=== PATIENT | male | born 1940 | race Caucasian/White ===

== ENCOUNTER → 2016-07-30 | Outpatient (CLI) | payer OTHER ==
[~2016-07-30] MED LIST: ALBUAER INH; AMOX875T PO; ASPEC81 PO; ATOR-22 PO; ATOR-24 PO; CLOP1TAB15 PO; GABA-113 PO; HYDR-5688 PO; LISI40TA PO; METH-1305 PO; METO50TA7 PO; MOME200A INH; NTRGSL/4 UT; PRLSR20 PO; TAMS0.4C38 PO
[2016-07-30 10:32] LABS: HEMATOCRIT 36.5 % (42-52); MEAN CELL VOLUME 93.6 fL (80-100); MEAN CORPUSCULAR HEMOGLOBIN 33.6 pg (25-34); MEAN CORPUSCULAR HGB CONC 35.9 g/dl (32-36); MEAN PLATELET VOLUME 10.1 fL (7.4-10.4); PLATELET COUNT 263 K/uL (130-400); WHITE BLOOD COUNT 7.23 K/uL (4.8-10.8)
[2016-07-30 11:06] LABS: ALKALINE PHOSPHATASE 66 U/L (45-117); ALT/SGPT 16 U/L (12-78); AST/SGOT 20 U/L (15-37); BLOOD UREA NITROGEN 21 mg/dl (7-18); BUN/CREATININE RATIO 13.3 (10-20); CALCIUM 8.6 mg/dl (8.5-10.1); CARBON DIOXIDE 28 mmol/L (21-32); CHLORIDE 96 mmol/L (98-107); CHOLESTEROL 132 mg/dl (0-200); CHOLESTEROL/HDL RATIO 2.3; GLUCOSE 89 mg/dl (70-99); HDL CHOLESTEROL 58 mg/dl; SODIUM 129 mmol/L (136-145)
[2016-07-30 11:11] LABS: LDL CHOLESTEROL CALCULATED 64 mg/dl; PHOSPHORUS 3.1 mg/dl (2.5-4.9); TRIGLYCERIDES 52 mg/dl (0-150); VERY LOW DENSITY LIPOPROT CALC 10 mg/dl
== END | disposition home or self-care (01) ==
LOC: C.LAB1850 09:49
PROVIDERS: ATTEND Internal Medicine Nephrology
DX: Z00.00 Encounter for general adult medical examination without abnormal findings (principal); N40.1 Benign prostatic hyperplasia with lower urinary tract symptoms; R97.20 Elevated prostate specific antigen [PSA]; R53.83 Other fatigue; N18.3 Chronic kidney disease, stage 3 (moderate)

== ENCOUNTER → 2017-03-12 | Outpatient (CLI) | payer OTHER ==
[~2017-03-12] MED LIST changes: +AMLO5TAB3 PO; +AMOX1TAB42 PO; +ASPI81TA28 PO; +ATOR-26 PO; +FLNIN; +FLUT0.15 INTNAS; +FURO-85 PO; +LISI-726 PO; +METO25TA3 PO; -METO50TA7 PO; +METO50TA8 PO; +NITR1CAP33 PO; +SYMIN160 INH; +VICODIN PO
--- NOTE | 2017-03-12 09:45 | DIAGNOSTIC IMAGING REPORT ---
ULTRASOUND OF THE ABDOMINAL AORTA CLINICAL HISTORY: Abdominal aortic aneurysm. COMPARISON STUDY: Ultrasound of the abdominal aorta dated 11/04/2012. TECHNIQUE: Multiple tejada scale, color Doppler, and spectral Doppler sonograms of the abdominal aorta and iliac arteries are performed. Images are reviewed in the transverse and longitudinal planes. FINDINGS: There is moderate to advanced atherosclerotic calcification and irregularity noted throughout the abdominal aorta. The proximal abdominal aorta measures 2.8 x 2.3 cm (AP times transverse) and the mid abdominal aorta measures 2.5 x 2.4 cm. There is a small aneurysm of the distal abdominal aorta. This measures 3.1 x 3.3 cm. The right common iliac artery measures up to 2.0 cm and the left common iliac artery measures up to 1.2 cm. Flow is shown throughout the abdominal aorta. IMPRESSION: 1. There is a 3.1 x 3.3 cm aneurysm of the distal abdominal aorta as above. This is overall similar to the 2013 examination when it measured 3.1 x 3.6 cm. 2. 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 Electronically signed by: Momo Donnelly M.D. 03/12/2017 9:44 AM Dictated Date/Time: 03/12/2017 9:42 AM
[2017-03-12 10:07] LABS: ALBUMIN 3.4 gm/dl (3.4-5.0); BLOOD UREA NITROGEN 18 mg/dl (7-18); CALCIUM 9.1 mg/dl (8.5-10.1); CARBON DIOXIDE 27 mmol/L (21-32); CREATININE 1.58 mg/dl (0.60-1.40); GLUCOSE 86 mg/dl (70-99); POTASSIUM 4.4 mmol/L (3.5-5.1); SODIUM 130 mmol/L (136-145)
[2017-03-12 10:12] LABS: PHOSPHORUS 2.9 mg/dl (2.5-4.9)
== END | disposition home or self-care (01) ==
LOC: C.ULTR 08:29
PROVIDERS: ATTEND Physician Assistant
DX: N40.1 Benign prostatic hyperplasia with lower urinary tract symptoms (principal); N18.3 Chronic kidney disease, stage 3 (moderate); I71.4 Abdominal aortic aneurysm, without rupture; I72.3 Aneurysm of iliac artery

== ENCOUNTER 2017-03-25 11:15 | Observation (INO) | payer OTHER ==
[~2017-03-25] VITALS: Ht 167.6 cm; Wt 69.2 kg
[~2017-03-25 11:15] MED LIST changes: -AMLO5TAB3 PO; -AMOX1TAB42 PO; -ASPI81TA28 PO; -ATOR-26 PO; -FLNIN; -FLUT0.15 INTNAS; -FURO-85 PO; -LISI-726 PO; -METO25TA3 PO; +METO50TA7 PO; -METO50TA8 PO; -NITR1CAP33 PO; -SYMIN160 INH; -VICODIN PO
[2017-03-25] MEDS ORDERED: ASPI81TA28 PO (11:39)
[2017-03-25] MEDS ORDERED: SYMIN160 INH (11:39)
[2017-03-25] MEDS ORDERED: METO25TA3 PO (11:39)
[2017-03-25] MEDS ORDERED: AMLO-110 PO (11:39)
[2017-03-25] MEDS ORDERED: ATOR-26 PO (11:39)
[2017-03-25] MEDS ORDERED: FURO-85 PO (11:39)
[2017-03-25] MEDS ORDERED: SODIUM CHLORIDE 0.9% 1000ML 1,000 ML IV ONE (11:49)
[2017-03-25 12:43] LABS: BASO % 0.2 %; BASO ABS # 0.02 K/uL (0-0.2); EOS % 1.8 %; EOS ABS # 0.17 K/uL (0-0.5); HEMATOCRIT 38.3 % (42-52); HEMOGLOBIN 13.4 g/dL (14.0-18.0); IG# 0.04 K/uL (0.00-0.02); LYMPH % 14.9 %; LYMPH ABS # 1.41 K/uL (1.2-3.4); MEAN CORPUSCULAR HEMOGLOBIN 33.3 pg (25-34); MEAN PLATELET VOLUME 10.7 fL (7.4-10.4); MONO % 12.1 %; MONO ABS # 1.15 K/uL (0.11-0.59); NEUT % 70.6 %; NEUT ABS # 6.69 K/uL (1.4-6.5); PLATELET COUNT 325 K/uL (130-400); RED CELL DISTRIBUTION WIDTH CV 13.3 % (11.5-14.5); RED CELL DISTRIBUTION WIDTH SD 46.2 fL (36.4-46.3); WHITE BLOOD COUNT 9.48 K/uL (4.8-10.8)
--- NOTE | 2017-03-25 12:44 | DIAGNOSTIC IMAGING REPORT ---
CT SCAN OF THE BRAIN WITHOUT IV CONTRAST CLINICAL HISTORY: Headache and dizziness. COMPARISON STUDY: No priors. TECHNIQUE: Unenhanced axial CT scan of the brain is performed from the vertex to the skull base. A dose lowering technique was utilized adhering to the principles of ALARA. CT DOSE: 614.27 mGy.cm FINDINGS: Brain parenchyma: There are age-related involutional changes noting moderate confluent subcortical and periventricular microangiopathic change. A tiny chronic lacunar infarct is seen in the left caudate head. There is no hemorrhage, mass effect, or evidence of acute territorial ischemia by CT criteria. Midd[place]-white matter is preserved. No extra-axial fluid collection is seen. Ventricles, sulci, cisterns: Prominent secondary to involutional change. Intracranial vasculature: There is atherosclerotic calcification of the cavernous carotid and vertebral arteries. Calvarium: Unremarkable. Sinuses and mastoids: There is complete opacification of the right maxillary antrum. Moderate to advanced mucosal thickening is seen throughout the ethmoid sinuses. Milder mucosal thickening seen within the frontal, left sphenoid, and left maxillary sinuses. The mastoid air cells are well pneumatized. Orbits: The bony orbits are grossly intact. There is evidence of bilateral ocular lens surgery. IMPRESSION: 1. There is no hemorrhage, mass effect, or evidence of acute territorial ischemia by CT criteria. 2. Paranasal sinus disease as above. Correlate clinically for evidence of acute sinusitis. Electronically signed by: Momo Donnelly M.D. 03/25/2017 12:42 PM Dictated Date/Time: 03/25/2017 12:40 PM
[2017-03-25] MEDS ORDERED: VANCOMYCIN INJ 1,000 MG in SODIUM CHLORIDE 0.9% 250ML 250 ML IV STA (12:49)
[2017-03-25] MEDS ORDERED: CEFTRIAXONE SOD INJ 1 GM ADDVIAL IV STA (12:49)
[2017-03-25] MEDS ORDERED: SODIUM CHLORIDE 0.65% NA SOLN 45 ML (OCEAN) ONE (13:00)
[2017-03-25 13:04] LABS: ALBUMIN 2.9 gm/dl (3.4-5.0); ALT/SGPT 16 U/L (12-78); AST/SGOT 17 U/L (15-37); BLOOD UREA NITROGEN 22 mg/dl (7-18); CALCIUM 8.9 mg/dl (8.5-10.1); CARBON DIOXIDE 24 mmol/L (21-32); GLUCOSE 115 mg/dl (70-99); POTASSIUM 4.9 mmol/L (3.5-5.1); SODIUM 133 mmol/L (136-145)
[2017-03-25 13:05] LABS: INFLUENZA B ANTIGEN Neg for Influ B (NEG)
[2017-03-25 13:08] LABS: ALKALINE PHOSPHATASE 65 U/L (45-117); CKMB 0.8 ng/ml (0.5-3.6); TOTAL PROTEIN 7.3 gm/dl (6.4-8.2)
[2017-03-25 13:23] LABS: PTT PATIENT 27.3 SECONDS (21.0-31.0)
[2017-03-25] MEDS ORDERED: NITROGLYCERIN 0.4 MG SL PER TAB CHARGE UT SCH (14:15)
[2017-03-25] MEDS ORDERED: ACETAMINOPHEN 325 MG TAB PO PRN (14:15)
[2017-03-25] MEDS ORDERED: ALBUTEROL HFA 8 GM INHALER INH PRN (14:15)
[2017-03-25] MEDS ORDERED: ONDANSETRON INJ 2 MG/ML 2 ML VIAL IV PRN (14:15)
[2017-03-25] MEDS ORDERED: LSN20 PO (14:19)
--- NOTE | 2017-03-25 14:21 | DIAGNOSTIC IMAGING REPORT ---
SINGLE VIEW CHEST CLINICAL HISTORY: Sepsis. FINDINGS: An AP, portable, upright chest radiograph is compared to study dated 12/13/2015 and correlated with chest CT dated 11/06/2014. The examination is degraded by portable technique and patient rotation. The patient is status post midline sternotomy. The heart is enlarged and there is atherosclerotic calcification of the thoracic aorta. Emphysema and chronic interstitial thickening are similar to previous. Numerous calcified granulomas are unchanged. There is no evidence of superimposed airspace consolidation or large pleural effusion. No pneumothorax is seen. The skeletal structures are osteopenic. The bony thorax is grossly intact. IMPRESSION: 1. Cardiomegaly and emphysema. 2. There is no acute cardiopulmonary abnormality. 3. Numerous calcified granulomas are similar to previous. Electronically signed by: Momo Donnelly M.D. 03/25/2017 2:19 PM Dictated Date/Time: 03/25/2017 2:18 PM
--- NOTE | 2017-03-25 14:30 | History and Physical ---
History & Physical Date & Time of Service: Mar 25, 2017 at 14:13 Chief Complaint: Weak,No Apetie,Tariq Primary Care Physician: Raheem Roque M.D. History of Present Illness Source: patient, family, clinic records, hospital records This is a 76 year old male with a PMH of CAD s/p CABGx5, HTN, HLD, CKD stage 3, BPH, urinary stricture and ongoing intermittent straight cath, COPD, polymyalgia rheumatica presents with sinus pressure, upper respiratory issues - and as per , he was also confused and not making sense when she spoke. History obtained from both the patient and the patient's . He is not very confused currently, knows his name, , knows where he is and states he does not recall being confused. He tells me he had sinus symptoms for over 3 weeks including sinus pressure/congestion/runny nose with some dizziness. Denies fevers/chills. Denies shortness of breath or cough. states that the only change in medication was Lisinopril decreased to 20mg from 40mg. She states that he has not been eating properly and she thought he was dehydrated. Had a few episodes of confusion in the past, in November 2015 - he was slightly confused and at that time, it was attributed to polypharmacy. Patient takes hydrocodone for chronic back pain, but states he only takes 1-2 tablets per day and at times even less than that. Denies chest pain. Past Medical/Surgical History Medical Problems: (1) DJD (degenerative joint disease) Status: Chronic (2) Heart disease Status: Chronic (3) Hypertension Status: Chronic Surgical Problems: (1) S/P quintuple vessel bypass Status: Resolved Family History Heart disease Social History Smoking Status: Former Smoker Marital Status: Occupational Status: retired Immunizations History of Influenza Vaccine: N/A History of Tetanus Vaccine?: No History of Pneumococcal: Yes Pneumococcal Date: Nov 17, 2005 History of Hepatitis B Vaccine: No Multi-Drug Resistant Organisms History of MDRO: No Allergies Coded Allergies: NO KNOWN DRUG ALLERGIES (Verified Allergy, Unknown, NONE, 12/13/15) Cyclobenzaprine (Unverified Adverse Reaction, Unknown, ., 03/25/17) Home Medications Scheduled Amlodipine (Norvasc), 5 MG PO DAILY Aspirin (Aspirin Ec), 81 MG PO DAILY Atorvastatin (Lipitor), 80 MG PO DAILY Budesonide/Formoterol Fumarate (Symbicort 160/4.5 Inhaler ), 2 PUFFS INH BID Clopidogrel (Plavix), 75 MG PO DAILY Furosemide (Lasix), 20 MG PO UD Gabapentin (Neurontin), 300 MG PO TID Lisinopril (Lisinopril), 20 MG PO DAILY Methenamine Hippurate (Methenamine Hippurate), 1 GM PO QPM Metoprolol Succ (Toprol Xl) (Toprol-Xl), 25 MG PO DAILY Nitroglycerin (Nitrostat), 0.4 MG UT PRN Omeprazole (Prilosec), 20 MG PO DAILY Tamsulosin Hcl (Flomax), 0.4 MG PO DAILY Scheduled PRN Albuterol Sulfate (Proventil Hfa), 2 PUFFS INH Q4H PRN for Shortness of Breath Review of Systems Constitutional: No fever, No chills, No weakness Eyes: No worsening of vision, No eye pain, No discharge ENT: + nasal symptoms, No hearing loss, No unusual epistaxis, No sore throat, No tinnitus, No dental problems, No trouble swallowing Respiratory: No cough, No sputum, No wheezing, No shortness of breath, No dyspnea on exertion, No dyspnea at rest, No hemoptysis Cardiovascular: No chest pain, No orthopnea, No edema, No palpitations Abdomen: No pain, No nausea, No vomiting, No diarrhea, No constipation, No GI bleeding Musculoskeletal: + joint pain (chronic back pain) Genitourinary - Male: + urinary retention (chronic urinary retention), No hematuria, No dysuria, No urinary frequency, No urinary urgency Neurologic: + vertigo, No weakness, No numbness/tingling, No balance problems Psychiatric: No depression symptoms, No anxiety, No insomnia Endocrine: No fatigue Hematologic / Lymphatic: No abnormal bleeding/bruising Integumentary: No rash, No new/changing skin lesions Allergic / Immunologic: No environmental allergies, No seasonal allergies Physical Exam Vital Signs Date Time Temp Pulse Resp B/P (MAP) Pulse Ox O2 Delivery O2 Flow Rate FiO2 03/25/17 13:26 63 20 98/60 92 Room Air 03/25/17 11:45 71 03/25/17 11:39 93 Room Air 03/25/17 11:19 36.7 88 20 82/54 97 Room Air General Appearance: WD/WN, no apparent distress Head: normocephalic, atraumatic Eyes: normal inspection ENT: hearing grossly normal Neck: supple Respiratory/Chest: chest non-tender, lungs clear, normal breath sounds, no respiratory distress, no accessory muscle use Cardiovascular: regular rate, rhythm, no edema, no gallop, no JVD, no murmur, normal peripheral pulses Abdomen/GI: normal bowel sounds, non tender, soft Genitourinary - Male: normal male genitalia, normal phallus Back: + pertinent finding (painful ROM) Extremities/Musculoskelatal: normal capillary refill, no pedal edema Neurologic/Psych: 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, no motor/sensory deficits, alert, normal mood/affect, oriented x 3 Skin: normal color Lymphatic: no adenopathy Diagnostics Laboratory Results Results Past 24 Hours Test 03/25/17 00:00 03/25/17 12:10 03/25/17 12:29 03/25/17 13:02 Range/Units Influenza Type A Antigen Neg for Influ A NEG Influenza Type B Antigen Neg for Influ B NEG White Blood Count 9.48 4.8-10.8 K/uL Red Blood Count 4.03 4.7-6.1 M/uL Hemoglobin 13.4 14.0-18.0 g/dL Hematocrit 38.3 42-52 % Mean Corpuscular Volume 95.0 80-100 fL Mean Corpuscular Hemoglobin 33.3 25-34 pg Mean Corpuscular Hemoglobin Concent 35.0 32-36 g/dl Platelet Count 325 130-400 K/uL Mean Platelet Volume 10.7 7.4-10.4 fL Neutrophils (%) (Auto) 70.6 % Lymphocytes (%) (Auto) 14.9 % Monocytes (%) (Auto) 12.1 % Eosinophils (%) (Auto) 1.8 % Basophils (%) (Auto) 0.2 % Neutrophils # (Auto) 6.69 1.4-6.5 K/uL Lymphocytes # (Auto) 1.41 1.2-3.4 K/uL Monocytes # (Auto) 1.15 0.11-0.59 K/uL Eosinophils # (Auto) 0.17 0-0.5 K/uL Basophils # (Auto) 0.02 0-0.2 K/uL RDW Standard Deviation 46.2 36.4-46.3 fL RDW Coefficient of Variation 13.3 11.5-14.5 % Immature Granulocyte % (Auto) 0.4 % Immature Granulocyte # (Auto) 0.04 0.00-0.02 K/uL Sodium Level 133 136-145 mmol/L Potassium Level 4.9 3.5-5.1 mmol/L Chloride Level 101 98-107 mmol/L Carbon Dioxide Level 24 21-32 mmol/L Anion Gap 8.0 3-11 mmol/L Blood Urea Nitrogen 22 7-18 mg/dl Creatinine 1.70 0.60-1.40 mg/dl Estimated GFR () 44.4 Estimated GFR (Non- 38.3 BUN/Creatinine Ratio 12.9 10-20 Random Glucose 115 70-99 mg/dl Calcium Level 8.9 8.5-10.1 mg/dl Total Bilirubin 0.6 0.2-1 mg/dl Aspartate Amino Transf (AST/SGOT) 17 15-37 U/L Alanine Aminotransferase (ALT/SGPT) 16 12-78 U/L Alkaline Phosphatase 65 45-117 U/L Total Creatine Kinase 45 39-308 U/L Creatine Kinase MB 0.8 0.5-3.6 ng/ml Creatine Kinase MB Ratio 1.8 0-3.0 Troponin I < 0.015 0-0.045 ng/ml Total Protein 7.3 6.4-8.2 gm/dl Albumin 2.9 3.4-5.0 gm/dl Globulin 4.4 2.5-4.0 gm/dl Albumin/Globulin Ratio 0.7 0.9-2 Procalcitonin < 0.05 0-0.5 ng/ml Bedside Lactic Acid Venous 1.65 0.90-1.70 mmol/L Prothrombin Time 10.7 9.0-12.0 SECONDS Prothromb Time International Ratio 1.0 0.9-1.1 Activated Partial Thromboplast Time 27.3 21.0-31.0 SECONDS Partial Thromboplastin Ratio 1.1 Microbiology Results 03/25/17 Blood Culture, Received Pending 03/25/17 Blood Culture, Received Pending Diagnostic Radiology SINGLE VIEW CHEST CLINICAL HISTORY: Sepsis. FINDINGS: An AP, portable, upright chest radiograph is compared to study dated 12/13/2015 and correlated with chest CT dated 11/06/2014. The examination is degraded by portable technique and patient rotation. The patient is status post midline sternotomy. The heart is enlarged and there is atherosclerotic calcification of the thoracic aorta. Emphysema and chronic interstitial thickening are similar to previous. Numerous calcified granulomas are unchanged. There is no evidence of superimposed airspace consolidation or large pleural effusion. No pneumothorax is seen. The skeletal structures are osteopenic. The bony thorax is grossly intact. IMPRESSION: 1. Cardiomegaly and emphysema. 2. There is no acute cardiopulmonary abnormality. 3. Numerous calcified granulomas are similar to previous. CT SCAN OF THE BRAIN WITHOUT IV CONTRAST CLINICAL HISTORY: Headache and dizziness. COMPARISON STUDY: No priors. TECHNIQUE: Unenhanced axial CT scan of the brain is performed from the vertex to the skull base. A dose lowering technique was utilized adhering to the principles of ALARA. CT DOSE: 614.27 mGy.cm FINDINGS: Brain parenchyma: There are age-related involutional changes noting moderate confluent subcortical and periventricular microangiopathic change. A tiny chronic lacunar infarct is seen in the left caudate head. There is no hemorrhage, mass effect, or evidence of acute territorial ischemia by CT criteria. [place]-white matter is preserved. No extra-axial fluid collection is seen. Ventricles, sulci, cisterns: Prominent secondary to involutional change. Intracranial vasculature: There is atherosclerotic calcification of the cavernous carotid and vertebral arteries. Calvarium: Unremarkable. Sinuses and mastoids: There is complete opacification of the right maxillary antrum. Moderate to advanced mucosal thickening is seen throughout the ethmoid sinuses. Milder mucosal thickening seen within the frontal, left sphenoid, and left maxillary sinuses. The mastoid air cells are well pneumatized. Orbits: The bony orbits are grossly intact. There is evidence of bilateral ocular lens surgery. IMPRESSION: 1. There is no hemorrhage, mass effect, or evidence of acute territorial ischemia by CT criteria. 2. Paranasal sinus disease as above. Correlate clinically for evidence of acute sinusitis. EKG Sinus rhythm with occasional Premature ventricular complexes Left axis deviation Impression Assessment and Plan This is a 76 year old male with a PMH of CAD s/p CABGx5, HTN, HLD, CKD stage 3, BPH, urinary stricture and ongoing intermittent straight cath, COPD, polymyalgia rheumatica presents with sinus pressure, upper respiratory issues - and as per , he was also confused Altered Mental State clinically improving during my exam, he is AAOx3 symptoms likely a combination of polypharmacy, acute sinusitis, dehydration Head CT with no acute intracranial issues; shows paranasal sinusitis monitor overnight cultures pending PT/OT - discharge planning eval Acute Paranasal Sinusitis patient with sinusitis will add Flonase Unasyn added can d/c on Augmentin if doing well Acute Kidney Injury superimposed on CKD stage 3 creatinine at baseline is around 1.5 creatinine on admission 1.7 will give IVFs, recheck electrolytes and kidney function in AM BPH Urinary Stricture intermittent self-cath will place a catheter, check urine for any infections continue chronic methenamine treatment CAD s/p CABG x5 no acute issues; no chest pain continue current cardiac medications: aspirin, Plavix, metoprolol, Lipitor HTN hold Lisinopril and Amlodipine for now continue b-phani monitor BP and restart medications as needed COPD no acute issues, no wheezing, no shortness of breath continue Symbicort (failed Advair and Dulera) DVT ppx subq heparin FULL CODE VTE Prophylaxis VTE Risk Assessment Done? Y/N: Yes Risk Level: Moderate
[2017-03-25] MEDS ORDERED: IV FLUIDS COMPLETED PRN (15:15)
[2017-03-25 16:18] VITALS: BP 148/81; PULSE 69; TEMP 36.7; O2SAT 92
[2017-03-25 16:29] VITALS: BMI 24.6
[2017-03-25] MEDS ORDERED: PATIENT'S HEIGHT AND/OR WEIGHT NEEDED SCH (16:30)
[2017-03-25] MEDS: SODIUM CHLORIDE 0.9% 1000ML 1,000 ML IV SCH (16:35)
[2017-03-25 18:00] VITALS: BP 148/81; PULSE 69; TEMP 36.7; O2SAT 92; Ht 167.6 cm; Wt 69.2 kg
[2017-03-25] MEDS: AMPICILLIN/SULBACTAM SOD INJ 3,000 MG in SODIUM CHLORIDE 0.9% 100ML 100 ML IV SCH (18:53)
[2017-03-25] MEDS: FLUTICASONE PROPIONATE NA SPR 16 GM BTL SCH (20:00)
[2017-03-25] MEDS: BUDESONIDE/FORMOTEROL FUMARATE 160/4.5 60 PUFFS/INHALER INH SCH (20:32)
[2017-03-25] MEDS: GABAPENTIN 300 MG CAP PO SCH (20:34)
[2017-03-25] MEDS: HEPARIN SOD 5000 UNIT/0.5 ML CARP SQ SCH (20:37)
[2017-03-25] MEDS ORDERED: METHENAMINE HIPPURATE 1 GM TAB PO SCH (21:00)
[2017-03-25 23:36] VITALS: BP 132/75; PULSE 78; TEMP 36.2; O2SAT 92
[2017-03-26] MEDS: AMPICILLIN/SULBACTAM SOD INJ 3,000 MG in SODIUM CHLORIDE 0.9% 100ML 100 ML IV SCH (05:46)
[2017-03-26] MEDS: SODIUM CHLORIDE 0.9% 1000ML 1,000 ML IV SCH ×2 (05:47→15:15)
[2017-03-26 06:05] LABS: HEMATOCRIT 35.5 % (42-52); HEMOGLOBIN 12.3 g/dL (14.0-18.0); MEAN CELL VOLUME 94.9 fL (80-100); MEAN CORPUSCULAR HEMOGLOBIN 32.9 pg (25-34); MEAN CORPUSCULAR HGB CONC 34.6 g/dl (32-36); MEAN PLATELET VOLUME 10.2 fL (7.4-10.4); PLATELET COUNT 298 K/uL (130-400); RED CELL DISTRIBUTION WIDTH CV 13.3 % (11.5-14.5); RED CELL DISTRIBUTION WIDTH SD 46.2 fL (36.4-46.3); WHITE BLOOD COUNT 8.31 K/uL (4.8-10.8)
[2017-03-26 06:44] LABS: CALCIUM 8.5 mg/dl (8.5-10.1); CREATININE 1.35 mg/dl (0.60-1.40); POTASSIUM 4.5 mmol/L (3.5-5.1)
[2017-03-26 07:41] VITALS: BP 140/79; PULSE 68; TEMP 36.4; O2SAT 92
[2017-03-26] MEDS ORDERED: METOPROLOL SUCC 25MG EXT REL TAB PO SCH (08:00)
[2017-03-26] MEDS ORDERED: ASPIRIN 81 MG ECTAB PO SCH (08:00)
[2017-03-26] MEDS ORDERED: ATORVASTATIN 40 MG TAB PO SCH (08:00)
[2017-03-26] MEDS ORDERED: CLOPIDOGREL BISULFATE 75 MG TAB PO SCH (08:00)
[2017-03-26] MEDS ORDERED: TAMSULOSIN HCL 0.4 MG CAP PO SCH (08:00)
[2017-03-26] MEDS ORDERED: PANTOprazole SOD 40 MG TAB PO SCH (08:00)
[2017-03-26] MEDS: BUDESONIDE/FORMOTEROL FUMARATE 160/4.5 60 PUFFS/INHALER INH SCH (08:05)
[2017-03-26] MEDS: FLUTICASONE PROPIONATE NA SPR 16 GM BTL SCH (08:06)
[2017-03-26] MEDS: GABAPENTIN 300 MG CAP PO SCH ×2 (08:06→14:22)
[2017-03-26] MEDS: HEPARIN SOD 5000 UNIT/0.5 ML CARP SQ SCH (08:12)
[2017-03-26 16:19] VITALS: BP 126/74; PULSE 68; TEMP 36.4; O2SAT 91
[2017-03-26] MEDS ORDERED: AMOX1TAB42 PO (16:25)
[2017-03-26] MEDS ORDERED: FLNIN (16:25)
--- NOTE | 2017-03-26 16:26 | Discharge Instructions ---
Discharge Instructions Date of Service Mar 26, 2017. Admission Reason for Admission: Confusional State, Sinusitis Discharge Discharge Diagnosis / Problem: ACUTE SINUSITIS /CONFUSION Discharge Goals Goal(s): Decrease discomfort, Increase independence, Improve disease control, Diagnostic testing, Therapeutic intervention Activity Recommendations Activity Limitations: resume your previous activity . Instructions / Follow-Up Instructions / Follow-Up HOSPITAL FOLLOW UP : 04/01/2017 3:45 PM Raheem Roque MD [facility] Current Hospital Diet Patient's current hospital diet: AHA Diet (Heart Healthy), Renal Diet Discharge Diet Recommended Diet: AHA Diet (Heart Healthy) Pending Studies Studies pending at discharge: no Medical Emergencies . Who to Call and When: Medical Emergencies: If at any time you feel your situation is an emergency, please call 911 immediately. . Non-Emergent Contact Non-Emergency issues call your: Primary Care Provider . . "Provider Documentation" section prepared by Karlene Ramires. . VTE Core Measure Inpt VTE Proph given/why not?: Unfractionated heparin SQ
--- NOTE | 2017-03-26 16:27 | Progress Note ---
Internal Med Progress Note Date of Service: Mar 26, 2017. Provider Documentation: SUBJECTIVE: awake and alert , offers no complain no evidence of confusion , walking independently very eager to go home no fever or chills , no discomfort OBJECTIVE: Vital Signs-as noted below Exam: General-elderly male , very pleasant , no sign of distress Eyes-sclera non icteric ,PERRLA/EOMI ENT-moist , oral mucosa Neck-no thyromegaly . trachea midline Lungs-no wheeze or rales noted, clear to auscultate Heart-regular S1/S2 , no murmur , no JVD, no lower ext edema Abdomen-soft, non tender ,no active bowel sound Extremities-no rash or deformity Neuro-AAO x3, no focal neurological deficit Lab data as noted below. ASSESSMENT & PLAN: This is a 76 year old male with a PMH of CAD s/p CABGx5, HTN, HLD, CKD stage 3, BPH, urinary stricture and ongoing intermittent straight cath, COPD, polymyalgia rheumatica presents with sinus pressure, upper respiratory issues - and as per , he was also confused CONFUSION /METABOLIC ENCEPHALOPATHY possible due to dehydration , infection -URI /acute sinusitis, mental status improved today awake and alert , conversing ambulating independently Head CT with no acute intracranial issues; shows paranasal sinusitis discharged form PT/OT as pt found to be back to baseline functional status , ambulated [address] with cane without assistance stable to be discharged home Acute Paranasal .MAXILLARY Sinusitis complains of sinus congestion /pressure no fever or chills . normal white count no cough will add Flonase was treated with Unasyn stable to be discharged home with PO Augmentin Acute Kidney Injury superimposed on CKD stage 3 due to Poor PO intake, infection -sinusitis creatinine on admission 1.7 improved to baseline with IV fluids BPH Urinary Stricture intermittent self-cath on evidence of UTI continue chronic methenamine treatment CAD s/p CABG x5 no acute issues; no chest pain continue current cardiac medications: aspirin, Plavix, metoprolol, Lipitor HTN resumed Lisinopril and Amlodipine for now continue b-phani COPD no acute issues, continue Symbicort DVT ppx subq heparin DISPOSITION Stable to be discharge home today medicine follow up with Dr Maya Vital Signs: Date Time Temp Pulse Resp B/P (MAP) Pulse Ox O2 Delivery O2 Flow Rate FiO2 03/26/17 16:19 36.4 68 18 126/74 (91) 91 Room Air 03/26/17 10:15 Room Air 03/26/17 07:41 36.4 68 20 140/79 (99) 92 Room Air 03/26/17 04:00 Room Air 03/26/17 00:00 Room Air 03/25/17 23:36 36.2 78 20 132/75 (94) 92 Room Air 03/25/17 18:00 36.7 69 18 148/81 92 Room Air Lab Results: Results Past 24 Hours Test 03/26/17 05:52 Range/Units White Blood Count 8.31 4.8-10.8 K/uL Red Blood Count 3.74 4.7-6.1 M/uL Hemoglobin 12.3 14.0-18.0 g/dL Hematocrit 35.5 42-52 % Mean Corpuscular Volume 94.9 80-100 fL Mean Corpuscular Hemoglobin 32.9 25-34 pg Mean Corpuscular Hemoglobin Concent 34.6 32-36 g/dl RDW Standard Deviation 46.2 36.4-46.3 fL RDW Coefficient of Variation 13.3 11.5-14.5 % Platelet Count 298 130-400 K/uL Mean Platelet Volume 10.2 7.4-10.4 fL Sodium Level 136 136-145 mmol/L Potassium Level 4.5 3.5-5.1 mmol/L Chloride Level 106 98-107 mmol/L Carbon Dioxide Level 24 21-32 mmol/L Anion Gap 6.0 3-11 mmol/L Blood Urea Nitrogen 18 7-18 mg/dl Creatinine 1.35 0.60-1.40 mg/dl Est Creatinine Clear Calc Drug Dose 42.0 ml/min Estimated GFR () 58.7 Estimated GFR (Non- 50.6 BUN/Creatinine Ratio 13.6 10-20 Random Glucose 84 70-99 mg/dl Calcium Level 8.5 8.5-10.1 mg/dl Magnesium Level 1.9 1.8-2.4 mg/dl
[2017-03-26 16:28] VITALS: BP 126/74; PULSE 68; TEMP 36.4; O2SAT 91
--- NOTE | 2017-03-26 16:41 | Discharge Summary ---
Discharge Summary Date of Service Mar 26, 2017. Discharge Summary Admission Date: Mar 25, 2017 at 14:11 Discharge Date: Mar 26, 2017 Discharge Disposition: Home Principal Diagnosis: ACUTE SINUSITIS /CONFUSION Medication Reconciliation New Medications: Amoxicillin & Pot Clavulanate (Amoxicillin/Clavulanate P) 1 Tab Tab 1 TAB PO BID for 5 Days, #10 TAB Fluticasone Propionate (Fluticasone Propionate) 50 Mcg/Act Spr 2 SPRAYS NA BID for 30 Days, #1 INHALER 2 Refills Continued Medications: Albuterol Sulfate (Proventil Hfa) 108 Mcg/Act Aer 2 PUFFS INH Q4H PRN for Shortness of Breath Amlodipine (Norvasc) 5 Mg Tab 5 MG PO DAILY, TAB Aspirin (Aspirin Ec) 81 Mg Tab 81 MG PO DAILY Atorvastatin (Lipitor) 80 Mg Tab 80 MG PO DAILY, TAB Budesonide/Formoterol Fumarate (Symbicort 160/4.5 Inhaler ) Aero 2 PUFFS INH BID, INHALER Clopidogrel (Plavix) 75 Mg Tab 75 MG PO DAILY Furosemide (Lasix) 20 Mg Tab 20 MG PO UD, TAB Gabapentin (Neurontin) 300 Mg Cap 300 MG PO TID, CAP Lisinopril (Lisinopril) 20 Mg Tab 20 MG PO DAILY Methenamine Hippurate (Methenamine Hippurate) 1 Gm Tab 1 GM PO QPM Metoprolol Succ (Toprol Xl) (Toprol-Xl) 25 Mg Tabcr 25 MG PO DAILY, TAB Nitroglycerin (Nitrostat) 0.4 Mg Tab 0.4 MG UT PRN DISSOLVE 1 TABLET UNDER THE TONGUE EVERY 5 MINUTES - UP TO 3 TIMES NEEDED FOR CHEST PAIN Omeprazole (Prilosec) 20 Mg Capcr 20 MG PO DAILY, CAP Tamsulosin Hcl (Flomax) 0.4 Mg Cap 0.4 MG PO DAILY, CAP Admission Information HPI (per Admitting provider): This is a 76 year old male with a PMH of CAD s/p CABGx5, HTN, HLD, CKD stage 3, BPH, urinary stricture and ongoing intermittent straight cath, COPD, polymyalgia rheumatica presents with sinus pressure, upper respiratory issues - and as per , he was also confused and not making sense when she spoke. History obtained from both the patient and the patient's . He is not very confused currently, knows his name, , knows where he is and states he does not recall being confused. He tells me he had sinus symptoms for over 3 weeks including sinus pressure/congestion/runny nose with some dizziness. Denies fevers/chills. Denies shortness of breath or cough. states that the only change in medication was Lisinopril decreased to 20mg from 40mg. She states that he has not been eating properly and she thought he was dehydrated. Had a few episodes of confusion in the past, in November 2015 - he was slightly confused and at that time, it was attributed to polypharmacy. Patient takes hydrocodone for chronic back pain, but states he only takes 1-2 tablets per day and at times even less than that. Denies chest pain. Physical Exam (per Admitting): General Appearance: WD/WN, no apparent distress Head: normocephalic, atraumatic Eyes: normal inspection ENT: hearing grossly normal Neck: supple Respiratory/Chest: chest non-tender, lungs clear, normal breath sounds, no respiratory distress, no accessory muscle use Cardiovascular: regular rate, rhythm, no edema, no gallop, no JVD, no murmur , normal peripheral pulses Abdomen/GI: normal bowel sounds, non tender, soft Genitourinary - Male: normal male genitalia, normal phallus Back: + pertinent finding (painful ROM) Extremities/Musculoskelatal: normal capillary refill, no pedal edema Neurologic/Psych: 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, no motor/sensory deficits, alert , normal mood/affect, oriented x 3 Skin: normal color Lymphatic: no adenopathy Hospital Course This is a 76 year old male with a PMH of CAD s/p CABGx5, HTN, HLD, CKD stage 3, BPH, urinary stricture and ongoing intermittent straight cath, COPD, polymyalgia rheumatica presents with sinus pressure, upper respiratory issues - and as per , he was also confused CONFUSION /METABOLIC ENCEPHALOPATHY possible due to dehydration , infection -URI /acute sinusitis, mental status improved today awake and alert , conversing ambulating independently Head CT with no acute intracranial issues; shows paranasal sinusitis discharged form PT/OT as pt found to be back to baseline functional status , ambulated [address] with cane without assistance stable to be discharged home Acute Paranasal .MAXILLARY Sinusitis complains of sinus congestion /pressure no fever or chills . normal white count no cough will add Flonase was treated with Unasyn stable to be discharged home with PO Augmentin Acute Kidney Injury superimposed on CKD stage 3 due to Poor PO intake, infection -sinusitis creatinine on admission 1.7 improved to baseline with IV fluids BPH Urinary Stricture intermittent self-cath on evidence of UTI continue chronic methenamine treatment CAD s/p CABG x5 no acute issues; no chest pain continue current cardiac medications: aspirin, Plavix, metoprolol, Lipitor HTN resumed Lisinopril and Amlodipine for now continue b-phani COPD no acute issues, continue Symbicort DVT ppx subq heparin DISPOSITION Stable to be discharge home today medicine follow up with Dr Maya Discharge Instructions Discharge Instructions Date of Service Mar 26, 2017. Admission Reason for Admission: Confusional State, Sinusitis Discharge Discharge Diagnosis / Problem: ACUTE SINUSITIS /CONFUSION Discharge Goals Goal(s): Decrease discomfort, Increase independence, Improve disease control, Diagnostic testing, Therapeutic intervention Activity Recommendations Activity Limitations: resume your previous activity . Instructions / Follow-Up Instructions / Follow-Up HOSPITAL FOLLOW UP : 04/01/2017 3:45 PM Raheem Roque MD [facility] Current Hospital Diet Patient's current hospital diet: AHA Diet (Heart Healthy), Renal Diet Discharge Diet Recommended Diet: AHA Diet (Heart Healthy) Pending Studies Studies pending at discharge: no Medical Emergencies . Who to Call and When: Medical Emergencies: If at any time you feel your situation is an emergency, please call 911 immediately. . Non-Emergent Contact Non-Emergency issues call your: Primary Care Provider . . "Provider Documentation" section prepared by Karlene Ramires. . VTE Core Measure Inpt VTE Proph given/why not?: Unfractionated heparin SQ Additional Copies To Rowdy Johnston, DO
== END 2017-03-26 17:03 | disposition home or self-care (01) ==
LOC: C.EDB 11:15 → C.4E 14:11 → ENRESERV 15:13
PROVIDERS: ADMIT Family Medicine; ATTEND Hospitalist
DX: G93.41 Metabolic encephalopathy (principal); R41.0 Disorientation, unspecified; J01.00 Acute maxillary sinusitis, unspecified; I25.10 Atherosclerotic heart disease of native coronary artery without angina pectoris; Z95.1 Presence of aortocoronary bypass graft; N17.9 Acute kidney failure, unspecified; I12.9 Hypertensive chronic kidney disease with stage 1 through stage 4 chronic kidney disease, or unspecified chronic kidney disease; N18.3 Chronic kidney disease, stage 3 (moderate); E78.5 Hyperlipidemia, unspecified; N40.1 Benign prostatic hyperplasia with lower urinary tract symptoms; N13.8 Other obstructive and reflux uropathy; J44.9 Chronic obstructive pulmonary disease, unspecified; M35.3 Polymyalgia rheumatica; M19.90 Unspecified osteoarthritis, unspecified site; Z87.891 Personal history of nicotine dependence; Z79.82 Long term (current) use of aspirin; Z79.899 Other long term (current) drug therapy

== ENCOUNTER → 2017-05-07 | Outpatient (CLI) | payer OTHER ==
[~2017-05-07] MED LIST changes: +AMLO-110 PO; -AMOX875T PO; -ASPEC81 PO; +ASPI81TA28 PO; -ATOR-22 PO; -ATOR-24 PO; +ATOR-26 PO; +FLUT0.15 INTNAS; -HYDR-5688 PO; -LISI40TA PO; +LSN20 PO; +METO25TA3 PO; -METO50TA7 PO; -MOME200A INH; +NITR1CAP33 PO; +SYMIN160 INH; +VICODIN PO
== END | disposition home or self-care (01) ==
LOC: C.LAB 13:17
PROVIDERS: ATTEND Nurse Practitioner Adult Health
DX: N40.1 Benign prostatic hyperplasia with lower urinary tract symptoms (principal)

== ENCOUNTER 2017-05-11 07:29 | Day surgery (SDC) | payer OTHER ==
[2017-05-06 11:14] VITALS: BMI 26.0
--- NOTE | 2017-05-06 11:40 | PAT Medication Instructions ---
Service Date May 06, 2017. Current Home Medication List Albuterol Sulfate (Proventil Hfa), 2 PUFFS INH Q4H PRN for Shortness of Breath Amlodipine (Norvasc), 5 MG PO QAM Aspirin (Aspirin Ec), 81 MG PO QAM Atorvastatin (Lipitor), 80 MG PO QPM Budesonide/Formoterol Fumarate (Symbicort 160/4.5 Inhaler ), 2 PUFFS INH BID Clopidogrel (Plavix), 75 MG PO QAM Fluticasone Propionate (Nasal) (Flonase Allergy Relief), 2 SPRAYS INTNAS BID PRN for RN Gabapentin (Neurontin), 300 MG PO TID PRN for PRN Lisinopril (Lisinopril), 20 MG PO QAM Methenamine Hippurate (Methenamine Hippurate), 1 GM PO QPM Metoprolol Succ (Toprol Xl) (Toprol-Xl), 25 MG PO QAM Nitroglycerin (Nitrostat), 0.4 MG UT PRN Omeprazole (Prilosec), 20 MG PO QAM Tamsulosin Hcl (Flomax), 0.4 MG PO QPM [Vicodin], 1-2 TAB PO Q4-6H Medication Instructions For Your Scheduled Surgery - Check with surgeon and wastewater manager for instructions: Clopidogrel (Plavix), 75 MG PO QAM - Hold the following medications the morning of surgery: Lisinopril (Lisinopril), 20 MG PO QAM - Take the following medications the morning of surgery with a sip of water: [Vicodin], 1-2 TAB PO Q4-6H (okay to take up to 4 hours prior to surgery if needed) Aspirin (Aspirin Ec), 81 MG PO QAM (OKAY TO CONTINUE PER SURGEON) Omeprazole (Prilosec), 20 MG PO QAM Nitroglycerin (Nitrostat), 0.4 MG UT PRN (if needed) Metoprolol Succ (Toprol Xl) (Toprol-Xl), 25 MG PO QAM Gabapentin (Neurontin), 300 MG PO TID PRN for PRN (if needed) Fluticasone Propionate (Nasal) (Flonase Allergy Relief), 2 SPRAYS INTNAS BID PRN for RN (if needed) Budesonide/Formoterol Fumarate (Symbicort 160/4.5 Inhaler ), 2 PUFFS INH BID Albuterol Sulfate (Proventil Hfa), 2 PUFFS INH Q4H PRN for Shortness of Breath ( if needed) Amlodipine (Norvasc), 5 MG PO QAM - Take the following medications as scheduled the night before surgery: [Vicodin], 1-2 TAB PO Q4-6H (if needed) Tamsulosin Hcl (Flomax), 0.4 MG PO QPM Nitroglycerin (Nitrostat), 0.4 MG UT PRN (if needed) Gabapentin (Neurontin), 300 MG PO TID PRN for PRN (if needed) Fluticasone Propionate (Nasal) (Flonase Allergy Relief), 2 SPRAYS INTNAS BID PRN for RN (if needed) Budesonide/Formoterol Fumarate (Symbicort 160/4.5 Inhaler ), 2 PUFFS INH BID Atorvastatin (Lipitor), 80 MG PO QPM Albuterol Sulfate (Proventil Hfa), 2 PUFFS INH Q4H PRN for Shortness of Breath ( if needed) Methenamine Hippurate (Methenamine Hippurate), 1 GM PO QPM If you have any questions please call us at [phone] or [phone] or [phone]
[2017-05-06 12:08] LABS: BASO % 0.2 %; BASO ABS # 0.03 K/uL (0-0.2); EOS % 5.3 %; EOS ABS # 0.66 K/uL (0-0.5); HEMATOCRIT 38.9 % (42-52); HEMOGLOBIN 13.5 g/dL (14.0-18.0); IG# 0.03 K/uL (0.00-0.02); LYMPH % 8.8 %; MEAN CELL VOLUME 96.5 fL (80-100); MEAN CORPUSCULAR HEMOGLOBIN 33.5 pg (25-34); MEAN CORPUSCULAR HGB CONC 34.7 g/dl (32-36); MEAN PLATELET VOLUME 10.4 fL (7.4-10.4); MONO % 7.4 %; MONO ABS # 0.92 K/uL (0.11-0.59); NEUT % 78.1 %; NEUT ABS # 9.69 K/uL (1.4-6.5); PLATELET COUNT 256 K/uL (130-400); RED CELL DISTRIBUTION WIDTH CV 14.5 % (11.5-14.5); RED CELL DISTRIBUTION WIDTH SD 51.4 fL (36.4-46.3); WHITE BLOOD COUNT 12.43 K/uL (4.8-10.8)
[2017-05-06 12:17] LABS: CALCIUM 8.9 mg/dl (8.5-10.1); CREATININE 1.48 mg/dl (0.60-1.40); POTASSIUM 4.6 mmol/L (3.5-5.1)
[~2017-05-11] VITALS: Ht 170.2 cm; Wt 72.0 kg
[~2017-05-11 07:29] MED LIST changes: +GENTAMICIN INJ 100 MG in DEXTROSE 5% 100ML 100 ML IV SCH; +LACTATED RINGER'S 1000ML 1,000 ML IV SCH; -NITR1CAP33 PO
[2017-05-11] MEDS ORDERED: ATROPINE SULFATE 0.1 MG/ML 5ML SYR IV PRN (08:00)
[2017-05-11] MEDS ORDERED: EpHEDrine SULFATE INJ 50 MG/ML AMP IV PRN (08:00)
[2017-05-11] MEDS ORDERED: FENTANYL CITRATE INJ 50 MCG/1 ML 2 ML VIAL IV PRN (08:00)
[2017-05-11 08:08] VITALS: BP 170/79; PULSE 62; TEMP 36.5; O2SAT 97; Ht 170.2 cm; Wt 72.0 kg
[2017-05-11] MEDS ORDERED: FENTANYL CITRATE INJ 50 MCG/1 ML 2 ML VIAL ONE (08:43)
--- NOTE | 2017-05-11 08:55 | History & Physical Bridge Note ---
H&P Re-Evaluation Bridge Note: I have examined the patient, reviewed the History & Physical and in the interval since the performance of the History & Physical I have noted the following changes of clinical significance: No changes noted
[2017-05-11] MEDS ORDERED: LIDOCAINE HCL 2% 2 ML VIAL (20MG/ML) ONE (09:41)
[2017-05-11] MEDS ORDERED: PROPOFOL IV EMULSION 10 MG/ML 20 ML VIAL IV ONE (09:41)
[2017-05-11] MEDS ORDERED: EpHEDrine SULFATE 50MG/5ML SYR ONE (09:41)
[2017-05-11] MEDS ORDERED: ONDANSETRON INJ 2 MG/ML 2 ML VIAL ONE (09:41)
[2017-05-11] MEDS ORDERED: EpHEDrine SULFATE INJ 50 MG/ML AMP ONE ×2 (10:52→11:03)
--- NOTE | 2017-05-11 11:07 | [facility] Post Operative Brief Note ---
Immediate Operative Summary Operative Date May 11, 2017. Pre-Operative Diagnosis Uretheral stricture, Recurrent Urinary Tract Infection, Slowing of Urinary Stream, Benign Hyperplasia of Prostatewith Urinary Obstruction Post-Operative Diagnosis Uretheral stricture, Recurrent Urinary Tract Infection, Slowing of Urinary Stream, Benign Hyperplasia of Prostatewith Urinary Obstruction Procedure(s) Performed Cystoscopy, Transurethral Incision of Stricture, Difficult Diaz Catheter placement Surgeon Dr. Be Sustainability Communicator Surgeon(s) Dr. Thorpe Estimated Blood Loss 30 ml Findings Consistent with Post-Op Diagnosis Specimens None per Surgeon Drains 14 english diaz Anesthesia Type General Disposition Disposition: Recovery Room / PACU
[2017-05-11] MEDS ORDERED: NITR1CAP33 PO (11:08)
--- NOTE | 2017-05-11 11:10 | Discharge Instructions ---
Discharge Instructions Date of Service May 11, 2017. Visit Reason for Visit: Urethral Stricture, Recurrent Uti, Slowing Of Urin Discharge Discharge Diagnosis / Problem: post op tius and diaz placement Discharge Goals Goal(s): Increase independence, Improve disease control Activity Recommendations Activity Limitations: per Instructions/Follow-up section Anesthesia . Post Anesthesia Instructions: If you have had General Anesthesia or IV Sedation: * Do not drive today. * Resume driving when surgeon permits. * Do not make important decisions or sign legal documents today. * Call surgeon for: 1. Temperature elevations greater than 101 degrees F. 2. Uncontrollable pain. 3. Excessive bleeding. 4. Persistent nausea and vomiting. 5. Medication intolerance (nausea, vomiting or rash). * For nausea and vomiting use only clear liquids such as: tea, soda, bouillon until nausea subsides, then gradually increase diet as tolerated. * If you have any concerns or questions, call your surgeon's office. If physician is unavailable and it is an emergency, call 911 or go to the nearest emergency room. . Diet Recommendations Recommended Home Diet: resume previous diet Procedures Procedures Performed: Cystoscopy, Transurethral Incision of Stricture, Difficult Diaz Catheter placement Pending Studies Studies pending at discharge: no Medical Emergencies . Who to Call and When: Medical Emergencies: If at any time you feel your situation is an emergency, please call 911 immediately. . Non-Emergent Contact Non-Emergency issues call your: Urologist . . "Provider Documentation" section prepared by Jimbo Be. .
--- NOTE | 2017-05-11 11:53 | Anesthesiology Progress Note ---
Anesthesia Post Op Note Date & Time May 11, 2017 at 11:53 Vital Signs Pain Intensity: 0 Vital Signs Past 12 Hours Date Time Temp Pulse Resp B/P (MAP) Pulse Ox O2 Delivery O2 Flow Rate FiO2 05/11/17 11:37 89 19 05/11/17 11:37 90 19 94 05/11/17 11:36 123/67 05/11/17 11:32 88 13 105/60 92 05/11/17 11:32 88 13 05/11/17 11:27 80 15 95 05/11/17 11:27 81 15 05/11/17 11:26 82 17 05/11/17 11:26 83 17 126/73 95 05/11/17 11:21 86 12 05/11/17 11:21 85 12 121/87 98 05/11/17 11:16 88 16 122/72 94 05/11/17 11:16 87 16 05/11/17 11:12 125/78 05/11/17 11:11 96 95 05/11/17 11:11 36.1 87 18 125/78 96 Oxymask 10 05/11/17 11:11 96 05/11/17 08:08 36.5 62 18 170/79 (109) 97 Room Air Notes Mental Status: alert / awake / arousable, participated in evaluation Pt Amnestic to Procedure: Yes Nausea / Vomiting: adequately controlled Pain: adequately controlled Airway Patency, RR, SpO2: stable & adequate BP & HR: stable & adequate Hydration State: stable & adequate Anesthetic Complications: no major complications apparent
[2017-05-11 12:03] VITALS: BP 165/73; PULSE 73; TEMP 36.4; O2SAT 93
[2017-05-11 12:33] VITALS: BP 120/73; PULSE 89; TEMP 36.6; O2SAT 94
--- NOTE | 2017-05-11 14:51 | OPERATIVE REPORT ---
DATE OF OPERATION: 05/11/2017 PREOPERATIVE DIAGNOSIS: Urethral stricture with incomplete emptying. POSTOPERATIVE DIAGNOSIS: Severe urethral stricture with incomplete emptying. PROCEDURE PERFORMED: Transurethral incision of stricture and difficult Bauer catheter placement. SURGEON: Dr. Be. MEDIA MANAGER: Maurilio. INDICATIONS: The patient is a 76-year-old male who presented with a urethral stricture years ago. He was elected to be dilated until it became too difficult to do this and ultimately he ended up going to [facility] for a urethral stricture repair. The stricture repair worked for some period of time but then did not require an incision and then he did well for a while and then it recurred and he has required intermittent catheterization and done well with this with a 14 Portuguese catheter until recently when he could no longer catheterize. He came in after about a month of not being able to catheterize and I was unable to dilate him here in the office, did a cystoscopy and saw a very dense recurrence at the level of the previous repair and elected to bring him back off Plavix for an incision and placement of a 14-Portuguese catheter with the hope that if it was done easily, he might be able to resume CIC. The patient was preferred not to do recurrent stricture repair, if it could be avoided. DESCRIPTION OF THE PROCEDURE: The patient was brought to the cystoscopy suite where anesthesia was administered. He was placed in dorsal lithotomy position. He has been off of Plavix because I explained to him that if he needed to would need to place a suprapubic catheter. The meatus was somewhat narrow and needed to be dilated to 18 Portuguese, so that I could pass a cystoscope and I passed a 17-Portuguese cystoscope to the level of the stricture which was too dense to pass this beyond. I was able to pass a dual-flex guidewire into what I thought was the bladder. I left this in place and then passed a visual urethral up to the level of the stricture and incised the stricture with some difficulty as it was quite dense and it also was relatively approximately a centimeter long. After incising this, it was still dense with a dense scar. I was still unable to pass a 17 Portuguese scope. To confirm the guidewire was in the correct place, I did pass an ureteroscope over the wire to go into the bladder. I did remove some of the fluid from the bladder as the patient will not become over distended and then attempted to incise the stricture enough so there was some difficulty was able to get a 14 Portuguese catheter that I made into a Councill tip over the guidewire with some difficulty. The patient was then transferred to the recovery room in stable condition. HISTORY OF PRESENTATION: It appeared that this stricture was quite dense and I am quite concerned that this will recur quite quickly with removal of this catheter. Because of this, I am going to request that he go to [facility] to discuss options with doctor who did his original repair. I attest to the content of the Intraoperative Record and any orders documented therein. Any exception s are noted below.
== END 2017-05-11 13:10 | disposition home or self-care (01) ==
LOC: C.ACU 07:29
PROVIDERS: ATTEND Urology
DX: N35.9 Urethral stricture, unspecified (principal); N39.0 Urinary tract infection, site not specified; R39.198 Other difficulties with micturition; N40.1 Benign prostatic hyperplasia with lower urinary tract symptoms; N13.8 Other obstructive and reflux uropathy; I25.10 Atherosclerotic heart disease of native coronary artery without angina pectoris; J44.9 Chronic obstructive pulmonary disease, unspecified; N18.3 Chronic kidney disease, stage 3 (moderate); M51.36 Other intervertebral disc degeneration, lumbar region; K21.9 Gastro-esophageal reflux disease without esophagitis; M15.9 Polyosteoarthritis, unspecified; E78.5 Hyperlipidemia, unspecified; I12.9 Hypertensive chronic kidney disease with stage 1 through stage 4 chronic kidney disease, or unspecified chronic kidney disease; I73.9 Peripheral vascular disease, unspecified; E55.9 Vitamin D deficiency, unspecified; I25.2 Old myocardial infarction; Z79.82 Long term (current) use of aspirin; Z95.1 Presence of aortocoronary bypass graft; Z79.899 Other long term (current) drug therapy; Z79.02 Long term (current) use of antithrombotics/antiplatelets

== ENCOUNTER 2018-06-04 23:53 | Inpatient (IN) ==
[2018-06-05 00:16] LABS: Basophils # (auto) 0.03 K/uL (0-0.2); Basophils % (auto) 0.3 %; Eosinophils # (auto) 0.51 K/uL (0-0.5); Hematocrit (blood only) 37.7 % (42-52); Hemoglobin 12.8 g/dL (14.0-18.0); Immature Granulocytes # (auto) 0.03 K/uL (0.00-0.02); Immature Granulocytes % (auto) 0.3 %; Lymphocytes # (auto) 2.09 K/uL (1.2-3.4); Lymphocytes % (auto) 20.3 %; Mean Corpuscular Volume 96.4 fL (80-100); Mean Platelet Volume 10.4 fL (7.4-10.4); Monocytes # (auto) 0.99 K/uL (0.11-0.59); Monocytes % (auto) 9.6 %; Neutrophils # (auto) 6.64 K/uL (1.4-6.5); Neutrophils % (auto) 64.5 %; Platelet Count 252 K/uL (130-400); RDW Standard Deviation 45.1 fL (36.4-46.3); Red Blood Count 3.91 M/uL (4.7-6.1); White Blood Count 10.29 K/uL (4.8-10.8)
[2018-06-05 00:28] LABS: Partial Thromboplastin Time 26.4 Seconds (21.0-31.0); Prothrombin Time 10.3 Seconds (9.0-12.0)
[2018-06-05 00:32] LABS: Alanine Aminotransferase 14 U/L (12-78); Albumin Level 3.3 gm/dl (3.4-5.0); Aspartate Aminotransferase 23 U/L (15-37); BUN Creatinine Ratio 12.9 (10-20); Blood Urea Nitrogen 23 mg/dl (7-18); Calcium 8.2 mg/dl (8.5-10.1); Carbon Dioxide 22 mmol/L (21-32); Chloride 100 mmol/L (98-107); Creatinine Clr Calc Pharmacy 32.9 ml/min; Est GFR (African American) 42.3; Est GFR (Non-African American) 36.5; Glucose 103 mg/dl (70-99); Potassium 4.3 mmol/L (3.5-5.1); Sodium 132 mmol/L (136-145)
[2018-06-05 00:37] LABS: Albumin Globulin Ratio 0.8 (0.9-2); Alkaline Phosphatase 95 U/L (45-117); Bilirubin,Total 0.4 mg/dl (0.2-1); Globulin 4.1 gm/dl (2.5-4.0); Total Protein 7.4 gm/dl (6.4-8.2); Troponin I < 0.015 ng/ml (0-0.045)
[2018-06-05] MEDS ORDERED: SODIUM CHLORIDE 0.9% 500 ML IV ONE (01:05)
[2018-06-05] MEDS ORDERED: OPTIRAY 320 125ml IV PRN (01:11)
[2018-06-05 04:08] LABS: Appearance Urine Clear (Clear); Bacteria Urine Automated Negative (Negative); Bilirubin Urine Negative (Negative); Blood Urine Negative (Negative); Color Urine Yellow; Epithelial Cell Urine Auto 20-30 /lpf (0-5); Glucose Urine UA Negative (Negative); Ketones Urine Negative (Negative); Leukocyte Esterase Urine 1+ (Negative); Nitrite Urine Negative (Negative); Protein Urine Negative (Negative); RBC Urine Automated 0-4 /hpf (0-4); Specific Gravity Urine 1.036 (1.000-1.030); Urobilinogen Urine Negative (Negative); pH Urine 6.5 (4.5-7.5)
--- NOTE | 2018-06-05 04:29 | History & Physical Report ---
Date of Service June 05, 2018 Assessment & Plan (1) Acute on chronic respiratory failure with hypoxia: Admit to monitored bed for close oxygen monitoring. Ceftriaxone 1 g IV daily Levofloxacin 500 mg IV every 24 hours Solu-Medrol 60 mg IV every 6 hours Guaifenesin extended release 600 mg by mouth twice a day Duonebs every 4 hours while awake and every 2 hours when necessary. Has been on nasal cannula 5 L of oxygen at home. Presently on oxygen mask 6 L. Target pulse ox of 92%. Order an ABG. Continue usual regimen of Symbicort and Flonase. Sputum Gram stain and culture. Present on Admission?: Yes (2) COPD (chronic obstructive pulmonary disease): COPD exacerbation as noted above. Present on Admission?: Yes (3) Coronary artery disease: CAD/hypertension/status post CABG x5-- Continue usual regimen of amlodipine, aspirin, clopidogrel, metoprolol succinate and nitroglycerin sublingual as needed. The patient will be admitted to telemetry for serial cardiac enzymes, serial EKG's, cardiac rhythm monitoring and a 2-D echocardiogram with Dopplers. Present on Admission?: Yes (4) Status post aorto-coronary artery bypass graft: As above. Present on Admission?: Yes (5) Hypertension: As above. Present on Admission?: Yes (6) Near syncope: Secondary to hypoxia. Likely an element of bronchospasm associated, +/- mucous plugging. Was not a neurologic event per se. Present on Admission?: Yes (7) Hyperlipidemia LDL goal <70: Continue atorvastatin 80 mg p.o. daily. Present on Admission?: Yes (8) GERD (gastroesophageal reflux disease): Omeprazole 20 mg p.o. every morning to pantoprazole 40 mg daily. Present on Admission?: Yes (9) BPH (benign prostatic hyperplasia): BPH/bladder spasm-- Continue tamsulosin, oxybutynin chloride and methenamine hippurate. Present on Admission?: Yes (10) Acute kidney injury superimposed on CKD: Creatinine 1.76 upon admission, with range 1.35-1.73. Hold lisinopril. Follow serial laboratories. Present on Admission?: Yes (11) Anemia of chronic disease: Anemia chronic disease secondary to chronic kidney disease Hemoglobin today 12.8, with range 12.3-14.2. Follow serially Present on Admission?: Yes (12) Dependence on continuous supplemental oxygen: Typically requires 4 L at home continually, was recently changed to 5 L due to his recent hypoxia. Presently on 6 L oxygen mask, and will attempt to titrate downward as he response to treatment. Present on Admission?: Yes (13) Peripheral neuropathy: Continue gabapentin Present on Admission?: Yes History of Present Illness Chief Complaint: The patient presents to the emergency department with worsening shortness of breath over the past week, and a near syncopal episode while getting in and out of the car to come to the ED. Primary Care Provider: Francois Oliva MD The patient is a 77-year-old male with a past medical history including CAD, status post CABG x5, hypertension, hyperlipidemia, COPD, peripheral neuropathy, GERD who presents to the emergency department with worsening difficulty with breathing over the past week, and a near syncopal episode with hypoxia into the 50s upon arrival from his car to the ED. The patient at home has been chronically on 4 L nasal cannula, but over the past week was increased to 5 L due to worsening oxygenation. He has not had any recent travels or sick exposures. Allergies Allergy/AdvReac Type Severity Reaction Status Date / Time cyclobenzaprine AdvReac Unknown halluninati Verified 06/05/18 04:54 ons oxycodone AdvReac Unknown HALLUCINATI Verified 06/05/18 04:54 ONS Home Medications Home Medications Medication Instructions Recorded Confirmed Type albuterol sulfate 2 puff INHALATION Q4 PRN 06/05/18 06/05/18 History amlodipine 2.5 mg PO DAILY 06/05/18 06/05/18 History aspirin 81 mg PO DAILY 06/05/18 06/05/18 History atorvastatin 80 mg PO DAILY 06/05/18 06/05/18 History budesonide-formoterol [Symbicort] 2 puff INHALATION BID 06/05/18 06/05/18 History citalopram 10 mg PO DAILY 06/05/18 06/05/18 History clopidogrel 75 mg PO DAILY 06/05/18 06/05/18 History finasteride 5 mg PO DAILY 06/05/18 06/05/18 History furosemide 20 mg PO DAILY 06/05/18 06/05/18 History hydrocodone-acetaminophen [Vicodin] 1 - 2 tab PO 6XD PRN 06/05/18 06/05/18 History lisinopril 20 mg PO DAILY 06/05/18 06/05/18 History methenamine hippurate 1 g PO QPM 06/05/18 06/05/18 History metoprolol succinate 25 mg PO DAILY 06/05/18 06/05/18 History nitroglycerin [Nitrostat] 0.4 mg SUBLINGUAL UD PRN 06/05/18 06/05/18 History omeprazole 20 mg PO DAILY 06/05/18 06/05/18 History oxybutynin chloride [Ditropan XL] 5 mg PO DAILY 06/05/18 06/05/18 History tamsulosin 0.4 mg PO DAILY 06/05/18 06/05/18 History umeclidinium [Incruse Ellipta] 1 inh INHALATION DAILY 06/05/18 06/05/18 History Past Med/Surg History Medical History Hypertension (Chronic) Heart disease (Chronic) COPD (chronic obstructive pulmonary disease) Family History Other Family history non-contributory Social History marital status: Current Living Situation: Spouse current occupational status: retired Feels Safe at Home: Yes Smoking Status: Never smoker Review of Systems The patient denies palpitations, cough, lower extremity swelling, sore throat, fevers, chills, sweats, nausea, vomiting, diarrhea , constipation, abdominal pain, pelvic pain, blood in urine or stool, dysuria, urinary frequency or urgency, rash, abnormal bruising or bleeding, imbalance, focal weakness, numbness or tingling in arms or legs, generalized arthralgias or myalgias, back or neck pain, or night sweats. The review of systems is otherwise negative other than for that already noted above, and at least 10 systems have been reviewed. Physical Exam Vital Signs (Past 24 Hours): Last Vital Signs Pulse 61 06/05/18 03:02 Resp 18 06/05/18 03:02 BP 116/65 06/05/18 03:02 Pulse Ox 95 06/05/18 03:02 Physical Exam: The patient is awake, alert and oriented 3, well developed and well nourished, normocephalic and atraumatic, lying in bed and in no acute distress. HEENT--PERRL, EOMI, mucous membranes and oropharynx normal. Neck--supple. No JVD. No bruits. Thyroid normal, trachea midline, no adenopathy. Heart--normal S1 and S2. No murmurs, rubs or gallops. Lungs--coarse breath sounds bilaterally, with wheezes throughout. Abdomen--normal bowel sounds and soft. Nontender. Nondistended, no hernias or masses, no organomegaly. Extremities--no cyanosis or clubbing. No edema. There are good distal pulses b/l. Dermatologic--normal skin turgor, normal color, no abnormal lymph nodes, no rash. Neurologic--cranial nerves II through XII grossly intact. Rheumatologic--normal range of motion. Psychiatric--normal affect. Results & Data Laboratory Results Laboratory Results WBC 10.29 K/uL (4.8-10.8) 06/05/18 00:04 RBC 3.91 M/uL (4.7-6.1) L 06/05/18 00:04 Hgb 12.8 g/dL (14.0-18.0) L 06/05/18 00:04 Hct 37.7 % (42-52) L 06/05/18 00:04 MCV 96.4 fL (80-100) 06/05/18 00:04 MCH 32.7 pg (25-34) 06/05/18 00:04 MCHC 34.0 g/dL (32-36) 06/05/18 00:04 RDW Std Deviation 45.1 fL (36.4-46.3) 06/05/18 00:04 RDW Coeff of Gilda 13.0 % (11.5-14.5) 06/05/18 00:04 Plt Count 252 K/uL (130-400) 06/05/18 00:04 MPV 10.4 fL (7.4-10.4) 06/05/18 00:04 Immature Gran % (Auto) 0.3 % 06/05/18 00:04 Neut % (Auto) 64.5 % 06/05/18 00:04 Lymph % (Auto) 20.3 % 06/05/18 00:04 Granite % (Auto) 9.6 % 06/05/18 00:04 Eos % (Auto) 5.0 % 06/05/18 00:04 Baso % (Auto) 0.3 % 06/05/18 00:04 Immature Gran # (Auto) 0.03 K/uL (0.00-0.02) H 06/05/18 00:04 Neut # (Auto) 6.64 K/uL (1.4-6.5) H 06/05/18 00:04 Lymph # (Auto) 2.09 K/uL (1.2-3.4) 06/05/18 00:04 Granite # (Auto) 0.99 K/uL (0.11-0.59) H 06/05/18 00:04 Eos # (Auto) 0.51 K/uL (0-0.5) H 06/05/18 00:04 Baso # (Auto) 0.03 K/uL (0-0.2) 06/05/18 00:04 PT 10.3 Seconds (9.0-12.0) 06/05/18 00:04 INR 1.0 (0.9-1.1) 06/05/18 00:04 APTT 26.4 Seconds (21.0-31.0) 06/05/18 00:04 PTT Ratio 1.0 06/05/18 00:04 Sodium 132 mmol/L (136-145) L 06/05/18 00:04 Potassium 4.3 mmol/L (3.5-5.1) 06/05/18 00:04 Chloride 100 mmol/L (98-107) 06/05/18 00:04 Carbon Dioxide 22 mmol/L (21-32) 06/05/18 00:04 Anion Gap 10.0 (3-11) 06/05/18 00:04 BUN 23 mg/dl (7-18) H 06/05/18 00:04 Creatinine 1.76 mg/dl (0.6-1.4) H 06/05/18 00:04 Est Cr Clr Drug Dosing 32.9 ml/min 06/05/18 00:04 Est GFR ( Amer) 42.3 06/05/18 00:04 Est GFR (Non-Af Amer) 36.5 06/05/18 00:04 BUN/Creatinine Ratio 12.9 (10-20) 06/05/18 00:04 Glucose 103 mg/dl (70-99) H 06/05/18 00:04 Calcium 8.2 mg/dl (8.5-10.1) L 06/05/18 00:04 Total Bilirubin 0.4 mg/dl (0.2-1) 06/05/18 00:04 AST 23 U/L (15-37) 06/05/18 00:04 ALT 14 U/L (12-78) 06/05/18 00:04 Alkaline Phosphatase 95 U/L (45-117) 06/05/18 00:04 Troponin I < 0.015 ng/ml (0-0.045) 06/05/18 00:04 Total Protein 7.4 gm/dl (6.4-8.2) 06/05/18 00:04 Albumin 3.3 gm/dl (3.4-5.0) L 06/05/18 00:04 Globulin 4.1 gm/dl (2.5-4.0) H 06/05/18 00:04 Albumin/Globulin Ratio 0.8 (0.9-2) L 06/05/18 00:04 Urine Color Yellow 06/05/18 03:55 Urine Appearance Clear (Clear) 06/05/18 03:55 Urine pH 6.5 (4.5-7.5) 06/05/18 03:55 Ur Specific [place] 1.036 (1.000-1.030) H 06/05/18 03:55 Urine Protein Negative (Negative) 06/05/18 03:55 Urine Glucose (UA) Negative (Negative) 06/05/18 03:55 Urine Ketones Negative (Negative) 06/05/18 03:55 Urine Blood Negative (Negative) 06/05/18 03:55 Urine Nitrite Negative (Negative) 06/05/18 03:55 Urine Bilirubin Negative (Negative) 06/05/18 03:55 Urine Urobilinogen Negative (Negative) 06/05/18 03:55 Ur Leukocyte Esterase 1+ (Negative) H 06/05/18 03:55 Urine WBC (Auto) 10-30 /hpf (0-5) H 06/05/18 03:55 Urine RBC (Auto) 0-4 /hpf (0-4) 06/05/18 03:55 U Hyaline Cast (Auto) 1-5 /lpf (0-5) 06/05/18 03:55 U Epithel Cells (Auto) 20-30 /lpf (0-5) H 06/05/18 03:55 Urine Bacteria (Auto) Negative (Negative) 06/05/18 03:55 Code Status & VTE Plan Code Status Full code VTE Prophylaxis Plan VTE Prophylaxis will be ordered: Yes
[2018-06-05] MEDS ORDERED: POLYETHYLENE (MIRALAX) 17 GM PACK PO PRN (05:20)
[2018-06-05] MEDS ORDERED: ACETAMINOPHEN 1000 MG/100 ML IV IV PRN (05:20)
[2018-06-05] MEDS ORDERED: ONDANSETRON INJ 2 MG/ML 2 ML VIAL IV PRN (05:20)
[2018-06-05] MEDS ORDERED: ACETAMINOPHEN 325 MG TAB PO PRN (05:20)
[2018-06-05] MEDS ORDERED: NITROGLYCERIN SL 0.4 MG/TAB TAB SL PRN (05:20)
[2018-06-05] MEDS ORDERED: LEVOFLOXACIN CONSULT ACTIVE PRN (05:48)
[2018-06-05] MEDS: cefTRIAXone SODIUM 1,000 MG/50 ML BAG IV SCH (05:50)
[2018-06-05] MEDS: methylPREDNISolone 60 MG in SYRINGE 0 ML IV SCH ×2 (05:51→12:19)
[2018-06-05] MEDS ORDERED: LEVOFLOXACIN/D5W 500 MG/100 ML BAG IV SCH (07:00)
[2018-06-05] MEDS: ALBUT/IPRATROP 3MG/0.5MG NEB 3 ML VIAL NEB SCH ×4 (07:18→20:05)
--- NOTE | 2018-06-05 07:55 | Emergency Department Note ---
Entered by Meaghan Matt acting as a scribe for History of Present Illness General Chief complaint: Respiratory Problems Stated complaint: HARD TIME BREATHING Time Seen by Provider: 06/05/18 00:04 Source: patient, family and other (nursing staff) History of Present Illness Onset (ago): day(s) (this evening) Location: chest Severity: severe (69% Oxygen saturation) Pain Consistency: + other (episode) Quality: + other (respiratory problems ) Relieved By: not by other (oxygen) Exacerbated By: + movement (exertion) Associated symptoms: + syncope The patient is a 77 year old male who presents to the Emergency Room with complaints of an episode of respiratory problems starting this evening. Per the patients daughter, the patients had measured his oxygen saturations and they were low. She states that this caused her blood pressure and heart rate to go up, so she came over to be evaluated by ambulance. She states that she decide to bring her dad over to see her mom and be evaluated himself. She states that her father has had breathing troubles for a few months and was placed on oxygen at all times. She reports that sometimes it doesnt seem like the oxygen is enough. She notes that 2-3 weeks ago his saturations were in the 50s. The patients daughter states that tonight when she was getting him in the car he was clearly breathing heavy. She states that when they got in the car, he told her he felt like he was going to pass out. She states that the entire way here she was talking to him. She states that when she got here and was trying to get him from the car to the wheel chair his body went stiff, his eyes rolled to the back of his head, and he stopped responding. Nursing staff notes that his oxygen at this time was 69%. The patient states that he is just worried about his . Home Medications Home Medications Medication Instructions Recorded Confirmed Type albuterol sulfate 2 puff INHALATION Q4 PRN 06/05/18 06/05/18 History amlodipine 2.5 mg PO DAILY 06/05/18 06/05/18 History aspirin 81 mg PO DAILY 06/05/18 06/05/18 History atorvastatin 80 mg PO DAILY 06/05/18 06/05/18 History budesonide-formoterol [Symbicort] 2 puff INHALATION BID 06/05/18 06/05/18 History citalopram 10 mg PO DAILY 06/05/18 06/05/18 History clopidogrel 75 mg PO DAILY 06/05/18 06/05/18 History finasteride 5 mg PO DAILY 06/05/18 06/05/18 History furosemide 20 mg PO DAILY 06/05/18 06/05/18 History hydrocodone-acetaminophen [Vicodin] 1 - 2 tab PO 6XD PRN 06/05/18 06/05/18 History lisinopril 20 mg PO DAILY 06/05/18 06/05/18 History methenamine hippurate 1 g PO QPM 06/05/18 06/05/18 History metoprolol succinate 25 mg PO DAILY 06/05/18 06/05/18 History nitroglycerin [Nitrostat] 0.4 mg SUBLINGUAL UD PRN 06/05/18 06/05/18 History omeprazole 20 mg PO DAILY 06/05/18 06/05/18 History oxybutynin chloride [Ditropan XL] 5 mg PO DAILY 06/05/18 06/05/18 History tamsulosin 0.4 mg PO DAILY 06/05/18 06/05/18 History umeclidinium [Incruse Ellipta] 1 inh INHALATION DAILY 06/05/18 06/05/18 History Allergies Allergy/AdvReac Type Severity Reaction Status Date / Time cyclobenzaprine AdvReac Unknown halluninati Verified 06/05/18 04:54 ons oxycodone AdvReac Unknown HALLUCINATI Verified 06/05/18 04:54 ONS Past Med/Surg History Medical History Hypertension (Chronic) Heart disease (Chronic) COPD (chronic obstructive pulmonary disease) Family History Other Family history non-contributory Social History Communication Ability: Effective Beliefs That Will Affect Care: None marital status: Current Living Situation: Spouse current occupational status: retired Feels Safe at Home: Yes Safety Concerns: Feels Safe At This Time Smoking Status: Former smoker Hx Alcohol Use: Yes Hx Substance Use: No Review of Systems See HPI for pertinent positives & negatives. and A total of 10 systems reviewed and were otherwise negative Physical Exam Vital Signs Vital Signs - 24 hr 06/05/18 00:05 06/05/18 00:50 06/05/18 01:47 Temperature Temperature Source Oral Sepsis Recent Fever Within 48 Hours No Sepsis Action Taken by Nursing No Action Required Pulse Rate 68 Pulse Rate [Apical] 69 61 Pulse Rate [Radial] Pulse Rhythm [Apical] Pulse Strength [Apical] Respiratory Rate 22 20 20 Respiratory Effort / Characteristics Non-Labored Spontaneous Non-Labored Spontaneous Non-Labored Spontaneous Respiratory Depth Normal Normal Normal Respiratory Pattern Regular Blood Pressure 118/61 Blood Pressure [Left Arm] 93/58 L 128/70 Blood Pressure [Right Arm] Blood Pressure Mean 80 Blood Pressure Mean [Left Arm] 69 89 Blood Pressure Mean [Right Arm] Blood Pressure Position [Left Arm] Blood Pressure Position [Right Arm] Pulse Oximetry 94 96 97 Oxygen Delivery Method Non-rebreather Non-rebreather Oxymask Oxygen Flow Rate 15 15 10 06/05/18 01:48 06/05/18 01:49 06/05/18 03:02 Temperature Temperature Source Sepsis Recent Fever Within 48 Hours Sepsis Action Taken by Nursing Pulse Rate Pulse Rate [Apical] 61 Pulse Rate [Radial] Pulse Rhythm [Apical] Pulse Strength [Apical] Respiratory Rate 18 Respiratory Effort / Characteristics Non-Labored Spontaneous Respiratory Depth Normal Respiratory Pattern Blood Pressure Blood Pressure [Left Arm] 116/65 Blood Pressure [Right Arm] Blood Pressure Mean Blood Pressure Mean [Left Arm] 82 Blood Pressure Mean [Right Arm] Blood Pressure Position [Left Arm] Blood Pressure Position [Right Arm] Pulse Oximetry 85 L 98 95 Oxygen Delivery Method Nasal Cannula Oxymask Oxymask Oxygen Flow Rate 6 10 10 06/05/18 04:49 06/05/18 05:40 06/05/18 06:34 Temperature 36.6 C 36.3 C L Temperature Source Oral Oral Sepsis Recent Fever Within 48 Hours Sepsis Action Taken by Nursing Pulse Rate Pulse Rate [Apical] 65 72 Pulse Rate [Radial] Pulse Rhythm [Apical] Regular Pulse Strength [Apical] Normal Respiratory Rate 20 16 Respiratory Effort / Characteristics Non-Labored Spontaneous Non-Labored Respiratory Depth Normal Normal Respiratory Pattern Regular Regular Blood Pressure Blood Pressure [Left Arm] 114/86 146/74 H Blood Pressure [Right Arm] Blood Pressure Mean Blood Pressure Mean [Left Arm] 95 98 Blood Pressure Mean [Right Arm] Blood Pressure Position [Left Arm] Lying Blood Pressure Position [Right Arm] Pulse Oximetry 96 96 Oxygen Delivery Method Oxymask Room Air Oxymask Oxygen Flow Rate 10 5 5 06/05/18 07:21 06/05/18 07:37 06/05/18 10:16 Temperature 36.7 C Temperature Source Oral Sepsis Recent Fever Within 48 Hours Sepsis Action Taken by Nursing Pulse Rate 63 Pulse Rate [Apical] 65 Pulse Rate [Radial] Pulse Rhythm [Apical] Pulse Strength [Apical] Respiratory Rate 18 Respiratory Effort / Characteristics Non-Labored Spontaneous Spontaneous Respiratory Depth Normal Respiratory Pattern Regular Blood Pressure Blood Pressure [Left Arm] Blood Pressure [Right Arm] 137/76 Blood Pressure Mean Blood Pressure Mean [Left Arm] Blood Pressure Mean [Right Arm] 96 Blood Pressure Position [Left Arm] Blood Pressure Position [Right Arm] Pulse Oximetry 95 Oxygen Delivery Method Nasal Cannula Nasal Cannula Oxygen Flow Rate 5 5 06/05/18 11:15 06/05/18 11:53 06/05/18 15:01 Temperature 36.7 C 36.2 C L Temperature Source Oral Oral Sepsis Recent Fever Within 48 Hours Sepsis Action Taken by Nursing Pulse Rate Pulse Rate [Apical] 64 93 H 95 H Pulse Rate [Radial] Pulse Rhythm [Apical] Pulse Strength [Apical] Respiratory Rate 16 18 18 Respiratory Effort / Characteristics Non-Labored Spontaneous Respiratory Depth Respiratory Pattern Blood Pressure Blood Pressure [Left Arm] Blood Pressure [Right Arm] 131/82 127/75 Blood Pressure Mean Blood Pressure Mean [Left Arm] Blood Pressure Mean [Right Arm] 98 92 Blood Pressure Position [Left Arm] Blood Pressure Position [Right Arm] Pulse Oximetry 87 L 93 94 Oxygen Delivery Method Nasal Cannula Nasal Cannula Nasal Cannula Oxygen Flow Rate 2 2 5 06/05/18 15:11 06/05/18 17:03 06/05/18 20:08 Temperature Temperature Source Sepsis Recent Fever Within 48 Hours Sepsis Action Taken by Nursing Pulse Rate Pulse Rate [Apical] Pulse Rate [Radial] 91 H 92 H Pulse Rhythm [Apical] Pulse Strength [Apical] Respiratory Rate 16 18 Respiratory Effort / Characteristics Non-Labored Spontaneous Non-Labored Spontaneous Respiratory Depth Respiratory Pattern Blood Pressure Blood Pressure [Left Arm] Blood Pressure [Right Arm] Blood Pressure Mean Blood Pressure Mean [Left Arm] Blood Pressure Mean [Right Arm] Blood Pressure Position [Left Arm] Blood Pressure Position [Right Arm] Pulse Oximetry 96 92 Oxygen Delivery Method Nasal Cannula Nasal Cannula Nasal Cannula Oxygen Flow Rate 5 5 5 06/05/18 20:40 03/24/19 23:42 Temperature 37.2 C Temperature Source Axillary Sepsis Recent Fever Within 48 Hours Sepsis Action Taken by Nursing Pulse Rate 124 H Pulse Rate [Apical] Pulse Rate [Radial] 92 H Pulse Rhythm [Apical] Pulse Strength [Apical] Respiratory Rate 20 Respiratory Effort / Characteristics Respiratory Depth Respiratory Pattern Blood Pressure Blood Pressure [Left Arm] Blood Pressure [Right Arm] 125/67 Blood Pressure Mean Blood Pressure Mean [Left Arm] Blood Pressure Mean [Right Arm] 86 Blood Pressure Position [Left Arm] Blood Pressure Position [Right Arm] Lying Pulse Oximetry 92 Oxygen Delivery Method Nasal Cannula Oxygen Flow Rate 5 General: Patient is extremely pale, but in no respiratory distress. He is making jokes with staff. HEENT: Head - normocephalic and atraumatic Pupils are equal, round, and reactive to light. Extraocular eye muscles are intact, and sclera are anicteric. Nose - moist nasal mucosa without discharge. Mouth - moist buccal mucosa. Oropharynx is nonerythematous and there is no tonsillar exudate or edema noted. Neck: Supple; no JVD, nuchal rigidity, cervical lymphadenopathy, or auscultated bruits. Heart: Regular rate and rhythm. There is a normal S1 and S2 with no murmurs, clicks, or gallops appreciated. Lungs: Minimal air exchange with no wheezes, rales, or rhonchi. Abdomen: Soft, completely nontender, nondistended, with good bowel sounds. There are no palpable pulsatile masses or hepatosplenomegaly. There is no guarding, rigidity, or rebound noted. Extremities: No evidence of cyanosis, clubbing, or edema. There are easily palpable peripheral pulses. Skin: warm and dry with good turgor and no rashes. Course 2355: Past medical records reviewed. The patient was evaluated in room A1, and a complete history and physical examination were performed. The patient was placed on the tree chipper and pulse oximeter. He was placed on 15 L of O2 by nonrebreather mask which brought his saturation up nicely. The patient had a twelve-lead EKG and a chest x-ray as described above. 0105: Patient was noted to be hypotensive and I ordered NSS 500 mls @ 999 mls/hr IV. 0109: I reevaluated the patient and updated him on his test results thus far. He is going to CT. His oxygen saturations are at 97% on 10 L by Oxymizer mask. 0252: I reevaluated the patient and updated him on his test results. I discussed the treatment plan with him. He verbally agrees and understands. 0357: I reviewed the patient's case with Dr. Jaime LINTON Hospitalist. He will evaluate the patient for further management. Consultations Consultation #1: I reviewed the patient's case with Dr. Jaime LINTON Hospitalist. He will evaluate the patient for further management. Time: 03:57 Administered Medications Albuterol (Duoneb) 3 ml NEB QIDR PAULETTE Stop: 07/05/18 07:59 Last Admin: 06/05/18 20:05 Dose: Not Given Documented by: [id number] Admin: 06/05/18 15:11 Dose: 3 ml Documented by: [id number] Admin: 06/05/18 11:14 Dose: 3 ml Documented by: [id number] Admin: 06/05/18 07:18 Dose: 3 ml Documented by: [id number] Arformoterol Tartrate (Brovana Neb) 15 mcg INH BIDR PAULETTE Stop: 07/05/18 19:59 Last Admin: 06/05/18 20:05 Dose: 15 mcg Documented by: [id number] Heparin Sodium (Porcine) (Heparin Sodium (Porcine)) 5,000 units SQ Q12 PAULETTE Stop: 07/05/18 08:59 Last Admin: 06/05/18 20:47 Dose: 5,000 units Documented by: [id number] Cosigned by: [id number] Admin: 06/05/18 08:48 Dose: 5,000 units Documented by: [id number] Cosigned by: [id number] Ceftriaxone Sodium (Rocephin) 1,000 mg in 50 mls @ 100 mls/hr IV Q24H PAULETTE Stop: 06/12/18 05:59 Last Infusion: 06/05/18 06:24 Dose: 0 mls/hr Documented by: [id number] Admin: 06/05/18 05:50 Dose: 100 mls/hr Documented by: [id number] Methylprednisolone 40 mg/ (Syringe) 0.64 mls @ 1.5 mls/min IV Q12H PAULETTE Stop: 07/05/18 14:14 Last Admin: 06/05/18 20:47 Dose: 1.5 mls/min Documented by: [id number] Metoprolol Succinate (Toprol Xl) 25 mg PO DAILY PAULETTE Stop: 07/05/18 14:59 Last Admin: 06/05/18 14:42 Dose: 25 mg Documented by: [id number] Discontinued Medications Sodium Chloride (Nss) 500 mls @ 999 mls/hr IV .Q31M ONE Stop: 06/05/18 01:35 Last Infusion: 06/05/18 01:55 Dose: 0 mls/hr Documented by: [id number] Admin: 06/05/18 01:23 Dose: 999 mls/hr Documented by: [id number] Levofloxacin/Dextrose (Levaquin/D5w) 500 mg in 100 mls @ 100 mls/hr IV Q24H PAULETTE Stop: 06/05/18 07:59 Last Infusion: 06/05/18 07:25 Dose: 0 mls/hr Documented by: [id number] Admin: 06/05/18 06:21 Dose: 100 mls/hr Documented by: [id number] Methylprednisolone 60 mg/ (Syringe) 0.96 mls @ 1.5 mls/min IV Q6H PAULETTE Stop: 07/05/18 05:59 Last Admin: 06/05/18 12:19 Dose: 1.5 mls/min Documented by: [id number] Admin: 06/05/18 05:51 Dose: 1.5 mls/min Documented by: [id number] Ioversol (Optiray 320 125ml) 119 ml IV ONCE PRN PRN Reason: Interaction Checking Stop: 06/09/18 01:10 Last Admin: 06/05/18 01:11 Dose: 119 ml Documented by: [id number] Medical Decision Making Differential Diagnosis Differential diagnoses include respiratory failure, pneumothorax, pneumonia, PE, COPD exacerbation. Medical Records Attestation: I reviewed the patient's medical records. Home Medications Current Medication List: was personally reviewed by me Laboratory Data Attestation: I reviewed the patient's lab results. Result diagrams: 06/05/18 00:04 06/05/18 00:04 Lab Results 06/05/18 06/05/18 06/05/18 Range/Units 00:04 00:04 00:04 WBC 10.29 (4.8-10.8) K/uL RBC 3.91 L (4.7-6.1) M/uL Hgb 12.8 L (14.0-18.0) g/dL Hct 37.7 L (42-52) % MCV 96.4 (80-100) fL MCH 32.7 (25-34) pg MCHC 34.0 (32-36) g/dL RDW Std Deviation 45.1 (36.4-46.3) fL RDW Coeff of Gilda 13.0 (11.5-14.5) % Plt Count 252 (130-400) K/uL MPV 10.4 (7.4-10.4) fL Immature Gran % (Auto) 0.3 % Neut % (Auto) 64.5 % Lymph % (Auto) 20.3 % Dauphin % (Auto) 9.6 % Eos % (Auto) 5.0 % Baso % (Auto) 0.3 % Immature Gran # (Auto) 0.03 H (0.00-0.02) K/uL Neut # (Auto) 6.64 H (1.4-6.5) K/uL Lymph # (Auto) 2.09 (1.2-3.4) K/uL Dauphin # (Auto) 0.99 H (0.11-0.59) K/uL Eos # (Auto) 0.51 H (0-0.5) K/uL Baso # (Auto) 0.03 (0-0.2) K/uL PT 10.3 (9.0-12.0) Seconds INR 1.0 (0.9-1.1) APTT 26.4 (21.0-31.0) Seconds PTT Ratio 1.0 Sodium 132 L (136-145) mmol/L Potassium 4.3 (3.5-5.1) mmol/L Chloride 100 (98-107) mmol/L Carbon Dioxide 22 (21-32) mmol/L Anion Gap 10.0 (3-11) BUN 23 H (7-18) mg/dl Creatinine 1.76 H (0.6-1.4) mg/dl Est Cr Clr Drug Dosing 32.9 ml/min Est GFR ( Amer) 42.3 Est GFR (Non-Af Amer) 36.5 BUN/Creatinine Ratio 12.9 (10-20) Glucose 103 H (70-99) mg/dl Calcium 8.2 L (8.5-10.1) mg/dl Total Bilirubin 0.4 (0.2-1) mg/dl AST 23 (15-37) U/L ALT 14 (12-78) U/L Alkaline Phosphatase 95 (45-117) U/L Troponin I < 0.015 (0-0.045) ng/ml Total Protein 7.4 (6.4-8.2) gm/dl Albumin 3.3 L (3.4-5.0) gm/dl Globulin 4.1 H (2.5-4.0) gm/dl Albumin/Globulin Ratio 0.8 L (0.9-2) Urine Color Urine Appearance (Clear) Urine pH (4.5-7.5) Ur Specific Arnot (1.000-1.030) Urine Protein (Negative) Urine Glucose (UA) (Negative) Urine Ketones (Negative) Urine Blood (Negative) Urine Nitrite (Negative) Urine Bilirubin (Negative) Urine Urobilinogen (Negative) Ur Leukocyte Esterase (Negative) Urine WBC (Auto) (0-5) /hpf Urine RBC (Auto) (0-4) /hpf U Hyaline Cast (Auto) (0-5) /lpf U Epithel Cells (Auto) (0-5) /lpf Urine Bacteria (Auto) (Negative) 06/05/18 Range/Units 03:55 WBC (4.8-10.8) K/uL RBC (4.7-6.1) M/uL Hgb (14.0-18.0) g/dL Hct (42-52) % MCV (80-100) fL MCH (25-34) pg MCHC (32-36) g/dL RDW Std Deviation (36.4-46.3) fL RDW Coeff of Gilda (11.5-14.5) % Plt Count (130-400) K/uL MPV (7.4-10.4) fL Immature Gran % (Auto) % Neut % (Auto) % Lymph % (Auto) % Dauphin % (Auto) % Eos % (Auto) % Baso % (Auto) % Immature Gran # (Auto) (0.00-0.02) K/uL Neut # (Auto) (1.4-6.5) K/uL Lymph # (Auto) (1.2-3.4) K/uL Da[place]hin # (Auto) (0.11-0.59) K/uL Eos # (Auto) (0-0.5) K/uL Baso # (Auto) (0-0.2) K/uL PT (9.0-12.0) Seconds INR (0.9-1.1) APTT (21.0-31.0) Seconds PTT Ratio Sodium (136-145) mmol/L Potassium (3.5-5.1) mmol/L Chloride (98-107) mmol/L Carbon Dioxide (21-32) mmol/L Anion Gap (3-11) BUN (7-18) mg/dl Creatinine (0.6-1.4) mg/dl Est Cr Clr Drug Dosing ml/min Est GFR ( Amer) Est GFR (Non-Af Amer) BUN/Creatinine Ratio (10-20) Glucose (70-99) mg/dl Calcium (8.5-10.1) mg/dl Total Bilirubin (0.2-1) mg/dl AST (15-37) U/L ALT (12-78) U/L Alkaline Phosphatase (45-117) U/L Troponin I (0-0.045) ng/ml Total Protein (6.4-8.2) gm/dl Albumin (3.4-5.0) gm/dl Globulin (2.5-4.0) gm/dl Albumin/Globulin Ratio (0.9-2) Urine Color Yellow Urine Appearance Clear (Clear) Urine pH 6.5 (4.5-7.5) Ur Specific Arnot 1.036 H (1.000-1.030) Urine Protein Negative (Negative) Urine Glucose (UA) Negative (Negative) Urine Ketones Negative (Negative) Urine Blood Negative (Negative) Urine Nitrite Negative (Negative) Urine Bilirubin Negative (Negative) Urine Urobilinogen Negative (Negative) Ur Leukocyte Esterase 1+ H (Negative) Urine WBC (Auto) 10-30 H (0-5) /hpf Urine RBC (Auto) 0-4 (0-4) /hpf U Hyaline Cast (Auto) 1-5 (0-5) /lpf U Epithel Cells (Auto) 20-30 H (0-5) /lpf Urine Bacteria (Auto) Negative (Negative) Imaging Data Attestation: I personally reviewed and interpreted this imaging study as follows: My Impression: CHEST X-RAY: The results were interpreted by me. Emphysematous changes. Unchanged from February 21, 2018. Radiologist's Impression: Radiology results as stated below per my review and the radiologist's interpretation: CT CHEST With Contrast: No evidence for pulmonary embolism. Emphysematous changes, most significant involving the lung apices. Incidental scattered calcified granulomas noted diffusely. Dependent subsegmental changes at the lung bases may reprsent atelectasis or asymmetric edema. No pleural effusion or pneumothorax. Minimal central peribronchial thickening and interlobular septal thickening may represent a component of mild vascular congestion. This appears more prominent from examination dated 02/25/2018. Please correlate clinically. Nonspecific prevascular, paratracheal and AP window lymph nodes. Left anterior hilar lymph node is prominent measuring 16 mm in short axis diameter. This has increased from previous exam. No definite corollary pulmonary nodule identified. Continued short-term surveillance or nonemergent PET imaging may be appropriate in a patient presumed to be of high risk. Atherosclerotic changes involving the descending aorta. No acute abnormality identified or significant aneurysm. Postsurgical changes consistent with prior CABG. The cardiac chambers are normal in caliber. No pericardial effusion. Hiatal hernia again noted. Radiologist: Aric Forrest MD Study ready at 01:48 and initial results transmitted at 02:06. ECG Data Attestation: I personally reviewed and interpreted this ECG as follows: Indication: SOB/dyspnea Rate (beats per minute): 67 Rhythm: normal sinus Findings: + 1st degree AV block; no PAC, no PVC, no ST depression, no ST elevation, no acute ischemic change and no ectopy Blood Pressure Blood Pressure Findings: Normal blood pressure Blood Pressure Disposition: did not require urgent referral MDM Narrative The patient is a 77 year old male who presents to the Emergency Room with c omplaints of an episode of respiratory problems starting this evening. The patient has a history of COPD and wears 5 L of oxygen at home. The family explains that the patient has become more short of breath over the past couple of weeks. Tonight, the patient's shortness of breath increased and he had an episode of syncope while coming into the hospital. O2 saturations on presentation were in the 60s. This took quite some time to recover even with supplemental oxygen but did finally reach the 80s and 90s on 15 L of O2 by nonrebreather mask. EKG was unremarkable. The patient had no chest discomfort. Cardiac enzymes are negative. CT scan of the chest showed no evidence of PE. The case was discussed with the managing hospitalist and they will evaluate for further management. Impression & Plan Hypoxia Critical Care Time I have personally spent greater than 30 minutes of critical care time in the direct management of this patient. This includes bedside care, interpretation of diagnostic studies, and testing, discussion with consultants, patient, and family members, and other required patient management activities. This 30 minutes is in excess of all separately billable procedures. Critical Care Time: Yes Total Critical Care Time: 30 Discharge Plan Visit Data *Final* Discharge Date/Time: 06/05/18 04:52 Chief Complaint: Respiratory Problems Stated Complaint: HARD TIME BREATHING ED Provider: Zahira Javier Discharge Problem: Hypoxia Patient Disposition: Admitted As Inpatient Discharge Instructions Interventions: ED Discharge Assessment Last Done: 06/05/18 04:52 The scribe's documentation has been prepared under my direction and personally reviewed by me in its entirety. I confirm that the note above accurately reflects all work, treatment, procedures, and medical decision making performed by me.
--- NOTE | 2018-06-05 08:27 | Hospitalist Progress Note ---
Date of Service June 05, 2018 Assessment & Plan (1) Acute on chronic respiratory failure with hypoxia: Ceftriaxone 1 g IV dailyLevofloxacin 500 mg IV every 24 hours Solu-Medrol 40 mg every 12 Guaifenesin extended release 600 mg by mouth twice a day Duonebs every 4 hours while awake and every 2 hours when necessary. Adding Brovana twice daily Has been on nasal cannula 5 L of oxygen at home. Presently on oxygen mask 6 L. Sputum Gram stain and culture. I was personally called by radiology, Dr Vázquez, who is concerned that CTA shows a irregular lymph node occluding an upper pulmonary vein and is concerning for malignancy (2) COPD (chronic obstructive pulmonary disease): COPD exacerbation as noted above., baseline moderate to severe (3) Coronary artery disease: CAD/hypertension/status post CABG x5-- regimen of amlodipine, aspirin, clopidogrel, metoprolol will be restarted 06/05 holding lisinopril restarting Lasix pending echocardiogram (4) Status post aorto-coronary artery bypass graft: As above. (5) Hypertension: As above. (6) Near syncope: Secondary to hypoxia. Likely an element of bronchospasm associated, +/- mucous plugging. Was not a neurologic event per se. (7) Hyperlipidemia LDL goal <70: Continue atorvastatin 80 mg p.o. daily. (8) GERD (gastroesophageal reflux disease): Omeprazole 20 mg p.o. every morning to pantoprazole 40 mg daily. (9) BPH (benign prostatic hyperplasia): BPH/bladder spasm-- tamsulosin, oxybutynin chloride and methenamine hippurate. (10) Acute kidney injury superimposed on CKD: Creatinine 1.76 upon admission, with range 1.35-1.73. Holding lisinopril. Restarting Lasix on 06/06 (11) Anemia of chronic disease: Anemia chronic disease secondary to chronic kidney disease Hemoglobin today 12.8, with range 12.3-14.2. (12) Dependence on continuous supplemental oxygen: Typically requires 4 L at home continually, was recently changed to 5 L due to his recent hypoxia. Presently on 6 L oxygen mask, and will attempt to titrate downward as he response to treatment. (13) Peripheral neuropathy: Continue gabapentin Subjective Patient is markedly short of breath he feels worse in his shortness of breath when he came in. He did have a syncopal episode which prompted monitoring and manipulation some of his home medications. Patient feels his shortness of breath was based upon his significant oxygen need exertion and emotional to his being in the hospital. He states he feels improved however his states he looks worse than usual to her he said no recent fevers or chills cough with productive change in mucus and has had no recent change in medications Review of Systems ROS: Patient appears fatigued and tired No double vision blurry vision No problems with speech or swallowing No palpitations, chest pain or pressure Purse lipped breathing is in respiratory distress No abdominal pain nausea vomiting diarrhea changes in appetite or weight No burning urine urine frequency or changes in color No focal joint pain or muscle pain No skin rashes or oral lesions No unusual bruising or bleeding No focused back pain or numbness or loss of strength No changes in memory or confusion Physical Exam Vital Signs (Past 24 Hours): Last Vital Signs Temp 36.7 C 06/05/18 07:21 Pulse 63 06/05/18 07:37 Resp 16 06/05/18 07:21 BP 137/76 06/05/18 07:21 Pulse Ox 97 06/05/18 07:21 The patient appeared chronically ill and markedly dyspneic Vital signs as documented. Head exam is unremarkable. normocephalic, atraumatic Neck is with mild jugular venous distension, thyromegaly, or lymphademopathy Lungs are poor air movement no wheezes Cardiac exam reveals Rhythm is regular. Distant heart sounds Abdominal exam reveals normal bowel sounds, no masses, no organomegaly Extremities are mildly edematous and both pedal pulses are present Neurologic exam is A&Ox3, no focal deficits, strength is equal bilateral Psychologically seems neither anxious or depressed Skin is warm Dry without bruises or lesions
--- NOTE | 2018-06-05 08:28 | CT Scan Report ---
CT ANGIOGRAPHY OF THE CHEST, PULMONARY EMBOLUS PROTOCOL CLINICAL HISTORY: Shortness of breath. COMPARISON STUDY: Chest CT February 25, 2018. Chest radiograph June 05, 2018. TECHNIQUE: Following IV administration of 119 mL of Optiray-320, helical axial images of the chest we re obtained utilizing the pulmonary embolus protocol. Maximal intensity projections and sagittal and coronal reformats were viewed on an independent 3D workstation. IV contrast was administered withou t complication. Automated exposure control was utilized for the study. A dose lowering technique wa s utilized adhering to the principles of ALARA. CT DOSE: 298.03 mGy.cm FINDINGS: No emboli are identified. There are median sternotomy wires and postoperative findings fro m bypass grafting. There is extensive coronary artery calcification. A small hiatal hernia is noted. There is no pericardial effusion. There is moderate cardiomegaly. Note is made of a 3.1 x 2.1 cm irre gular masslike density within the anterior left hilum which occludes the left superior pulmonary vein . 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 Central airways are patent. There is moderate to severe emphysema. Innumerable calcified nodules within the lungs are noted. There is an indeterminate noncalcified 8 mm left upper lobe nodule. There is no pneumothorax or pleural effusion. Mild groundglass opacities are noted with subtle interstitia l thickening. Old T11 compression fracture is noted. Upper abdomen is unremarkable. IMPRESSION: 1. No pulmonary emboli identified. 2. 3.1 x 2.1 cm irregular mass-like density within the anterior left hilum which occludes the left shin perior pulmonary vein and is highly suggestive of malignancy. This may reflect a central bronchogenic carcinoma or malignant lymph node. Pulmonary/thoracic surgical consultation is recommended for consi deration for tissue sampling. 3. Moderate to severe emphysema. 4. Mild interstitial thickening which may reflect superimposed pulmonary edema. 5. Evidence for prior granulomatous process. Electronically signed by: Omer Vázquez M.D. 06/05/2018 8:26 AM
--- NOTE | 2018-06-05 08:39 | XRay Report ---
XR chest 1V portable CLINICAL HISTORY: Dyspnea COMPARISON STUDY: Chest CT February 25, 2018. FINDINGS: Innumerable calcified pulmonary nodules are noted. There are median sternotomy and clips fr om bypass grafting. There is no pneumothorax or pleural effusion. Emphysema is noted. There is mild c ardiomegaly. IMPRESSION: 1. Emphysema. No superimposed consolidation. 2. Evidence for previous granulomatous process. 3. Stable cardiomegaly. Electronically signed by: Omer Vázquez M.D. 06/05/2018 8:38 AM
[2018-06-05] MEDS: HEPARIN SOD 5,000 UNIT/0.5 ML VIAL SQ SCH ×2 (08:48→20:47)
[2018-06-05] MEDS: METOPROLOL SUCC 25MG EXT REL TAB PO SCH (14:42)
[2018-06-05] MEDS: ARFORMOTEROL TART 15MCG/2ML VIAL INH SCH (20:05)
[2018-06-05] MEDS: methylPREDNISolone 40 MG in SYRINGE 0 ML IV SCH (20:47)
[2018-06-06] MEDS: cefTRIAXone SODIUM 1,000 MG/50 ML BAG IV SCH (05:46)
[2018-06-06] MEDS ORDERED: LEVOFLOXACIN/D5W 250 MG/50 ML BAG IV SCH (07:00)
[2018-06-06 07:15] LABS: Creatinine Clr Calc Pharmacy 34.8 ml/min; Est GFR (African American) 45.4; Est GFR (Non-African American) 39.2
[2018-06-06] MEDS: ALBUT/IPRATROP 3MG/0.5MG NEB 3 ML VIAL NEB SCH ×2 (07:19→11:28)
[2018-06-06] MEDS: ARFORMOTEROL TART 15MCG/2ML VIAL INH SCH (07:20)
[2018-06-06] MEDS: METOPROLOL SUCC 25MG EXT REL TAB PO SCH (08:51)
[2018-06-06] MEDS: methylPREDNISolone 40 MG in SYRINGE 0 ML IV SCH (08:51)
[2018-06-06] MEDS: HEPARIN SOD 5,000 UNIT/0.5 ML VIAL SQ SCH (08:52)
[2018-06-06] MEDS ORDERED: FUROSEMIDE 20 MG TAB PO SCH (09:00)
[2018-06-06] MEDS ORDERED: LEVOFLOXACIN/D5W 750 MG/150 ML BAG IV SCH (14:00)
--- NOTE | 2018-06-06 18:08 | Discharge Summary ---
Date of Service June 06, 2018 Admission HPI Per Admitting Provider The patient is a 77-year-old male with a past medical history including CAD, status post CABG x5, hypertension, hyperlipidemia, COPD, peripheral neuropathy, GERD who presents to the emergency department with worsening difficulty with breathing over the past week, and a near syncopal episode with hypoxia into the 50s upon arrival from his car to the ED. The patient at home has been chronically on 4 L nasal cannula, but over the past week was increased to 5 L due to worsening oxygenation. He has not had any recent travels or sick exposures. Principal Diagnosis COPD exacerbation with bronchitis Discharge Exam Constitutional well developed and average body habitus Eyes no conjunctival abnormality and no scleral abnormality Neck normal visual inspection and trachea midline Respiratory + respiratory distress and + uses accessory muscles; + abnormal respiratory effort Auscultation: + wheezes Cardiovascular RRR, no murmur, no edema Gastrointestinal (Abdomen) normal bowel sounds, soft, nontender, no hepatosplenomegaly Musculoskeletal no cyanosis or clubbing, extremities motor strength 5/5 Discharge Data Allergies Allergy/AdvReac Type Severity Reaction Status Date / Time cyclobenzaprine AdvReac Unknown halluninati Verified 06/05/18 04:54 ons oxycodone AdvReac Unknown HALLUCINATI Verified 06/05/18 04:54 ONS Consultations 06/05/18 03:10 ED Decision to Admit Stat 06/05/18 05:20 Consult Case Management - Discharge Planning Routine 06/05/18 09:42 Consult Thoracic Surgery Routine Ordered Studies 06/05/18 01:07 CT angio chest PE protocol Urgent Hospital Course (1) Acute on chronic respiratory failure with hypoxia: levaquin for 3 more days tapering steroids po prednisone Has been on nasal cannula 5 L of oxygen at home. Sputum Gram stain and culture negative at times discharge. I was personally called by radiology, Dr Vázquez, who is concerned that CTA shows a irregular lymph node occluding an upper pulmonary vein and is concerning for malignancy (2) COPD (chronic obstructive pulmonary disease): COPD exacerbation as noted above., baseline moderate to severe (3) Coronary artery disease: CAD/hypertension/status post CABG x5-- regimen of amlodipine, aspirin, clopidogrel, metoprolol lisinopril Lasix (4) Status post aorto-coronary artery bypass graft: As above. (5) Hypertension: As above. (6) Near syncope: Secondary to hypoxia. Likely an element of bronchospasm associated, +/- mucous plugging. Was not a neurologic event per se. (7) Hyperlipidemia LDL goal <70: Continue atorvastatin 80 mg p.o. daily. (8) GERD (gastroesophageal reflux disease): Omeprazole 20 mg p.o. every morning to pantoprazole 40 mg daily. (9) BPH (benign prostatic hyperplasia): BPH/bladder spasm-- tamsulosin, oxybutynin chloride and methenamine hippurate. (10) Acute kidney injury superimposed on CKD: Creatinine 1.76 upon admission, with range 1.35-1.73. restart home meds (11) Anemia of chronic disease: Anemia chronic disease secondary to chronic kidney disease Hemoglobin today 12.8, with range 12.3-14.2. (12) Dependence on continuous supplemental oxygen: Typically requires 4 L at home continually, was recently changed to 5 L due to his recent hypoxia. Presently on 6 L oxygen mask, and will attempt to titrate downward as he response to treatment. (13) Peripheral neuropathy: Continue gabapentin Total Time Total Time Spent Total Time Spent (In Minutes): greater than 30 minutes were required to prepare discharge Discharge Plan Discharge Items Patient Disposition: Home - Self-Care Reason For Visit: ACUTE RESP FAILURE WITH HYPOXIA Discharge Diagnosis: copd exacerbation lymph node pressing on pulmonary vein, Dr Amaya will call and set up appointment Discharge Goals: Decrease discomfort Activity: Resume your previous activity Non-emergency contact: Primary Care Provider Call non-emergency contact if: you have any medication questions Follow-up/Referrals: Francois Oliva III, MD [Primary Care Provider] - Oswald Amaya MD, FACS [Surgeon] - Diet: Regular Addtl Provider Instructions: follow up Dr Amaya Prescriptions: New prednisone 10 mg tablet 10 mg PO DAILY Qty: 40 RF: 0 levofloxacin 250 mg tablet 250 mg PO DAILY 3 Days Qty: 3 RF: 0 Continued metoprolol succinate 50 mg tablet extended release 24 hr 25 mg PO DAILY RF: 0 citalopram 10 mg tablet 10 mg PO DAILY RF: 0 amlodipine 2.5 mg tablet 2.5 mg PO DAILY RF: 0 clopidogrel 75 mg tablet 75 mg PO DAILY RF: 0 tamsulosin 0.4 mg capsule 0.4 mg PO DAILY RF: 0 atorvastatin 80 mg Tablet 80 mg PO DAILY RF: 0 aspirin 81 mg Tablet,Delayed Release (Dr/Ec) 81 mg PO DAILY RF: 0 oxybutynin chloride [Ditropan XL] 5 mg Tablet Extended Release 24hr 5 mg PO DAILY RF: 0 furosemide 20 mg Tablet 20 mg PO DAILY RF: 0 finasteride 5 mg Tablet 5 mg PO DAILY RF: 0 lisinopril 20 mg Tablet 20 mg PO DAILY RF: 0 methenamine hippurate 1 gram Tablet 1 g PO QPM RF: 0 nitroglycerin [Nitrostat] 0.4 mg Tablet, Sublingual 0.4 mg sublingual UD PRN (Reason: Chest Pain) RF: 0 omeprazole 20 mg Capsule,Delayed Release(Dr/Ec) 20 mg PO DAILY RF: 0 albuterol sulfate 90 mcg/actuation Hfa Aerosol Inhaler 2 puff INHALATION Q4 PRN (Reason: Shortness Of Breath Or Wheezing) RF: 0 hydrocodone-acetaminophen [Vicodin] 5-300 mg Tablet 1 - 2 tab PO 6XD PRN (Reason: Pain) RF: 0 Symbicort 160-4.5 mcg/actuation Hfa Aerosol Inhaler 2 puff INHALATION BID RF: 0 Incruse Ellipta 62.5 mcg/actuation Blister With Device 1 inh INHALATION DAILY RF: 0 Stand-Alone Forms: [facility] Discharge Orders: Discharge Order (Routine); Ordered 06/06/18 Ordered By: Rowdy Macdonald Admission Data Admit Date/Time: 06/05/18 04:13 Attending Provider: Rowdy Macdonald Admit Provider: Yash Mcpherson Primary Care Provider: Francois Oliva III Other Providers: Yash Mcpherson ; Oswald Amaya Service: Telemetry Medical Other Interventions: Discharge Summary Assessment (RN) Last Done: 06/06/18 11:54 DC Date/Time DO NOT enter until pt leaves facility: 06/06/18 12:30
--- NOTE | 2018-06-07 03:45 | Consultation Report ---
DATE OF CONSULTATION: 06/06/2018 REASON FOR CONSULTATION: Left hilar mass. HISTORY OF PRESENT ILLNESS: This is a 77-year-old male who has been on oxygen for years and has very poor lungs, who was admitted with shortness of breath yesterday. He was noted to be hypoxic and was admitted to the hospital and started on antibiotics. He is on multiple inhalers and I was asked to evaluate him as a CT scan done to rule out pulmonary embolism, showed a mass which appeared to be obstructing the left superior pulmonary vein. The patient is a former smoker. He is on 5 liters of O2 at home. The patient has constant pulmonary disease as well as coronary artery disease and also has gastroesophageal reflux disease with acute renal injury with a creatinine of 1.76. He has chronic renal insufficiency. PAST SURGICAL HISTORY: Coronary artery bypass grafting x5. MEDICATIONS: 1. Metoprolol. 2. Citalopram. 3. Ellipta. 4. Symbicort. 5. Vicodin. 6. Amlodipine. 7. Plavix. 8. Atorvastatin. 9. Aspirin. 10. Flomax. 11. Finasteride. 12. Lasix. 13. Ditropan-XL. 14. Aspirin. 15. Lisinopril. 16. Nitroglycerin sublingually p.r.n. 17. Methenamine hippurate. 18. Omeprazole. 19. Albuterol. ALLERGIES: 1. CYCLOBENZAPRINE. 2. OXYCODONE. SOCIAL HISTORY: The patient lives with his . He is a former smoker. He is retired and worked at [employer] for many years. He is normally followed by Dr. Francois Oliva. FAMILY MEDICAL HISTORY: Noncontributory in this 77-year-old. REVIEW OF SYSTEMS: The patient was markedly hypoxic upon his presentation with the shot in the 50s. This is an acute exacerbation of his chronic issues. He denies chest pressure. No palpitations. Denies lower extremity edema. He has had no productive cough, nausea, vomiting, or GI symptoms. He has had no visual or auditory symptoms. He did have a near syncopal episode when he was hypoxic. He denies any or GI symptoms. He has had no neurologic symptoms other than that discussed above. Denies any skin breakdown. PHYSICAL EXAMINATION: GENERAL: Well-developed, well-nourished male who is awake, alert and oriented. HEENT: Extraocular movements are intact. Pupils are equal, round and reactive. Sclerae are anicteric. I detect no neck vein distention. LUNGS: He does have rhonchi and has expiratory wheezing throughout. He has mildly decreased breath sounds at the base. He has a well-healed sternotomy incision with no click. CARDIAC: He has a regular rate and rhythm of his heart. He has no carotid bruits. I detect no supraclavicular, cervical or axillary adenopathy. ABDOMEN: Soft, nontender. He has good femoral pulses. He has good distal pulses and really does not have any edema. He has no skin breakdown. NEUROLOGIC: Completely intact. He is wearing supplemental oxygen. ASSESSMENT AND PLAN: I reviewed the CT scan. I agree with Dr. Macdonald that this left hilar abnormality is concerning. This is amenable to an endobronchial ultrasound with biopsy. We will get this set up and I do not think the patient needs to stay in the hospital for this. We will get him set up with an outpatient and do hopefully in the next week.
== END 2018-06-06 12:30 | disposition home or self-care (01) | DRG 189 ==
LOC: ED 23:53 → SUATTDRO 06-05 04:13 → 2N 06-05 04:13

== ENCOUNTER 2018-06-09 11:01 | Inpatient (IN) ==
[2018-06-09 11:51] LABS: Eosinophils # (auto) 0.04 K/uL (0-0.5); Eosinophils % (auto) 0.3 %; Hematocrit (blood only) 34.6 % (42-52); Immature Granulocytes # (auto) 0.08 K/uL (0.00-0.02); Immature Granulocytes % (auto) 0.6 %; Lymphocytes # (auto) 1.81 K/uL (1.2-3.4); Lymphocytes % (auto) 12.5 %; Mean Corpuscular Hgb Conc 34.7 g/dL (32-36); Mean Platelet Volume 10.7 fL (7.4-10.4); Monocytes # (auto) 1.75 K/uL (0.11-0.59); Monocytes % (auto) 12.1 %; Neutrophils # (auto) 10.77 K/uL (1.4-6.5); Neutrophils % (auto) 74.5 %; Platelet Count 269 K/uL (130-400); RDW Coefficient of Variation 13.2 % (11.5-14.5); RDW Standard Deviation 45.9 fL (36.4-46.3); Red Blood Count 3.68 M/uL (4.7-6.1); White Blood Count 14.45 K/uL (4.8-10.8)
--- NOTE | 2018-06-09 11:54 | Emergency Department Note ---
ED Provider Note CHIEF COMPLAINT: Syncope HISTORY OF PRESENTING ILLNESS: This is a 77-year-old male with past medical history significant for COPD on 5 L oxygen nasal cannula at home, CAD and status post CABG x5, CKD, BPH, GERD, hyperlipidemia, hypertension, who presents to the emergency department via EMS after a syncopal episode just prior to arrival. Patient states that he was going to see his urologist and was walking into the doctor's office when he suddenly felt very weak and passed out. 1 of the staff at the doctor's office was able to catch him and lowered him to the ground so there were no injuries. He denies any symptoms of dizziness or feeling faint, chest pain, or palpitations prior to the syncopal event. He was unconscious for a few seconds. His notes that they checked his pulse ox and he was in the low 70s right after the event. He does use 5 L of nasal cannula oxygen at all times, this was on at the time, and he does note that he gets short of breath with exertion and was feeling short of breath walking into the office, but he notes this is not that unusual for him. He was recently admitted to the hospital for a similar episode of syncope and dropping his sats, he was felt to have a COPD exacerbation and was discharged home 3 days ago on prednisone and an antibiotic. The patient states that overall he feels he is doing much better since being discharged. He denies any headaches, vision changes, neck pain, james k pain, fevers or chills, abdominal pain, nausea or vomiting, or unusual rash. REVIEW OF SYSTEMS: A complete 10 point review of systems was reviewed with the patient with pertinent positives and negatives as per history of present illness. All else were negative. PAST MEDICAL HISTORY: COPD, CAD, CABG x5, dependence on supplemental oxygen, chronic kidney disease, BPH, GERD, hypertension, hyperlipidemia SOCIAL HISTORY: Lives at home with his , he is a former smoker ALLERGIES: Reviewed in chart PHYSICAL EXAM: CONSTITUTIONAL: Pleasant and cooperative. Able to speak in full sentences. No ntoxic appearing and in no acute distress. Well-hydrated, well appearing and well nourished. HEENT: Normocephalic, atraumatic. PERRL, EOMI. Pharynx normal. Moist mucous membranes. NECK: Supple, full active range of motion without discomfort. No cervical adenopathy. RESPIRATORY: Diminished with bibasilar coarse crackles to auscultation, no wheezing, rhonchi or stridor. Equal expansion bilaterally. No tachypnea. No accessory muscle use. Nonlabored breathing. CARDIOVASCULAR: Regularly irregular rate and rhythm with no murmurs, rubs or gallops. Normal peripheral perfusion with 2+ distal pulses in all 4 extremities. No edema. GASTROINTESTINAL: Soft, nontender, nondistended. No palpable masses or HSM. Bowel sounds present in all quadrants. No CVA tenderness bilaterally. MUSCULOSKELETAL: Full range of motion of all joints without discomfort. INTEGUMENTARY: No rash or other significant dermatologic conditions noted. NEUROLOGIC: Alert and oriented X 4 with normal affect. No facial droop. No pronator drift. No focal neurologic deficits noted. Normal strength and sensation in all 4 extremities. Normal speech. ED COURSE AND MEDICAL DECISION MAKING: CC: Patient presenting with complaint of syncope DIFFERENTIAL DIAGNOSIS: Includes, but not limited to orthostatic hypotension, vasovagal syncope, hypoxic episode, cardiac dysrhythmia, CVA, intracranial hemorrhage, ACS, COPD exacerbation, CHF, dehydration, electrolyte abnormality, acute on chronic renal failure, UTI, among others. INTERPRETATION OF LABS: Leukocytosis with left shift, mild anemia, normal platelets, no significant electrolyte abnormality, elevated BUN/creatinine consistent with baseline, normal liver enzymes. Cardiac enzymes are negative. TSH within normal limits. Coagulation factors within normal limits. IMAGING: XR chest 1V portable HISTORY: 77 years-old Male syncope, SOB acute syncope with shortness of breath COMPARISON: Chest radiograph and CT chest 06/05/2018 TECHNIQUE: Portable AP view of the chest FINDINGS: Cardiac silhouette is mildly enlarged, unchanged. Prior median sternotomy with CABG. Calcification the thoracic aortic arch. Chronic interstitial coarsening with calcified granulomata. The previously described irregular masslike density about the left hilum is better seen on comparison chest CT. No pneumothorax, pleural effusion or overt pulmonary edema. Minimal subsegmental atelectasis/scarring about the lateral right lung base. Degenerative changes of the shoulders and spine. IMPRESSION: 1. Cardiomegaly and emphysema without acute process. 2. Masslike left hilar lesion is better seen and described on comparison chest CT from 06/05/2018. 3. Prior granulomatous disease. 4. Prior median sternotomy and CABG. ----- CT head/brain wo con CLINICAL HISTORY: 77 years-old Male with syncope. Acute syncope TECHNIQUE: Multiple axial CT images of the head were obtained without contrast. A dose lowering technique was utilized adhering to the principles of ALARA. CT DOSE: 537.48 mGy.cm COMPARISON: CT head 03/25/2017. FINDINGS: No acute intracranial hemorrhage, midline shift, intracranial mass, hydrocephalus, territorial ischemia or abnormal extra-axial collection. Age- related involutional changes. Cavum septum lucidum. Moderate to extensive chronic microvascular ischemic changes. Expected ventriculomegaly. Cerebral vascular calcifications noted. The calvarium is intact. Trace left mastoid effusion. Moderate right mastoid effusion. Mild mucosal thickening about the paranasal sinuses. Moderate bilateral arvin bullosa. Soft tissues and orbits are unremarkable. IMPRESSION: 1. No acute intracranial abnormality or calvarial fracture. 2. Age-related involutional changes with chronic microvascular ischemic changes. 3. Right greater than left bilateral mastoid effusions with mild nasal sinus disease. EKG: Shows sinus rhythm with rate of 75 bpm, occasional PVCs, left axis deviation, normal intervals, T wave flattened in lead I, T wave inverted in aVL, when compared to previous EKG from 06/05/2018 PVCs are new, no other significant changes by my interpretation. MEDICATION RECONCILIATION: I attest that I have personally reviewed the rad valverde's current medication list. INITIAL VITAL SIGNS REVIEW: I reviewed the patient's initial vital signs and interpret them as follows: T: Afebrile; BP: Hypotensive; HR: Within normal limits; RR: Within normal limits; Pulse Ox: Within normal limits on 5 L nasal cannula (home O2). Blood pressure screening: The patient was found to have a low blood pressure, which was resolved on subsequent recheck and was later found to be elevated, was referred to the inpatient team for further management. MDM SUMMARY: Patient was evaluated at bedside, history and physical exam performed. Patient is alert and oriented, in no acute distress, resting calmly in the stretcher. Neurologic exam is intact with no focal deficits. Normal perfusion, no edema. Frequent PVCs noted on monitor, patient seems to be asymptomatic with this. EKG reviewed at bedside, noting sinus rhythm with a PVCs, no acute ischemic changes. Orders were placed at bedside for labs, cath UA and culture, orthostatic vital signs, chest x-ray, head CT to evaluate for syncope. Patient discussed with Dr. Gupta, who also evaluated the patient and agrees with my assessment, plan, and disposition. Labs and imaging reviewed as above, noting leukocytosis which I suspect is secondary to recent steroid use, slight increase in creatinine which may be due to dehydration, labs are otherwise unremarkable. Negative cardiac enzymes. Chest x-ray appears to be stable. Head CT negative. Patient reassessed multiple times throughout ED stay, he has remained stable, alert, and without complaint. He is no longer hypotensive and has actually become hypertensive. He remains on his home O2 at 5 L nasal cannula. Given that this is the patient's second syncopal episode within the week, and with his complex medical history, I do feel that he would benefit from readmission for additional workup for his syncope, including an echo. I did speak on the phone with Dr. Amaya, thoracic surgery, regarding the patient's thoracic mass, he does not feel that this is related, but does plan to follow the patient while he is admitted. I spoke on the phone with Dr. Toledo, [facility] hospitalist, who agrees to evaluate the patient for admission. The patient and his were updated on all results and plan for admission, they verbalized understanding and were agreeable to this plan. The patient was stable at time of admission. The chart was completed utilizing [employer] Speech voice recognition software. Grammatical errors, random word insertions, pronoun errors, and incomplete sentences are an occasional consequence of this system due to software limitations, ambient noise, and hardware issues. Any formal questions or concerns about the content, text, or information contained within the body of this dictation should be directly addressed to the nurse practitioner for clarification. Impression & Plan Syncope, Lung mass Past Med/Surg History Medical History Hypertension (Chronic) Anemia CAD (coronary artery disease) Neuropathy COPD (chronic obstructive pulmonary disease) Surgical History S/P CABG x 4 Social History Preferred Language: Thai Communication Ability: Effective Griddle Attendant Required: No Beliefs That Will Affect Care: Confucianist marital status: Current Living Situation: Spouse current occupational status: retired Other Information That Helps Us Care for You: No Feels Safe at Home: Yes Safety Concerns: Feels Safe At This Time Smoking Status: Former smoker Hx Alcohol Use: Yes Hx Substance Use: No Results & Data Vital Signs Vital Signs - 24 hr 06/09/18 11:09 06/09/18 11:14 06/09/18 11:21 Temperature 36.6 C Temperature Source Oral Sepsis Recent Fever Within 48 Hours Yes Sepsis New/Unexplained Change in Mental Status No Sepsis Action Taken by Nursing No Action Required Pulse Rate - Lying Pulse Rate - Sitting Pulse Rate - Standing Pulse Rate 78 82 77 Pulse Rate [Apical] Pulse Rate [Left Finger] Pulse Rate from SpO2 Sensor 59 L 58 L Pulse Rhythm [Left Finger] Pulse Strength [Left Finger] Respiratory Rate 20 16 24 Respiratory Effort / Characteristics Respiratory Depth Respiratory Pattern Blood Pressure - Lying Blood Pressure - Sitting Blood Pressure- Standing Blood Pressure 93/58 L 93/58 L Blood Pressure [Right Arm] Blood Pressure Mean 69 69 Blood Pressure Mean [Right Arm] Blood Pressure Position [Right Arm] Pulse Oximetry 100 96 100 Oxygen Delivery Method Nasal Cannula Oxygen Flow Rate 5 06/09/18 11:30 06/09/18 11:37 06/09/18 11:40 Temperature Temperature Source Sepsis Recent Fever Within 48 Hours Sepsis New/Unexplained Change in Mental Status Sepsis Action Taken by Nursing Pulse Rate - Lying Pulse Rate - Sitting Pulse Rate - Standing Pulse Rate 82 80 79 Pulse Rate [Apical] Pulse Rate [Left Finger] Pulse Rate from SpO2 Sensor 61 59 L 60 Pulse Rhythm [Left Finger] Pulse Strength [Left Finger] Respiratory Rate 15 20 20 Respiratory Effort / Characteristics Respiratory Depth Respiratory Pattern Blood Pressure - Lying Blood Pressure - Sitting Blood Pressure- Standing Blood Pressure 114/64 Blood Pressure [Right Arm] Blood Pressure Mean 80 Blood Pressure Mean [Right Arm] Blood Pressure Position [Right Arm] Pulse Oximetry 93 99 96 Oxygen Delivery Method Oxygen Flow Rate 06/09/18 11:50 06/09/18 11:55 06/09/18 12:00 Temperature Temperature Source Sepsis Recent Fever Within 48 Hours Sepsis New/Unexplained Change in Mental Status Sepsis Action Taken by Nursing Pulse Rate - Lying Pulse Rate - Sitting Pulse Rate - Standing Pulse Rate 79 68 77 Pulse Rate [Apical] 78 Pulse Rate [Left Finger] Pulse Rate from SpO2 Sensor 59 L 57 L 58 L Pulse Rhythm [Left Finger] Pulse Strength [Left Finger] Respiratory Rate 18 24 21 Respiratory Effort / Characteristics Respiratory Depth Respiratory Pattern Blood Pressure - Lying Blood Pressure - Sitting Blood Pressure- Standing Blood Pressure 112/66 Blood Pressure [Right Arm] 112/66 Blood Pressure Mean 81 Blood Pressure Mean [Right Arm] 81 Blood Pressure Position [Right Arm] Pulse Oximetry 98 99 95 Oxygen Delivery Method Room Air Oxygen Flow Rate 06/09/18 12:43 06/09/18 12:46 06/09/18 12:48 Temperature Temperature Source Sepsis Recent Fever Within 48 Hours Sepsis New/Unexplained Change in Mental Status Sepsis Action Taken by Nursing Pulse Rate - Lying Pulse Rate - Sitting Pulse Rate - Standing Pulse Rate 77 72 Pulse Rate [Apical] 78 Pulse Rate [Left Finger] Pulse Rate from SpO2 Sensor 58 L 59 L Pulse Rhythm [Left Finger] Pulse Strength [Left Finger] Respiratory Rate 20 16 16 Respiratory Effort / Characteristics Respiratory Depth Respiratory Pattern Blood Pressure - Lying Blood Pressure - Sitting Blood Pressure- Standing Blood Pressure 120/85 Blood Pressure [Right Arm] 120/85 Blood Pressure Mean 96 Blood Pressure Mean [Right Arm] 96 Blood Pressure Position [Right Arm] Pulse Oximetry 97 97 97 Oxygen Delivery Method Nasal Cannula Oxygen Flow Rate 5 06/09/18 12:50 06/09/18 13:00 06/09/18 13:10 Temperature Temperature Source Sepsis Recent Fever Within 48 Hours Sepsis New/Unexplained Change in Mental Status Sepsis Action Taken by Nursing Pulse Rate - Lying Pulse Rate - Sitting Pulse Rate - Standing Pulse Rate 68 78 62 Pulse Rate [Apical] Pulse Rate [Left Finger] Pulse Rate from SpO2 Sensor 63 58 L 55 L Pulse Rhythm [Left Finger] Pulse Strength [Left Finger] Respiratory Rate 24 15 14 Respiratory Effort / Characteristics Respiratory Depth Respiratory Pattern Blood Pressure - Lying Blood Pressure - Sitting Blood Pressure- Standing Blood Pressure Blood Pressure [Right Arm] Blood Pressure Mean Blood Pressure Mean [Right Arm] Blood Pressure Position [Right Arm] Pulse Oximetry 96 95 98 Oxygen Delivery Method Oxygen Flow Rate 06/09/18 13:11 06/09/18 13:20 06/09/18 13:30 Temperature Temperature Source Sepsis Recent Fever Within 48 Hours Sepsis New/Unexplained Change in Mental Status Sepsis Action Taken by Nursing Pulse Rate - Lying 78 Pulse Rate - Sitting 72 Pulse Rate - Standing 105 H Pulse Rate 76 71 Pulse Rate [Apical] Pulse Rate [Left Finger] Pulse Rate from SpO2 Sensor 57 L 56 L Pulse Rhythm [Left Finger] Pulse Strength [Left Finger] Respiratory Rate 21 22 Respiratory Effort / Characteristics Respiratory Depth Respiratory Pattern Blood Pressure - Lying 121/77 Blood Pressure - Sitting 122/78 Blood Pressure- Standing 95/60 L Blood Pressure Blood Pressure [Right Arm] Blood Pressure Mean Blood Pressure Mean [Right Arm] Blood Pressure Position [Right Arm] Pulse Oximetry 98 99 Oxygen Delivery Method Oxygen Flow Rate 06/09/18 13:40 06/09/18 13:50 06/09/18 14:00 Temperature Temperature Source Sepsis Recent Fever Within 48 Hours Sepsis New/Unexplained Change in Mental Status Sepsis Action Taken by Nursing Pulse Rate - Lying Pulse Rate - Sitting Pulse Rate - Standing Pulse Rate 66 76 73 Pulse Rate [Apical] Pulse Rate [Left Finger] Pulse Rate from SpO2 Sensor 55 L 57 L 59 L Pulse Rhythm [Left Finger] Pulse Strength [Left Finger] Respiratory Rate 22 17 18 Respiratory Effort / Characteristics Respiratory Depth Respiratory Pattern Blood Pressure - Lying Blood Pressure - Sitting Blood Pressure- Standing Blood Pressure Blood Pressure [Right Arm] Blood Pressure Mean Blood Pressure Mean [Right Arm] Blood Pressure Position [Right Arm] Pulse Oximetry 97 97 98 Oxygen Delivery Method Oxygen Flow Rate 06/09/18 14:01 06/09/18 14:02 06/09/18 14:10 Temperature Temperature Source Sepsis Recent Fever Within 48 Hours Sepsis New/Unexplained Change in Mental Status Sepsis Action Taken by Nursing Pulse Rate - Lying Pulse Rate - Sitting Pulse Rate - Standing Pulse Rate 68 71 Pulse Rate [Apical] 69 Pulse Rate [Left Finger] Pulse Rate from SpO2 Sensor 60 58 L Pulse Rhythm [Left Finger] Pulse Strength [Left Finger] Respiratory Rate 18 16 19 Respiratory Effort / Characteristics Respiratory Depth Respiratory Pattern Blood Pressure - Lying Blood Pressure - Sitting Blood Pressure- Standing Blood Pressure 135/76 Blood Pressure [Right Arm] 186/115 H Blood Pressure Mean 95 Blood Pressure Mean [Right Arm] 138 Blood Pressure Position [Right Arm] Pulse Oximetry 97 98 97 Oxygen Delivery Method Nasal Cannula Oxygen Flow Rate 5 06/09/18 14:20 06/09/18 14:30 06/09/18 14:31 Temperature Temperature Source Sepsis Recent Fever Within 48 Hours Sepsis New/Unexplained Change in Mental Status Sepsis Action Taken by Nursing Pulse Rate - Lying Pulse Rate - Sitting Pulse Rate - Standing Pulse Rate 74 71 75 Pulse Rate [Apical] Pulse Rate [Left Finger] Pulse Rate from SpO2 Sensor 59 L 59 L 62 Pulse Rhythm [Left Finger] Pulse Strength [Left Finger] Respiratory Rate 18 17 18 Respiratory Effort / Characteristics Respiratory Depth Respiratory Pattern Blood Pressure - Lying Blood Pressure - Sitting Blood Pressure- Standing Blood Pressure 150/77 H Blood Pressure [Right Arm] Blood Pressure Mean 101 Blood Pressure Mean [Right Arm] Blood Pressure Position [Right Arm] Pulse Oximetry 96 97 97 Oxygen Delivery Method Oxygen Flow Rate 06/09/18 14:40 06/09/18 14:48 06/09/18 14:50 Temperature Temperature Source Sepsis Recent Fever Within 48 Hours Sepsis New/Unexplained Change in Mental Status Sepsis Action Taken by Nursing Pulse Rate - Lying Pulse Rate - Sitting Pulse Rate - Standing Pulse Rate 79 73 Pulse Rate [Apical] 72 Pulse Rate [Left Finger] Pulse Rate from SpO2 Sensor 59 L 60 Pulse Rhythm [Left Finger] Pulse Strength [Left Finger] Respiratory Rate 18 16 17 Respiratory Effort / Characteristics Respiratory Depth Respiratory Pattern Blood Pressure - Lying Blood Pressure - Sitting Blood Pressure- Standing Blood Pressure Blood Pressure [Right Arm] 150/77 H Blood Pressure Mean Blood Pressure Mean [Right Arm] 101 Blood Pressure Position [Right Arm] Pulse Oximetry 96 97 97 Oxygen Delivery Method Room Air Oxygen Flow Rate 06/09/18 15:00 06/09/18 15:01 06/09/18 15:10 Temperature Temperature Source Sepsis Recent Fever Within 48 Hours Sepsis New/Unexplained Change in Mental Status Sepsis Action Taken by Nursing Pulse Rate - Lying Pulse Rate - Sitting Pulse Rate - Standing Pulse Rate 67 63 76 Pulse Rate [Apical] Pulse Rate [Left Finger] Pulse Rate from SpO2 Sensor 60 61 63 Pulse Rhythm [Left Finger] Pulse Strength [Left Finger] Respiratory Rate 17 20 16 Respiratory Effort / Characteristics Respiratory Depth Respiratory Pattern Blood Pressure - Lying Blood Pressure - Sitting Blood Pressure- Standing Blood Pressure 148/87 H Blood Pressure [Right Arm] Blood Pressure Mean 107 Blood Pressure Mean [Right Arm] Blood Pressure Position [Right Arm] Pulse Oximetry 98 98 95 Oxygen Delivery Method Oxygen Flow Rate 06/09/18 15:20 06/09/18 15:30 06/09/18 15:40 Temperature Temperature Source Sepsis Recent Fever Within 48 Hours Sepsis New/Unexplained Change in Mental Status Sepsis Action Taken by Nursing Pulse Rate - Lying Pulse Rate - Sitting Pulse Rate - Standing Pulse Rate 69 72 73 Pulse Rate [Apical] Pulse Rate [Left Finger] Pulse Rate from SpO2 Sensor 63 60 61 Pulse Rhythm [Left Finger] Pulse Strength [Left Finger] Respiratory Rate 18 16 22 Respiratory Effort / Characteristics Respiratory Depth Respiratory Pattern Blood Pressure - Lying Blood Pressure - Sitting Blood Pressure- Standing Blood Pressure 144/75 H Blood Pressure [Right Arm] Blood Pressure Mean 98 Blood Pressure Mean [Right Arm] Blood Pressure Position [Right Arm] Pulse Oximetry 97 96 95 Oxygen Delivery Method Oxygen Flow Rate 06/09/18 15:43 06/09/18 15:50 06/09/18 16:00 Temperature Temperature Source Sepsis Recent Fever Within 48 Hours Sepsis New/Unexplained Change in Mental Status Sepsis Action Taken by Nursing Pulse Rate - Lying Pulse Rate - Sitting Pulse Rate - Standing Pulse Rate 72 72 Pulse Rate [Apical] 73 Pulse Rate [Left Finger] Pulse Rate from SpO2 Sensor 58 L 59 L Pulse Rhythm [Left Finger] Pulse Strength [Left Finger] Respiratory Rate 18 19 17 Respiratory Effort / Characteristics SOB on Exertion Respiratory Depth Normal Respiratory Pattern Regular Blood Pressure - Lying Blood Pressure - Sitting Blood Pressure- Standing Blood Pressure Blood Pressure [Right Arm] 144/75 H Blood Pressure Mean Blood Pressure Mean [Right Arm] 98 Blood Pressure Position [Right Arm] Pulse Oximetry 94 97 93 Oxygen Delivery Method Nasal Cannula Nasal Cannula Oxygen Flow Rate 5 5 06/09/18 16:01 06/09/18 16:10 06/09/18 16:20 Temperature Temperature Source Sepsis Recent Fever Within 48 Hours Sepsis New/Unexplained Change in Mental Status Sepsis Action Taken by Nursing Pulse Rate - Lying Pulse Rate - Sitting Pulse Rate - Standing Pulse Rate 71 69 73 Pulse Rate [Apical] Pulse Rate [Left Finger] Pulse Rate from SpO2 Sensor 59 L 58 L 60 Pulse Rhythm [Left Finger] Pulse Strength [Left Finger] Respiratory Rate 15 18 18 Respiratory Effort / Characteristics Respiratory Depth Respiratory Pattern Blood Pressure - Lying Blood Pressure - Sitting Blood Pressure- Standing Blood Pressure 153/78 H Blood Pressure [Right Arm] Blood Pressure Mean 103 Blood Pressure Mean [Right Arm] Blood Pressure Position [Right Arm] Pulse Oximetry 95 96 96 Oxygen Delivery Method Oxygen Flow Rate 06/09/18 16:30 06/09/18 16:31 06/09/18 16:40 Temperature Temperature Source Sepsis Recent Fever Within 48 Hours Sepsis New/Unexplained Change in Mental Status Sepsis Action Taken by Nursing Pulse Rate - Lying Pulse Rate - Sitting Pulse Rate - Standing Pulse Rate 67 77 72 Pulse Rate [Apical] Pulse Rate [Left Finger] Pulse Rate from SpO2 Sensor 62 61 60 Pulse Rhythm [Left Finger] Pulse Strength [Left Finger] Respiratory Rate 22 19 16 Respiratory Effort / Characteristics Respiratory Depth Respiratory Pattern Blood Pressure - Lying Blood Pressure - Sitting Blood Pressure- Standing Blood Pressure 138/81 Blood Pressure [Right Arm] Blood Pressure Mean 100 Blood Pressure Mean [Right Arm] Blood Pressure Position [Right Arm] Pulse Oximetry 92 92 90 Oxygen Delivery Method Oxygen Flow Rate 06/09/18 16:50 06/09/18 17:00 06/09/18 17:01 Temperature Temperature Source Sepsis Recent Fever Within 48 Hours Sepsis New/Unexplained Change in Mental Status Sepsis Action Taken by Nursing Pulse Rate - Lying Pulse Rate - Sitting Pulse Rate - Standing Pulse Rate 79 70 61 Pulse Rate [Apical] Pulse Rate [Left Finger] Pulse Rate from SpO2 Sensor 59 L 64 60 Pulse Rhythm [Left Finger] Pulse Strength [Left Finger] Respiratory Rate 14 19 20 Respiratory Effort / Characteristics Spontaneous Short of Breath SOB on Exertion Other Respiratory Depth Respiratory Pattern Regular Blood Pressure - Lying Blood Pressure - Sitting Blood Pressure- Standing Blood Pressure 147/82 H Blood Pressure [Right Arm] Blood Pressure Mean 103 Blood Pressure Mean [Right Arm] Blood Pressure Position [Right Arm] Pulse Oximetry 97 93 94 Oxygen Delivery Method Nasal Cannula Oxygen Flow Rate 5 06/09/18 17:10 06/09/18 17:35 06/09/18 18:05 Temperature 36.4 C L Temperature Source Oral Sepsis Recent Fever Within 48 Hours Sepsis New/Unexplained Change in Mental Status Sepsis Action Taken by Nursing Pulse Rate - Lying Pulse Rate - Sitting Pulse Rate - Standing Pulse Rate 74 71 Pulse Rate [Apical] Pulse Rate [Left Finger] 65 Pulse Rate from SpO2 Sensor 58 L Pulse Rhythm [Left Finger] Regular Pulse Strength [Left Finger] Normal Respiratory Rate 17 23 20 Respiratory Effort / Characteristics Non-Labored Respiratory Depth Normal Respiratory Pattern Regular Blood Pressure - Lying Blood Pressure - Sitting Blood Pressure- Standing Blood Pressure 152/87 H Blood Pressure [Right Arm] 161/80 H Blood Pressure Mean Blood Pressure Mean [Right Arm] 107 Blood Pressure Position [Right Arm] Sitting Pulse Oximetry 97 98 90 Oxygen Delivery Method Nasal Cannula Nasal Cannula Oxygen Flow Rate 5 5 Laboratory Data Result diagrams: 06/09/18 11:31 06/09/18 11:31 Lab Results 06/09/18 06/09/18 06/09/18 Range/Units 11:31 11:31 11:31 WBC 14.45 H (4.8-10.8) K/uL RBC 3.68 L (4.7-6.1) M/uL Hgb 12.0 L (14.0-18.0) g/dL Hct 34.6 L (42-52) % MCV 94.0 (80-100) fL MCH 32.6 (25-34) pg MCHC 34.7 (32-36) g/dL RDW Std Deviation 45.9 (36.4-46.3) fL RDW Coeff of Gilda 13.2 (11.5-14.5) % Plt Count 269 (130-400) K/uL MPV 10.7 H (7.4-10.4) fL Immature Gran % (Auto) 0.6 % Neut % (Auto) 74.5 % Lymph % (Auto) 12.5 % [place] % (Auto) 12.1 % Eos % (Auto) 0.3 % Baso % (Auto) 0.0 % Immature Gran # (Auto) 0.08 H (0.00-0.02) K/uL Neut # (Auto) 10.77 H (1.4-6.5) K/uL Lymph # (Auto) 1.81 (1.2-3.4) K/uL [place] # (Auto) 1.75 H (0.11-0.59) K/uL Eos # (Auto) 0.04 (0-0.5) K/uL Baso # (Auto) 0.00 (0-0.2) K/uL PT 11.0 (9.0-12.0) Seconds INR 1.1 (0.9-1.1) APTT 21.9 (21.0-31.0) Seconds PTT Ratio 0.8 Sodium 134 L (136-145) mmol/L Potassium 4.2 (3.5-5.1) mmol/L Chloride 102 (98-107) mmol/L Carbon Dioxide 25 (21-32) mmol/L Anion Gap 7.0 (3-11) BUN 32 H (7-18) mg/dl Creatinine 1.76 H (0.6-1.4) mg/dl Est Cr Clr Drug Dosing 32.9 ml/min Est GFR ( Amer) 42.3 Est GFR (Non-Af Amer) 36.5 BUN/Creatinine Ratio 18.1 (10-20) Glucose 73 (70-99) mg/dl Calcium 8.5 (8.5-10.1) mg/dl Phosphorus 3.7 (2.5-4.9) mg/dl Magnesium 2.2 (1.8-2.4) mg/dl Total Bilirubin 0.4 (0.2-1) mg/dl AST 17 (15-37) U/L ALT 18 (12-78) U/L Alkaline Phosphatase 65 (45-117) U/L Total Creatine Kinase 48 (39-308) U/L CK-MB (CK-2) 2.6 (0.5-3.6) ng/ml CK/CKMB % Calc 5.4 H (0-3.0) Troponin I < 0.015 (0-0.045) ng/ml Total Protein 6.6 (6.4-8.2) gm/dl Albumin 3.0 L (3.4-5.0) gm/dl Globulin 3.6 (2.5-4.0) gm/dl Albumin/Globulin Ratio 0.8 L (0.9-2) TSH 1.780 (0.300-4.500) uIu/ml Discharge Plan Visit Data *Final* Discharge Date/Time: 06/09/18 17:35 Chief Complaint: Syncope Stated Complaint: Syncope ED Provider: Jed Gupta ED Midlevel Provider: Linda Garcia Discharge Problem: Syncope, Lung mass Patient Disposition: Admitted As Inpatient Discharge Instructions Interventions: ED Discharge Assessment Last Done: 06/09/18 17:35 Discharge Problem: Syncope Qualifiers: Syncope type: unspecified Qualified Code(s): R55 - Syncope and collapse
[2018-06-09 11:59] LABS: Alanine Aminotransferase 18 U/L (12-78); Aspartate Aminotransferase 17 U/L (15-37); BUN Creatinine Ratio 18.1 (10-20); Blood Urea Nitrogen 32 mg/dl (7-18); Calcium 8.5 mg/dl (8.5-10.1); Carbon Dioxide 25 mmol/L (21-32); Chloride 102 mmol/L (98-107); Creatinine Clr Calc Pharmacy 32.9 ml/min; Est GFR (African American) 42.3; Est GFR (Non-African American) 36.5; Glucose 73 mg/dl (70-99); Magnesium 2.2 mg/dl (1.8-2.4); Potassium 4.2 mmol/L (3.5-5.1); Sodium 134 mmol/L (136-145)
[2018-06-09 12:00] LABS: INR 1.1 (0.9-1.1); Partial Thromboplastin Ratio 0.8; Partial Thromboplastin Time 21.9 Seconds (21.0-31.0)
[2018-06-09 12:10] LABS: Albumin Globulin Ratio 0.8 (0.9-2); Alkaline Phosphatase 65 U/L (45-117); Bilirubin,Total 0.4 mg/dl (0.2-1); Creatine Kinase 48 U/L (39-308); Creatine Kinase MB 2.6 ng/ml (0.5-3.6); Globulin 3.6 gm/dl (2.5-4.0); Total Protein 6.6 gm/dl (6.4-8.2); Troponin I < 0.015 ng/ml (0-0.045)
--- NOTE | 2018-06-09 12:11 | XRay Report ---
XR chest 1V portable HISTORY: 77 years-old Male syncope, SOB acute syncope with shortness of breath COMPARISON: Chest radiograph and CT chest 06/05/2018 TECHNIQUE: Portable AP view of the chest FINDINGS: Cardiac silhouette is mildly enlarged, unchanged. Prior median sternotomy with CABG. Calcification th e thoracic aortic arch. Chronic interstitial coarsening with calcified granulomata. The previously de scribed irregular masslike density about the left hilum is better seen on comparison chest CT. No pne umothorax, pleural effusion or overt pulmonary edema. Minimal subsegmental atelectasis/scarring about the lateral right lung base. Degenerative changes of the shoulders and spine. IMPRESSION: 1. Cardiomegaly and emphysema without acute process. 2. Masslike left hilar lesion is better seen and described on comparison chest CT from 06/05/2018. 3. Prior granulomatous disease. 4. Prior median sternotomy and CABG. The above report was generated using voice recognition software. It may contain grammatical, syntax o r spelling errors. Electronically signed by: Christiano Sewell M.D. 06/09/2018 12:09 PM
--- NOTE | 2018-06-09 12:24 | CT Scan Report ---
CT head/brain wo con CLINICAL HISTORY: 77 years-old Male with syncope. Acute syncope TECHNIQUE: Multiple axial CT images of the head were obtained without contrast. A dose lowering tech nique was utilized adhering to the principles of ALARA. CT DOSE: 537.48 mGy.cm COMPARISON: CT head 03/25/2017. FINDINGS: No acute intracranial hemorrhage, midline shift, intracranial mass, hydrocephalus, territorial ischem ia or abnormal extra-axial collection. Age-related involutional changes. Cavum septum lucidum. Modera te to extensive chronic microvascular ischemic changes. Expected ventriculomegaly. Cerebral vascular calcifications noted. The calvarium is intact. Trace left mastoid effusion. Moderate right mastoid effusion. Mild mucosal thickening about the paranasal sinuses. Moderate bilateral arvin bullosa. Soft tissues and orbits ar e unremarkable. IMPRESSION: 1. No acute intracranial abnormality or calvarial fracture. 2. Age-related involutional changes with chronic microvascular ischemic changes. 3. Right greater than left bilateral mastoid effusions with mild nasal sinus disease. The above report was generated using voice recognition software. It may contain grammatical, syntax o r spelling errors. Electronically signed by: Christiano Sewell M.D. 06/09/2018 12:23 PM
--- NOTE | 2018-06-09 16:45 | Emergency Department Note ---
ED Visit Note I have personally evaluated this patient examined her and reviewed the pertinent labs and data. I have discussed the case with the Rl Carmen NP and agree with the plan. Please refer to the PILOT TEACHER note this patient comes in after having a syncopal episode he was hospitalized recently for a syncopal episode. He is scheduled to have lung surgery coming up. he feels better at present. he has no chest pain. he is hypoxemic at baseline. On my exam, he is resting comfortably at this point. He appears in no distress with his oxygen on. We did discuss his Dr. Amaya, who recommends that they admit him for observation and will call the medical team. Dr. Amaya will also see him in the hospital and do the procedure earlier now. .
[2018-06-09] MEDS ORDERED: HYDROCODONE/ACETAMOPHEN 5/325MG TAB PO PRN (17:56)
[2018-06-09] MEDS ORDERED: ACETAMINOPHEN 325 MG TAB PO PRN (17:56)
[2018-06-09] MEDS ORDERED: ALBUTEROL HFA 8 GM INHALER INH PRN (17:56)
[2018-06-09] MEDS ORDERED: ALBUTEROL 0.5% NEB SOLN 2.5 MG/0.5 ML VIAL NEB PRN (17:56)
[2018-06-09 18:29] LABS: Phosphorus 3.7 mg/dl (2.5-4.9)
--- NOTE | 2018-06-09 18:33 | History & Physical Report ---
Date of Service June 09, 2018 Assessment & Plan (1) Syncope: Patient with episode of syncope this afternoon. Presently feels well. He is afebrile, hemodynamically stable, EKG wtih no evidence of ischemia, troponin x 1 negative. 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 Uncertain if mechanical obstruction is contributing to syncopal events. -Observation to medical floor -Check 2D echo -Orthostatic VS x 1 -Continue to monitor (2) Lung mass: CT results as below. -Will consult Dr. Amaya for possible inpatient EBUS with biopsy, appreciate assistance in this case -Patient will be NPO after midnight for possible procedure -Will hold ASA and Plavix for now. Resume as soon as able FINDINGS: No emboli are identified. There are median sternotomy wires and postoperative findings from bypass grafting. There is extensive coronary artery calcification. A small hiatal hernia is noted. There is no pericardial effusion. There is moderate cardiomegaly. Note is made of a 3.1 x 2.1 cm irregular masslike density within the anterior left hilum which occludes the left superior pulmonary vein. Additional mildly enlarged mediastinal lymph nodes are similar to prior exams and are probably benign. Central airways are patent. There is moderate to severe emphysema. Innumerable calcified nodules within the lungs are noted. There is an indeterminate noncalcified 8 mm left upper lobe nodule. There is no pneumothorax or pleural effusion. Mild groundglass opacities are noted with subtle interstitial thickening. Old T11 compression fracture is noted. Upper abdomen is unremarkable. IMPRESSION: 1. No pulmonary emboli identified. 2. 3.1 x 2.1 cm irregular mass-like density within the anterior left hilum which occludes the left superior pulmonary vein and is highly suggestive of kaylin gnancy. This may reflect a central bronchogenic carcinoma or malignant lymph node. Pulmonary/thoracic surgical consultation is recommended for consideration for tissue sampling. 3. Moderate to severe emphysema. 4. Mild interstitial thickening which may reflect superimposed pulmonary edema. 5. Evidence for prior granulomatous process. 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 He does not complain of dyspnea, cough or wheeze. Lungs are markedly diminished but otherwise no wheezing. No respiratory distress. Do not suspect acute exacerbation at this time. -Continue Albuterol PRN -Continue Budesonide/Formoterol BID -Continue Prednisone 10mg po daily -DuoNebs and Albuterol PRN -Continuous pulse oximetry (4) COPD (chronic obstructive pulmonary disease): Plan as above (5) GERD (gastroesophageal reflux disease): Chronic. Stable -Continue Protonix 40mg po daily (6) Hyperlipidemia LDL goal <70: Chronic. Stable -Continue Atorvastatin 80mg po daily (7) Coronary artery disease: Patient with CAD s/p CABG 5V. Presently CP free. Troponin x 1 negative. No evidence of acute ischemia on EKG. -Holding ASA and Plavix for possible biopsy. Resume YANI -Continue Atorvastatin -Continue Metoprolol -Continue Lisinopril (8) Anemia of chronic disease: Normochromic/normocytic anemia. No active bleeding. H/H near baseline -Continue to monitor (9) Hypertension: Blood pressure appropriately controled at present -Continue Metoprolol, Amlodipine -Continue to monitor (10) BPH (benign prostatic hyperplasia): Chronic. UA pending. Patient with no urinary complaints. -Continue Flomax -Continue Oxybutynin -Continue Finasteride -Monitor for urinary retention -Continue methenamine hippurate for ppx F/E/N - Heplock. Monitor electrolytes and replete as needed. Heart healthy. NPO after midnight tonight Ppx - SCDs Code - Full Dispo - 402-1 History of Present Illness Chief Complaint: Syncope Primary Care Provider: Francois Oliva MD Mr. 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 Patient was walking into his urologist's office this afternoon when he felt his legs become weak and became dizzy. He had a syncopal event. Was caught by a bystander and lowered into a chair. No head trauma. reports that his oxygen saturation was in the 70's shortly after the event. Patient denies chest pain/SOB/palpitations preceding or following the event. No numbness/tingling/weakness or seizure reported. Patient was recently admitted to [facility] 06/05 - 06/06 with similar presentation. He had a near syncopal episode and was found to be hypoxic with saturations in the 50's at that time. He was treated with Levaquin and a steroid taper. A CTA was performed during that hospitalization which revealed an irregular lymph node occluding and upper pulmonary vein. Findings concerning for malignancy. The patient was evaluated by Dr. Amaya with plans for outpatient EBUS with biopsy. Patient states that he has been feeling well since his discharge home. He does report increase in dizziness. No additional complaints at this time. Patient was removed from O2 briefly and his sats decreased to 72%. After replacing the O2 and having him take some deep breaths they improved to 89%. Patient remained asymptomatic. Allergies Allergy/AdvReac Type Severity Reaction Status Date / Time cyclobenzaprine AdvReac Unknown halluninati Verified 06/09/18 12:19 ons oxycodone AdvReac Unknown HALLUCINATI Verified 06/09/18 12:19 ONS Home Medications Home Medications Medication Instructions Recorded Confirmed Type Incruse Ellipta 1 inh INHALATION DAILY 06/05/18 06/09/18 History Symbicort 2 puff INHALATION BID 06/05/18 06/09/18 History albuterol sulfate 2 puff INHALATION Q4 PRN 06/05/18 06/09/18 History amlodipine 2.5 mg PO DAILY 06/05/18 06/09/18 History aspirin 81 mg PO DAILY 06/05/18 06/09/18 History atorvastatin 80 mg PO DAILY 06/05/18 06/09/18 History citalopram 10 mg PO DAILY 06/05/18 06/09/18 History clopidogrel 75 mg PO DAILY 06/05/18 06/09/18 History finasteride 5 mg PO DAILY 06/05/18 06/09/18 History hydrocodone-acetaminophen [Vicodin] 1 - 2 tab PO Q4 PRN 06/05/18 06/09/18 History lisinopril 20 mg PO DAILY 06/05/18 06/09/18 History methenamine hippurate 1 g PO QPM 06/05/18 06/09/18 History nitroglycerin [Nitrostat] 0.4 mg SUBLINGUAL UD PRN 06/05/18 06/09/18 History omeprazole 20 mg PO DAILY 06/05/18 06/09/18 History oxybutynin chloride [Ditropan XL] 5 mg PO DAILY 06/05/18 06/09/18 History tamsulosin 0.4 mg PO DAILY 06/05/18 06/09/18 History metoprolol succinate 25 mg PO DAILY 06/09/18 06/09/18 History prednisone 10 mg PO QID 06/09/18 06/09/18 History Past Med/Surg History Medical History Hypertension (Chronic) Anemia CAD (coronary artery disease) Neuropathy COPD (chronic obstructive pulmonary disease) Surgical History S/P CABG x 4 Social History Preferred Language: Khmer Communication Ability: Effective Telephone Coin Box Collector Required: No Beliefs That Will Affect Care: Church marital status: Current Living Situation: Spouse current occupational status: retired Other Information That Helps Us Care for You: No Feels Safe at Home: Yes Safety Concerns: Feels Safe At This Time Smoking Status: Former smoker Hx Alcohol Use: Yes Hx Substance Use: No Review of Systems All systems reviewed & are unremarkable except as noted in HPI & below Physical Exam Vital Signs (Past 24 Hours): Last Vital Signs Temp 36.4 C L 06/09/18 18:05 Pulse 65 06/09/18 18:05 Resp 20 06/09/18 18:05 BP 161/80 H 06/09/18 18:05 Pulse Ox 90 06/09/18 18:05 Physical Exam: General: patient resting comfortably, NAD, non-toxic in appearance, AA&O x 4 Skin: warm, dry, intact, no rashes or lesions HEENT: NC/AT, PERRL, EOMI, anicteric sclera, conjunctiva without injection, external ear normal to inspection and nontender, nares patent, moist mucus membranes, dentition intact, no oropharyngeal lesions, neck supple, trachea midline, no LAD, no thyromegaly, no JVD Heart: +S1/S2, regular, no m/r/g, frequent ectopic beats Lungs: diminished breath sounds bilaterally, soft crackles in bilateral bases, no rhonchi/wheezes Abd: +BS, soft, NT/ND, no masses/organomegaly/ascites Ext: warm, 2+ pulses in UE/LE bilaterally, no clubbing/cyanosis or edema Neuro: nonfocal, patient AA&O x 4, speech intact, no facial droop, moving all extremities on command with equal strength 5/5 Results & Data Laboratory Results Lab Results 06/09/18 06/09/18 06/09/18 Range/Units 11:31 11:31 11:31 WBC 14.45 H (4.8-10.8) K/uL RBC 3.68 L (4.7-6.1) M/uL Hgb 12.0 L (14.0-18.0) g/dL Hct 34.6 L (42-52) % MCV 94.0 (80-100) fL MCH 32.6 (25-34) pg MCHC 34.7 (32-36) g/dL RDW Std Deviation 45.9 (36.4-46.3) fL RDW Coeff of Gilda 13.2 (11.5-14.5) % Plt Count 269 (130-400) K/uL MPV 10.7 H (7.4-10.4) fL Immature Gran % (Auto) 0.6 % Neut % (Auto) 74.5 % Lymph % (Auto) 12.5 % [place] % (Auto) 12.1 % Eos % (Auto) 0.3 % Baso % (Auto) 0.0 % Immature Gran # (Auto) 0.08 H (0.00-0.02) K/uL Neut # (Auto) 10.77 H (1.4-6.5) K/uL Lymph # (Auto) 1.81 (1.2-3.4) K/uL [place] # (Auto) 1.75 H (0.11-0.59) K/uL Eos # (Auto) 0.04 (0-0.5) K/uL Baso # (Auto) 0.00 (0-0.2) K/uL PT 11.0 (9.0-12.0) Seconds INR 1.1 (0.9-1.1) APTT 21.9 (21.0-31.0) Seconds PTT Ratio 0.8 Sodium 134 L (136-145) mmol/L Potassium 4.2 (3.5-5.1) mmol/L Chloride 102 (98-107) mmol/L Carbon Dioxide 25 (21-32) mmol/L Anion Gap 7.0 (3-11) BUN 32 H (7-18) mg/dl Creatinine 1.76 H (0.6-1.4) mg/dl Est Cr Clr Drug Dosing 32.9 ml/min Est GFR ( Amer) 42.3 Est GFR (Non-Af Amer) 36.5 BUN/Creatinine Ratio 18.1 (10-20) Glucose 73 (70-99) mg/dl Calcium 8.5 (8.5-10.1) mg/dl Phosphorus 3.7 (2.5-4.9) mg/dl Magnesium 2.2 (1.8-2.4) mg/dl Total Bilirubin 0.4 (0.2-1) mg/dl AST 17 (15-37) U/L ALT 18 (12-78) U/L Alkaline Phosphatase 65 (45-117) U/L Total Creatine Kinase 48 (39-308) U/L CK-MB (CK-2) 2.6 (0.5-3.6) ng/ml CK/CKMB % Calc 5.4 H (0-3.0) Troponin I < 0.015 (0-0.045) ng/ml Total Protein 6.6 (6.4-8.2) gm/dl Albumin 3.0 L (3.4-5.0) gm/dl Globulin 3.6 (2.5-4.0) gm/dl Albumin/Globulin Ratio 0.8 L (0.9-2) TSH 1.780 (0.300-4.500) uIu/ml Diagnostic Findings CT head/brain wo con CLINICAL HISTORY: 77 years-old Male with syncope. Acute syncope TECHNIQUE: Multiple axial CT images of the head were obtained without contrast. A dose lowering technique was utilized adhering to the principles of ALARA. CT DOSE: 537.48 mGy.cm COMPARISON: CT head 03/25/2017. FINDINGS: No acute intracranial hemorrhage, midline shift, intracranial mass, hydrocephalus, territorial ischemia or abnormal extra-axial collection. Age- related involutional changes. Cavum septum lucidum. Moderate to extensive chronic microvascular ischemic changes. Expected ventriculomegaly. Cerebral vascular calcifications noted. The calvarium is intact. Trace left mastoid effusion. Moderate right mastoid effusion. Mild mucosal thickening about the paranasal sinuses. Moderate bilateral arvin bullosa. Soft tissues and orbits are unremarkable. IMPRESSION: 1. No acute intracranial abnormality or calvarial fracture. 2. Age-related involutional changes with chronic microvascular ischemic changes. 3. Right greater than left bilateral mastoid effusions with mild nasal sinus disease. The above report was generated using voice recognition software. It may contain grammatical, syntax or spelling errors. Electronically signed by: Christiano Sewell M.D. 06/09/2018 12:23 PM XR chest 1V portable HISTORY: 77 years-old Male syncope, SOB acute syncope with shortness of breath COMPARISON: Chest radiograph and CT chest 06/05/2018 TECHNIQUE: Portable AP view of the chest FINDINGS: Cardiac silhouette is mildly enlarged, unchanged. Prior median sternotomy with CABG. Calcification the thoracic aortic arch. Chronic interstitial coarsening with calcified granulomata. The previously described irregular masslike density about the left hilum is better seen on comparison chest CT. No pneumothorax, pleural effusion or overt pulmonary edema. Minimal subsegmental atelectasis/scarring about the lateral right lung base. Degenerative changes of the shoulders and spine. IMPRESSION: 1. Cardiomegaly and emphysema without acute process. 2. Masslike left hilar lesion is better seen and described on comparison chest CT from 06/05/2018. 3. Prior granulomatous disease. 4. Prior median sternotomy and CABG. The above report was generated using voice recognition software. It may contain grammatical, syntax or spelling errors. Electronically signed by: Christiano Sewell M.D. 06/09/2018 12:09 PM Dictated: 06/09/18 1207 Transcribed: 06/09/18 1207 ECG Additional Comments: The study shows NSR at 75bpm, PVCs, left axis deviation, MG=861, QRS=89, JAw=107, no acute ST changes Code Status & VTE Plan Code Status FULL (1) Syncope Syncope type: unspecified Qualified Code(s): R55 - Syncope and collapse (2) GERD (gastroesophageal reflux disease) Esophagitis presence: esophagitis presence not specified Qualified Code(s): K21.9 - Gastro-esophageal reflux disease without esophagitis (3) COPD (chronic obstructive pulmonary disease) COPD type: unspecified COPD Qualified Code(s): J44.9 - Chronic obstructive pulmonary disease, unspecified (4) Coronary artery disease Coronary Disease-Associated Artery/Lesion type: [place] artery [place] vs. transplanted heart: [place] heart Associated angina: without angina Qualified Code(s): I25.10 - Atherosclerotic heart disease of [place] coronary artery without angina pectoris (5) Hypertension Hypertension type: essential hypertension Qualified Code(s): I10 - Essential (primary) hypertension
[2018-06-09] MEDS ORDERED: ALBUT/IPRATROP 3MG/0.5MG NEB 3 ML VIAL NEB PRN (18:55)
[2018-06-09 19:14] LABS: Appearance Urine Cloudy (Clear); Bacteria Urine Automated Negative (Negative); Bilirubin Urine Negative (Negative); Blood Urine Negative (Negative); Color Urine Yellow; Epithelial Cell Urine Auto >30 /lpf (0-5); Glucose Urine UA Negative (Negative); Ketones Urine Negative (Negative); Leukocyte Esterase Urine Trace (Negative); Nitrite Urine Negative (Negative); Protein Urine 1+ (Negative); Specific Gravity Urine 1.022 (1.000-1.030); Urobilinogen Urine Negative (Negative)
[2018-06-09] MEDS: METHENAMINE HIPPURATE 1 GM TAB PO SCH (20:51)
[2018-06-09] MEDS: BUDESONIDE/FORMOTEROL FUMARATE 160/4.5 60 PUFFS/INHALER INH SCH (20:52)
[2018-06-09 21:15] LABS: RBC Urine Automated 0-4 /hpf (0-4)
[2018-06-09 21:17] LABS: Amorphous Sediment Urine Present (None Prsent)
[2018-06-10] MEDS ORDERED: FUROSEMIDE 20 MG in SYRINGE 0 ML IV ONE (04:50)
[2018-06-10 06:23] LABS: Basophils # (auto) 0.01 K/uL (0-0.2); Basophils % (auto) 0.1 %; Eosinophils # (auto) 0.43 K/uL (0-0.5); Eosinophils % (auto) 3.9 %; Hematocrit (blood only) 35.2 % (42-52); Hemoglobin 11.9 g/dL (14.0-18.0); Immature Granulocytes # (auto) 0.06 K/uL (0.00-0.02); Immature Granulocytes % (auto) 0.5 %; Lymphocytes # (auto) 1.93 K/uL (1.2-3.4); Lymphocytes % (auto) 17.7 %; Mean Corpuscular Hgb Conc 33.8 g/dL (32-36); Mean Corpuscular Volume 95.1 fL (80-100); Mean Platelet Volume 10.5 fL (7.4-10.4); Monocytes # (auto) 1.31 K/uL (0.11-0.59); Neutrophils # (auto) 7.17 K/uL (1.4-6.5); Neutrophils % (auto) 65.8 %; Platelet Count 262 K/uL (130-400); RDW Coefficient of Variation 13.2 % (11.5-14.5); RDW Standard Deviation 45.7 fL (36.4-46.3); White Blood Count 10.91 K/uL (4.8-10.8)
[2018-06-10 06:24] LABS: INR 1.1 (0.9-1.1); Prothrombin Time 10.9 Seconds (9.0-12.0)
[2018-06-10 06:41] LABS: BUN Creatinine Ratio 20.4 (10-20); Calcium 8.5 mg/dl (8.5-10.1); Creatinine Clr Calc Pharmacy 34.2 ml/min; Est GFR (African American) 44.4; Est GFR (Non-African American) 38.3; Potassium 4.2 mmol/L (3.5-5.1)
--- NOTE | 2018-06-10 07:53 | XRay Report ---
XR chest 1V portable CLINICAL HISTORY: lobectomy postoperative evaluation COMPARISON STUDY: 06/09/2018 FINDINGS: Stable postoperative change. Unchanging chronic granulomatous change of both hemithoraces. Diaphragms remain smooth. Unchanging parenchymal prominence of the lung bases. Unchanging hilar fulln ess. IMPRESSION: Chronic and postoperative change. No acute process currently. The above report was generated using voice recognition software. It may contain grammatical, syntax or spelling errors. Electronically signed by: Ian Duran M.D. 06/10/2018 7:51 AM
[2018-06-10 07:59] LABS: Magnesium 2.1 mg/dl (1.8-2.4); Phosphorus 3.3 mg/dl (2.5-4.9)
[2018-06-10] MEDS: PANTOprazole 40 MG TAB PO SCH (08:16)
[2018-06-10] MEDS: predniSONE 10 MG TABLET PO SCH (08:16)
[2018-06-10] MEDS: OXYBUTYNIN CHLORIDE XL 5 MG TABCR PO SCH (08:16)
[2018-06-10] MEDS: FINASTERIDE 5 MG TAB PO SCH (08:16)
[2018-06-10] MEDS: TAMSULOSIN HCL 0.4 MG CAP PO SCH (08:17)
[2018-06-10] MEDS: BUDESONIDE/FORMOTEROL FUMARATE 160/4.5 60 PUFFS/INHALER INH SCH ×2 (08:17→21:34)
[2018-06-10] MEDS: ATORVASTATIN 40 MG TAB PO SCH (08:17)
[2018-06-10] MEDS: AMLODIPINE BESYLATE 5 MG TAB PO SCH (08:18)
[2018-06-10] MEDS: CITALOPRAM 20 MG TAB PO SCH (08:18)
[2018-06-10] MEDS: LISINOPRIL 20 MG TAB PO SCH (08:19)
[2018-06-10] MEDS ORDERED: METOPROLOL SUCC 25MG EXT REL TAB PO SCH (09:00)
--- NOTE | 2018-06-10 09:25 | Cardiology Consultation ---
Date of Consultation June 10, 2018 Assessment & Plan (1) Syncope: He presented with after a syncopal event. He does have advanced obstructive lung disease and was hypoxic with reported oxygen saturations in the 70s at the time of the event. His syncopal episode could therefore have been secondary to the hypoxia. He was noted to have paroxysmal atrial fibrillation/flutter on telemetry this morning. The event lasted about 1.5 hours, and his rates averaged in the 120s with the arrhythmia. He did not have a prolonged conversion pause when returning to sinus rhythm. It therefore appears less likely that the syncope/presyncope was related to the arrhythmia. Would continue to monitor on telemetry during the admission, though, and consider a long-term monitor upon discharge. His metoprolol dose will also be increased to help with rate control of any future paroxysms of the arrhythmia. An echocardiogram has also been performed this morning, and the official report is pending. He has no evidence of myocardial ischemia. (2) Paroxysmal atrial fibrillation: He had an episode of atrial fibrillation/flutter this morning from around 6:00 am to 7:30 am. He was asymptomatic with the arrhythmia. Will increase his metoprolol succinate dose to 50 mg daily for better rate control of any future paroxysms of the arrhythmia. Recommend continuing to monitor on telemetry during the admission. He does have an elevated CHADSVASc score, and anticoagulation therapy is therefore indicated for thromboembolic prophylaxis. He will be undergoing endobronchial ultrasound with biopsy in the near future, and would therefore hold off on initiating an anticoagulant until after the procedure is performed. One of his antiplatelet agents could then be discontinued in order to reduce his bleeding risk. (3) Coronary artery disease: He denies angina. His cardiac enzymes have been negative, and ECG shows no acute ischemic changes. Echocardiogram is pending. One of his antiplatelet agents can be discontinued if an anticoagulant is initiated after his upcoming procedure. Continue high intensity statin and beta phani therapy. (4) Hypertension: BP has been mildly hypertensive during admission. Metoprolol will be increased given his paroxysmal atrial fibrillation/flutter. Otherwise, no changes to his antihypertensive therapy recommended. (5) Hyperlipidemia LDL goal <70: Continue high intensity statin therapy given his known CAD and peripheral arterial disease. Patient was discussed with Dr. Rios, and the plan was made in collaboration with him. Supervising Physician Co-Signing Physician Notes I saw and examined the patient at the bedside and agree with the documentation by Rekha BOUCHER. Briefly, this gentleman has had rapid progression of hypoxia breathing difficulty over the past couple of months. He was recently admitted for hypoxia which was manifest as development of unconsciousness after walking to the emergency room. His most recent event was similar. While he does have a newly diagnosed rhythm disturbance, I think the most likely explanation for both events was severe hypoxia with exertion. His atrial fibrillation is not a surprise. Did not appear to be significantly symptomatic. His rates were mildly elevated. He will continue to have episodes of atrial fibrillation. Think would be reasonable to increase his beta-phani as described. Anticoagulation is indicated but can certainly be deferred until his procedures are completed. His dyspnea does not appear to be related to cardiac disease. His LV function is normal. 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 With respect to his coronary disease, this appears to be stable. He is not describing symptoms of angina. Did have some atypical pleuritic chest pains this morning. However, despite several severe episodes of hypoxia he has not had any elevation in his biomarkers. History of Present Illness Reason for Consultation: Syncope Requesting Physician: Dr. Ramsey History of Present Illness Mr. Hurley is a 77-year-old male with a history of coronary artery disease s/p CABG x5 in 1993 (RODRIGUEZ-LAD/LAD diagonal; SVG-LAD first diagonal; SVG-left circumflex marginal; SVG-RCA), peripheral arterial disease, small abdominal aortic aneurysm, hypertension, dyslipidemia, advanced COPD with chronic oxygen use, chronic kidney disease GERD, and BPH who was admitted yesterday following a syncopal event. Patient was recently admitted to [facility] from 06/05/18 through 06/06/18 with worsening shortness of breath with hypoxia and near syncope. He was treated for acute on chronic respiratory failure with antibiotic therapy and prednisone. CTA done to rule out PE showed a mass which appeared to be obstructing the left superior pulmonary vein. He was seen in consultation by Dr. Amaya who planned for endobronchial ultrasound with biopsy as an outpatient. His near syncope was felt to be secondary to hypoxia. Yesterday, the patient was walking into this Urologist's office when he had an apparent syncopal event. The patient cannot recall all of the details surrounding the event. He states that he noted significant shortness of breath walking in to the clinic, and he became weak and lightheaded. He did not experience any palpitations or chest pain leading up to the event. He states that there was someone close by who was able to catch him and help him to the ground so that he did not fall or injure himself. He is unsure how long he was unconscious. Per records, his oxygen saturations were noted to be in the 70s. He denies angina. He reports that his breathing has progressively worsened over time. He denies orthopnea, PND, or edema. He denies any palpitations. He denies any lightheadedness, syncope, or presyncope aside from the 2 occasions leading to his recent hospitalizations. He denies abnormal bleeding such as melena, hematochezia, or hematuria. He denies cerebrovascular symptoms. Review of Systems: As noted in HPI. Patient also admits to frequent urination. All other 10 point ROS are reviewed and otherwise negative at this time. Family history: Noncontributory given his own disease as well as advanced age. Social history: He is and lives at home with his . He quit smoking 25-30 years ago. He previously smoked about 30 years at up to 3 ppd. He drinks about 1 beer per day. He denies illicit drug use. Allergies Allergy/AdvReac Type Severity Reaction Status Date / Time cyclobenzaprine AdvReac Unknown halluninati Verified 06/09/18 12:19 ons oxycodone AdvReac Unknown HALLUCINATI Verified 06/09/18 12:19 ONS Home Medications Home Medications Medication Instructions Recorded Confirmed Type Incruse Ellipta 1 inh INHALATION DAILY 06/05/18 06/09/18 History Symbicort 2 puff INHALATION BID 06/05/18 06/09/18 History albuterol sulfate 2 puff INHALATION Q4 PRN 06/05/18 06/09/18 History amlodipine 2.5 mg PO DAILY 06/05/18 06/09/18 History aspirin 81 mg PO DAILY 06/05/18 06/09/18 History atorvastatin 80 mg PO DAILY 06/05/18 06/09/18 History citalopram 10 mg PO DAILY 06/05/18 06/09/18 History clopidogrel 75 mg PO DAILY 06/05/18 06/09/18 History finasteride 5 mg PO DAILY 06/05/18 06/09/18 History hydrocodone-acetaminophen [Vicodin] 1 - 2 tab PO Q4 PRN 06/05/18 06/09/18 History lisinopril 20 mg PO DAILY 06/05/18 06/09/18 History methenamine hippurate 1 g PO QPM 06/05/18 06/09/18 History nitroglycerin [Nitrostat] 0.4 mg SUBLINGUAL UD PRN 06/05/18 06/09/18 History omeprazole 20 mg PO DAILY 06/05/18 06/09/18 History oxybutynin chloride [Ditropan XL] 5 mg PO DAILY 06/05/18 06/09/18 History tamsulosin 0.4 mg PO DAILY 06/05/18 06/09/18 History metoprolol succinate 25 mg PO DAILY 06/09/18 06/09/18 History prednisone 10 mg PO QID 06/09/18 06/09/18 History Patient History Medical History Hypertension (Chronic) Anemia CAD (coronary artery disease) COPD (chronic obstructive pulmonary disease) Neuropathy Surgical History S/P CABG x 4 Social History Communication Ability: Effective Beliefs That Will Affect Care: Buddhist marital status: Current Living Situation: Spouse current occupational status: retired Other Information That Helps Us Care for You: No Feels Safe at Home: Yes Safety Concerns: Feels Safe At This Time Smoking Status: Former smoker Hx Alcohol Use: Yes Hx Substance Use: No Physical Exam 2 Vital Signs (Past 24 Hours): Last Vital Signs Temp 36.5 C 06/10/18 08:00 Pulse 81 06/10/18 08:00 Resp 20 06/10/18 08:00 BP 100/59 L 06/10/18 08:00 Pulse Ox 94 06/10/18 08:00 Constitutional: Alert, oriented, in no acute distress HEENT: Head is atraumatic and normocephalic. EOMs intact. Sclera anicteric. Face is symmetric. No perioral cyanosis. Mucous membranes moist. Neck: Supple, no appreciable Pulmonary: Normal respiratory effort, bibasilar crackles but otherwise decreased breath sounds throughout Cardiac: Regular rate and rhythm, normal S1 and S2, no gallops, no rubs, no obvious murmurs Extremities: No clubbing, cyanosis, or edema. Pulses intact Abdomen: Normal bowel sounds, soft, non-tender, no abdominal mass palpated Skin: Normal skin color, turgor, and pigmentation, no rash, no skin lesions Neurological: Oriented to person, place, and time Results & Data Laboratory Results Laboratory Results WBC 10.91 K/uL (4.8-10.8) H 06/10/18 05:52 RBC 3.70 M/uL (4.7-6.1) L 06/10/18 05:52 Hgb 11.9 g/dL (14.0-18.0) L 06/10/18 05:52 Hct 35.2 % (42-52) L 06/10/18 05:52 MCV 95.1 fL (80-100) 06/10/18 05:52 MCH 32.2 pg (25-34) 06/10/18 05:52 MCHC 33.8 g/dL (32-36) 06/10/18 05:52 RDW Std Deviation 45.7 fL (36.4-46.3) 06/10/18 05:52 RDW Coeff of Gilda 13.2 % (11.5-14.5) 06/10/18 05:52 Plt Count 262 K/uL (130-400) 06/10/18 05:52 MPV 10.5 fL (7.4-10.4) H 06/10/18 05:52 Immature Gran % (Auto) 0.5 % 06/10/18 05:52 Neut % (Auto) 65.8 % 06/10/18 05:52 Lymph % (Auto) 17.7 % 06/10/18 05:52 [place] % (Auto) 12.0 % 06/10/18 05:52 Eos % (Auto) 3.9 % 06/10/18 05:52 Baso % (Auto) 0.1 % 06/10/18 05:52 Immature Gran # (Auto) 0.06 K/uL (0.00-0.02) H 06/10/18 05:52 Neut # (Auto) 7.17 K/uL (1.4-6.5) H 06/10/18 05:52 Lymph # (Auto) 1.93 K/uL (1.2-3.4) 06/10/18 05:52 [place] # (Auto) 1.31 K/uL (0.11-0.59) H 06/10/18 05:52 Eos # (Auto) 0.43 K/uL (0-0.5) 06/10/18 05:52 Baso # (Auto) 0.01 K/uL (0-0.2) 06/10/18 05:52 PT 10.9 Seconds (9.0-12.0) 06/10/18 05:52 INR 1.1 (0.9-1.1) 06/10/18 05:52 APTT 21.9 Seconds (21.0-31.0) 06/09/18 11:31 PTT Ratio 0.8 06/09/18 11:31 Sodium 135 mmol/L (136-145) L 06/10/18 05:52 Potassium 4.2 mmol/L (3.5-5.1) 06/10/18 05:52 Chloride 104 mmol/L (98-107) 06/10/18 05:52 Carbon Dioxide 27 mmol/L (21-32) 06/10/18 05:52 Anion Gap 4.0 (3-11) 06/10/18 05:52 BUN 35 mg/dl (7-18) H 06/10/18 05:52 Creatinine 1.69 mg/dl (0.6-1.4) H 06/10/18 05:52 Est Cr Clr Drug Dosing 34.2 ml/min 06/10/18 05:52 Est GFR ( Amer) 44.4 06/10/18 05:52 Est GFR (Non-Af Amer) 38.3 06/10/18 05:52 BUN/Creatinine Ratio 20.4 (10-20) H 06/10/18 05:52 Glucose 73 mg/dl (70-99) 06/10/18 05:52 Calcium 8.5 mg/dl (8.5-10.1) 06/10/18 05:52 Phosphorus 3.3 mg/dl (2.5-4.9) 06/10/18 05:52 Magnesium 2.1 mg/dl (1.8-2.4) 06/10/18 05:52 Total Bilirubin 0.4 mg/dl (0.2-1) 06/09/18 11:31 AST 17 U/L (15-37) 06/09/18 11:31 ALT 18 U/L (12-78) 06/09/18 11:31 Alkaline Phosphatase 65 U/L (45-117) 06/09/18 11:31 Total Creatine Kinase 48 U/L (39-308) 06/09/18 11:31 CK-MB (CK-2) 2.6 ng/ml (0.5-3.6) 06/09/18 11:31 CK/CKMB % Calc 5.4 (0-3.0) H 06/09/18 11:31 Troponin I < 0.015 ng/ml (0-0.045) 06/09/18 11:31 Total Protein 6.6 gm/dl (6.4-8.2) 06/09/18 11:31 Albumin 3.0 gm/dl (3.4-5.0) L 06/09/18 11:31 Globulin 3.6 gm/dl (2.5-4.0) 06/09/18 11:31 Albumin/Globulin Ratio 0.8 (0.9-2) L 06/09/18 11:31 TSH 1.780 uIu/ml (0.300-4.500) 06/09/18 11:31 Urine Color Yellow 06/09/18 18:19 Urine Appearance Cloudy (Clear) H 06/09/18 18:19 Urine pH 6.0 (4.5-7.5) 06/09/18 18:19 Ur Specific [place] 1.022 (1.000-1.030) 06/09/18 18:19 Urine Protein 1+ (Negative) H 06/09/18 18:19 Urine Glucose (UA) Negative (Negative) 06/09/18 18:19 Urine Ketones Negative (Negative) 06/09/18 18:19 Urine Blood Negative (Negative) 06/09/18 18:19 Urine Nitrite Negative (Negative) 06/09/18 18: Urine Bilirubin Negative (Negative) 06/09/18 18:19 Urine Urobilinogen Negative (Negative) 06/09/18 18:19 Ur Leukocyte Esterase Trace (Negative) H 06/09/18 18:19 Urine WBC (Auto) 10-30 /hpf (0-5) H 06/09/18 18:19 Urine RBC (Auto) 0-4 /hpf (0-4) 06/09/18 18:19 U Hyaline Cast (Auto) 1-5 /lpf (0-5) 06/09/18 18:19 U Epithel Cells (Auto) >30 /lpf (0-5) H 06/09/18 18:19 Urine Bacteria (Auto) Negative (Negative) 06/09/18 18:19 Ur Renal Epithelial Cell Not Reportable 06/09/18 18:19 Urine Crystals Not Reportable 06/09/18 18:19 Amorphous Sediment Present (None Prsent) H 06/09/18 18:19 Diagnostic Findings CXR 06/10/18: Chronic and postoperative change. No acute process currently. ECG 06/09/18: Sinus rhythm with occasional PVCs. Left axis deviation. Telemetry monitoring: Sinus rhythm with PVCs. He has been averaging in the 60s in sinus rhythm. He did have an episode of paroxysmal atrial fibrillation/flutter from around 6-7:30 am today. His rate with the arrhythmia was in the 120s. He did not have a prolonged conversion pause when returning to sinus rhythm. (1) Coronary artery disease Associated angina: without angina Coronary Disease-Associated Artery/Lesion type: [place] artery [place] vs. transplanted heart: [place] heart Qualified C ode(s): I25.10 - Atherosclerotic heart disease of [place] coronary artery without angina pectoris (2) Syncope Syncope type: unspecified Qualified Code(s): R55 - Syncope and collapse (3) Hypertension Hypertension type: essential hypertension Qualified Code(s): I10 - Essential (primary) hypertension
[2018-06-10] MEDS ORDERED: METOPROLOL SUCC 25MG EXT REL TAB PO ONE (10:30)
--- NOTE | 2018-06-10 13:26 | Anesthesiology Consultation ---
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 Date Last Intake of Fluids: 06/09/18 Time Last Intake of Fluids: 23:59 Date Last Intake of Solids: 06/09/18 Time Last Intake of Solids: 23:59 History Surgery Operation Date: 06/10/18 14:30 Proposed Procedures p Endobronchial Ultrasound with Biopsies - Oswald Amaya MD, FACS Operation Date: 06/13/18 10:30 Proposed Procedures p Endobronchial Ultrasound - Oswald Amaya MD, FACS Height/Weight Height: 5 ft 7 in Weight: 67.1 kg Allergies Allergy/AdvReac Type Severity Reaction Status Date / Time cyclobenzaprine AdvReac Unknown halluninati Verified 06/09/18 12:19 ons oxycodone AdvReac Unknown HALLUCINATI Verified 06/09/18 12:19 ONS Medications Home Medications Medication Instructions Recorded Confirmed Last Taken Incruse Ellipta 1 inh INHALATION DAILY 06/05/18 06/09/18 Unknown Symbicort 2 puff INHALATION BID 06/05/18 06/09/18 Unknown albuterol sulfate 2 puff INHALATION Q4 PRN 06/05/18 06/09/18 Unknown amlodipine 2.5 mg PO DAILY 06/05/18 06/09/18 Unknown aspirin 81 mg PO DAILY 06/05/18 06/09/18 Unknown atorvastatin 80 mg PO DAILY 06/05/18 06/09/18 Unknown citalopram 10 mg PO DAILY 06/05/18 06/09/18 Unknown clopidogrel 75 mg PO DAILY 06/05/18 06/09/18 Unknown finasteride 5 mg PO DAILY 06/05/18 06/09/18 Unknown hydrocodone-acetaminophen [Vicodin] 1 - 2 tab PO Q4 PRN 06/05/18 06/09/18 Unknown lisinopril 20 mg PO DAILY 06/05/18 06/09/18 Unknown methenamine hippurate 1 g PO QPM 06/05/18 06/09/18 Unknown nitroglycerin [Nitrostat] 0.4 mg SUBLINGUAL UD PRN 06/05/18 06/09/18 Unknown omeprazole 20 mg PO DAILY 06/05/18 06/09/18 Unknown oxybutynin chloride [Ditropan XL] 5 mg PO DAILY 06/05/18 06/09/18 Unknown tamsulosin 0.4 mg PO DAILY 06/05/18 06/09/18 Unknown metoprolol succinate 25 mg PO DAILY 06/09/18 06/09/18 Unknown prednisone 10 mg PO QID 06/09/18 06/09/18 Unknown Active Medications Generic Name Dose Route Start Last Admin Trade Name Callum PRN Reason Stop Dose Admin Amlodipine Besylate 2.5 mg 06/10/18 09:00 06/10/18 08:18 Norvasc PO 07/10/18 08:59 2.5 mg DAILY PAULETTE Administration Atorvastatin Calcium 80 mg 06/10/18 09:00 06/10/18 08:17 Lipitor PO 07/10/18 08:59 80 mg DAILY PAULETTE Administration Budesonide/Formoterol Fumarate 2 puffs 06/09/18 21:00 06/10/18 08:17 Symbicort 160mcg/4.5mcg INH 07/09/18 20:59 2 puffs BID PAULETTE Administration Citalopram Hydrobromide 10 mg 06/10/18 09:00 06/10/18 08:18 Celexa PO 07/10/18 08:59 10 mg DAILY PAULETTE Administration Finasteride 5 mg 06/10/18 09:00 06/10/18 08:16 Proscar PO 07/10/18 08:59 5 mg DAILY PAULETTE Administration Lisinopril 20 mg 06/10/18 09:00 06/10/18 08:19 Zestril PO 07/10/18 08:59 20 mg DAILY PAULETTE Administration Methenamine Hippurate 1 gm 06/09/18 21:00 06/09/18 20:51 Urex PO 07/09/18 20:59 1 gm QPM PAULETTE Administration Oxybutynin Chloride 5 mg 06/10/18 09:00 06/10/18 08:16 Ditropan Xl PO 07/10/18 08:59 5 mg DAILY PAULETTE Administration Pantoprazole Sodium 40 mg 06/10/18 09:00 06/10/18 08:16 Protonix PO 07/10/18 08:59 40 mg DAILY PAULETTE Administration Prednisone 10 mg 06/10/18 09:00 06/10/18 08:16 Prednisone PO 07/10/18 08:59 10 mg DAILY PAULETTE Administration Tamsulosin HCl 0.4 mg 06/10/18 09:00 06/10/18 08:17 Flomax PO 07/10/18 08:59 0.4 mg DAILY PAULETTE Administration Past Medical History Medical History Hypertension (Chronic) Anemia CAD (coronary artery disease) COPD (chronic obstructive pulmonary disease) Neuropathy Past Family History Family History Other Family history non-contributory Past Surgical History Surgical History S/P CABG x 4 Social History Smoking Status: Former smoker Do You Dip or Chew Tobacco: No Smoking End Date: quit about 25 years ago approx age 53 Hx Alcohol Use: Yes Alcohol type: beer alcohol intake frequency: 0-2 drinks per day Alcohol Intake Frequency Comment: </= 1 beer/day Hx Substance Use: No Physical Exam Vital Signs Last Vital Signs Temp 97.7 F 06/10/18 12:35 Pulse 62 06/10/18 12:35 Resp 20 06/10/18 12:35 BP 100/64 06/10/18 12:35 Pulse Ox 96 06/10/18 12:35 Testing Electrocardiogram Date: 06/10/18 Sinus rhythm with Premature supraventricular complexes and with occasional, rate 80 bpm Premature ventricular complexes Left axis deviation Chest X-Ray Date: 06/10/18 IMPRESSION: Chronic and postoperative change. No acute process currently. Echocardiogram Date: 06/10/18 EF: 50-55% LV Function: normal (low normal) Other Findings: + atrial enlargement (LA mod dilated) Mod MR/TR RVSP is elevated at 40-50 mmHg Laboratory Results 06/10/18 05:52 06/10/18 05:52 PT 10.9 Seconds (9.0-12.0) 06/10/18 05:52 INR 1.1 (0.9-1.1) 06/10/18 05:52 APTT 21.9 Seconds (21.0-31.0) 06/09/18 11:31 Urine Color Yellow 06/09/18 18:19 Urine Appearance Cloudy (Clear) H 06/09/18 18:19 Urine pH 6.0 (4.5-7.5) 03/28/19 18:19 Ur Specific [place] 1.022 (1.000-1.030) 06/09/18 18:19 Urine Protein 1+ (Negative) H 06/09/18 18:19 Urine Glucose (UA) Negative (Negative) 06/09/18 18:19 Urine Ketones Negative (Negative) 06/09/18 18:19 Urine Nitrite Negative (Negative) 06/09/18 18:19 Ur Leukocyte Esterase Trace (Negative) H 06/09/18 18:19 Urine WBC (Auto) 10-30 /hpf (0-5) H 06/09/18 18:19 Urine RBC (Auto) 0-4 /hpf (0-4) 06/09/18 18:19 U Hyaline Cast (Auto) 1-5 /lpf (0-5) 06/09/18 18:19 U Epithel Cells (Auto) >30 /lpf (0-5) H 06/09/18 18:19 Urine Bacteria (Auto) Negative (Negative) 06/09/18 18:19
[2018-06-10] MEDS ORDERED: SODIUM CHLORIDE 0.9% 1000ML 500 ML IV ONE (19:46)
[2018-06-10] MEDS: METHENAMINE HIPPURATE 1 GM TAB PO SCH (21:35)
--- NOTE | 2018-06-10 23:08 | Hospitalist Progress Note ---
Date of Service June 10, 2018 Assessment & Plan (1) Syncope: Patient with episode of syncope this afternoon. Presently feels well. He is afebrile, hemodynamically stable, EKG wtih no evidence of ischemia, troponin x 1 negative. 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 Uncertain if mechanical obstruction is contributing to syncopal events. -Admision order had been placed. -It appears hypoxia is the lead culprit to the patient's syncope. -Appreciate cardio input -endobronchial ultrasound scheduled for 06/13/2018 -Continue to monitor (2) Lung mass: CT results as below. -Will consult Dr. Amaya for possible inpatient EBUS with biopsy, appreciate assistance in this case -Patient will be NPO after midnight wednesday evening. -Will hold ASA and Plavix for now. Resume as soon as able FINDINGS: No emboli are identified. There are median sternotomy wires and postoperative findings from bypass grafting. There is extensive coronary artery calcification. A small hiatal hernia is noted. There is no pericardial effusion. There is moderate cardiomegaly. Note is made of a 3.1 x 2.1 cm irregular masslike density within the anterior left hilum which occludes the left superior pulmonary vein. Additional mildly enlarged mediastinal lymph nodes are similar to prior exams and are probably benign. Central airways are patent. There is moderate to severe emphysema. Innumerable calcified nodules within the lungs are noted. There is an indeterminate noncalcified 8 mm left upper lobe nodule. There is no pneumothorax or pleural effusion. Mild groundglass opacities are noted with subtle interstitial thickening. Old T11 compression fracture is noted. Upper abdomen is unremarkable. IMPRESSION: 1. No pulmonary emboli identified. 2. 3.1 x 2.1 cm irregular mass-like density within the anterior left hilum which occludes the left superior pulmonary vein and is highly suggestive of malignancy. This may reflect a central bronchogenic carcinoma or malignant lymph node. Pulmonary/thoracic surgical consultation is recommended for consideration for tissue sampling. 3. Moderate to severe emphysema. 4. Mild interstitial thickening which may reflect superimposed pulmonary edema. 5. Evidence for prior granulomatous process. This mass is likely contributing to the patient's hypoxia. 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 He does not complain of dyspnea, cough or wheeze. Lungs are markedly diminished but otherwise no wheezing. No respiratory distress. Do not suspect acute exacerbation at this time. -Continue Albuterol PRN -Continue Budesonide/Formoterol BID -Continue Prednisone 10mg po daily -DuoNebs and Albuterol PRN -Continuous pulse oximetry (4) COPD (chronic obstructive pulmonary disease): Plan as above (5) GERD (gastroesophageal reflux disease): Chronic. Stable -Continue Protonix 40mg po daily (6) Hyperlipidemia LDL goal <70: Chronic. Stable -Continue Atorvastatin 80mg po daily (7) Coronary artery disease: Patient with CAD s/p CABG 5V. Presently CP free. Troponin x 1 negative. No evidence of acute ischemia on EKG. -Holding ASA and Plavix for possible biopsy. -Continue Atorvastatin -Continue Metoprolol -Continue Lisinopril (8) Anemia of chronic disease: Normochromic/normocytic anemia. No active bleeding. H/H near baseline -Continue to monitor (9) Hypertension: Blood pressure appropriately controled at present -Continue Metoprolol, Amlodipine -Continue to monitor (10) BPH (benign prostatic hyperplasia): Chronic. UA pending. Patient with no urinary complaints. -Continue Flomax -Continue Oxybutynin -Continue Finasteride -Monitor for urinary retention -Continue methenamine hippurate for ppx F/E/N - [place]. Monitor electrolytes and replete as needed. Heart healthy. NPO after midnight tonight Ppx - SCDs Spent 35 minutes in management of patient. Subjective 77 Yo male reports feeling well. Patient would like to be discharged tomorrow. Patient however continues to require 5 liters nasal cannula. It appears the plan for the patient to have a procedure Wednesday. D/W nurse, patient oxygen level drops on ambulation. Physical Exam Vital Signs (Past 24 Hours): Last Vital Signs Temp 36.7 C 06/10/18 19:53 Pulse 77 06/10/18 19:53 Resp 22 06/10/18 19:53 BP 71/37 L 06/10/18 19:53 Pulse Ox 96 06/10/18 19:53 Physical Exam: General: patient resting comfortably, NAD, non-toxic in appearance, AA&O x 4 Skin: warm, dry, intact, no rashes or lesions HEENT: NC/AT, PERRL, EOMI, neck supple, trachea midline, no LAD, no thyromegaly, no JVD Heart: +S1/S2, regular, no m/r/g, frequent ectopic beats Lungs: diminished breath sounds bilaterally, soft crackles in bilateral bases, no rhonchi/wheezes Abd: +BS, soft, NT/ND, no masses/organomegaly/ascites Ext: warm, 2+ pulses in UE/LE bilaterally, no clubbing/cyanosis or edema Neuro: nonfocal, patient AA&O x 4, speech intact, no facial droop, moving all extremities on command with equal strength 5/5 (1) Coronary artery disease Associated angina: without angina Coronary Disease-Associated Artery/Lesion type: [place] artery [place] vs. transplanted heart: [place] heart Qualified Code(s): I25.10 - Atherosclerotic heart disease of [place] coronary artery without angina pectoris (2) Syncope Syncope type: unspecified Qualified Code(s): R55 - Syncope and collapse (3) COPD (chronic obstructive pulmonary disease) COPD type: unspecified COPD Qualified Code(s): J44.9 - Chronic obstructive pulmonary disease, unspecified (4) GERD (gastroesophageal reflux disease) Esophagitis presence: esophagitis presence not specified Qualified Code(s): K21.9 - Gastro-esophageal reflux disease without esophagitis (5) Hypertension Hypertension type: essential hypertension Qualified Code(s): I10 - Essential (primary) hypertension
[2018-06-11] MEDS ORDERED: METOPROLOL SUCC 50MG EXT REL TAB PO SCH (09:00)
[2018-06-11] MEDS: AMLODIPINE BESYLATE 5 MG TAB PO SCH (09:20)
[2018-06-11] MEDS: LISINOPRIL 20 MG TAB PO SCH (09:21)
[2018-06-11] MEDS: CITALOPRAM 20 MG TAB PO SCH (09:21)
[2018-06-11] MEDS: ATORVASTATIN 40 MG TAB PO SCH (09:21)
[2018-06-11] MEDS: FINASTERIDE 5 MG TAB PO SCH (09:21)
[2018-06-11] MEDS: PANTOprazole 40 MG TAB PO SCH (09:22)
[2018-06-11] MEDS: OXYBUTYNIN CHLORIDE XL 5 MG TABCR PO SCH (09:22)
[2018-06-11] MEDS: TAMSULOSIN HCL 0.4 MG CAP PO SCH (09:22)
[2018-06-11] MEDS: BUDESONIDE/FORMOTEROL FUMARATE 160/4.5 60 PUFFS/INHALER INH SCH ×2 (09:22→20:20)
[2018-06-11] MEDS: predniSONE 10 MG TABLET PO SCH (09:22)
[2018-06-11] MEDS: METOPROLOL SUCC 25MG EXT REL TAB PO SCH (11:46)
--- NOTE | 2018-06-11 12:33 | Progress Note ---
DATE: 06/11/2018 Mr. Hurley looks comfortable. He is awake and alert. He is here with his family. We discussed the endobronchial ultrasound scheduled for 06/13/2018. They understand. It is very important to understand Mr. Hurley is an unusual case. This mass in his left hilum appears to be obstructing his superior pulmonary vein, and should it prove to be malignant, I think a case could be made for radiation. At any rate, we will get him set up for the endobronchial ultrasound with biopsy on 06/13/2018.
[2018-06-11] MEDS: METHENAMINE HIPPURATE 1 GM TAB PO SCH (20:21)
[2018-06-12] MEDS: METOPROLOL SUCC 25MG EXT REL TAB PO SCH (09:27)
[2018-06-12] MEDS: BUDESONIDE/FORMOTEROL FUMARATE 160/4.5 60 PUFFS/INHALER INH SCH ×2 (09:27→20:40)
[2018-06-12] MEDS: AMLODIPINE BESYLATE 5 MG TAB PO SCH (09:27)
[2018-06-12] MEDS: OXYBUTYNIN CHLORIDE XL 5 MG TABCR PO SCH (09:28)
[2018-06-12] MEDS: CITALOPRAM 20 MG TAB PO SCH (09:28)
[2018-06-12] MEDS: ATORVASTATIN 40 MG TAB PO SCH (09:28)
[2018-06-12] MEDS: PANTOprazole 40 MG TAB PO SCH (09:28)
[2018-06-12] MEDS: TAMSULOSIN HCL 0.4 MG CAP PO SCH (09:29)
[2018-06-12] MEDS: predniSONE 10 MG TABLET PO SCH (09:29)
[2018-06-12] MEDS: LISINOPRIL 20 MG TAB PO SCH (09:29)
[2018-06-12] MEDS: FINASTERIDE 5 MG TAB PO SCH (09:29)
--- NOTE | 2018-06-12 09:43 | Hospitalist Progress Note ---
Date of Service June 11, 2018 Assessment & Plan (1) Syncope: Patient with episode of syncope this afternoon. Presently feels well. He is afebrile, hemodynamically stable, EKG wtih no evidence of ischemia, troponin x 1 negative. 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 Uncertain if mechanical obstruction is contributing to syncopal events. -Admission order had been placed. -It appears hypoxia is the lead culprit to the patient's syncope. -Appreciate cardio input -endobronchial ultrasound scheduled for 06/13/2018 -Continue to monitor -Patient will be NPO after midnight. (2) Lung mass: CT results as below. -Will consult Dr. Amaya for possible inpatient EBUS with biopsy, appreciate assistance in this case -Patient will be NPO after midnight wednesday. -Will hold ASA and Plavix for now. Resume as soon as able FINDINGS: No emboli are identified. There are median sternotomy wires and postoperative findings from bypass grafting. There is extensive coronary artery calcification. A small hiatal hernia is noted. There is no pericardial effusion. There is moderate cardiomegaly. Note is made of a 3.1 x 2.1 cm irregular masslike density within the anterior left hilum which occludes the left superior pulmonary vein. Additional mildly enlarged mediastinal lymph nodes are similar to prior exams and are probably benign. Central airways are patent. There is moderate to severe emphysema. Innumerable calcified nodules within the lungs are noted. There is an indeterminate noncalcified 8 mm left upper lobe nodule. There is no pneumothorax or pleural effusion. Mild groundglass opacities are noted with subtle interstitial thickening. Old T11 compression fracture is noted. Upper abdomen is unremarkable. IMPRESSION: 1. No pulmonary emboli identified. 2. 3.1 x 2.1 cm irregular mass-like density within the anterior left hilum which occludes the left superior pulmonary vein and is highly suggestive of malignancy. This may reflect a central bronchogenic carcinoma or malignant lymph node. Pulmonary/thoracic surgical consultation is recommended for consideration for tissue sampling. 3. Moderate to severe emphysema. 4. Mild interstitial thickening which may reflect superimposed pulmonary edema. 5. Evidence for prior granulomatous process. This mass is likely contributing to the patient's hypoxia. 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 He does not complain of dyspnea, cough or wheeze. Lungs are markedly diminished but otherwise no wheezing. No respiratory distress. Do not suspect acute exacerbation at this time. -Continue Albuterol PRN -Continue Budesonide/Formoterol BID -Continue Prednisone 10mg po daily -DuoNebs and Albuterol PRN -Continuous pulse oximetry (4) COPD (chronic obstructive pulmonary disease): Plan as above (5) GERD (gastroesophageal reflux disease): Chronic. Stable -Continue Protonix 40mg po daily (6) Hyperlipidemia LDL goal <70: Chronic. Stable -Continue Atorvastatin 80mg po daily (7) Coronary artery disease: Patient with CAD s/p CABG 5V. Presently CP free. Troponin x 1 negative. No evidence of acute ischemia on EKG. -Holding ASA and Plavix for possible biopsy. -Continue Atorvastatin -Continue Metoprolol -Continue Lisinopril (8) Anemia of chronic disease: Normochromic/normocytic anemia. No active bleeding. H/H near baseline -Continue to monitor (9) Hypertension: Blood pressure appropriately controlled at present -Continue Metoprolol, Amlodipine -Continue to monitor (10) BPH (benign prostatic hyperplasia): Chronic. UA pending. Patient with no urinary complaints. -Continue Flomax -Continue Oxybutynin -Continue Finasteride -Monitor for urinary retention -Continue methenamine hippurate for ppx Ppx - SCDs Spent 25 minutes in management of patient. Subjective 77 yo male reports no new complaints today. He again asked about discharged, but today he had walked a short distance and his oxygen level dropped to the 60s. Explained to patient that will wait for biopsy results as this will determine treatment plan. Review of Systems All systems reviewed & are unremarkable except as noted in HPI & below Physical Exam Vital Signs (Past 24 Hours): Last Vital Signs Temp 36.4 C 06/11/18 12:00 Pulse 65 06/11/18 12:00 Resp 20 06/11/18 12:00 BP 114/70 06/11/18 12:00 Pulse Ox 95 06/11/18 12:00 Physical Exam: General: patient resting comfortably, NAD, non-toxic in appearance, AA&O x 4 Skin: warm, dry, intact, no rashes or lesions HEENT: NC/AT, PERRL, EOMI, anicteric sclera, conjunctiva without injection, external ear normal to inspection and nontender, nares patent, moist mucus membranes, dentition intact, no oropharyngeal lesions, neck supple, trachea midline, no LAD, no thyromegaly, no JVD Heart: +S1/S2, regular, no m/r/g, frequent ectopic beats Lungs: diminished breath sounds bilaterally, soft crackles in bilateral bases, no rhonchi/wheezes Abd: +BS, soft, NT/ND, no masses/organomegaly/ascites Ext: warm, 2+ pulses in UE/LE bilaterally, no clubbing/cyanosis or edema Neuro: nonfocal, patient AA&O x 4, speech intact, no facial droop, moving all extremities on command with equal strength 5/5 (1) Syncope Syncope type: unspecified Qualified Code(s): R55 - Syncope and collapse (2) COPD (chronic obstructive pulmonary disease) COPD type: unspecified COPD Qualified Code(s): J44.9 - Chronic obstructive pulmonary disease, unspecified (3) GERD (gastroesophageal reflux disease) Esophagitis presence: esophagitis presence not specified Qualified Code(s): K21.9 - Gastro-esophageal reflux disease without esophagitis (4) Coronary artery disease Coronary Disease-Associated Artery/Lesion type: [place] artery [place] vs. transplanted heart: [place] heart Associated angina: without angina Qualified Code(s): I25.10 - Atherosclerotic heart disease of [place] coronary artery without angina pectoris (5) Hypertension Hypertension type: essential hypertension Qualified Code(s): I10 - Essential (primary) hypertension
--- NOTE | 2018-06-12 10:36 | Hospitalist Progress Note ---
Date of Service June 12, 2018 Assessment & Plan (1) Syncope: Patient with episode of syncope this afternoon. Presently feels well. He is afebrile, hemodynamically stable, EKG wtih no evidence of ischemia, troponin x 1 negative. 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 Uncertain if mechanical obstruction is contributing to syncopal events. -Admission order had been placed. -It appears hypoxia is the lead culprit to the patient's syncope. -Appreciate cardio input -endobronchial ultrasound scheduled for 06/13/2018; this will be tomorrow. -Continue to monitor -Patient will be NPO after midnight. (2) Lung mass: CT results as below. -Will consult Dr. Amaya for possible inpatient EBUS with biopsy, appreciate assistance in this case -Patient will be NPO after midnight wednesday. -Will hold ASA and Plavix for now. Resume as soon as able FINDINGS: No emboli are identified. There are median sternotomy wires and postoperative findings from bypass grafting. There is extensive coronary artery calcification. A small hiatal hernia is noted. There is no pericardial effusion. There is moderate cardiomegaly. Note is made of a 3.1 x 2.1 cm irregular masslike density within the anterior left hilum which occludes the left superior pulmonary vein. Additional mildly enlarged mediastinal lymph nodes are similar to prior exams and are probably benign. Central airways are patent. There is moderate to severe emphysema. Innumerable calcified nodules within the lungs are noted. There is an indeterminate noncalcified 8 mm left upper lobe nodule. There is no pneumothorax or pleural effusion. Mild groundglass opacities are noted with subtle interstitial thickening. Old T11 compression fracture is noted. Upper abdomen is unremarkable. IMPRESSION: 1. No pulmonary emboli identified. 2. 3.1 x 2.1 cm irregular mass-like density within the anterior left hilum which occludes the left superior pulmonary vein and is highly suggestive of malignancy. This may reflect a central bronchogenic carcinoma or malignant lymph node. Pulmonary/thoracic surgical consultation is recommended for consideration for tissue sampling. 3. Moderate to severe emphysema. 4. Mild interstitial thickening which may reflect superimposed pulmonary edema. 5. Evidence for prior granulomatous process. This mass is likely contributing to the patient's hypoxia. 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 He does not complain of dyspnea, cough or wheeze. Lungs are markedly diminished but otherwise no wheezing. No respiratory distress. Do not suspect acute exacerbation at this time. -Continue Albuterol PRN -Continue Budesonide/Formoterol BID -Continue Prednisone 10mg po daily -DuoNebs and Albuterol PRN -Continuous pulse oximetry (4) COPD (chronic obstructive pulmonary disease): Plan as above (5) GERD (gastroesophageal reflux disease): Chronic. Stable -Continue Protonix 40mg po daily (6) Hyperlipidemia LDL goal <70: Chronic. Stable -Continue Atorvastatin 80mg po daily (7) Coronary artery disease: Patient with CAD s/p CABG 5V. Presently CP free. Troponin x 1 negative. No evidence of acute ischemia on EKG. -Holding ASA and Plavix for possible biopsy. -Continue Atorvastatin -Continue Metoprolol -Continue Lisinopril (8) Anemia of chronic disease: Normochromic/normocytic anemia. No active bleeding. H/H near baseline -Continue to monitor (9) Hypertension: Blood pressure appropriately controlled at present -Continue Metoprolol, Amlodipine -Continue to monitor (10) BPH (benign prostatic hyperplasia): Chronic. Patient with no urinary complaints. -Continue Flomax -Continue Oxybutynin -Continue Finasteride -Monitor for urinary retention -Continue methenamine hippurate for ppx Ppx - SCDs Spent 25 minutes in management of patient. Subjective 77 yo male reports no new complaints today. Physical Exam Vital Signs (Past 24 Hours): Last Vital Signs Temp 36.7 C 06/12/18 06:54 Pulse 58 L 06/12/18 06:54 Resp 19 06/12/18 06:54 BP 127/73 06/12/18 06:54 Pulse Ox 92 06/12/18 06:54 Physical Exam: General: patient resting comfortably, NAD, non-toxic in appearance, AA&O x 4 Skin: warm, dry, intact, no rashes or lesions HEENT: NC/AT, PERRL, EOMI, anicteric sclera, conjunctiva without injection, external ear normal to inspection and nontender, nares patent, moist mucus membranes, dentition intact, no oropharyngeal lesions, neck supple, trachea midline, no LAD, no thyromegaly, no JVD Heart: +S1/S2, regular, no m/r/g, frequent ectopic beats Lungs: diminished breath sounds bilaterally, soft crackles in bilateral bases, no rhonchi/wheezes Abd: +BS, soft, NT/ND, no masses/organomegaly/ascites Ext: warm, 2+ pulses in UE/LE bilaterally, no clubbing/cyanosis or edema Neuro: nonfocal, patient AA&O x 4, speech intact, no facial droop, moving all extremities on command with equal strength 5/5 (1) Coronary artery disease Associated angina: without angina Coronary Disease-Associated Artery/Lesion type: [place] artery [place] vs. transplanted heart: [place] heart Qualified Code(s): I25.10 - Atherosclerotic heart disease of [place] coronary artery without angina pectoris (2) Syncope Syncope type: unspecified Qualified Code(s): R55 - Syncope and collapse (3) COPD (chronic obstructive pulmonary disease) COPD type: unspecified COPD Qualified Code(s): J44.9 - Chronic obstructive pulmonary disease, unspecified (4) GERD (gastroesophageal reflux disease) Esophagitis presence: esophagitis presence not specified Qualified Code(s): K21.9 - Gastro-esophageal reflux disease without esophagitis (5) Hypertension Hypertension type: essential hypertension Qualified Code(s): I10 - Essential (primary) hypertension
--- NOTE | 2018-06-12 12:16 | Progress Note ---
DATE: 06/12/2018 Mr. Hurley is seen today. He is quite eager to leave. We had a long talk about the endobronchial ultrasound. He understands the risk of bleeding and pneumothorax, all of these are rather rare. He is still requiring 5 liters of O2. He seems stable and is in quite good spirits. He is on the schedule for 10:30 tomorrow and my hope is that we can get him out of the hospital soon afterwards. I told him I am quite concerned about this mass and explained quite frankly to the patient and his family that this could well be malignant. They understand.
[2018-06-12] MEDS: METHENAMINE HIPPURATE 1 GM TAB PO SCH (20:41)
[2018-06-13 07:10] LABS: BUN Creatinine Ratio 18.2 (10-20); Calcium 8.1 mg/dl (8.5-10.1); Creatinine Clr Calc Pharmacy 32.1 ml/min; Est GFR (African American) 41.2; Est GFR (Non-African American) 35.5; Potassium 3.9 mmol/L (3.5-5.1)
--- NOTE | 2018-06-13 07:57 | Consultation Report ---
DATE OF CONSULTATION: 06/10/2018 Mr. Hurley was seen in my office yesterday and had a respiratory collapse with saturations in the 70s. I know him having evaluated him just 3 days prior and he was scheduled to see the urologist in our office. The left hilar abnormality appeared to be occluding his left superior pulmonary vein which was worrisome. The patient was admitted and actually looks quite good today. I tried to get him on the schedule today for an endobronchial ultrasound with biopsy, however, we could not do that. At this point, he appears to be stable. I am not sure what to make of this left hilar mass, but it does appear to be amenable to be EBUS. We will get this set up for 06/13/2018.
[2018-06-13] MEDS: FINASTERIDE 5 MG TAB PO SCH (08:31)
[2018-06-13] MEDS: METOPROLOL SUCC 25MG EXT REL TAB PO SCH (08:31)
[2018-06-13] MEDS: LISINOPRIL 20 MG TAB PO SCH (08:31)
[2018-06-13] MEDS: predniSONE 10 MG TABLET PO SCH (08:32)
[2018-06-13] MEDS: CITALOPRAM 20 MG TAB PO SCH (08:32)
[2018-06-13] MEDS: OXYBUTYNIN CHLORIDE XL 5 MG TABCR PO SCH (08:32)
[2018-06-13] MEDS: AMLODIPINE BESYLATE 5 MG TAB PO SCH (08:32)
[2018-06-13] MEDS: TAMSULOSIN HCL 0.4 MG CAP PO SCH (08:33)
[2018-06-13] MEDS: BUDESONIDE/FORMOTEROL FUMARATE 160/4.5 60 PUFFS/INHALER INH SCH ×2 (08:33→20:14)
[2018-06-13] MEDS: ATORVASTATIN 40 MG TAB PO SCH (08:33)
[2018-06-13] MEDS: PANTOprazole 40 MG TAB PO SCH (08:33)
--- NOTE | 2018-06-13 10:00 | History & Physical Bridge Note ---
Date of Service June 13, 2018 History & Physical Bridge Note I have examined the patient, reviewed the History & Physical and in the interval since the performance of the History & Physical I have noted the following changes of clinical significance: no changes noted
[2018-06-13] MEDS ORDERED: fentaNYL citrate 100 MCG/2 ML VIAL ONE (10:07)
[2018-06-13] MEDS ORDERED: ePHEDrine sulfate 50 MG/ML AMP ONE (10:07)
[2018-06-13] MEDS ORDERED: GLYCOPYRROLATE 0.2 MG/ML VIAL ONE (10:07)
[2018-06-13] MEDS ORDERED: PHENYLEPHRINE HCL 10 MG/ML VIAL ONE (10:07)
[2018-06-13] MEDS ORDERED: LIDOCAINE HCL 2% 2 ML VIAL/AMP(20MG/ML) INFIL ONE (10:07)
[2018-06-13] MEDS ORDERED: DEXAMETHASONE SOD INJ 4 MG/ML VIAL ONE (10:07)
[2018-06-13] MEDS ORDERED: ONDANSETRON INJ 2 MG/ML 2 ML VIAL ONE (10:07)
[2018-06-13] MEDS ORDERED: NEOSTIGMINE METHYLSULFATE 5 MG/5 ML SYR ONE (10:07)
[2018-06-13] MEDS ORDERED: PROPOFOL IV EMULSION 10 MG/ML 20 ML VIAL IV ONE (10:07)
[2018-06-13] MEDS ORDERED: SUCCINYLCHOLINE CHLORIDE 20 MG/ML 10 ML VIAL ONE (10:07)
[2018-06-13] MEDS ORDERED: ePHEDrine sulfate 50 MG/ML AMP IV PRN (10:48)
[2018-06-13] MEDS ORDERED: ATROPINE SULFATE 0.1 MG/ML 10ML SYR IV PRN (10:48)
[2018-06-13] MEDS ORDERED: ONDANSETRON INJ 2 MG/ML 2 ML VIAL IV PRN (10:48)
[2018-06-13] MEDS ORDERED: fentaNYL citrate 100 MCG/2 ML VIAL IV PRN (10:48)
[2018-06-13] MEDS ORDERED: CLINDAMYCIN 600 MG in DEXTROSE 5% 50 ML IV ONE (11:39)
[2018-06-13] MEDS ORDERED: CLINDAMYCIN PHOS 300 MG/2 ML VIAL ONE (11:39)
--- NOTE | 2018-06-13 12:50 | Post Operative Brief Note ---
Immediate Post Op Note v1 Date of Surgery June 13, 2018 Pre & Post Diagnosis Operation Date: 06/10/18 14:30 <No data on this case meets the specified criteria> Operation Date: 06/13/18 10:30 Pre-Op Diagnosis: Left Hilar mass Post-Op Diagnosis: Left Hilar mass Procedure Operation Date: 06/10/18 14:30 <No data on this case meets the specified criteria> Operation Date: 06/13/18 10:30 Actual Procedures p Endobronchial Ultrasound with biopies (Left) - Oswald Amaya MD, FACS Surgeon Oswald Amaya MD, FACS Market Development Director [employer] Estimated Blood Loss 2 Findings Consistent with Post-Op Diagnosis
--- NOTE | 2018-06-13 13:14 | XRay Report ---
XR chest 1V portable CLINICAL HISTORY: s/p EBUS COMPARISON STUDY: Chest CT June 05, 2018. Chest radiograph June 10, 2018. FINDINGS: There are median sternotomy wires and clips from bypass grafting. Emphysema is noted with c alcified granulomas within the lungs. There is no pneumothorax. No pleural effusion is noted. Interst itial thickening is unchanged. IMPRESSION: No change in appearance of the chest. No pneumothorax. Electronically signed by: Omer Vázquez M.D. 06/13/2018 1:13 PM
--- NOTE | 2018-06-13 13:59 | Anesthesiology Progress Note ---
Date of Service June 13, 2018 Anesthesia Post Procedure Vital Signs Vital Signs: Temp Pulse Pulse Pulse Resp BP BP 06/13/18 13:45 36.4 C L 57 L 13 105/52 L 06/13/18 13:35 71 24 104/48 L 06/13/18 13:25 72 19 88/51 L 06/13/18 13:15 74 14 109/46 L 06/13/18 13:05 85 16 98/51 L 06/13/18 12:56 36.2 C L 96 H 22 95/43 L 06/13/18 10:22 06/13/18 10:20 36.6 C 64 20 120/67 06/13/18 07:31 36.6 C 103 H 16 132/68 06/13/18 07:17 68 06/13/18 04:00 36.9 C 93 H 23 104/63 06/12/18 23:32 36.7 C 66 21 131/71 06/12/18 19:49 36.7 C 57 L 21 118/73 06/12/18 15:58 36.3 C L 66 20 170/92 H 06/12/18 15:36 Pulse Ox Pulse Ox Pulse Ox Pulse Ox 06/13/18 13:45 99 06/13/18 13:35 94 06/13/18 13:25 94 06/13/18 13:15 95 06/13/18 13:05 95 06/13/18 12:56 94 06/13/18 10:22 78 L 06/13/18 10:20 96 06/13/18 07:31 95 06/13/18 07:17 06/13/18 04:00 92 06/12/18 23:32 95 06/12/18 19:49 95 06/12/18 15:58 92 06/12/18 15:36 88 L 92 78 L Notes Mental Status: alert / awake / arousable Patient Amnestic to Procedure: Yes Nausea / Vomiting: adequately controlled Pain: adequately controlled Airway Patency, RR, SpO2: stable & adequate BP & HR: stable & adequate Hydration State: stable & adequate Anesthetic Complications: no major complications apparent
[2018-06-13] MEDS: METHENAMINE HIPPURATE 1 GM TAB PO SCH (20:14)
--- NOTE | 2018-06-13 22:31 | Operative Report ---
DATE OF OPERATION: 06/13/2018 PREOPERATIVE DIAGNOSIS: Left hilar mass along the left upper lobe bronchus. POSTOPERATIVE DIAGNOSIS: Apparent malignancy, mass in the left hilum. PROCEDURE: Endobronchial ultrasound with biopsy. SURGEON: Oswald Amaya MD SENIOR ACCOUNT REPRESENTATIVE: Kaleb Salcedo, respiratory therapy. ANESTHESIA: General anesthesia, endotracheal intubation. INDICATION FOR PROCEDURE FINDINGS: Aman Hurley is a very nice 77-year-old male who is actually quite feeble. He collapsed in our office last week when he was in the office to see the urologist and his saturations were quite poor and is in the upper 70s. He was moved by ambulance to the ER and was admitted. I was following him because we were going to schedule an endobronchial ultrasound while I was in the hospital. I went ahead and scheduled him for today. On 06/13/2018 the patient came down to the operating room and underwent general anesthesia. I performed an endobronchial ultrasound and quite frankly I worked extremely hard not only to do fine needle aspirations, but also to do fine needle biopsies of this left hilar mass. It was actually a good sized abnormal mass, but it was on the superior aspect of the left upper lobe bronchus just at the bifurcation and a little further out. I could see this, but it was at a difficult angle and I did 19 separate biopsies, both with fine needle, aspiration needles as well as biopsy needles. Rapid onsite evaluation saw plenty of tissue but it was mostly fibrosis. On my [address] John Pearson called and said that, he felt that these were malignant, but he could not classify it further. We had plenty of tissue for cell block. He tolerated it well and was extubated in the room. The patient was brought to the operating room and laid in supine position. General anesthesia induced and endotracheal intubation was performed. After appropriate timeout and called and prophylactic antibiotics were given, the endobronchial ultrasound scope was placed. I was not doing a staging bronchoscopy. I went down directly to this mass and identified. Using fine needle biopsy needles I biopsied this area. It was difficult to get to due to the angle. In addition, I popped several balloons with biopsy needles we are trying to get into this. We got tissue back, but the rapid on-site evaluation did not indicate any abnormal tissue other than fibrosis. We really do not have another option in this patient. I would be very hesitant to perform a thoracoscopy on him. In addition, this mass appeared to be obstructing the left upper lobe venous drainage. I then biopsied this multiple times with both a fine needle aspiration needle and fine needle biopsy. Finally, on my dry Dr. Pearson felt that the rapid on-site evaluation did show malignant cells. We had very little in the way of any bleeding. I irrigated all of this out. Moving left it should be noted I saw no trochanter endobronchial lesions. He had very little in the way of sputum. He really had very little in the way of any lymphadenopathy anywhere else. He tolerated it well. I attest to the content of the Intraoperative Record and any orders documented therein. Any exception s are noted below.
--- NOTE | 2018-06-14 00:11 | Hospitalist Progress Note ---
Date of Service June 13, 2018 Assessment & Plan (1) Syncope: Patient with episode of syncope this afternoon. Presently feels well. He is afebrile, hemodynamically stable, EKG wtih no evidence of ischemia, troponin x 1 negative. 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 Uncertain if mechanical obstruction is contributing to syncopal events. -Admission order had been placed. -It appears hypoxia is the lead culprit to the patient's syncope. -Appreciate cardio input -endobronchial ultrasound scheduled for 06/13/2018; this was completed today. Awaiting biopsy result -Continue to monitor Patient will have 2 step tomorrow. Biopsy will likely determine definitive plan. (2) Lung mass: CT results as below. -Will consult Dr. Amaya for possible inpatient EBUS with biopsy, appreciate assistance in this case -Patient will be NPO after midnight wednesday evening. -Will hold ASA and Plavix for now. Resume as soon as able FINDINGS: No emboli are identified. There are median sternotomy wires and postoperative findings from bypass grafting. There is extensive coronary artery calcification. A small hiatal hernia is noted. There is no pericardial effusion. There is moderate cardiomegaly. Note is made of a 3.1 x 2.1 cm irregular masslike density within the anterior left hilum which occludes the left superior pulmonary vein. Additional mildly enlarged mediastinal lymph nodes are similar to prior exams and are probably benign. Central airways are patent. There is moderate to severe emphysema. Innumerable calcified nodules within the lungs are noted. There is an indeterminate noncalcified 8 mm left upper lobe nodule. There is no pneumothorax or pleural effusion. Mild groundglass opacities are noted with subtle interstitial thickening. Old T11 compression fracture is noted. Upper abdomen is unremarkable. IMPRESSION: 1. No pulmonary emboli identified. 2. 3.1 x 2.1 cm irregular mass-like density within the anterior left hilum which occludes the left superior pulmonary vein and is highly suggestive of malignancy. This may reflect a central bronchogenic carcinoma or malignant lymph node. Pulmonary/thoracic surgical consultation is recommended for consideration for tissue sampling. 3. Moderate to severe emphysema. 4. Mild interstitial thickening which may reflect superimposed pulmonary edema. 5. Evidence for prior granulomatous process. This mass is likely contributing to the patient's hypoxia. 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 He does not complain of dyspnea, cough or wheeze. Lungs are markedly diminished but otherwise no wheezing. No respiratory distress. Do not suspect acute exacerbation at this time. -Continue Albuterol PRN -Continue Budesonide/Formoterol BID -Continue Prednisone 10mg po daily -DuoNebs and Albuterol PRN -Continuous pulse oximetry (4) COPD (chronic obstructive pulmonary disease): Plan as above (5) GERD (gastroesophageal reflux disease): Chronic. Stable -Continue Protonix 40mg po daily (6) Hyperlipidemia LDL goal <70: Chronic. Stable -Continue Atorvastatin 80mg po daily (7) Coronary artery disease: Patient with CAD s/p CABG 5V. Presently CP free. Troponin x 1 negative. No evidence of acute ischemia on EKG. -Holding ASA and Plavix for possible biopsy. -Continue Atorvastatin -Continue Metoprolol -Continue Lisinopril (8) Anemia of chronic disease: Normochromic/normocytic anemia. No active bleeding. H/H near baseline -Continue to monitor (9) Hypertension: Blood pressure appropriately controlled at present -Continue Metoprolol, Amlodipine -Continue to monitor (10) BPH (benign prostatic hyperplasia): Chronic. Patient with no urinary complaints. -Continue Flomax -Continue Oxybutynin -Continue Finasteride -Monitor for urinary retention -Continue methenamine hippurate for ppx Ppx - SCDs Spent 25 minutes in management of patient. Subjective Patient is a 77 yo male, Patient reports that he wants to be discharged. Patient feels back to his normal self. However, he continues to drop 02 sat when ambulating as per nurse. is at bedisde and is updated. Physical Exam Vital Signs (Past 24 Hours): Last Vital Signs Temp 36.6 C 06/13/18 23:41 Pulse 76 06/13/18 23:41 Resp 18 06/13/18 23:41 BP 144/80 H 06/13/18 23:41 Pulse Ox 93 06/13/18 23:41 Physical Exam: General: patient resting comfortably, NAD, non-toxic in appearance, AA&O x 4 Skin: warm, dry, intact, no rashes or lesions HEENT: NC/AT, PERRL, EOMI, anicteric sclera, conjunctiva without injection, external ear normal to inspection and nontender, nares patent, moist mucus membranes, dentition intact, no oropharyngeal lesions, neck supple, trachea midline, no LAD, no thyromegaly, no JVD Heart: +S1/S2, regular, no m/r/g, frequent ectopic beats Lungs: diminished breath sounds bilaterally, soft crackles in bilateral bases, no rhonchi/wheezes Abd: +BS, soft, NT/ND, no masses/organomegaly/ascites Ext: warm, 2+ pulses in UE/LE bilaterally, no clubbing/cyanosis or edema Neuro: nonfocal, patient AA&O x 4, speech intact, no facial droop, moving all extremities on command with equal strength 5/5 (1) Coronary artery disease Associated angina: without angina Coronary Disease-Associated Artery/Lesion type: [place] artery [place] vs. transplanted heart: [place] heart Qualified Code(s): I25.10 - Atherosclerotic heart disease of [place] coronary artery without angina pectoris (2) Syncope Syncope type: unspecified Qualified Code(s): R55 - Syncope and collapse (3) COPD (chronic obstructive pulmonary disease) COPD type: unspecified COPD Qualified Code(s): J44.9 - Chronic obstructive pulmonary disease, unspecified (4) GERD (gastroesophageal reflux disease) Esophagitis presence: esophagitis presence not specified Qualified Code(s): K21.9 - Gastro-esophageal reflux disease without esophagitis (5) Hypertension Hypertension type: essential hypertension Qualified Code(s): I10 - Essential (primary) hypertension
[2018-06-14] MEDS ORDERED: CLINDAMYCIN 600 MG/54 ML BAG IV SCH (06:00)
[2018-06-14] MEDS: TAMSULOSIN HCL 0.4 MG CAP PO SCH (08:54)
[2018-06-14] MEDS: LISINOPRIL 20 MG TAB PO SCH (08:54)
[2018-06-14] MEDS: AMLODIPINE BESYLATE 5 MG TAB PO SCH (08:55)
[2018-06-14] MEDS: ATORVASTATIN 40 MG TAB PO SCH (08:55)
[2018-06-14] MEDS: CITALOPRAM 20 MG TAB PO SCH (08:55)
[2018-06-14] MEDS: FINASTERIDE 5 MG TAB PO SCH (08:55)
[2018-06-14] MEDS: predniSONE 10 MG TABLET PO SCH (08:56)
[2018-06-14] MEDS: OXYBUTYNIN CHLORIDE XL 5 MG TABCR PO SCH (08:56)
[2018-06-14] MEDS: METOPROLOL SUCC 25MG EXT REL TAB PO SCH (08:56)
[2018-06-14] MEDS: BUDESONIDE/FORMOTEROL FUMARATE 160/4.5 60 PUFFS/INHALER INH SCH (08:56)
[2018-06-14] MEDS: PANTOprazole 40 MG TAB PO SCH (08:56)
--- NOTE | 2018-06-14 09:21 | Hospitalist Progress Note ---
Date of Service June 14, 2018 Assessment & Plan (1) Syncope: Patient with episode of syncope prior to presentation, Patient with lung mass in the anterior left hilum which occludes the left superior pulmonary vein. Uncertain if mechanical obstruction is contributing to syncopal events. -It appears hypoxia is the lead culprit to the patient's syncope. -Appreciate cardio input -endobronchial ultrasound 06/13/2018; pending biopsy result Patient will have 2 step tomorrow. Biopsy will likely determine definitive plan. (2) Lung mass: CT results as below. FINDINGS: No emboli are identified. There are median sternotomy wires and postoperative findings from bypass grafting. There is extensive coronary artery calcification. A small hiatal hernia is noted. There is no pericardial effusion. There is moderate cardiomegaly. Note is made of a 3.1 x 2.1 cm irregular masslike density within the anterior left hilum which occludes the left superior pulmonary vein. Additional mildly enlarged mediastinal lymph nodes are similar to prior exams and are probably benign. Central airways are patent. There is moderate to severe emphysema. Innumerable calcified nodules within the lungs are noted. There is an indeterminate noncalcified 8 mm left upper lobe nodule. There is no pneumothorax or pleural effusion. Mild groundglass opacities are noted with subtle interstitial thickening. Old T11 compression fracture is noted. Upper abdomen is unremarkable. 1. No pulmonary emboli identified. 2. 3.1 x 2.1 cm irregular mass-like density within the anterior left hilum which occludes the left superior pulmonary vein and is highly suggestive of malignanc y. This may reflect a central bronchogenic carcinoma or malignant lymph node. Pulmonary/thoracic surgical consultation is recommended for consideration for tissue sampling. 3. Moderate to severe emphysema. 4. Mild interstitial thickening which may reflect superimposed pulmonary edema. 5. Evidence for prior granulomatous process. 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 He does not complain of dyspnea, cough or wheeze. Lungs are markedly diminished but otherwise no wheezing. No respiratory distress. Do not suspect acute exacerbation at this time. -Continue Albuterol PRN -Continue Budesonide/Formoterol BID -Continue Prednisone 10mg po daily -DuoNebs and Albuterol PRN -Continuous pulse oximetry (4) COPD (chronic obstructive pulmonary disease): Plan as above (5) GERD (gastroesophageal reflux disease): Chronic. Stable -Continue Protonix 40mg po daily (6) Hyperlipidemia LDL goal <70: Chronic. Stable -Continue Atorvastatin 80mg po daily (7) Coronary artery disease: Patient with CAD s/p CABG 5V. Presently CP free. Troponin x 1 negative. No evidence of acute ischemia on EKG. -Holding ASA and Plavix for possible biopsy. -Continue Atorvastatin -Continue Metoprolol -Continue Lisinopril (8) Anemia of chronic disease: Normochromic/normocytic anemia. No active bleeding. H/H near baseline -Continue to monitor (9) Hypertension: Blood pressure appropriately controlled at present -Continue Metoprolol, Amlodipine -Continue to monitor (10) BPH (benign prostatic hyperplasia): Chronic. Patient with no urinary complaints. -Continue Flomax -Continue Oxybutynin -Continue Finasteride -Continue methenamine hippurate for ppx Ppx - SCDs Physical Exam Vital Signs (Past 24 Hours): Last Vital Signs Temp 36.6 C 06/14/18 07:49 Pulse 69 06/14/18 07:49 Resp 18 06/14/18 07:49 BP 150/79 H 06/14/18 07:49 Pulse Ox 95 06/14/18 07:49 (1) Syncope Syncope type: unspecified Qualified Code(s): R55 - Syncope and collapse (2) COPD (chronic obstructive pulmonary disease) COPD type: unspecified COPD Qualified Code(s): J44.9 - Chronic obstructive pulmonary disease, unspecified (3) GERD (gastroesophageal reflux disease) Esophagitis presence: esophagitis presence not specified Qualified Code(s): K21.9 - Gastro-esophageal reflux disease without esophagitis (4) Coronary artery disease Coronary Disease-Associated Artery/Lesion type: [place] artery [place] vs. transplanted heart: [place] heart Associated angina: without angina Qualified Code(s): I25.10 - Atherosclerotic heart disease of [place] coronary artery without angina pectoris (5) Hypertension Hypertension type: essential hypertension Qualified Code(s): I10 - Essential (primary) hypertension
--- NOTE | 2018-06-14 16:55 | Progress Note ---
DATE: 06/14/2018 Mr. Hurley underwent an endobronchial ultrasound with biopsy and we did multiple biopsies of the left hilar mass; however, it was difficult to get into. It was felt that we had a malignant diagnosis on rapid on site evaluation; however, permanent sections do not show that to be the case. It is mostly fibrotic. I presented this case today at our multidisciplinary cancer conference and we really do not have a lot of options. The endobronchial ultrasound had difficulty accessing it because of its appearance. I also used a fiberoptic bronchoscope and used a regular needle to go through the bronchial wall. The pathology states that we have plenty of tissue, we just did not get a cancer diagnosis. This mass was not there in 2016, but his lymph nodes are unchanged. I believe it is malignant. I did discuss the possibility of radiating this without a diagnosis, but Dr. Mack Guaman nor Dr. Lo felt that that would not be a good option without a tissue diagnosis. He is not really a candidate for thoracoscopy. He has a patent MANOLO and he is hypoxic to start with. I have discussed this in detail with several physicians including Dr. Oliva, his primary care doctor. I will see the patient back in the office and we will discuss this in more detail. One option would be to do a mediastinoscopy and remove all the lymph nodes in that area, but I do not think I would get to this one area. Another option would be to consider a referral to a tertiary care center; however, I do not believe there is a technique that is going to allow them to access this better than we did. At this point, I will discuss this in detail with the family when I see them back in the office. SUNITA
--- NOTE | 2018-06-14 19:10 | Discharge Summary ---
Date of Service June 14, 2018 Admission HPI Per Admitting Provider Mr. 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 Patient was walking into his urologist's office this afternoon when he felt his legs become weak and became dizzy. He had a syncopal event. Was caught by a bystander and lowered into a chair. No head trauma. reports that his oxygen saturation was in the 70's shortly after the event. Patient denies chest pain/SOB/palpitations preceding or following the event. No numbness/tingling/weakness or seizure reported. Patient was recently admitted to [facility] 06/05 - 06/06 with similar presentation. He had a near syncopal episode and was found to be hypoxic with saturations in the 50's at that time. He was treated with Levaquin and a steroid taper. A CTA was performed during that hospitalization which revealed an irregular lymph node occluding and upper pulmonary vein. Findings concerning for malignancy. The patient was evaluated by Dr. Amaya with plans for outpatient EBUS with biopsy. Patient states that he has been feeling well since his discharge home. He does report increase in dizziness. No additional complaints at this time. Patient was removed from O2 briefly and his sats decreased to 72%. After replacing the O2 and having him take some deep breaths they improved to 89%. Patient remained asymptomatic. 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 His states his normal state of health patient does demand that he be discharged. He patient has a decreased air movement but no wheezes in all lung avery his cardiac exam is regular with a systolic murmur his abdomen soft nontender he is awake alert appropriate and able to make his own decisions and wants to go home Discharge Data Allergies Allergy/AdvReac Type Severity Reaction Status Date / Time cyclobenzaprine AdvReac Unknown halluninati Verified 06/09/18 12:19 ons oxycodone AdvReac Unknown HALLUCINATI Verified 06/09/18 12:19 ONS Consultations 06/09/18 14:47 ED Decision to Admit Stat 06/09/18 17:56 Consult Thoracic Surgery Routine 06/10/18 08:23 Consult Cardiology Routine Procedures Performed Operation Date: 06/10/18 14:30 <No data on this case meets the specified criteria> Operation Date: 06/13/18 10:30 Actual Procedures p Endobronchial Ultrasound with biopies (Left) - Oswald Amaya MD, FACS Ordered Studies 06/09/18 11:41 CT head/brain wo con Stat Hospital Course (1) Syncope: Patient with episode of syncope prior to presentation, Patient with lung mass in the anterior left hilum which occludes the left superior pulmonary vein. Uncertain if mechanical obstruction is contributing to syncopal events. Despite this fact that the patient back to the biopsy results are not back yet the patient wants to go home he is discharged on his usual 5 L of oxygen -endobronchial ultrasound 06/13/2018; pending biopsy result Biopsy will likely determine definitive plan. (2) Lung mass: CT results as below. FINDINGS: No emboli are identified. There are median sternotomy wires and p ostoperative findings from bypass grafting. There is extensive coronary artery calcification. A small hiatal hernia is noted. There is no pericardial effusion. There is moderate cardiomegaly. Note is made of a 3.1 x 2.1 cm irregular masslike density within the anterior left hilum which occludes the left superior pulmonary vein. Additional mildly enlarged mediastinal lymph nodes are similar to prior exams and are probably benign. Central airways are patent. There is moderate to severe emphysema. Innumerable calcified nodules within the lungs are noted. There is an indeterminate noncalcified 8 mm left upper lobe nodule. There is no pneumothorax or pleural effusion. Mild groundglass opacities are noted with subtle interstitial thickening. Old T11 compression fracture is noted. Upper abdomen is unremarkable. 1. No pulmonary emboli identified. 2. 3.1 x 2.1 cm irregular mass-like density within the anterior left hilum which occludes the left superior pulmonary vein and is highly suggestive of malignancy. This may reflect a central bronchogenic carcinoma or malignant lymph node. Pulmonary/thoracic surgical consultation is recommended for consideration for tissue sampling. 3. Moderate to severe emphysema. 4. Mild interstitial thickening which may reflect superimposed pulmonary edema. 5. Evidence for prior granulomatous process. 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 He does not complain of dyspnea, cough or wheeze. Lungs are markedly diminished but otherwise no wheezing. No respiratory distress. Do not suspect acute exacerbation at this time. We will continue his home medications including the daily prednisone therapy budesonide albuterol and formoterol (4) COPD (chronic obstructive pulmonary disease): Plan as above Patient is likely end-stage with a COPD and will have waxing and waning issues. Concern is that this mass is occluding his pulmonary vein is malignant pt does have CHRONIC HYPOIC RESPIRATORY FAILURE (5) GERD (gastroesophageal reflux disease): Chronic. Stable -Continue Protonix 40mg po daily (6) Hyperlipidemia LDL goal <70: Chronic. Stable -Continue Atorvastatin 80mg po daily (7) Coronary artery disease: Patient with CAD s/p CABG 5V. Presently CP free. Troponin x 1 negative. No evidence of acute ischemia on EKG. -We will resume ASA and Plavix at time of discharge -Continue Atorvastatin -Continue Metoprolol -Continue Lisinopril (8) Anemia of chronic disease: Normochromic/normocytic anemia. No active bleeding. H/H near baseline -Continue to monitor (9) Hypertension: Blood pressure appropriately controlled at present -Continue Metoprolol, Amlodipine (10) BPH (benign prostatic hyperplasia): Chronic. Patient with no urinary complaints. -Continue Flomax -Continue Oxybutynin -Continue Finasteride -Continue methenamine hippurate for ppx Ppx - SCDs (11) CKD (chronic kidney disease) stage 3, GFR 30-59 ml/min: Total Time Total Time Spent Total Time Spent (In Minutes): greater than 30 minutes were required to prepare discharge Discharge Plan Discharge Items Patient Disposition: Home - Home Health Services Reason For Visit: HYPOXIA,SYNCOPE Discharge Diagnosis: syncope, bronchoscopy and biopsy Discharge Goals: Decrease discomfort Activity: Resume your previous activity Non-emergency contact: Primary Care Provider and Surgeon Call non-emergency contact if: you have any medication questions Follow-up/Referrals: Francois Oilva III, MD [Primary Care Provider] - 06/17/18 1:00 pm (Please, follow up at Dr. Oliva's office with his associate, Kenyatta URENA, on WednesdayJune 17 at 1:00 pm. *If you need to change this appointment, call the office at [phone].) Diet: Regular Addtl Provider Instructions: please follow up with your primary care doctor please wear your oxygen at all times Prescriptions: Continued citalopram 10 mg tablet 10 mg PO DAILY RF: 0 amlodipine 2.5 mg tablet 2.5 mg PO DAILY RF: 0 clopidogrel 75 mg tablet 75 mg PO DAILY RF: 0 tamsulosin 0.4 mg capsule 0.4 mg PO DAILY RF: 0 atorvastatin 80 mg Tablet 80 mg PO DAILY RF: 0 aspirin 81 mg Tablet,Delayed Release (Dr/Ec) 81 mg PO DAILY RF: 0 oxybutynin chloride [Ditropan XL] 5 mg Tablet Extended Release 24hr 5 mg PO DAILY RF: 0 finasteride 5 mg Tablet 5 mg PO DAILY RF: 0 lisinopril 20 mg Tablet 20 mg PO DAILY RF: 0 methenamine hippurate 1 gram Tablet 1 g PO QPM RF: 0 nitroglycerin [Nitrostat] 0.4 mg Tablet, Sublingual 0.4 mg sublingual UD PRN (Reason: Chest Pain) RF: 0 omeprazole 20 mg Capsule,Delayed Release(Dr/Ec) 20 mg PO DAILY RF: 0 albuterol sulfate 90 mcg/actuation Hfa Aerosol Inhaler 2 puff INHALATION Q4 PRN (Reason: Shortness Of Breath Or Wheezing) RF: 0 hydrocodone-acetaminophen [Vicodin] 5-300 mg Tablet 1 - 2 tab PO Q4 PRN (Reason: Pain) RF: 0 Symbicort 160-4.5 mcg/actuation Hfa Aerosol Inhaler 2 puff INHALATION BID RF: 0 Incruse Ellipta 62.5 mcg/actuation Blister With Device 1 inh INHALATION DAILY RF: 0 prednisone 10 mg Tablet 10 mg PO QID RF: 0 metoprolol succinate 25 mg Tablet Extended Release 24 Hr 25 mg PO DAILY RF: 0 Stand-Alone Forms: [facility] Discharge Orders: Discharge Order (Routine); Ordered 06/14/18 Ordered By: Rowdy Macdonald Admission Data Admit Date/Time: 06/09/18 16:59 Attending Provider: Rowdy Macdonald Admit Provider: Bia Toledo Primary Care Provider: Francois Oliva III Other Providers: Oswald Amaya ; Ivan Rios ; Bia Toledo ; Saborio,Garrett A Service: Telemetry Medical Other Interventions: Discharge Summary Assessment (RN) Last Done: 06/14/18 15:09 DC Date/Time DO NOT enter until pt leaves facility: 06/14/18 15:40
--- NOTE | 2018-06-16 09:35 | Coding Query ---
CODING QUERY To promote full compliance with coding requirements relating to patient care, provider participation is requested in all cases of pest control supervisor uncertainty. Please assist us with the question(s) below: Coding Question(s): The Discharge Summary documents Lung Mass in the anterior left hilum which occludes the left superior pulmonary vein and documents endobronchial ultrasound 06/13/2018; pending biopsy result and documents the CT results describing the mass as highly suggestive of malignancy and may reflect a central bronchogenic carcinoma or malignant lymph node and the Progress Note by Dr. Amaya on 06/14/18 has documentation that it was felt we had a malignant diagnosis on rapid on site evaluation, however, permanent sections do now show that to be the case and says it was mostly fibrotic, however, also documents that "I believe it is malignant". The Discharge Summary also documents regarding bronchoscopic biopsy of lymph node occluding vein. Please clarify below, in your clinical opinion, regarding the Lung Mass in the left hilum and the lymph node. ( xxx) Lung Mass and Lymph Node are both possibly malignant cancer ( ) Lung Mass is possible malignant cancer, not the Lymph Node ( ) Lymph node is possible malignant cancer, not the Lung Mass ( ) Lung Mass and Lymph Node are both Not likely malignant cancer Physician's Response(s): Thank you Britta Sandoval Principal Diagnosis: "that condition established after study, to be chiefly responsible for occasioning the admission of the patient to the hospital for care." Co-Existing Principal Diagnosis: "when two or more diagnoses equally meet the criteria for principal diagnosis as determined by the circumstances of admission, diagnostic work up, and/or therapy provided, and the Alphabetic Index, Tabular List, or another coding guideline does not provide sequencing direction, any one of the diagnoses may be sequenced first." "When the physician has documented what appears to be a current diagnosis in the body of the record, but has not included the diagnosis in the final diagnostic statement, the physician should be asked whether the diagnosis should be added." ([facility] 2 QTR90. p3-4) SUNITA
--- NOTE | 2018-06-20 07:10 | Coding Query ---
CODING QUERY To promote full compliance with coding requirements relating to patient care, provider participation is requested in all cases of fire crew specialist uncertainty. Please assist us with the question(s) below: Coding Question(s): Please clarify below, regarding the Endobrachial ultrasound with biopsy procedure done on 06/13/18 to show what area(s) of tissue were biopsied with the left hilar mass. Please place an (x) in all that apply. ( ) Left Upper Lobe Bronchus ( x ) Left Upper Lobe Lung ( x ) Lymph Node ( ) Other: Please Specify_X__It is unclear what we are dealing with here. this mass could be a lymph node or a lung mass. Physician's Response(s): Thank you Britta Sandoval Principal Diagnosis: "that condition established after study, to be chiefly responsible for occasioning the admission of the patient to the hospital for care." Co-Existing Principal Diagnosis: "when two or more diagnoses equally meet the criteria for principal diagnosis as determined by the circumstances of admission, diagnostic work up, and/or therapy provided, and the Alphabetic Index, Tabular List, or another coding guideline does not provide sequencing direction, any one of the diagnoses may be sequenced first." "When the physician has documented what appears to be a current diagnosis in the body of the record, but has not included the diagnosis in the final diagnostic statement, the physician should be asked whether the diagnosis should be added." ([facility] 2 QTR90. p3-4) SUNITA
== END 2018-06-14 15:40 | disposition home or self-care (01) | DRG 167 ==
LOC: 4E 11:01 → ED 11:01 → SUATTDRO 16:59 → OBSVTOIN 17:06 → SUATTDRO 17:06 → 4E 17:35 → 2N 19:40

== ENCOUNTER 2018-07-08 09:27 | Inpatient (IN) ==
[2018-07-08] MEDS ORDERED: ALBUTEROL 0.083% NEBU SOLN 3 ML VIAL NEB STA (09:47)
[2018-07-08] MEDS ORDERED: SODIUM CHLORIDE 0.9% 1000ML 1,000 ML IV SCH (10:00)
[2018-07-08 10:08] LABS: Base Excess VBG -1.2 mEq/L; HCO3 VBG 23 mmol/L; PCO2 VBG 37 mmHg (38-50); PO2 VBG 32 mmHg; pH VBG 7.41 (7.36-7.41)
[2018-07-08 10:18] LABS: Oxygen Saturation VBG < 60.0 %
[2018-07-08 10:28] LABS: Alanine Aminotransferase 11 U/L (12-78); Albumin Level 2.7 gm/dl (3.4-5.0); Aspartate Aminotransferase 20 U/L (15-37); BUN Creatinine Ratio 19.6 (10-20); Blood Urea Nitrogen 29 mg/dl (7-18); Calcium 8.4 mg/dl (8.5-10.1); Carbon Dioxide 24 mmol/L (21-32); Chloride 104 mmol/L (98-107); Creatinine Clr Calc Pharmacy 39.3 ml/min; Est GFR (African American) 52.6; Est GFR (Non-African American) 45.4; Glucose 68 mg/dl (70-99); Potassium 4.7 mmol/L (3.5-5.1); Sodium 134 mmol/L (136-145)
[2018-07-08 10:31] LABS: INR 1.1 (0.9-1.1); Mean Corpuscular Hgb Conc 34.1 g/dL (32-36); Mean Platelet Volume 10.7 fL (7.4-10.4); Platelet Count 203 K/uL (130-400); Prothrombin Time 10.8 Seconds (9.0-12.0)
[2018-07-08 10:39] LABS: Albumin Globulin Ratio 0.8 (0.9-2); Alkaline Phosphatase 74 U/L (45-117); Bilirubin,Total 0.8 mg/dl (0.2-1); Globulin 3.6 gm/dl (2.5-4.0); Total Protein 6.3 gm/dl (6.4-8.2); Troponin I < 0.015 ng/ml (0-0.045)
--- NOTE | 2018-07-08 10:39 | XRay Report ---
XR chest 1V portable HISTORY: weakness COMPARISON: Chest 07/05/2018. FINDINGS: No pneumothorax. The heart remains mildly enlarged. There are postoperative changes. Chroni c interstitial thickening and multiple scattered calcified granulomas are again noted. No new focal l saurabh consolidations to suggest pneumonia. There appears to be slight progression of interstitial thick ening. There may be trace bilateral pleural effusions. IMPRESSION: Slight progression of the interstitial thickening which suggests mild congestive change on the backgr ound of chronic interstitial lung disease. There appear to be trace bilateral pleural effusions. Electronically signed by: Sy Covarrubias M.D. 07/08/2018 10:37 AM
[2018-07-08 10:47] LABS: Basophils # (auto) 0.01 K/uL (0-0.2); Basophils % (auto) 0.1 %; Echinocytes 1+; Eosinophils % (auto) 3.2 %; Hematocrit (blood only) 33.7 % (42-52); Hemoglobin 11.5 g/dL (14.0-18.0); Immature Granulocytes # (auto) 0.03 K/uL (0.00-0.02); Immature Granulocytes % (auto) 0.2 %; Lymphocytes % (auto) 10.4 %; Monocytes # (auto) 1.18 K/uL (0.11-0.59); Monocytes % (auto) 9.5 %; Neutrophils # (auto) 9.56 K/uL (1.4-6.5); Neutrophils % (auto) 76.6 %; RDW Coefficient of Variation 13.9 % (11.5-14.5); RDW Standard Deviation 47.7 fL (36.4-46.3); Red Blood Count 3.51 M/uL (4.7-6.1); Toxic Vacuolation 1+; White Blood Count 12.48 K/uL (4.8-10.8)
[2018-07-08] MEDS ORDERED: IOVERSOL 100ml IV PRN (11:49)
--- NOTE | 2018-07-08 12:06 | CT Scan Report ---
CT chest w con CLINICAL HISTORY: 77 years-old Male presenting with hypoxic recent surg. TECHNIQUE: Multidetector CT imaging of the chest was performed after the administration of intravenou s contrast. IV contrast: None. One or more dose lowering techniques were used consistent with the [facility] of ALARA (as low as reasonably achievable), including automatic exposure control, mA or kV ad justment to individual patient size, and/or use of iterative reconstruction. COMPARISON: 06/05/2018. CT DOSE (mGy.cm): The estimated cumulative dose is 383.30 mGycm. FINDINGS: Screener And Blender Operator topogram: Median sternotomy wires and mediastinal surgical clips. Soft tissues: Normal thyroid and thoracic inlet. Prior sites of lymphadenopathy within the aortopulmo nary window, precarinal region, and left hilum now demonstrated vague infiltrative change. However, d iscrete enhancing pathologically enlarged lymph nodes remain evident in the prevascular and more supe rior right paratracheal regions. These are grossly unchanged in size from prior. Atherosclerosis of t he aorta. Extensive noncalcified atherosclerotic plaque in the descending aorta. Both the standing an d descending aorta are normal in caliber. Postsurgical changes of coronary artery bypass grafting. Ca lcification of the [place] coronary arteries. Top normal heart size. Trace right pleural effusion. Sma ll sliding-type hiatal hernia. Lungs and airways: No pneumothorax. Stenosis of segmental airways in the anterior segment of the left upper lobe again evident. More central airways patent. Stenosis of a traversing left superior pulmon jarrod vein in the region of the left perihilar mass as on prior exam. The mass is unchanged in size and in a left suprahilar and peribronchovascular distribution. Background extensive centrilobular emphys giovani. Reticular subpleural opacities may represent superimposed associated fibrotic change. Numerous c alcified foci in the lungs consistent with calcified granulomata. Musculoskeletal: Degenerative changes of the spine. A destructive osseous lesion. Severe compression fracture of T11 again noted. IMPRESSION: 1. No significant change in size or appearance of the left perihilar mass, which remains suspicious for a neoplastic process. No new sites of disease. 2. Interval development of infiltrative changes of the now indistinct lymphadenopathy in some of the regions of the mediastinum. This may represent postprocedural edema or posttreatment changes if ther e was prior radiation. 3. Persistent mediastinal lymphadenopathy otherwise not changed from prior. 4. Emphysema. 5. Evidence of old granulomatous disease. 6. Hilar hernia. Electronically signed by: John Santana M.D. 07/08/2018 12:04 PM
[2018-07-08] MEDS ORDERED: methylPREDNISolone 125 MG/2 ML VIAL IV STA (12:37)
--- NOTE | 2018-07-08 12:43 | History & Physical Report ---
Date of Service July 08, 2018 Assessment & Plan (1) Acute on chronic respiratory failure with hypoxia: (2) Lung mass: (3) Dependence on continuous supplemental oxygen: (4) Hypoxia: - Admit to med surg with tele - Consult thoracic surgery - Dr. Serna since pt underwent surgical procedure on 07/05/18 - No fluids as CXR and CT reviewed showing bilateral pleural effusions - VSS - WBC is 12.48, afebrile - has been using hydrocodone/acetaminophen for pain at home. - Levaquiin x 1 dose given in the ER, willl switch to ceftriaxone and doxycycline IV - Chronically wears 6L at baseline, currently with adequate sats - Supportive care, will continue solumedrol 20 mg BID with slight wheeze, incentive spirometry - Consult thoracic surgery for further recs - Lung mass was suspicious for neoplastic etiology, but pathology reports have resulted fortunately as benign. (5) COPD (chronic obstructive pulmonary disease): - Can titrate sats to 88-92% - Continue home inhalers including Incruse Ellipta 1 inh daily, Symbicort 2 inh daily (6) Coronary artery disease: - Continue asa 8 1mg daily, atorvastatin 80 mg daily (7) Status post aorto-coronary artery bypass graft: - Cont plavix daily (8) Hypertension: - Cont antihypertensives including amlodipine, lisinopril, metoprolol succinate 25 mg daily (9) Hyperlipidemia LDL goal <70: - Cont atorvastatin (10) Anemia of chronic disease: - Stable cbc, follow with am labs (11) GERD (gastroesophageal reflux disease): - Cont omeprazole 20 mg daily (12) Paroxysmal atrial fibrillation: - Continue plavix, currently rate controlled and in NSR. (13) CKD (chronic kidney disease) stage 3, GFR 30-59 ml/min: - Cr. 1.4 and currently at baseline, stable (14) Peripheral neuropathy: (15) BPH (benign prostatic hyperplasia): - Straight cath required 1-2 x daily. Bladder scan Q6H, straight caths prn for >450 mL. - UA ordered, no urinary sx per pt. (16) DVT prophylaxis: - Continue plavix, teds, scds. History of Present Illness Primary Care Provider: Francois Oliva MD This is a 77 yo M with PMHx of COPD, emphysema,, CAD s/p CABG x 5 in 1993, HTN, HLD, paroxysmal afib, hx of acute on chronic respiratory failure with hypoxia, anemia of chronic disease, BPH with needs for straight cath 1-2x daily at home, GERD, syncope, peripheral neuropathy, who presents with worsening shortness of breath. On 07/05/18 the patient underwent video mediastinoscopy with biopsy of a hypermetabolic left peribronchial mass by Dr. Serna. 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 The patient notes that since the procedure his breathing has been slightly worse, where he experiences dyspnea on exertion, however does have some BELLA at baseline. He wears O2 6 L continuously at baseline. He tells me he has not gotten up to walk around his home much in the past day as he was instructed to "take it easy". He has a slightly depressed appetite although is drinking fluids. Pt notes he requires at home self catheterizations 1-2x daily at baseline and follows with Dr. Be as an outpt. He denies any abdominal pain, n/v/d/c, dysuria, hematuria or difficulty with self caths. Pt VSS, WBC is 12K. CXR and CT of the chest is reviewed and negative except for bibasilar infiltrates. Allergies Allergy/AdvReac Type Severity Reaction Status Date / Time cyclobenzaprine AdvReac Unknown halluninati Verified 07/08/18 10:00 ons oxycodone AdvReac Unknown HALLUCINATI Verified 07/08/18 10:00 ONS Home Medications Home Medications Medication Instructions Recorded Confirmed Type Incruse Ellipta 1 inh INHALATION DAILY 06/05/18 07/08/18 History Symbicort 2 puff INHALATION BID 06/05/18 07/08/18 History albuterol sulfate 2 puff INHALATION Q4 PRN 06/05/18 07/08/18 History aspirin 81 mg PO DAILY 06/05/18 07/08/18 History atorvastatin 80 mg PO DAILY 06/05/18 07/08/18 History citalopram 10 mg PO DAILY 06/05/18 07/08/18 History clopidogrel 75 mg PO DAILY 06/05/18 07/08/18 History finasteride 5 mg PO DAILY 06/05/18 07/08/18 History hydrocodone-acetaminophen [Vicodin] 1 - 2 tab PO Q4 PRN 06/05/18 07/08/18 History lisinopril 20 mg PO DAILY 06/05/18 07/08/18 History methenamine hippurate 1 g PO QPM 06/05/18 07/08/18 History nitroglycerin [Nitrostat] 0.4 mg SUBLINGUAL UD PRN 06/05/18 07/08/18 History omeprazole 20 mg PO DAILY 06/05/18 07/08/18 History oxybutynin chloride [Ditropan XL] 5 mg PO DAILY 06/05/18 07/08/18 History tamsulosin 0.4 mg PO DAILY 06/05/18 07/08/18 History metoprolol succinate 25 mg PO DAILY 06/09/18 07/08/18 History tramadol [Ultram] 50 mg PO QID PRN #18 tab 07/05/18 07/08/18 Rx amlodipine 5 mg PO DAILY 07/08/18 07/08/18 History Past Med/Surg History Medical History Hypertension (Chronic) Atrial fibrillation NEWLY DIAGNOSED PER SPOUSE. STATES THAT THEY THINK IT IS RELATED TO THE MASS CAUSING PRESSURE ON HEART BPH (benign prostatic hyperplasia) CAD (coronary artery disease) COPD (chronic obstructive pulmonary disease) Chronic kidney disease STAGE 3, FOLLOWS WITH NEPHRO GERD (gastroesophageal reflux disease) History of DVT (deep vein thrombosis) PER . OCCURED DURING CARDIAC CATH. WAS LOCATED IN FOOT/TOE. Hyperlipidemia Hypertension Lung mass PLANNED FOR BIOPSY WITH DR. SERNA ON 07/05/18. Surgical History Fusion of spine CERVICAL History of cardiac cath ROUTINE DIAGNOSTIC. PT HAS HISTORY OF CABG 5 VESSEL IN 1993. FOLLOWS WITH DR. ISRAEL. History of cataract extraction with lens replacement History of cystoscopy URETHRAL DILATION S/P CABG x 5 1993. [facility] [place]. FOLLOWS WITH DR. ISRAEL Family History Other Family history non-contributory Social History Preferred Language: Ukrainian Communication Ability: Effective Beliefs That Will Affect Care: None marital status: Current Living Situation: Spouse current occupational status: retired Feels Safe at Home: Yes Smoking Status: Former smoker Tobacco Type: cigarettes Cigarettes Per Day: QUIT APPROX 25 YEARS AGO. HX OF 3 PPD X20+ YEARS Second Hand Exposure: No Hx Alcohol Use: Yes Alcohol type: beer Hx Substance Use: No Review of Systems Review of Systems: Constitutional: No fever, sweats or chills, + generalized fatigue Eyes: No diplopia, no worsening or blurred vision ENT: normal hearing, no trouble swallowing Respiratory: No cough, sputum, + dyspnea on exertion, wears 6L O2 continuously Cardiovascular: No chest pain, tightness or palpitations Abdomen: No pain, nausea, vomiting, diarrhea or constipation : requires at home straight cath 1-2x daily Musculoskeletal: No joint pain, calf pain, swelling Neurologic: No weakness, numbness/tingling, or balance problems Psychiatric: No anxiety or depression Skin: No rash or itch Physical Exam Physical Exam: General: awake, alert, no apparent distress Head: Normocephalic, atraumatic ENT: PERRL, EOMI, no pharyngeal exudate, mucous membranes moist Chest: On 6 L NC, + lying flat, clear breath sounds in upper and middle avery, + bibasilar crackles, + slight wheeze Cardiac: irreg irregular rate controlled, no murmur, no JVD, normal peripheral pulses, good capillary refill Abdominal: NABS x 4 quadrants, soft, + slightly distended, nontender to palpation, no rebound, guarding or tenderness Extremities: Normal inspection, no peripheral edema or erythema, calfs nontender to palpation Psych: Normal mood and affect Neuro: AAO x 3, strength intact bilaterally and related 5/5, no motor deficits, speech is clear, no peripheral sensory deficits Constitutional: WD/WN, vitals as above Eyes: normal visual avery by confrontation and + anicteric sclerae Neck: normal visual inspection and trachea midline Respiratory: + abnormal respiratory effort Auscultation: + crackles and + wheezes Cardiovascular: Rate/Rhythm: regular rate; + abnormal rhythm Gastrointestinal (Abdomen): Inspection/Auscultation: abdomen not distended Percussion/Palpation: abdomen soft; abdomen nontender Musculoskeletal: Head/Neck/Chest: normocephalic and head atraumatic Neg for peripheral LE edema, + pedal pulses Skin: no rashes, warm and dry Neurologic: awake; not confused Speech / Cognition: normal speech Psychiatric: A+Ox3, euthymic affect Lymphatic: Exam as done by Corrina Bishop DO Results & Data Vital Signs (Past 12 Hours) Vital Signs Temp Pulse Pulse Resp BP BP Pulse Ox 07/08/18 11:30 91 H 18 115/74 97 07/08/18 10:10 88 6 L 07/08/18 09:43 88 L 07/08/18 09:25 36.8 C 80 16 153/71 H 89 L Diagnostic Findings XR chest 1V portable HISTORY: weakness COMPARISON: Chest 07/05/2018. FINDINGS: No pneumothorax. The heart remains mildly enlarged. There are pos toperative changes. Chronic interstitial thickening and multiple scattered calcified granulomas are again noted. No new focal lung consolidations to suggest pneumonia. There appears to be slight progression of interstitial thickening. There may be trace bilateral pleural effusions. IMPRESSION: Slight progression of the interstitial thickening which suggests mild congestive change on the background of chronic interstitial lung disease. There appear to be trace bilateral pleural effusions. CT chest w con CLINICAL HISTORY: 77 years-old Male presenting with hypoxic recent surg. TECHNIQUE: Multidetector CT imaging of the chest was performed after the administration of intravenous contrast. IV contrast: None. One or more dose lowering techniques were used consistent with the principles of ALARA (as low as reasonably achievable), including automatic exposure control, mA or kV adjustment to individual patient size, and/or use of iterative reconstruction. COMPARISON: 06/05/2018. CT DOSE (mGy.cm): The estimated cumulative dose is 383.30 mGycm. 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 Soft tissues: Normal thyroid and thoracic inlet. Prior sites of lymphadenopathy within the aortopulmonary window, precarinal region, and left hilum now demonstrated vague infiltrative change. However, discrete enhancing pathologically enlarged lymph nodes remain evident in the prevascular and more superior right paratracheal regions. These are grossly unchanged in size from prior. Atherosclerosis of the aorta. Extensive noncalcified atherosclerotic plaque in the descending aorta. Both the standing and descending aorta are normal in caliber. Postsurgical changes of coronary artery bypass grafting. Calcification of the [place] coronary arteries. Top normal heart size. Trace right pleural effusion. Small sliding-type hiatal hernia. Lungs and airways: No pneumothorax. Stenosis of segmental airways in the anterior segment of the left upper lobe again evident. More central airways patent. 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 The mass is unchanged in size and in a left suprahilar and peribronchovascular distribution. Background extensive centrilobular emphysema. Reticular subpleural opacities may represent superimposed associated fibrotic change. Numerous calcified foci in the lungs consistent with calcified granulomata. Musculoskeletal: Degenerative changes of the spine. A destructive osseous lesion. Severe compression fracture of T11 again noted. IMPRESSION: 1. No significant change in size or appearance of the left perihilar mass, which remains suspicious for a neoplastic process. No new sites of disease. 2. Interval development of infiltrative changes of the now indistinct lymphadenopathy in some of the regions of the mediastinum. This may represent postprocedural edema or posttreatment changes if there was prior radiation. 3. Persistent mediastinal lymphadenopathy otherwise not changed from prior. 4. Emphysema. 5. Evidence of old granulomatous disease. 6. Hilar hernia. ECG Additional Comments: 08-JUL-2018 10:10:53 [facility]-EDSTAT ROUTINE RETRIEVAL Atrial fibrillation with rapid ventricular response with premature ventricular or aberrantly conducted complexes Left axis deviation Abnormal ECG When compared with ECG of 10-JUN-2018 11:14, Atrial fibrillation has replaced Sinus rhythm 25mm/s 10mm/mV 150Hz 9.0.8 12SL 241 JENNA: 10 Referred by: REFERRED SELF Unconfirmed Vent. rate 102 BPM WI interval * ms QRS duration 92 ms QT/QTc 354/461 ms P-R-T axes * -32 75 Supervising Physician Co-Signing Physician Notes Pt seen and examined by me. Denies chest pain. Perry his SOB was better during discussion with Trish, however now feels SOB again. Cannot tell me if this is same/better/worse than earlier today. Tolerating PO without issue. Agree with HPI/ROS as noted by PA See above for my exam in PE section Agree with plan as outlined above Possible PNA post lung mass bx Abx Elevated WBC CT surg c/s (1) Coronary artery disease Associated angina: without angina Coronary Disease-Associated Artery/Lesion type: [place] artery [place] vs. transplanted heart: [place] heart Qualified Code(s): I25.10 - Atherosclerotic heart disease of [place] coronary artery without angina pectoris (2) COPD (chronic obstructive pulmonary disease) COPD type: unspecified COPD Qualified Code(s): J44.9 - Chronic obstructive pulmonary disease, unspecified (3) GERD (gastroesophageal reflux disease) Esophagitis presence: esophagitis presence not specified Qualified Code(s): K21.9 - Gastro-esophageal reflux disease without esophagitis (4) Hypertension Hypertension type: essential hypertension Qualified Code(s): I10 - Essential (primary) hypertension
[2018-07-08] MEDS: LEVOFLOXACIN/D5W 750 MG/150 ML BAG IV SCH (13:37)
[2018-07-08] MEDS ORDERED: ACETAMINOPHEN 325 MG TAB PO PRN (13:43)
[2018-07-08] MEDS ORDERED: ONDANSETRON INJ 2 MG/ML 2 ML VIAL IV PRN (13:43)
[2018-07-08] MEDS ORDERED: cefTRIAXone SODIUM 1,000 MG/50 ML BAG IV STA (13:46)
[2018-07-08] MEDS ORDERED: ALBUTEROL HFA 8 GM INHALER INH PRN (13:48)
[2018-07-08] MEDS ORDERED: NITROGLYCERIN SL 0.4 MG/TAB TAB SL PRN (13:48)
[2018-07-08] MEDS ORDERED: TRAMADOL HCL 50 MG TABLET PO PRN (13:48)
[2018-07-08] MEDS ORDERED: cefTRIAXone SODIUM 1000MG/50ML D5W ONE (14:07)
--- NOTE | 2018-07-08 16:10 | Progress Note ---
Date of Service July 08, 2018 Subjective Called to see patient for inability to place diaz. Elevated PVR, ~600 per bladder scan. Care d/w patient and , consult reviewed. Patient being admitted for weakness, believes patient missed a day of his CIC regimen. 16 fr silicone diaz placed with 10 cc H2O after standard prep and drape. Well tolerated, no complications, clear urine. Continue diaz - will arrange for outpatient TOV and follow-up in about a week in our office. Will restart CIC regimen with 16 fr catheters (has supplies at home) BID as per previous. Thank you for allowing us to participate in this patient's care. Results & Data Vital Signs (Past 12 Hours) Vital Signs Temp Pulse Pulse Resp BP BP Pulse Ox 07/08/18 14:30 99 H 27 H 136/83 92 07/08/18 14:01 114 H 28 H 121/91 95 07/08/18 14:00 112 H 23 92 07/08/18 13:31 101 H 27 H 94 07/08/18 13:30 87 89 25 H 139/86 139/86 92 07/08/18 11:30 91 H 18 115/74 97 07/08/18 10:10 88 6 L 07/08/18 09:43 88 L 07/08/18 09:25 36.8 C 80 16 153/71 H 89 L
--- NOTE | 2018-07-08 16:34 | Emergency Department Note ---
Entered by Rip Nixon acting as a scribe for Uriah Drew DO History of Present Illness General Chief complaint: Weakness Time Seen by Provider: 07/08/18 09:37 History of Present Illness Maximum Pain Intensity: 0 The patient is a 77 year old male who presents to the Emergency Room with complaints of worsening weakness over the past 4 days. The patient has also lost his appetite, has a cough and is urinating more frequently. He typically ambulates by himself but as of late he has been too weak to. 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 Upon first arrival his O2 Sat was 88% on 5L. He denies any fevers, abdominal pain or urinary symptoms besides the frequency. He has a history of COPD and is currently on Plavix and Aspirin. No other exacerbating or remitting factors. Home Medications Home Medications Medication Instructions Recorded Confirmed Type Incruse Ellipta 1 inh INHALATION DAILY 06/05/18 07/08/18 History Symbicort 2 puff INHALATION BID 06/05/18 07/08/18 History albuterol sulfate 2 puff INHALATION Q4 PRN 06/05/18 07/08/18 History aspirin 81 mg PO DAILY 06/05/18 07/08/18 History atorvastatin 80 mg PO DAILY 06/05/18 07/08/18 History citalopram 10 mg PO DAILY 06/05/18 07/08/18 History clopidogrel 75 mg PO DAILY 06/05/18 07/08/18 History finasteride 5 mg PO DAILY 06/05/18 07/08/18 History hydrocodone-acetaminophen [Vicodin] 1 - 2 tab PO Q4 PRN 06/05/18 07/08/18 History lisinopril 20 mg PO DAILY 06/05/18 07/08/18 History methenamine hippurate 1 g PO QPM 06/05/18 07/08/18 History nitroglycerin [Nitrostat] 0.4 mg SUBLINGUAL UD PRN 06/05/18 07/08/18 History omeprazole 20 mg PO DAILY 06/05/18 07/08/18 History oxybutynin chloride [Ditropan XL] 5 mg PO DAILY 06/05/18 07/08/18 History tamsulosin 0.4 mg PO DAILY 06/05/18 07/08/18 History metoprolol succinate 25 mg PO DAILY 06/09/18 07/08/18 History tramadol [Ultram] 50 mg PO QID PRN #18 tab 07/05/18 07/08/18 Rx amlodipine 5 mg PO DAILY 07/08/18 07/08/18 History Allergies Allergy/AdvReac Type Severity Reaction Status Date / Time cyclobenzaprine AdvReac Unknown halluninati Verified 07/08/18 10:00 ons oxycodone AdvReac Unknown HALLUCINATI Verified 07/08/18 10:00 ONS Past Med/Surg History Medical History Hypertension (Chronic) Atrial fibrillation NEWLY DIAGNOSED PER SPOUSE. STATES THAT THEY THINK IT IS RELATED TO THE MASS CAUSING PRESSURE ON HEART BPH (benign prostatic hyperplasia) CAD (coronary artery disease) COPD (chronic obstructive pulmonary disease) Chronic kidney disease STAGE 3, FOLLOWS WITH NEPHRO GERD (gastroesophageal reflux disease) History of DVT (deep vein thrombosis) PER . OCCURED DURING CARDIAC CATH. WAS LOCATED IN FOOT/TOE. Hyperlipidemia Hypertension Lung mass PLANNED FOR BIOPSY WITH DR. SERNA ON 07/05/18. Surgical History Fusion of spine CERVICAL History of cardiac cath ROUTINE DIAGNOSTIC. PT HAS HISTORY OF CABG 5 VESSEL IN 1993. FOLLOWS WITH DR. ISRAEL. History of cataract extraction with lens replacement History of cystoscopy URETHRAL DILATION S/P CABG x 5 1993. [facility]. FOLLOWS WITH DR. ISRAEL Family History Other Family history non-contributory Social History Preferred Language: Salvadorean Communication Ability: Effective Beliefs That Will Affect Care: None marital status: Current Living Situation: Spouse current occupational status: retired Feels Safe at Home: Yes Smoking Status: Former smoker Tobacco Type: cigarettes Cigarettes Per Day: QUIT APPROX 25 YEARS AGO. HX OF 3 PPD X20+ YEARS Second Hand Exposure: No Hx Alcohol Use: Yes Alcohol type: beer Hx Substance Use: No Review of Systems See HPI for pertinent positives & negatives. and A total of 10 systems reviewed and were otherwise negative Physical Exam Vital Signs Vital Signs - 24 hr 07/08/18 09:25 07/08/18 09:43 07/08/18 09:46 Temperature 36.8 C Temperature Source Oral Sepsis Recent Fever Within 48 Hours No Sepsis Action Taken by Nursing No Action Required Pulse Rate 80 Pulse Rate [Apical] Pulse Rate from SpO2 Sensor Pulse Rhythm [Apical] Pulse Strength [Apical] Respiratory Rate 16 Respiratory Effort / Characteristics Non-Labored Respiratory Depth Normal Respiratory Pattern Blood Pressure 153/71 H Blood Pressure [Right Arm] Blood Pressure Mean 98 Blood Pressure Mean [Right Arm] Blood Pressure Position [Right Arm] Pulse Oximetry 89 L 88 L Oxygen Delivery Method Nasal Cannula Nasal Cannula Nasal Cannula Oxygen Flow Rate 5 5 6 07/08/18 10:10 07/08/18 11:30 07/08/18 13:30 Temperature Temperature Source Sepsis Recent Fever Within 48 Hours Sepsis Action Taken by Nursing Pulse Rate 88 87 Pulse Rate [Apical] 91 H 89 Pulse Rate from SpO2 Sensor 85 Pulse Rhythm [Apical] Regular Regular Pulse Strength [Apical] Normal Normal Respiratory Rate 18 25 H Respiratory Effort / Characteristics Non-Labored Spontaneous Non-Labored Spontaneous Respiratory Depth Normal Normal Respiratory Pattern Regular Regular Blood Pressure 139/86 Blood Pressure [Right Arm] 115/74 139/86 Blood Pressure Mean 103 Blood Pressure Mean [Right Arm] 87 103 Blood Pressure Position [Right Arm] Lying Lying Pulse Oximetry 6 L 97 92 Oxygen Delivery Method Nasal Cannula Nasal Cannula Nasal Cannula Oxygen Flow Rate 96 6 6 07/08/18 13:31 07/08/18 14:00 07/08/18 14:01 Temperature Temperature Source Sepsis Recent Fever Within 48 Hours Sepsis Action Taken by Nursing Pulse Rate 101 H 112 H 114 H Pulse Rate [Apical] Pulse Rate from SpO2 Sensor 99 H 109 H 93 H Pulse Rhythm [Apical] Pulse Strength [Apical] Respiratory Rate 27 H 23 28 H Respiratory Effort / Characteristics Respiratory Depth Respiratory Pattern Blood Pressure 121/91 Blood Pressure [Right Arm] Blood Pressure Mean 101 Blood Pressure Mean [Right Arm] Blood Pressure Position [Right Arm] Pulse Oximetry 94 92 95 Oxygen Delivery Method Nasal Cannula Nasal Cannula Nasal Cannula Oxygen Flow Rate 6 6 6 07/08/18 14:30 Temperature Temperature Source Sepsis Recent Fever Within 48 Hours Sepsis Action Taken by Nursing Pulse Rate 99 H Pulse Rate [Apical] Pulse Rate from SpO2 Sensor 91 H Pulse Rhythm [Apical] Pulse Strength [Apical] Respiratory Rate 27 H Respiratory Effort / Characteristics Respiratory Depth Respiratory Pattern Blood Pressure 136/83 Blood Pressure [Right Arm] Blood Pressure Mean 100 Blood Pressure Mean [Right Arm] Blood Pressure Position [Right Arm] Pulse Oximetry 92 Oxygen Delivery Method Nasal Cannula Oxygen Flow Rate 6 GENERAL: Sitting up in bed, alert, pale, chronically ill appearing and disheveled, talking in full sentences with 6L on NC, well nourished, no distress, non-toxic EYE EXAM: normal conjunctiva. OROPHARYNX: no exudate, no erythema, lips, buccal mucosa, and tongue normal and mucous membranes are moist NECK: supple, no nuchal rigidity, no adenopathy, non-tender LUNGS: Diminished breath sounds with mild wheezing in the bilateral bases. Normal chest wall mechanics HEART: no murmurs, S1 normal and S2 normal ABDOMEN: abdomen soft, non-tender, normo-active bowel, sounds, no masses, no rebound or guarding. BACK: Back is symmetrical on inspection and there is no deformity, no midline tenderness, no CVA tenderness. SKIN: no rashes and no bruising UPPER EXTREMITIES: upper extremities are grossly normal. LOWER EXTREMITIES: No pitting edema. NEURO EXAM: Normal sensorium, cranial nerves II-XII grossly intact, normal speech, no gross weakness of arms, no gross weakness of legs. Course ED COURSE: Vital signs were reviewed and showed hypoxia. The patients medical record was reviewed The above diagnostic studies were performed and reviewed. ED treatments and interventions as stated above. 0943: The patient was evaluated in room A11. A complete history and physical examination was performed. 1230: Upon reevaluation, the patient is resting in bed. I discussed my findings with the patient and he understands and agrees with the treatment plan. 1236: I spoke to Dr. Dario Stuart [facility] Hospitalist about the patient's case and she is going to accept him for further evaluation. 1315: Dr. Albino [facility] is coming to evaluate the patient. Based on the patients age, coexisting illnesses, exam and lab findings the decision to treat as an [inpatient][outpatient] was made. The patient remained stable while under my care. [The patient appeared well at the time of discharge.] [The patient will be evaluated for further management.] Consultations Consultation #1: I spoke to Dr. Dario Stuart [facility] Hospitalist about the patient's case and she is going to accept him for further evaluation. Time: 12:36 Consultation #2: Dr. Albino [facility] is coming to evaluate the patient. Time: 13:15 Administered Medications Levofloxacin/Dextrose (Levaquin/D5w) 750 mg in 150 mls @ 100 mls/hr IV Q24H PAULETTE Stop: 07/10/18 12:44 Last Infusion: 07/08/18 15:07 Dose: 0 mls/hr Documented by: [id number] Admin: 07/08/18 13:37 Dose: 100 mls/hr Documented by: [id number] Ioversol (Optiray 320 100ml) 94 ml IV ONCE PRN PRN Reason: Interaction Checking Stop: 07/12/18 11:48 Last Admin: 07/08/18 11:50 Dose: 94 ml Documented by: [id number] Discontinued Medications Albuterol (Ventolin 0.083% 2.5mg/3ml) 2.5 mg NEB NOW STA Stop: 07/08/18 09:48 Last Admin: 07/08/18 10:13 Dose: 2.5 mg Documented by: [id number] Ceftriaxone Sodium (Rocephin) Confirm Administered Dose 1,[address] Stop: 07/08/18 14:08 Last Admin: 07/08/18 14:26 Dose: Not Given Documented by: [id number] Sodium Chloride (Nss 1000ml) 1,000 mls @ 999 mls/hr IV .Q1H1M PAULETTE Stop: 07/08/18 11:00 Last Infusion: 07/08/18 11:25 Dose: 0 mls/hr Documented by: [id number] Admin: 07/08/18 10:24 Dose: 999 mls/hr Documented by: [id number] Ceftriaxone Sodium (Rocephin) 1,000 mg in 50 mls @ 100 mls/hr IV NOW STA Stop: 07/08/18 14:15 Last Infusion: 07/08/18 14:54 Dose: 0 mls/hr Documented by: [id number] Admin: 07/08/18 14:24 Dose: 100 mls/hr Documented by: [id number] Methylprednisolone (Solumedrol) 60 mg IV NOW STA Stop: 07/08/18 12:38 Last Admin: 07/08/18 13:37 Dose: 60 mg Documented by: [id number] Medical Decision Making Differential Diagnosis Differential Diagnosis includes but is not limited to dehydration, stroke, anemia, hypoglycemia, hyponatremia, hypernatremia, urinary tract infection, pn eumonia, bronchitis, sepsis, gastroenteritis, additional abdominal pathology, metabolic abnormalities and infections. Medical Records Attestation: I reviewed the patient's medical records. Home Medications Current Medication List: was personally reviewed by me Laboratory Data Attestation: I reviewed the patient's lab results. Result diagrams: 07/08/18 10:00 07/08/18 10:00 Lab Results 07/08/18 07/08/18 07/08/18 Range/Units 09:53 10:00 10:00 WBC 12.48 H (4.8-10.8) K/uL RBC 3.51 L (4.7-6.1) M/uL Hgb 11.5 L (14.0-18.0) g/dL Hct 33.7 L (42-52) % MCV 96.0 (80-100) fL MCH 32.8 (25-34) pg MCHC 34.1 (32-36) g/dL RDW Std Deviation 47.7 H (36.4-46.3) fL RDW Coeff of Gilda 13.9 (11.5-14.5) % Plt Count 203 (130-400) K/uL MPV 10.7 H (7.4-10.4) fL Immature Gran % (Auto) 0.2 % Neut % (Auto) 76.6 % Lymph % (Auto) 10.4 % [place] % (Auto) 9.5 % Eos % (Auto) 3.2 % Baso % (Auto) 0.1 % Immature Gran # (Auto) 0.03 H (0.00-0.02) K/uL Neut # (Auto) 9.56 H (1.4-6.5) K/uL Lymph # (Auto) 1.30 (1.2-3.4) K/uL [place] # (Auto) 1.18 H (0.11-0.59) K/uL Eos # (Auto) 0.40 (0-0.5) K/uL Baso # (Auto) 0.01 (0-0.2) K/uL Toxic Vacuolation 1+ Echinocytes 1+ PT 10.8 (9.0-12.0) Seconds INR 1.1 (0.9-1.1) VBG pH 7.41 (7.36-7.41) VBG pCO2 37 L (38-50) mmHg VBG pO2 32 mmHg VBG HCO3 23 mmol/L VBG O2 Saturation < 60.0 % VBG Base Excess -1.2 mEq/L Barometric Pressure 718.2 mm/Hg Sodium (136-145) mmol/L Potassium (3.5-5.1) mmol/L Chloride (98-107) mmol/L Carbon Dioxide (21-32) mmol/L Anion Gap (3-11) BUN (7-18) mg/dl Creatinine (0.6-1.4) mg/dl Est Cr Clr Drug Dosing ml/min Est GFR ( Amer) Est GFR (Non-Af Amer) BUN/Creatinine Ratio (10-20) Glucose (70-99) mg/dl Calcium (8.5-10.1) mg/dl Magnesium (1.8-2.4) mg/dl Total Bilirubin (0.2-1) mg/dl AST (15-37) U/L ALT (12-78) U/L Alkaline Phosphatase (45-117) U/L Troponin I (0-0.045) ng/ml Total Protein (6.4-8.2) gm/dl Albumin (3.4-5.0) gm/dl Globulin (2.5-4.0) gm/dl Albumin/Globulin Ratio (0.9-2) TSH (0.300-4.500) uIu/ml 07/08/18 Range/Units 10:00 WBC (4.8-10.8) K/uL RBC (4.7-6.1) M/uL Hgb (14.0-18.0) g/dL Hct (42-52) % MCV (80-100) fL MCH (25-34) pg MCHC (32-36) g/dL RDW Std Deviation (36.4-46.3) fL RDW Coeff of Gilda (11.5-14.5) % Plt Count (130-400) K/uL MPV (7.4-10.4) fL Immature Gran % (Auto) % Neut % (Auto) % Lymph % (Auto) % [place] % (Auto) % Eos % (Auto) % Baso % (Auto) % Immature Gran # (Auto) (0.00-0.02) K/uL Neut # (Auto) (1.4-6.5) K/uL Lymph # (Auto) (1.2-3.4) K/uL [place] # (Auto) (0.11-0.59) K/uL Eos # (Auto) (0-0.5) K/uL Baso # (Auto) (0-0.2) K/uL Toxic Vacuolation Echinocytes PT (9.0-12.0) Seconds INR (0.9-1.1) VBG pH (7.36-7.41) VBG pCO2 (38-50) mmHg VBG pO2 mmHg VBG HCO3 mmol/L VBG O2 Saturation % VBG Base Excess mEq/L Barometric Pressure mm/Hg Sodium 134 L (136-145) mmol/L Potassium 4.7 (3.5-5.1) mmol/L Chloride 104 (98-107) mmol/L Carbon Dioxide 24 (21-32) mmol/L Anion Gap 6.0 (3-11) BUN 29 H (7-18) mg/dl Creatinine 1.47 H (0.6-1.4) mg/dl Est Cr Clr Drug Dosing 39.3 ml/min Est GFR ( Amer) 52.6 Est GFR (Non-Af Amer) 45.4 BUN/Creatinine Ratio 19.6 (10-20) Glucose 68 L (70-99) mg/dl Calcium 8.4 L (8.5-10.1) mg/dl Magnesium 2.0 (1.8-2.4) mg/dl Total Bilirubin 0.8 (0.2-1) mg/dl AST 20 (15-37) U/L ALT 11 L (12-78) U/L Alkaline Phosphatase 74 (45-117) U/L Troponin I < 0.015 (0-0.045) ng/ml Total Protein 6.3 L (6.4-8.2) gm/dl Albumin 2.7 L (3.4-5.0) gm/dl Globulin 3.6 (2.5-4.0) gm/dl Albumin/Globulin Ratio 0.8 L (0.9-2) TSH 1.450 (0.300-4.500) uIu/ml Imaging Data Radiologist's Impression: Radiology results as stated below per my review and the radiologist's interpretation: XR chest 1V portable HISTORY: weakness COMPARISON: Chest 07/05/2018. FINDINGS: No pneumothorax. The heart remains mildly enlarged. There are postoperative changes. Chronic interstitial thickening and multiple scattered calcified granulomas are again noted. No new focal lung consolidations to suggest pneumonia. There appears to be slight progression of interstitial thickening. There may be trace bilateral pleural effusions. IMPRESSION: Slight progression of the interstitial thickening which suggests mild congestive change on the background of chronic interstitial lung disease. There appear to be trace bilateral pleural effusions. Electronically signed by: Sy Covarrubias M.D. 07/08/2018 10:[address] chest w con CLINICAL HISTORY: 77 years-old Male presenting with hypoxic recent surg. TECHNIQUE: Multidetector CT imaging of the chest was performed after the administration of intravenous contrast. IV contrast: None. One or more dose l owering techniques were used consistent with the principles of ALARA (as low as reasonably achievable), including automatic exposure control, mA or kV adjustment to individual patient size, and/or use of iterative reconstruction. COMPARISON: 06/05/2018. CT DOSE (mGy.cm): The estimated cumulative dose is 383.30 mGycm. 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 Soft tissues: Normal thyroid and thoracic inlet. Prior sites of lymphadenopathy within the aortopulmonary window, precarinal region, and left hilum now demonstrated vague infiltrative change. However, discrete enhancing pathologically enlarged lymph nodes remain evident in the prevascular and more superior right paratracheal regions. These are grossly unchanged in size from prior. Atherosclerosis of the aorta. Extensive noncalcified atherosclerotic plaque in the descending aorta. Both the standing and descending aorta are normal in caliber. Postsurgical changes of coronary artery bypass grafting. Calcification of the craig coronary arteries. Top normal heart size. Trace right pleural effusion. Small sliding-type hiatal hernia. Lungs and airways: No pneumothorax. Stenosis of segmental airways in the anterior segment of the left upper lobe again evident. More central airways patent. 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 The mass is unchanged in size and in a left suprahilar and peribronchovascular distribution. Background extensive centrilobular emphysema. Reticular subpleural opacities may represent shin perimposed associated fibrotic change. Numerous calcified foci in the lungs consistent with calcified granulomata. Musculoskeletal: Degenerative changes of the spine. A destructive osseous lesion. Severe compression fracture of T11 again noted. IMPRESSION: 1. No significant change in size or appearance of the left perihilar mass, which remains suspicious for a neoplastic process. No new sites of disease. 2. Interval development of infiltrative changes of the now indistinct lymphadenopathy in some of the regions of the mediastinum. This may represent postprocedural edema or posttreatment changes if there was prior radiation. 3. Persistent mediastinal lymphadenopathy otherwise not changed from prior. 4. Emphysema. 5. Evidence of old granulomatous disease. 6. Hilar hernia. Electronically signed by: John Santana M.D. 07/08/2018 12:04 PM ECG Data Attestation: I personally reviewed and interpreted this ECG as follows: Indication: weakness Rate (beats per minute): 102 Rhythm: atrial fibrillation (With RVR) Findings: + PVC and + left axis deviation Blood Pressure Blood Pressure Findings: Normal blood pressure Blood Pressure Disposition: further management by hospitalist [facility] Narrative Patient is a 77-year-old male presents to the ER following Wednesday where he had a biopsy of his lung mass by Dr. Serna. and patient note that he has been having trouble getting out of bed and urinary frequency but has not been able to cath himself recently. Upon presentation is found to be hypoxic at 87% on his normal 5 L nasal cannula. He was titrated up to 6 to 6-1/2 L. Labs are obtained and show leukocytosis of 12.5 thousand. No significant anemia. INR was unremarkable. VBG shows a slightly low CO2 at 37. BMP with a creatinine of 1.5. No significant transaminitis or elevated bilirubin. TSH and troponin were negative. Chest x-ray and CT of the chest show increased inflammation around the mediastinal lymph nodes that were previously present. Patient was covered with antibiotics. Uncertain of the true etiology of his hypoxia at this time b ut do question of his secondary to this inflammation. EKG was unremarkable. Patient was updated bedside. Unable to catheterize him following multiple failed attempts by nursing staff. Urology was called and notified as there have been previous interventions. Patient family updated bedside. Patient was admitted to the hospitalist for further work-up. Impression & Plan Weakness, Hypoxia, Ambulatory dysfunction, Acute urinary retention Discharge Plan Visit Data *Final* Discharge Date/Time: 07/08/18 14:52 Chief Complaint: Weakness ED Provider: Uriah Drew Discharge Problem: Weakness, Hypoxia, Ambulatory dysfunction, Acute urinary retention Patient Disposition: Admitted As Inpatient Discharge Instructions Interventions: ED Discharge Assessment Last Done: 07/08/18 14:52 The scribe's documentation has been prepared under my direction and personally reviewed by me in its entirety. I confirm that the note above accurately reflects all work, treatment, procedures, and medical decision making performed by me.
[2018-07-08] MEDS: DOXYCYCLINE HYCLATE 100 MG in DEXTROSE 5% 100 ML IV SCH (18:16)
[2018-07-08 18:55] LABS: Appearance Urine Clear (Clear); Bacteria Urine Automated Negative (Negative); Bilirubin Urine Negative (Negative); Blood Urine Trace (Negative); Cast Urine Automated 0 /lpf (0-5); Color Urine Yellow; Glucose Urine UA Negative (Negative); Ketones Urine 1+ (Negative); Leukocyte Esterase Urine Negative (Negative); Nitrite Urine Negative (Negative); RBC Urine Automated 0-4 /hpf (0-4); Specific Gravity Urine 1.035 (1.000-1.030); Urobilinogen Urine Negative (Negative); pH Urine 7.5 (4.5-7.5)
[2018-07-08 19:12] LABS: Protein Urine Negative (Negative)
[2018-07-08] MEDS: METHENAMINE HIPPURATE 1 GM TAB PO SCH (21:01)
[2018-07-08] MEDS: BUDESONIDE/FORMOTEROL FUMARATE 160/4.5 60 PUFFS/INHALER INH SCH (21:01)
[2018-07-08] MEDS: methylPREDNISolone 20 MG in SYRINGE 0 ML IV SCH (22:52)
--- NOTE | 2018-07-08 23:57 | Consultation Report ---
DATE OF CONSULTATION: 07/08/2018 REASON FOR CONSULTATION: Followup after mediastinoscopy. 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 It is hypermetabolic and 1 week ago today, I did a mediastinoscopy and biopsied multiple lymph nodes and got out to this area where I could actually see it and the artery and vein were both tethered to this area. We biopsied as much as we could; however, it was clearly an area where we could get into bleeding. The pathology showed all the lymph node stations and there were multiple lymph nodes that were negative for carcinoma. In addition, we did all of the tissue biopsies around this mass was fibrous tissue. The patient developed problems this morning when he had back pain to the point where he could not get out of bed. His states he also "could not pee." He has had a cough in the morning, but states this is not new. He is on chronic oxygen. I am quite sure we are dealing with a malignant process, but we are unable to have tissue diagnosis for this at this point. There is not really a large mass per se, but an area which was quite stuck everything around it. He has no lung masses otherwise. His lymph nodes were all negative for carcinoma. At any rate, the patient was admitted and I was asked to see him in followup. I had a long talk with the patient and his . He is on oxygen now and he apparently appears better than he did in the Emergency Room. For details of my history and physical, please refer to our reason for consultation. We will follow along, but I do not have much to add at this point.
[2018-07-09 02:18] LABS: Hematocrit (blood only) 32.8 % (42-52); Hemoglobin 11.4 g/dL (14.0-18.0); Mean Corpuscular Hgb Conc 34.8 g/dL (32-36); Mean Platelet Volume 10.2 fL (7.4-10.4); Platelet Count 197 K/uL (130-400); RDW Coefficient of Variation 13.6 % (11.5-14.5); RDW Standard Deviation 46.5 fL (36.4-46.3); Red Blood Count 3.49 M/uL (4.7-6.1); White Blood Count 6.76 K/uL (4.8-10.8)
[2018-07-09 02:36] LABS: Alanine Aminotransferase 10 U/L (12-78); Albumin Level 2.5 gm/dl (3.4-5.0); Aspartate Aminotransferase 18 U/L (15-37); BUN Creatinine Ratio 22.9 (10-20); Blood Urea Nitrogen 28 mg/dl (7-18); Calcium 8.2 mg/dl (8.5-10.1); Carbon Dioxide 21 mmol/L (21-32); Chloride 102 mmol/L (98-107); Est GFR (African American) 65.2; Est GFR (Non-African American) 56.3; Glucose 118 mg/dl (70-99); Potassium 4.2 mmol/L (3.5-5.1); Sodium 132 mmol/L (136-145)
[2018-07-09 02:41] LABS: Albumin Globulin Ratio 0.7 (0.9-2); Alkaline Phosphatase 73 U/L (45-117); Bilirubin,Total 0.5 mg/dl (0.2-1); Globulin 3.8 gm/dl (2.5-4.0); Total Protein 6.3 gm/dl (6.4-8.2); Troponin I < 0.015 ng/ml (0-0.045)
[2018-07-09] MEDS: DOXYCYCLINE HYCLATE 100 MG in DEXTROSE 5% 100 ML IV SCH ×2 (06:06→17:07)
[2018-07-09] MEDS: ASPIRIN 81 MG ECTAB PO SCH (08:30)
[2018-07-09] MEDS: METOPROLOL SUCC 25MG EXT REL TAB PO SCH (08:30)
[2018-07-09] MEDS: PANTOprazole 40 MG TAB PO SCH (08:30)
[2018-07-09] MEDS: methylPREDNISolone 20 MG in SYRINGE 0 ML IV SCH ×2 (08:30→21:25)
[2018-07-09] MEDS: FINASTERIDE 5 MG TAB PO SCH (08:30)
[2018-07-09] MEDS: CLOPIDOGREL BISULFATE 75 MG TAB PO SCH (08:31)
[2018-07-09] MEDS: OXYBUTYNIN CHLORIDE XL 5 MG TABCR PO SCH (08:31)
[2018-07-09] MEDS: ATORVASTATIN 40 MG TAB PO SCH (08:31)
[2018-07-09] MEDS: CITALOPRAM 20 MG TAB PO SCH (08:31)
[2018-07-09] MEDS: TAMSULOSIN HCL 0.4 MG CAP PO SCH (08:31)
[2018-07-09] MEDS: BUDESONIDE/FORMOTEROL FUMARATE 160/4.5 60 PUFFS/INHALER INH SCH ×2 (08:50→21:25)
[2018-07-09] MEDS ORDERED: LISINOPRIL 20 MG TAB PO SCH (09:00)
[2018-07-09] MEDS ORDERED: AMLODIPINE BESYLATE 5 MG TAB PO SCH (09:00)
--- NOTE | 2018-07-09 09:56 | Discharge Summary ---
Date of Service July 09, 2018 Admission HPI Per Admitting Provider This is a 77 yo M with PMHx of COPD, emphysema,, CAD s/p CABG x 5 in 1993, HTN, HLD, paroxysmal afib, hx of acute on chronic respiratory failure with hypoxia, anemia of chronic disease, BPH with needs for straight cath 1-2x daily at home, GERD, syncope, peripheral neuropathy, who presents with worsening shortness of breath. On 07/05/18 the patient underwent video mediastinoscopy with biopsy of a hypermetabolic left peribronchial mass by Dr. Amaya. 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 The patient notes that since the procedure his breathing has been slightly worse, where he experiences dyspnea on exertion, however does have some BELLA at baseline. He wears O2 6 L continuously at baseline. He tells me he has not gotten up to walk around his home much in the past day as he was instructed to "take it easy". He has a slightly depressed appetite although is drinking fluids. Pt notes he requires at home self catheterizations 1-2x daily at baseline and follows with Dr. Be as an outpt. He denies any abdominal pain, n/v/d/c, dysuria, hematuria or difficulty with self caths. Pt VSS, WBC is 12K. CXR and CT of the chest is reviewed and negative except for bibasilar infiltrates. Admission Exam Per Admitting Provider Physical Exam: General: awake, alert, no apparent distress Head: Normocephalic, atraumatic ENT: PERRL, EOMI, no pharyngeal exudate, mucous membranes moist Chest: On 6 L NC, + lying flat, clear breath sounds in upper and middle avery, + bibasilar crackles, + slight wheeze Cardiac: irreg irregular rate controlled, no murmur, no JVD, normal peripheral pulses, good capillary refill Abdominal: NABS x 4 quadrants, soft, + slightly distended, nontender to palpation, no rebound, guarding or tenderness Extremities: Normal inspection, no peripheral edema or erythema, calfs nontender to palpation Psych: Normal mood and affect Neuro: AAO x 3, strength intact bilaterally and related 5/5, no motor deficits, speech is clear, no peripheral sensory deficits Constitutional: WD/WN, vitals as above Eyes: normal visual avery by confrontation and + anicteric sclerae Neck: normal visual inspection and trachea midline Respiratory: + abnormal respiratory effort Auscultation: + crackles and + wheezes Cardiovascular: Rate/Rhythm: regular rate; + abnormal rhythm Gastrointestinal (Abdomen): Inspection/Auscultation: abdomen not distended Percussion/Palpation: abdomen soft; abdomen nontender Musculoskeletal: Head/Neck/Chest: normocephalic and head atraumatic Neg for peripheral LE edema, + pedal pulses Skin: no rashes, warm and dry Neurologic: awake; not confused Speech / Cognition: normal speech Psychiatric: A+Ox3, euthymic affect Lymphatic: Exam as done by Corrina Bishop DO Principal Diagnosis Acute urinary retention causing shortness of breath Discharge Exam Alert and oriented. Anxious to go home. Pulmonary status stable. Diminished breath sounds bilaterally with fibrotic inspiratory rales. No wheezing no rhonchi. Heart rate regular with heart rate 85. Abdomen soft with active bowel sounds. Genitalia exhibit Bauer catheter in place draining clear urine. Extremities unremarkable with no edema. Neurologically intact. Discharge Data Allergies Allergy/AdvReac Type Severity Reaction Status Date / Time cyclobenzaprine AdvReac Unknown halluninati Verified 07/08/18 10:00 ons oxycodone AdvReac Unknown HALLUCINATI Verified 07/08/18 10:00 ONS Consultations 07/08/18 12:37 ED Decision to Admit Stat 07/08/18 13:40 Consult Thoracic Surgery Routine 07/08/18 13:41 Consult Case Management - Discharge Planning Routine Ordered Studies 07/08/18 11:14 CT chest w con Stat Hospital Course (1) Acute urinary retention: The patient was seen by urology and had a Bauer catheter placed. He had immediate relief of his shortness of breath. Bauer catheter will remain in place at the time of discharge and he will follow-up with urology for outpatient trial of voiding. (2) COPD (chronic obstructive pulmonary disease): The patient has COPD with chronic respiratory failure on home oxygen. This was stable at the time of admission. (3) Lung mass: Recent biopsy procedure completed with nondiagnostic pathology specimens but this does appear to be malignant and he will follow-up with outpatient pulmonary medicine and cardiothoracic surgery. Total Time Total Time Spent Total Time Spent (In Minutes): 40 minutes Total Time Includes: Examination of the Patient, Discharge Planning and Medication Reconciliation Discharge Plan Discharge Items Patient Disposition: Home - Home Health Services Reason For Visit: SHORTNESS OF BREATH Discharge Diagnosis: Acute urinary retention causing shortness of breath Discharge Goals: Decrease discomfort, Improve function and Increase independence Activity: Resume your previous activity Lifting: Gradually increase as tolerated Non-emergency contact: Primary Care Provider and Urologist Call non-emergency contact if: you have any medication questions and you have a fever Follow-up/Referrals: Francois Oliva III, MD [Primary Care Provider] - Diet: Heart Healthy Addtl Provider Instructions: Bladder catheter to leg bag. Follow-up with urology for outpatient removal. Prescriptions: Continued citalopram 10 mg tablet 10 mg PO DAILY RF: 0 clopidogrel 75 mg tablet 75 mg PO DAILY RF: 0 tamsulosin 0.4 mg capsule 0.4 mg PO DAILY RF: 0 atorvastatin 80 mg Tablet 80 mg PO DAILY RF: 0 aspirin 81 mg Tablet,Delayed Release (Dr/Ec) 81 mg PO DAILY RF: 0 oxybutynin chloride [Ditropan XL] 5 mg Tablet Extended Release 24hr 5 mg PO DAILY RF: 0 finasteride 5 mg Tablet 5 mg PO DAILY RF: 0 lisinopril 20 mg Tablet 20 mg PO DAILY RF: 0 methenamine hippurate 1 gram Tablet 1 g PO QPM RF: 0 nitroglycerin [Nitrostat] 0.4 mg Tablet, Sublingual 0.4 mg sublingual UD PRN (Reason: Chest Pain) RF: 0 omeprazole 20 mg Capsule,Delayed Release(Dr/Ec) 20 mg PO DAILY RF: 0 albuterol sulfate 90 mcg/actuation Hfa Aerosol Inhaler 2 puff INHALATION Q4 PRN (Reason: Shortness Of Breath Or Wheezing) RF: 0 hydrocodone-acetaminophen [Vicodin] 5-300 mg Tablet 1 - 2 tab PO Q4 PRN (Reason: Pain) RF: 0 Symbicort 160-4.5 mcg/actuation Hfa Aerosol Inhaler 2 puff INHALATION BID RF: 0 Incruse Ellipta 62.5 mcg/actuation Blister With Device 1 inh INHALATION DAILY RF: 0 tramadol [Ultram] 50 mg tablet 50 mg PO QID PRN (Reason: pain) Qty: 18 RF: 0 metoprolol succinate 25 mg Tablet Extended Release 24 Hr 25 mg PO DAILY RF: 0 amlodipine 5 mg tablet 5 mg PO DAILY RF: 0 Stand-Alone Forms: [facility]Other Patient Handouts: Catheter Bag Urinary Empty Clean, Leg Bag Care Dc Discharge Orders: Discharge Order (Routine); Ordered 07/09/18 Ordered By: Rip Delatorre Admission Data Admit Date/Time: 07/08/18 13:40 Attending Provider: Corrina Bishop Admit Provider: Miguel Blanc Primary Care Provider: Francois Oliva III Other Providers: Oswald Amaya ; Corrina Bishop Service: Telemetry
--- NOTE | 2018-07-09 10:00 | Progress Note ---
DATE: 07/09/2018 Mr. Hurley was seen today. He is sitting up. He had a bowel movement this morning. He has been eating. He still drops his saturations. Mr. Hurley would like to go home; however, he remains quite hypoxic. He has been on oxygen chronically. He has terrible lungs. This process in his left upper lobe which has occluded his superior pulmonary vein may contribute some to this hypoxia, but I don't feel this is a major factor in his hypoxia. Radiation therapy would help in preventing spread of this probable carcinoma; however, we do not have a tissue diagnosis and it appears unlikely, we are going to be able to get one. I would continue supportive management. I do not think I would work this up anymore. It will be difficult to get a diagnosis as the only way to go about this would be through the left chest and he is not going to tolerate that. In addition, he has a patent internal mammary pedicle graft here which is going to be right in the way of our dissection. Furthermore, after evaluating this with mediastinoscopy, I do not think we are going to be able to biopsy this even with a thoracoscopy. It is not a mass that we can biopsy or remove. It has tethered and retracted the vessels, so they sre occluded. At this point, I wish tI had more to offer, but I do not think he is going to tolerate any type of intervention. SUNITA
[2018-07-09] MEDS: LEVOFLOXACIN/D5W 750 MG/150 ML BAG IV SCH (13:54)
[2018-07-09] MEDS: D5W AND NSS 1,000 ML IV SCH (14:19)
--- NOTE | 2018-07-09 15:08 | Hospitalist Progress Note ---
Date of Service July 09, 2018 Assessment & Plan (1) Acute urinary retention: The patient was seen by urology and had a Bauer catheter placed. He had immediate relief of his shortness of breath. Bauer catheter will remain in place at the time of discharge and he will follow-up with urology for outpatient trial of voiding. (2) Syncope: The patient remains on telemetry. Amlodipine has been discontinued. Lisinopril dosage has been decreased. Will monitor orthostatic vital signs. Administer IV fluids Present on Admission?: No (3) Atrial fibrillation, new onset: Recent cardiac echo reviewed. Ejection fraction approximately 50%. He is not a candidate for systemic anticoagulation due to his syncopal episodes and high risk for falls. He is on metoprolol at this time for rate control. Amlodipine has been discontinued. Present on Admission?: No (4) COPD (chronic obstructive pulmonary disease): The patient has COPD with chronic respiratory failure on home oxygen. This was stable at the time of admission. Present on Admission?: Yes (5) Lung mass: Recent biopsy procedure completed with nondiagnostic pathology specimens but this does appear to be malignant and he will follow-up with outpatient pulmonary medicine and cardiothoracic surgery. Dispositionpatient admitted from observation status. OT and PT assessments requested. Disposition to be determined Present on Admission?: Yes Subjective The patient had immediate relief of shortness of breath after placement of Bauer catheter and relief of urinary retention. However, this morning he did have a transient syncopal episode when he was placed out of bed into a chair in a sitting position. His states that this has happened several times while at home. He only loses consciousness for several seconds and then regains consciou sness with no loss of memory or confusion and no loss of sphincter control. EKG reveals controlled atrial fibrillation which appears to be new. Cardiac echo is pending. I suspect he is having episodes of orthostasis causing the syncope. Amlodipine has been discontinued and lisinopril dosage has been decreased. He remains on metoprolol and will remain on telemetry. IV fluids have been ordered . He will be admitted from observation status. Occupational Therapy and physical therapy assessments have also been requested. The patient's believes that he needs placement at this time. Review of Systems Review of Systems: All systems reviewed & are unremarkable except as noted in HPI & below Respiratory: + dyspnea; no pain on inspiration, no pain with cough, no sputum production and no wheezing Cardiovascular: + syncope; no chest pain, no chest pain with activity and no palpitations Musculoskeletal: + muscle weakness Neurologic: + generalized weakness, + syncope and + confusion; no unsteadiness, no localized weakness, no abnormal movements and no seizure-like activity Physical Exam Constitutional: + thin; no acute distress Alert. Oriented to name and occasionally to place. Eyes: PERRL, conjunctivae normal, anicteric sclerae ENMT: external ear and nose normal, oropharynx normal Neck: trachea midline, no thyromegaly Respiratory: Dry inspiratory left basilar rales. No rhonchi. No wheezing Cardiovascular: Irregular rhythm. Controlled rate Gastrointestinal (Abdomen): normal bowel sounds, soft, nontender, no hepatosplenomegaly Musculoskeletal: Extremities: + muscle atrophy; no cyanosis Skin: no rashes, warm and dry Ecchymoses noted in the upper anterior chest wall area from recent biopsy procedure Neurologic: CN's II-XI intact bilaterally; no focal motor deficits Results & Data Vital Signs (Past 12 Hours) Vital Signs Temp Pulse Pulse Pulse Resp BP BP 07/09/18 12:48 85 33 H 137/96 07/09/18 11:07 36.7 C 89 97 H 20 123/86 161/92 H 07/09/18 10:59 36.7 C 97 H 20 123/86 07/09/18 10:58 07/09/18 09:00 79 07/09/18 03:35 36.8 C 89 21 141/107 H Pulse Ox Pulse Ox Pulse Ox Pulse Ox Pulse Ox 07/09/18 12:48 87 L 07/09/18 11:07 91 07/09/18 10:59 91 07/09/18 10:58 90 90 80 L 07/09/18 09:00 88 L 07/09/18 03:35 93 Laboratory Results 07/09/18 02:04 07/09/18 02:04 (1) COPD (chronic obstructive pulmonary disease) COPD type: unspecified COPD Qualified Code(s): J44.9 - Chronic obstructive pulmonary disease, unspecified
[2018-07-09] MEDS: METHENAMINE HIPPURATE 1 GM TAB PO SCH (21:25)
[2018-07-10] MEDS: D5W AND NSS 1,000 ML IV SCH (05:41)
[2018-07-10 06:04] LABS: Hematocrit (blood only) 30.6 % (42-52); Hemoglobin 10.6 g/dL (14.0-18.0); Mean Corpuscular Hgb Conc 34.6 g/dL (32-36); Mean Corpuscular Volume 93.9 fL (80-100); Mean Platelet Volume 10.6 fL (7.4-10.4); Platelet Count 204 K/uL (130-400); RDW Coefficient of Variation 13.5 % (11.5-14.5); RDW Standard Deviation 46.3 fL (36.4-46.3); Red Blood Count 3.26 M/uL (4.7-6.1); White Blood Count 10.39 K/uL (4.8-10.8)
[2018-07-10] MEDS: DOXYCYCLINE HYCLATE 100 MG in DEXTROSE 5% 100 ML IV SCH ×2 (06:12→17:32)
[2018-07-10 06:28] LABS: Albumin Level 2.3 gm/dl (3.4-5.0); BUN Creatinine Ratio 18.9 (10-20); Creatinine Clr Calc Pharmacy 38.8 ml/min; Est GFR (African American) 51.7; Est GFR (Non-African American) 44.6; Potassium 4.1 mmol/L (3.5-5.1)
[2018-07-10 06:31] LABS: Albumin Globulin Ratio 0.7 (0.9-2); Bilirubin,Total 0.5 mg/dl (0.2-1); Globulin 3.4 gm/dl (2.5-4.0); Total Protein 5.7 gm/dl (6.4-8.2)
--- NOTE | 2018-07-10 07:52 | XRay Report ---
XR chest 1V portable HISTORY: 77 years-old Male acute on chronic resp failure acute on chronic respiratory failure COMPARISON: Chest radiograph and chest CT 07/08/2018 TECHNIQUE: Portable AP view of the chest FINDINGS: Cardiac silhouette is enlarged, unchanged. Prior median sternotomy and CABG. There is no pneumothorax , or large pleural effusion. Emphysema with chronic interstitial coarsening. Innumerable calcified bi lateral granulomata. Calcification the thoracic aortic arch. Subsegmental bibasilar opacities suggest atelectasis. Trace pleural effusions redemonstrated. No lobar airspace consolidation. Degenerative c hanges of the shoulders and spine. IMPRESSION: 1. Cardiomegaly without overt pulmonary edema. 2. Prior median sternotomy and CABG. 3. Emphysema with chronic interstitial coarsening. 4. Prior granulomatous disease. 5. Trace pleural effusions with bibasilar opacities suggestive of atelectasis. The above report was generated using voice recognition software. It may contain grammatical, syntax o r spelling errors. Electronically signed by: Christiano Sewell M.D. 07/10/2018 7:51 AM
[2018-07-10] MEDS: BUDESONIDE/FORMOTEROL FUMARATE 160/4.5 60 PUFFS/INHALER INH SCH ×2 (07:53→20:48)
[2018-07-10 07:54] LABS: HCO3 ABG 20 mmol/L (19-24); Oxygen Saturation ABG 90.3 % (90-95); PCO2 ABG 28 mmHg (35-46); PO2 ABG 60 mm/Hg (80-95); pH ABG 7.47 (7.35-7.45)
[2018-07-10] MEDS: LISINOPRIL 10 MG TAB PO SCH (07:54)
[2018-07-10] MEDS: OXYBUTYNIN CHLORIDE XL 5 MG TABCR PO SCH (07:54)
[2018-07-10] MEDS: ATORVASTATIN 40 MG TAB PO SCH (07:54)
[2018-07-10] MEDS: TAMSULOSIN HCL 0.4 MG CAP PO SCH (07:54)
[2018-07-10] MEDS: CITALOPRAM 20 MG TAB PO SCH (07:54)
[2018-07-10] MEDS: CLOPIDOGREL BISULFATE 75 MG TAB PO SCH (07:55)
[2018-07-10] MEDS: ASPIRIN 81 MG ECTAB PO SCH (07:55)
[2018-07-10] MEDS: PANTOprazole 40 MG TAB PO SCH (07:55)
[2018-07-10] MEDS: METOPROLOL SUCC 25MG EXT REL TAB PO SCH (07:55)
[2018-07-10 07:56] LABS: Allen Test Pos (Pos)
[2018-07-10] MEDS: FINASTERIDE 5 MG TAB PO SCH (07:56)
--- NOTE | 2018-07-10 10:48 | Progress Note ---
DATE: 07/10/2018 SUBJECTIVE: Mr. Hurley was to be discharged yesterday but became syncopal. Dr. Delatorre has adjusted his blood pressure medications. The patient also had atrial fibrillation. He is currently in a sinus rhythm. I discussed this case with the patient, his and Dr. Delatorre. I do not think that this mass is contributing a great deal to his current clinical picture. I think he has very poor lungs. I do not think it is contributing to his hypotensive and syncopal episodes, whatsoever. I would not work this up further. The patient is not going to tolerate us doing anything more invasive. I would attempt to get his medications adjusted and then I would discharge him. I will see him in the office, but again I do not think we are going to have much to offer.
[2018-07-10] MEDS ORDERED: LORazepam 0.5 MG TAB PO PRN (12:44)
--- NOTE | 2018-07-10 12:48 | Hospitalist Progress Note ---
Date of Service July 10, 2018 Assessment & Plan (1) Acute urinary retention: The patient was seen by urology and had a Bauer catheter placed. He had immediate relief of his shortness of breath. Bauer catheter will remain in place at the time of discharge and he will follow-up with urology for outpatient trial of voiding. (2) Syncope: The patient remains on telemetry. Amlodipine has been discontinued. Lisinopril dosage has been decreased. Blood pressure has improved and he is no longer symptomatic. IV fluids have been discontinued today. (3) Atrial fibrillation, new onset: Recent cardiac echo reviewed. Ejection fraction approximately 50%. He is not a candidate for systemic anticoagulation due to his syncopal episodes and high risk for falls. He is on metoprolol at this time for rate control. Amlodipine has been discontinued. Medical record review has shown that he has had atrial fibrillation in the past so this appears to be paroxysmal rather than new onset. (4) COPD (chronic obstructive pulmonary disease): The patient has COPD with chronic respiratory failure on home oxygen. This was stable at the time of admission. Chest x-ray today is negative for overt CHF (5) Lung mass: Recent biopsy procedure completed with nondiagnostic pathology specimens but this does appear to be malignant and he will follow-up with outpatient pulmonary medicine and cardiothoracic surgery. Dispositionpatient admitted from observation status. OT and PT assessments requested. Disposition to be determined. He likely will need rehab placement. His elderly is no longer able to care for him at home Subjective The patient is alert and in no acute distress. Chest x-ray today is negative for overt CHF. No audible wheezing. Solu-Medrol discontinued. Intravenous fluids have also been discontinued. ABGs obtained today are noted. He has chronic respiratory failure. Day 3 of intravenous Levaquin and doxycycline. Ativan ordered as needed for anxiety. Continue OT and PT. He probably will need placement since his elderly is unable to care for him at home. Blood pressure has improved since the amlodipine was discontinued and lisinopril dosag e decreased. He still has a 20 mmHg systolic blood pressure drop when going from supine to a sitting position but is no longer symptomatic. Review of Systems Review of Systems: All systems reviewed & are unremarkable except as noted in HPI & below Physical Exam Constitutional: + thin; no acute distress Eyes: PERRL, conjunctivae normal, anicteric sclerae ENMT: external ear and nose normal, oropharynx normal Neck: trachea midline, no thyromegaly Gastrointestinal (Abdomen): normal bowel sounds, soft, nontender, no hepatosplenomegaly Musculoskeletal: Extremities: + muscle atrophy; no cyanosis Skin: no rashes, warm and dry Neurologic: CN's II-XI intact bilaterally; no focal motor deficits Results & Data Vital Signs (Past 12 Hours) Vital Signs Temp Pulse Pulse Resp BP Pulse Ox Pulse Ox 07/10/18 11:08 36.5 C 88 19 123/58 L 87 L 07/10/18 08:28 83 90 07/10/18 07:23 36.4 C L 71 18 165/89 H 91 07/10/18 03:56 37.0 C 95 H 21 134/92 91 Laboratory Results 07/10/18 05:33 07/10/18 05:33 (1) COPD (chronic obstructive pulmonary disease) COPD type: unspecified COPD Qualified Code(s): J44.9 - Chronic obstructive pulmonary disease, unspecified
[2018-07-10] MEDS: METHENAMINE HIPPURATE 1 GM TAB PO SCH (20:49)
[2018-07-11] MEDS: DOXYCYCLINE HYCLATE 100 MG in DEXTROSE 5% 100 ML IV SCH ×2 (05:53→17:33)
[2018-07-11 06:12] LABS: Hematocrit (blood only) 30.9 % (42-52); Hemoglobin 10.8 g/dL (14.0-18.0); Mean Corpuscular Volume 93.1 fL (80-100); Mean Platelet Volume 10.5 fL (7.4-10.4); Platelet Count 200 K/uL (130-400); RDW Coefficient of Variation 13.8 % (11.5-14.5); RDW Standard Deviation 46.8 fL (36.4-46.3); Red Blood Count 3.32 M/uL (4.7-6.1); White Blood Count 10.83 K/uL (4.8-10.8)
[2018-07-11 06:54] LABS: Albumin Level 2.4 gm/dl (3.4-5.0); BUN Creatinine Ratio 18.1 (10-20); Calcium 8.2 mg/dl (8.5-10.1); Creatinine Clr Calc Pharmacy 38.1 ml/min; Est GFR (African American) 52.2; Potassium 3.8 mmol/L (3.5-5.1)
[2018-07-11 06:57] LABS: Albumin Globulin Ratio 0.8 (0.9-2); Bilirubin,Total 0.6 mg/dl (0.2-1); Globulin 3.2 gm/dl (2.5-4.0); Total Protein 5.6 gm/dl (6.4-8.2)
[2018-07-11] MEDS: BUDESONIDE/FORMOTEROL FUMARATE 160/4.5 60 PUFFS/INHALER INH SCH ×2 (07:51→20:19)
[2018-07-11] MEDS: OXYBUTYNIN CHLORIDE XL 5 MG TABCR PO SCH (07:52)
[2018-07-11] MEDS: ASPIRIN 81 MG ECTAB PO SCH (07:52)
[2018-07-11] MEDS: LISINOPRIL 10 MG TAB PO SCH (07:52)
[2018-07-11] MEDS: ATORVASTATIN 40 MG TAB PO SCH (07:52)
[2018-07-11] MEDS: CLOPIDOGREL BISULFATE 75 MG TAB PO SCH (07:53)
[2018-07-11] MEDS: TAMSULOSIN HCL 0.4 MG CAP PO SCH (07:53)
[2018-07-11] MEDS: CITALOPRAM 20 MG TAB PO SCH (07:53)
[2018-07-11] MEDS: METOPROLOL SUCC 25MG EXT REL TAB PO SCH (07:53)
[2018-07-11] MEDS: FINASTERIDE 5 MG TAB PO SCH (07:53)
[2018-07-11] MEDS: PANTOprazole 40 MG TAB PO SCH (07:54)
[2018-07-11] MEDS: HYDROCODONE/ACETAMOPHEN 5/325MG TAB PO PRN (12:27)
--- NOTE | 2018-07-11 12:41 | Progress Note ---
DATE: 07/11/2018 Mr. Hurley is not very happy today. He wishes to go home, but he is markedly hypoxic. Interestingly enough, his lungs really do not sound bad. Having said that, his oxygenation is terrible and if his oxygen comes off at all while he is up moving around his sats drop dramatically. I went over his CT scan in detail with Dr. Jesus Vázquez and Dr. Momo Donnelly. It appears he has a pulmonary embolism in the right lower lobe. This may be contributing somewhat to his hypoxemia. We again discussed the mass which is occluding his superior pulmonary vein on the left. My clip from our mediastinoscopy is right at this mass, but we did not get an answer. I do not think it is going to be feasible for us to get tissue unless we do an operative procedure which I am not enthusiastic to offer as I do not think he is going to do well. At this point, I would hold off and see if we can optimize him. I do not feel like we were going to have much to offer Mr. Hurley. Even if we diagnosed cancer I do not think he would tolerate any type of therapy for it.
--- NOTE | 2018-07-11 13:41 | Hospitalist Progress Note ---
Date of Service July 11, 2018 Assessment & Plan (1) Lung mass: Recent biopsy with Dr. Amaya was non-diagnoistic; however, concern is that it is cancer. Surgical options limited due to location. - Will follow-up with outpatient pulmonary medicine and cardiothoracic surgery (2) Syncope: Four episodes in the last few months. Thought to be due to hypoxemia causing transient loss of consciousness vs. hypotension from his BP meds. - O2 as needed (currently on 6L NC which is close to his home 5L) - Adjusted (lowered) BP meds to prevent hypotension - PT/OT (3) Acute urinary retention: Due to BPH. The patient was seen by urology and had a Bauer catheter placed. - Bauer catheter will remain in place at the time of discharge and he will follow-up with urology for outpatient trial of voiding. (4) Atrial fibrillation, new onset: Paroxsymal. Echo showed EF ~50%. - Continue metoprolol for rate control - On anticoagulation for PE and afib (5) COPD (chronic obstructive pulmonary disease): The patient has COPD with chronic respiratory failure on home oxygen. This was stable at the time of admission. Chest x-ray today is negative for overt CHF (6) Coronary artery disease: 5v CABG in 1993. Had been tolerating DAPT well. - Hold ASA to start anticoagulation - Continue Plavix, beta-phani, ACEi, statin (7) DVT prophylaxis: On Eliquis for PE Subjective Doing well this morning. Denies any shortness of breath. No major complaints. Wants to leave the hospital. Reports no fevers/chills, chest pain, shortness of breath, abdominal pain, nausea, or vomiting. Review of Systems Respiratory: + dyspnea; no pain on inspiration, no pain with cough, no sputum production and no wheezing Cardiovascular: + syncope; no chest pain, no chest pain with activity and no palpitations Musculoskeletal: + muscle weakness Neurologic: + generalized weakness, + syncope and + confusion; no unsteadiness, no localized weakness, no abnormal movements and no seizure-like activity Physical Exam Constitutional: WD/WN, vitals as above + thin; no acute distress Eyes: PERRL, conjunctivae normal, anicteric sclerae normal visual avery by confrontation and + anicteric sclerae ENMT: external ear and nose normal, oropharynx normal Neck: trachea midline, no thyromegaly normal visual inspection and trachea midline Respiratory: + abnormal respiratory effort Auscultation: + crackles and + wheezes Cardiovascular: Rate/Rhythm: regular rate; + abnormal rhythm Gastrointestinal (Abdomen): normal bowel sounds, soft, nontender, no hepatosplenomegaly Inspection/Auscultation: abdomen not distended Percussion/Palpation: abdomen soft; abdomen nontender Musculoskeletal: Head/Neck/Chest: normocephalic and head atraumatic Extremities: + muscle atrophy; no cyanosis Skin: no rashes, warm and dry Neurologic: CN's II-XI intact bilaterally and awake; no focal motor deficits and not confused Speech / Cognition: normal speech Psychiatric: A+Ox3, euthymic affect Results & Data Vital Signs (Past 12 Hours) Vital Signs Temp Pulse Pulse Resp BP Pulse Ox Pulse Ox 07/11/18 10:50 36.8 C 107 H 19 122/65 90 07/11/18 08:28 87 L 07/11/18 08:00 73 07/11/18 07:15 36.6 C 94 H 18 152/94 H 90 07/11/18 03:30 36.4 C L 82 19 167/93 H 92 (1) COPD (chronic obstructive pulmonary disease) COPD type: unspecified COPD Qualified Code(s): J44.9 - Chronic obstructive pulmonary disease, unspecified (2) Coronary artery disease Coronary Disease-Associated Artery/Lesion type: [place] artery [place] vs. transplanted heart: [place] heart Associated angina: without angina Qualified Code(s): I25.10 - Atherosclerotic heart disease of [place] coronary artery without angina pectoris
[2018-07-11] MEDS: APIXABAN 5 MG TABLET PO SCH (20:18)
[2018-07-11] MEDS: METHENAMINE HIPPURATE 1 GM TAB PO SCH (20:18)
--- OUTSIDE RECORDS SUMMARY | 2018-07-11 22:01 | External Medical Summary | Continuity of Care Document ---
:1940 Author Name Roberto Hsieh, Provider Address Unavailable Unavailable , Care Team Providers Name Role Phone Jimbo Be M.D. Unavailable [email or web address] [email or web address] M.D., Francois Avila Unavailable [email or web address] Geronimo Sandoval M.D. Unavailable [email or web address] Antony Pedroza M.D. Unavailable [email or web address] Pooja Hsieh Unavailable [email or web address] ANABELLE OLIVA M.D., Arnulfo Unavailable Unavailable Stacie PEDROZA JR, M.D. 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) Generalized osteoarthritis of unspecified site (715.00) (M15 .9) Left carotid bruit (785.9) (R09.89) Elevated PSA (790.93) (R97.20) Elevated serum creatinine (790.99) (R79.89) Nocturia (788.43) (R35.1) Vitamin D deficiency (268.9) (E55.9) CABG Atypical chest pain (786.59) (R07.89) PAD (peripheral artery disease) (443.9) (I73.9) Carotid artery stenosis (433.10) (I65.29) Slowing of urinary stream (788.62) (R39.198) Former smoker (V15.82) (Z87.891) Benign localized hyperplasia of prostate with urinary obstruction (600.21) (N40.1) Recurrent UTI (599.0) (N39.0) Urethral stricture (598.9) Urinary retention (788.20) (R33.9) Arteriosclerotic coronary artery disease (414.00) (I25.10) Aneurysm of abdominal aorta (441.4) (I71.4) Arteriosclerosis of carotid artery (433.10) (I65.29) Hyperlipidemia (272.4) (E78.5) Hyponatremia (276.1) (E87.1) Hypertension (401.9) (I10) Proteinuria (791.0) (R80.9) Multiple pulmonary nodules (793.19) (R91.8) CKD (chronic kidney disease), stage III (585.3) (N18.3) Esophageal reflux (530.81) (K21.9) CAD, multiple vessel (414.00) (I25.10) Depression (311) (F32.9) BELLA (dyspnea on exertion) (786.09) (R06.09) Hypoxemia (799.02) (R09.02) Chronic obstructive pulmonary disease (496) (J44.9) Respiratory failure with hypoxia (518.81) (J96.91) 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 Start: 9 Refills: 0 predniSONE 10 MG Oral Tablet; Take 1 tablet daily Quantity: 40 Refills: 0 Symbicort 160-4.5 MCG/ACT Inhalation Aer osol; INHALE 2 PUFFS TWICE DAILY. RINSE MOUTH AFTER USE. Мария Sandoval 10.2 GM Inhaler Quantity: 3 Refills: 3 Proventil HFA 108 (90 Base) MCG/ACT Inha lation Aerosol Solution; INHALE 2 PUFFS Every 4 hours PRN Мария Sandoval 6.7 GM Inhaler Quantity: 3 Refills: 3 Clopidogrel Bisulfate 75 MG Oral Tablet; TAKE 1 TABLET DAILY. Мария Oliva III Quantity: 90 Refills: 3 Metoprolol Succinate ER 25 MG Oral Table t Extended Release 24 Hour; TAKE 1 TABLET DAILY. Мария Pedroza Quantity: 90 Refills: 3 Furosemide 20 MG Oral Tablet; take 1 tablet by mouth once da silvia Start: 17-Jun-2017 Refills: 0 Ditropan XL 5 MG Oral Tablet Extended Re lease 24 Hour; take 1 tablet by mouth once daily Start: 17-Jun-2017 Refills: 0 Incruse Ellipta 62.5 MCG/INH Inhalation Aerosol Powder Breath Activated; USE 1 INHALATION ONCE DAILY. Мария Sandoval Start: 01-Mar-2018 Quantity: 3 30 Inhaler Pack Refills: 3 Atorvastatin Calcium 80 MG Oral Tablet; Take 1 tablet by mouth every day. Мария Pedroza Start: 16-Jul-2016 Quantity: 90 Refills: 3 Lisinopril 20 MG Oral Tablet; Take 1 tablet by mouth d ailana. Мария Patton Start: 02-Aug-2015 Quantity: 90 Refills: 3 Citalopram Hydrobromide 10 MG Oral Tablet; TAKE 1 TABL ET DAILY. Мария Oliva III End: 27-May-2019 Quantity: 90 Refills: 3 Finasteride 5 MG Oral Tablet; TAKE 1 TABLET DAILY. Dena Be Start: 05-May-2017 Quantity: 30 Refills: 11 amLODIPine Besylate 2.5 MG Oral Tablet; TAKE 1 TABLET DAILY. Мария Patton Start: 26-Jul-2017 Quantity: 90 Refills: 3 Methenamine Hippurate 1 GM Oral Tablet; TAKE 1 TABLET DAILY IN THE EVENING. Мария Be Start: 05-Jun-2015 Quantity: 90 Refills: 3 Tamsulosin HCl - 0.4 MG Oral Capsule; TAKE 1 CAPSULE Мария Eduardo III Quantity: 90 Refills: 3 Vicodin TABS; TAKE 1 TO 2 TABLETS EVERY 4 TO 6 HOURS NEED ED FOR PAIN. Refills: 0 Omeprazole 20 MG Oral Tablet Delayed Release; TAKE 1 C APSULE DAILY. Мария Oliva III Quantity: 90 Refills: 3 Aspirin 81 MG TABS; TAKE 1 TABLET DAILY. Refills: 0 Nitrostat 0.4 MG Sublingual Tablet Subli ngual; Dissolve one (1) tablet under the tongueEVERY 5 MINUTES - UP TO (3) TIMES NEEDEDFOR CHEST PAIN Refills: 0 Procedures History of CABG Status: Completed History of Cervical Vertebral Fusion Sta tus: Completed History of Cystoscopy For Urethral Stricture Status: Completed History of Cataract Surgery Status: Comp leted CABG History of Mediastinoscopy Status: Compl eted 05-Jul-2018 0:00 Immunizations Fluzone INJ On: 25-Jan-2013 9:48 Lot #: [id number], SANOFI PASTEUR Fluzone INJ On: 23-Jan-2014 11:07 Lot #: [id number], SANOFI PASTEUR Fluzone High-Dose Intramuscular Suspension On: 15-Jan-2018 Family History Unknown Family Member Family history of Stroke Syndrome (V17.1) Status: Active Comments: Family History Family history of Heart Disease (V17.49) Status: Active Comments: Family History Family history of Hypertension (V17.49) Status: Active Comments: Family History Sister Family history of Acute Myocardial Infarction (V17.3) Status : Active Brother Family history of Acute Myocardial Infarction (V17.3) Status : Active Social History - Smoking Status Former smoker Plan of Treatment Planned Encounters Appointment; Francois Oliva III, M.D. Start: 01-Dec-2018 10 :10 Request Planned Observations Planned Goals not documented Results Basic Metabolic Panel Laboratory: [facility] Laboratory 1800 (Pending) [place] [address] tel: 13-Jun-2018 5:49 SODIUM 135 mmol/L (below low Range: 136 -145 mmol/L threshold) POTASSIUM 3.9 mmol/L Range: 3.5-5.1 mmo l/L CHLORIDE 103 mmol/L Range: 98-107 mmol/ L CARBON DIOXIDE 25 mmol/L Range: 21-32 m mol/L ANION GAP 7.0 Range: 3-11 BLOOD UREA NITROGEN 33 mg/dl Range: 7-1 8 mg/dl (above high threshold) CREATININE 1.80 mg/dl (above high Range: 0.6-1.4 mg/dl threshold) Estimated Creatinine Clearance Range: m l/min 32.1 ml/min Comments: Est. Creat inine Clearance (Mod Cockcroft-Gault) for pharmacydosing purposes. Estimated GFR () Comment s: Units: ml/min per 41.2 1.73 meters squaredT he estimated GFR (CKD-E PI equation) has not be en validatedfor inpatie nt settings and may not be an accurate reflectiono f renal function in critical ly ill patients or those withrapidly changing renal function (e.g. TIGRE). Estimated GFR (Non- Comments: Uni ts: ml/min per Guinean) 35.5 1.73 meters squaredT he estimated GFR (CKD-E PI equation) has not be en validatedfor inpatie nt settings and may not be an accurate reflectiono f renal function in critical ly ill patients or those withrapidly changing renal function (e.g. TIGRE). BUN/CREATININE RATIO 18.2 Range: 10-20 GLUCOSE 67 mg/dl (below low Range: 70-9 9 mg/dl threshold) CALCIUM 8.1 mg/dl (below low Range: 8.5 -10.1 mg/dl threshold) X-Ray Chest 1 View Laboratory: [facility] Diagnostic Portable (Pending) Imaging 1800 RubyJacek Benavides ruby [place] REYES 13-Jun-2018 13:11 X-Ray Chest 1 VW Portable (CXR1P) [facility], [place] [phone] XRay Report Patient: [address] Admit Date: 06/09/18 MR#: [id number] Address1: [address] [place] [address] Acct ID:[id number] Address2: [address] Date: 1940 [facility] Zip: [place] [address] Age: 77 Location: 2N Sex: M Room/Bed: N284- Att Phy: Garrett Ramsey M.D. Diagnosis: H YPOXIA,SYNCOPE Hailey Phy: Francois Oliva MD Service Date: 06/13/18 [facility] Phy: Interpreting Phy: Omer diallo MD Admit Phy: Bia Toledo D.O. Ordering Phy: Tyrone Wadsworth PA-C cc: XR chest 1V portable CLINICAL HISTORY: s/p EBUS COMPARISON STUDY: Chest CT June 05, 2018. Chest radiograph June 10, 2018. FINDINGS: There are median sternotomy wires and clips from bypass grafting. Emphysema is noted withcalcified granulomas within the lungs. There is no pneumothorax. No pleural effusion is noted. Interstitial thickening is unchanged. IMPRESSION: No change in appearance of the chest. No pneumothorax. Electronically signed by: Omer Vázquez M.D. 06/13/2018 1:13 PM Dictated: 06/13/18 1311 Transcribed: 06/13/18 1311 X-Ray Chest 1 View Laboratory: [facility] Diagnostic Portable (Pending) Imaging 1800 [facility] 08-Jul-2018 10:35 X-Ray Chest 1 VW Portable (CXR1P) [facility], [place] [phone] XRay Report Patient: [address] Admit Date: 07/08/18 MR#: [id number] Address1[address] [place] Acct ID:[id number] Address2: [address] Date: 1940 [facility] Zip: [place] [id number] Age: 77 Location: ED Sex: M Room/Bed: Att Phy: Diagnosis: Hailey Phy: Francois Oliva III, MD Service Date: 07/08/18 Fam Phy: Interpreting Phy: Sy batista MD Admit Phy: Ordering Phy: Uriah Drew DO cc: XR chest 1V portable HISTORY: weakness COMPARISON: Chest 07/05/2018. FINDINGS: No pneumothorax. The heart remains mildly enlarged. There are postoperative changes. Chronic interstitial thickening and multiple scattered calcified granulomas are again noted. No new focal lung consolidations to suggest pneumonia. There appears to be slight progression of interstitial thickening. There may be trace bilateral pleural effusions. IMPRESSION: Slight progression of the interstitial thickening which suggests mild congestive change on the background of chronic interstitial lung disease. There appear to be trace bilateral pleural effusions. Electronically signed by: Sy Covarrubias M.D. 07/08/2018 10:37 AM Dictated: 07/08/18 1035 Transcribed: 07/08/[address] (Chest) Thorax with Laboratory: [facility] Diagnostic Contrast (Pending) Imaging 1800 [facility] 08-Jul-2018 11:53 CT CHEST WITH IV CONTRAST [facility], [place] [phone] CT Scan Report Patient: [address] Admit Date: 07/08/18 MR#: [id number] Address1: [place] Acct ID:[id number] Address2: [address] Date: 1940 [facility] Zip: [place] [address] Age: 77 Location: ED Sex: M Room/Bed: Att Phy: Diagnosis: Hailey Phy: Francois Oliva III, MD Service Date: 07/08/18 [facility] Phy: Interpreting Phy: John Santana MD Admit Phy: Ordering Phy: Uriah Drew DO cc: CT chest w con CLINICAL HISTORY: 77 years-old Male presenting with hypoxic recent surg. TECHNIQUE: Multidetector CT imaging of the chest was performed after the administration of intravenous contrast. IV contrast: None. One or more dose lowering techniques were used consistent with the principles of ALARA (as low as reasonably achievable), including automatic exposure control, mA or kV adjustment to individual patient size, and/or use of iterative reconstruction. COMPARISON: 06/05/2018. CT DOSE (mGy.cm): The estimated cumulative dose is 383.30 mGycm. FINDINGS: [employer] topogram: Median sternotomy wires and mediastinal surgical clips. Soft tissues: Normal thyroid and thoracic inlet. Prior sites of lymphadenopathy within the aortopulmonary window, precarinal region, and left hilum now demonstrated vague infiltrative change.However, discrete enhancing pathologically enlarged lymph nodes remain evident in the prevascular and more superior right paratracheal regions. These are grossly unchanged in size from prior. Atherosclerosis of the aorta. Extensive noncalcified atherosclerotic plaque in the descending aorta.Both the standing and descending aorta are normal in caliber. Postsurgical changes of coronary artery bypass grafting. Calcification of the [place] coronary arteries. Top normal heart size. Trace right pleural effusion. Small sliding-type hiatal hernia. Lungs and airways: No pneumothorax. Stenosis of segmental airways in the anterior segment of the left upper lobe again evident. More central airways patent. 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 The mass is unchanged in size and in a left suprahilar and peribronchovascular distribution. Background extensive centrilobular emphysema. Reticular subpleural opacities may represent superimposed associated fibrotic change. Numerous calcified foci in the lungs consistent with calcified granulomata. Musculoskeletal: Degenerative changes of the spine. A destructive osseous lesion. Severe compression fracture of T11 again noted. IMPRESSION: 1. No significant change in size or appearance of the left perihilar mass, which remains suspicious for a neoplastic process. No new sites of disease. 2. Interval development of infiltrative changes of the now indistinct lymphadenopathy in some of the regions of the mediastinum. This may represent postprocedural edema or posttreatment changes if there was prior radiation. 3. Persistent mediastinal lymphadenopathy otherwise not changed from prior. 4. Emphysema. 5. Evidence of old granulomatous disease. 6. Hilar hernia. Electronically signed by: John Santana M.D. 07/08/2018 12:04 PM Dictated: 07/08/18 1153 Transcribed: 07/08/18 1153 Troponin I (Pending) Laboratory: [facility] Laboratory 1800 Comme nts: Comment Draw Krystal Mclean [facility] morning la bs with second set [id number] tel: 08-Jul-2018 17:39 TROPONIN (cTnI) < 0.015 ng/ml Range: 0- 0.045 ng/ml Urine rflx Micros+Cult Laboratory: [facility] Laboratory 1800 if Ind (Pending) Krystal Mclean [facility] [id number] tel: 08-Jul-2018 18:25 Urine Color Yellow Urine Appearance Clear Range: Clear Urine Specific [place] 1.035 Range: 1.0 00-1.030 (above high threshold) Urine Ph 7.5 Range: 4.5-7.5 Urine Protein(Dipstick) Negative Range: Negative Urine Glucose(Dipstick) Negative Range: Negative Urine Ketones 1+ (Abnormal) Range: Nega tive Urine Bilirubin Negative Range: Negativ e URINE BLOOD HGB Trace (Abnormal) Range: Negative Urobilinogen Negative Range: Negative Nitrite Urine Negative Range: Negative Urine Leukocyte Esterase Negative Range: Negative Urine Rbc Auto 0-4 {/hpf} Range: 0-4 /h pf Urine Wbc Auto 1-5 {/hpf} Range: 0-5 /h pf Urine Epithelial Cell Auto 5-10 Range: 0-5 /lpf {/lpf} (Abnormal) Urine Cast (Auto) 0 {/lpf} Range: 0-5 / lpf Urine Bacteria (Auto) Negative Range: N egative CBC No Diff (Pending) Laboratory: [facility] Laboratory 1800 [address] [facility] [address] tel: 09-Jul-2018 2:04 WBC 6.76 K/uL Range: 4.8-10.8 K/u L RBC 3.49 {M/uL} (below low Range: 4.7-6 .1 M/uL threshold) HEMOGLOBIN 11.4 g/dL (below low Range: 14.0-18.0 g/dL threshold) HEMATOCRIT 32.8 % (below low Range: 42- 52 % threshold) MCV 94.0 fL Range: 80-100 fL MCH 32.7 pg Range: 25-34 pg MEAN CORPUSCULAR HGB CONC 34.8 Range: 3 2-36 g/dL g/dL RED CELL DISTRIBUTION WIDTH SD Range: 3 6.4-46.3 fL 46.5 fL (above high threshold) RED CELL DISTRIBUTION WIDTH CV Range: 1 1.5-14.5 % 13.6 % PLATELET COUNT 197 K/uL Range: 130-400 K/uL MEAN PLATELET VOLUME 10.2 fL Range: 7.4 -10.4 fL Comp Metabolic Panel Laboratory: [facility] Laboratory 1800 Comme nts: Comment Draw (Pending) Krystal Terrell. [facility] morning co bs with second set [id number] tel: 09-Jul-2018 2:04 SODIUM 132 mmol/L (below low Range: 136 -145 mmol/L threshold) POTASSIUM 4.2 mmol/L Range: 3.5-5.1 mmo l/L CHLORIDE 102 mmol/L Range: 98-107 mmol/ L CARBON DIOXIDE 21 mmol/L Range: 21-32 m mol/L ANION GAP 9.0 Range: 3-11 BLOOD UREA NITROGEN 28 mg/dl Range: 7-1 8 mg/dl (above high threshold) CREATININE 1.23 mg/dl Range: 0.6-1.4 mg /dl Estimated Creatinine Clearance Range: m l/min 47.0 ml/min Comments: Est. Creat inine Clearance (Mod Cockcroft-Gault) for pharmacydosing purposes. Estimated GFR () Comment s: Units: ml/min per 65.2 1.73 meters squaredT he estimated GFR (CKD-E PI equation) has not be en validatedfor inpatie nt settings and may not be an accurate reflectiono f renal function in critical ly ill patients or those withrapidly changing renal function (e.g. TIGRE). Estimated GFR (Non- Comments: Uni ts: ml/min per Guinean) 56.3 1.73 meters squaredT he estimated GFR (CKD-E PI equation) has not be en validatedfor inpatie nt settings and may not be an accurate reflectiono f renal function in critical ly ill patients or those withrapidly changing renal function (e.g. TIGRE). BUN/CREATININE RATIO 22.9 (above Range: 10-20 high threshold) GLUCOSE 118 mg/dl (above high Range: 70 -99 mg/dl threshold) CALCIUM 8.2 mg/dl (below low Range: 8.5 -10.1 mg/dl threshold) Bilirubin, Total 0.5 mg/dl Range: 0.2-1 mg/dl AST/SGOT 18 U/L Range: 15-37 U/L ALT/SGPT 10 U/L (below low Range: 12-78 U/L threshold) TOTAL PROTEIN 6.3 {gm/dl} (below Range: 6.4-8.2 gm/dl low threshold) ALBUMIN 2.5 {gm/dl} (below low Range: 3 .4-5.0 gm/dl threshold) GLOBULIN 3.8 {gm/dl} Range: 2.5-4.0 gm/ dl ALB/GLOB RATIO 0.7 (below low Range: 0. 9-2 threshold) ALKALINE PHOSPHATASE 73 U/L Range: 45-1 17 U/L Troponin I (Pending) Laboratory: [facility] Laboratory 1800 Comme nts: Comment Draw Krystal Davidson. [facility] morning la bs with second set [id number] tel: 09-Jul-2018 2:04 TROPONIN (cTnI) < 0.015 ng/ml Range: 0- 0.045 ng/ml CBC No Diff (Pending) Laboratory: [facility] Laboratory 1800 . [facility]. [facility] [address] tel: 10-Jul-2018 5:33 WBC 10.39 K/uL Range: 4.8-10.8 K/u L RBC 3.26 {M/uL} (below low Range: 4.7-6 .1 M/uL threshold) HEMOGLOBIN 10.6 g/dL (below low Range: 14.0-18.0 g/dL threshold) HEMATOCRIT 30.6 % (below low Range: 42- 52 % threshold) MCV 93.9 fL Range: 80-100 fL MCH 32.5 pg Range: 25-34 pg MEAN CORPUSCULAR HGB CONC 34.6 Range: 3 2-36 g/dL g/dL RED CELL DISTRIBUTION WIDTH SD Range: 3 6.4-46.3 fL 46.3 fL RED CELL DISTRIBUTION WIDTH CV Range: 1 1.5-14.5 % 13.5 % PLATELET COUNT 204 K/uL Range: 130-400 K/uL MEAN PLATELET VOLUME 10.6 fL Range: 7.4 -10.4 fL (above high threshold) Comp Metabolic Panel Laboratory: [facility] Laboratory 1800 (Pending) Krystal Mclean [facility] [address] tel: 10-Jul-2018 5:33 SODIUM 136 mmol/L Range: 136-145 mmol /L POTASSIUM 4.1 mmol/L Range: 3.5-5.1 mmo l/L CHLORIDE 106 mmol/L Range: 98-107 mmol/ L CARBON DIOXIDE 25 mmol/L Range: 21-32 m mol/L ANION GAP 5.0 Range: 3-11 BLOOD UREA NITROGEN 28 mg/dl Range: 7-1 8 mg/dl (above high threshold) CREATININE 1.49 mg/dl (above high Range: 0.6-1.4 mg/dl threshold) Estimated Creatinine Clearance Range: m l/min 38.8 ml/min Comments: Est. Creat inine Clearance (Mod Cockcroft-Gault) for pharmacydosing purposes. Estimated GFR () Comment s: Units: ml/min per 51.7 1.73 meters squaredT he estimated GFR (CKD-E PI equation) has not be en validatedfor inpatie nt settings and may not be an accurate reflectiono f renal function in critical ly ill patients or those withrapidly changing renal function (e.g. TIGRE). Estimated GFR (Non- Comments: Uni ts: ml/min per Guine[place]) 44.6 1.73 meters squaredT he estimated GFR (CKD-E PI equation) has not be en validatedfor inpatie nt settings and may not be an accurate reflectiono f renal function in critical ly ill patients or those withrapidly changing renal function (e.g. TIGRE). BUN/CREATININE RATIO 18.9 Range: 10-20 GLUCOSE 144 mg/dl (above high Range: 70 -99 mg/dl threshold) CALCIUM 8.0 mg/dl (below low Range: 8.5 -10.1 mg/dl threshold) Bilirubin, Total 0.5 mg/dl Range: 0.2-1 mg/dl AST/SGOT 17 U/L Range: 15-37 U/L ALT/SGPT 10 U/L (below low Range: 12-78 U/L threshold) TOTAL PROTEIN 5.7 {gm/dl} (below Range: 6.4-8.2 gm/dl low threshold) ALBUMIN 2.3 {gm/dl} (below low Range: 3 .4-5.0 gm/dl threshold) GLOBULIN 3.4 {gm/dl} Range: 2.5-4.0 gm/ dl ALB/GLOB RATIO 0.7 (below low Range: 0. 9-2 threshold) ALKALINE PHOSPHATASE 64 U/L Range: 45-1 17 U/L X-Ray Chest 1 View Laboratory: [facility] Diagnostic Portable (Pending) Imaging 1800 [facility] 10-Jul-2018 7:49 X-Ray Chest 1 VW Portable (CXR1P) [place], [place] [phone] XRay Report Patient: [address] Admit Date: 07/08/18 MR#: [id number] Address1: [address] [place] [address] Acct ID:[id number] Address2: [place] [address] Date: 1940 [facility] Zip: [place] [address] Age: 77 Location: Sex: M Room/Bed: [facility] Att Phy: Rip Delatorre MD Diagnosis: SHOR TNESS OF BREATH Hailey Phy: Francois Oliva III, MD Service Date: 07/10/18 Fam Phy: Interpreting Phy: Koffi Leija her Admit Phy: Miguel Blanc MD, PhD Ordering Phy: Rip Delatorre MD cc: XR chest 1V portable HISTORY: 77 years-old Male acute on chronic resp failure acute on chronic respiratory failure COMPARISON: Chest radiograph and chest CT 07/08/2018 TECHNIQUE: Portable AP view of the chest FINDINGS: Cardiac silhouette is enlarged, unchanged. Prior median sternotomy and CABG. There is no pneumothorax, or large pleural effusion. Emphysema with chronic interstitial coarsening. Innumerablecalcified bilateral granulomata. Calcification the thoracic aortic arch. Subsegmental bibasilar opacities suggest atelectasis. Trace pleural effusions redemonstrated. No lobar airspace consolidation. Degenerative changes of the shoulders and spine. IMPRESSION: 1. Cardiomegaly without overt pulmonary edema. 2. Prior median sternotomy and CABG. 3. Emphysema with chronic interstitial coarsening. 4. Prior granulomatous disease. 5. Trace pleural effusions with bibasilar opacities suggestive of atelectasis. The above report was generated using voice recognition software. It may contain grammatical, syntaxor spelling errors. Electronically signed by: Christiano Sewell M.D. 07/10/2018 7:51 AM Dictated: 07/10/1849 Transcribed: 07/10/18748 ARTERIAL BLOOD GAS Laboratory: [facility] Laboratory 1800 Comme nts: Oxygen Flow Rate (Pending) Krystal Mclean [facility] 11.0 [id number] tel: 10-Jul-2018 7:35 ARTERIAL BLOOD GAS pH 7.47 (above Range: 7.35-7.45 high threshold) ARTERIAL BLOOD GAS PCO2 28 {mmHg} Range: 35-46 mmHg (below low threshold) ARTERIAL BLOOD GAS PO2 60 {mm/Hg} Range: 80-95 mm/Hg (below low threshold) ARTERIAL BLOOD GAS HCO3 20 mmol/L Range: 19-24 mmol/L ARTERIAL BLOOD GAS BASE EXCESS Range: - 9-1.8 mEq/L -2.8 {mEq/L} ARTERIAL BLD GAS O2 SATURATION Range: 9 0-95 % 90.3 % O2 ADMINISTRATION 7 L ELLIS TEST Pos Range: Pos Barometric Pressure 728.7 {mm/Hg} Range: mm/Hg Vital Signs 21-Jun-2018 14:08 Systolic 114 mm[Hg] Diastolic 61 mm[Hg] Respiration 18 /min O2 Saturation 90 % Comments: Source: Na mason Cannula Heart Rate 71 /min FiO2 5 17-Jun-2018 13:01 Systolic 130 mm[Hg] Comments: Location: RUE; Position: Sitting Diastolic 64 mm[Hg] Comments: Location: RUE; Position: Sitting Respiration 16 /min O2 Saturation 97 % Comments: Source: Na mason Cannula Heart Rate 57 /min FiO2 5 L/min Temperature 97.2 f Comments: Method: Te mporal Encounters Appointment; Oswald Amaya M.D. 05-Jul-2018 13:00 Encounter Diagnosis: Problem not documented Appointment; Oswald Amaya M.D. 21-Jun-2018 14:15 Encounter Diagnosis: Problem not documented Appointment; Kenyatta Bejarano CRNP 17-Jun-2018 13:00 Encounter Diagnosis: Problem not documented Appointment; Kaleb Sandoval M.D. 03-Jun-2018 10:15 Encounter Diagnosis: Problem not documented Appointment; Francois Oliva III, M.D. 23-May-2018 8:50 Encounter Diagnosis: Problem not documented Appointment; Kaleb Sandoval M.D. 07-Apr-2018 13:00 Encounter Diagnosis: Problem not documented Appointment; Carol Patton M.D. 30-Mar-2018 10:45 Encounter Diagnosis: Problem not documented Appointment; Kaleb Sandoval M.D. 01-Mar-2018 9:00 Encounter Diagnosis: Problem not documented Appointment; Pulmonary, Funct Testing 01-Mar-2018 8:00 Encounter Diagnosis: Problem not documented Appointment; Russell Pedroza M.D. 21-Feb-2018 10:45 Encounter Diagnosis: Problem not documented Appointment; Jimbo Be M.D. 07-Dec-2017 11:40 Encounter Diagnosis: Problem not documented Appointment; Francois Oliva III, M.D. 19-Nov-2017 9:30 Encounter Diagnosis: Problem not documented Appointment; [place] [id number] 19-Nov-2017 9:15 Encounter Diagnosis: Problem not documented Appointment; [facility], Nurse 19-Nov-2017 8:50 Encounter Diagnosis: Problem not documented Appointment; Carol Patton M.D. 27-Sep-2017 8:45 Encounter Diagnosis: Problem not documented Appointment; Vascular, Studies SC1 30-Aug-2017 10:15 Encounter Diagnosis: Problem not documented Appointment; Kaleb Sandoval M.D. 26-Aug-2017 9:45 Encounter Diagnosis: Problem not documented Appointment; Pulmonary, Funct Testing 26-Aug-2017 9:30 Encounter Diagnosis: Problem not documented Appointment; Russell Pedroza M.D. 23-Aug-2017 11:00 Encounter Diagnosis: Problem not documented Appointment; Jimbo Be M.D. 21-Jul-2017 13:00 Encounter Diagnosis: Problem not documented Appointment; Jimbo Be M.D. 17-Jun-2017 12:45 Encounter Diagnosis: Problem not documented Appointment; Jimbo Be M.D. 26-May-2017 10:40 Encounter Diagnosis: Problem not documented Appointment; Jimbo Be M.D. 11-May-2017 8:30 Encounter Diagnosis: Problem not documented Appointment; Jimbo Be M.D. 05-May-2017 9:20 Encounter Diagnosis: Problem not documented Appointment; Urology, Room 8 05-May-2017 9:00 Encounter Diagnosis: Problem not documented Appointment; Carol Patton M.D. 29-Mar-2017 10:00 Encounter Diagnosis: Problem not documented Appointment; Kaleb Sandoval M.D. 25-Feb-2017 10:30 Encounter Diagnosis: Problem not documented Appointment; Pulmonary, Funct Testing 25-Feb-2017 10:15 Encounter Diagnosis: Problem not documented Appointment; Rekha Carreon PA-C 22-Feb-2017 14:00 Encounter Diagnosis: Problem not documented Appointment; Jimbo Be M.D. 26-Jan-2017 14:40 Encounter Diagnosis: Problem not documented Appointment; Carol Patton M.D. 18-Jan-2017 10:30 Encounter Diagnosis: Problem not documented Appointment; Nicolasa Matt PA-C 07-Sep-2016 10:30 Encounter Diagnosis: Problem not documented Appointment; Stress, Echocardiogram 1 07-Sep-2016 9:30 Encounter Diagnosis: Problem not documented Appointment; Kaleb Sandoval M.D. 26-Aug-2016 9:30 Encounter Diagnosis: Problem not documented Appointment; Pulmonary, Funct Testing 26-Aug-2016 9:15 Encounter Diagnosis: Problem not documented Appointment; Darian Mayorga PA-C 19-Aug-2016 10:00 Encounter Diagnosis: Problem not documented Appointment; Carol Patton M.D. 03-Aug-2016 10:15 Encounter Diagnosis: Problem not documented Appointment; Russell Pedroza M.D. 16-Jul-2016 10:45 Encounter Diagnosis: Problem not documented Appointment; Francois Oliva III, M.D. 01-Dec-2018 10:10 Encounter Diagnosis: Problem not documented
[2018-07-12 06:01] LABS: Hemoglobin 11.1 g/dL (14.0-18.0); Mean Corpuscular Hgb Conc 34.7 g/dL (32-36); Mean Corpuscular Volume 93.6 fL (80-100); Mean Platelet Volume 10.8 fL (7.4-10.4); Platelet Count 216 K/uL (130-400); RDW Coefficient of Variation 13.8 % (11.5-14.5); RDW Standard Deviation 47.3 fL (36.4-46.3); Red Blood Count 3.42 M/uL (4.7-6.1); White Blood Count 13.42 K/uL (4.8-10.8)
[2018-07-12] MEDS: DOXYCYCLINE HYCLATE 100 MG in DEXTROSE 5% 100 ML IV SCH ×2 (06:17→18:18)
[2018-07-12 06:43] LABS: BUN Creatinine Ratio 20.2 (10-20); Calcium 8.5 mg/dl (8.5-10.1); Creatinine Clr Calc Pharmacy 37.3 ml/min; Magnesium 1.9 mg/dl (1.8-2.4); Potassium 3.9 mmol/L (3.5-5.1)
[2018-07-12] MEDS: OXYBUTYNIN CHLORIDE XL 5 MG TABCR PO SCH (07:54)
[2018-07-12] MEDS: CLOPIDOGREL BISULFATE 75 MG TAB PO SCH (07:54)
[2018-07-12] MEDS: PANTOprazole 40 MG TAB PO SCH (07:54)
[2018-07-12] MEDS: TAMSULOSIN HCL 0.4 MG CAP PO SCH (07:54)
[2018-07-12] MEDS: CITALOPRAM 20 MG TAB PO SCH (07:54)
[2018-07-12] MEDS: LISINOPRIL 10 MG TAB PO SCH (07:55)
[2018-07-12] MEDS: FINASTERIDE 5 MG TAB PO SCH (07:55)
[2018-07-12] MEDS: METOPROLOL SUCC 25MG EXT REL TAB PO SCH (07:55)
[2018-07-12] MEDS: APIXABAN 5 MG TABLET PO SCH ×2 (07:55→19:54)
[2018-07-12] MEDS: BUDESONIDE/FORMOTEROL FUMARATE 160/4.5 60 PUFFS/INHALER INH SCH ×2 (07:56→19:53)
[2018-07-12] MEDS: ATORVASTATIN 40 MG TAB PO SCH (07:56)
--- NOTE | 2018-07-12 13:13 | Hospitalist Progress Note ---
Date of Service July 12, 2018 Assessment & Plan (1) Hypoxia: Unclear etiology as per report, he did not have any O2 need only 2-3 months ago per prior reports; however, he is now on upwards of 7L. Discussed with Dr. Amaya who doesn't feel his tumor which is compressing the pulmonary vein is a culprit. - Pulm consult (2) Pulmonary emboli: Pulmonary emboli, present on admission. Originally missed on chest CT on 07/08. On re-read by radiology, they were noted. - Started on Eliquis on 07/11 when PEs were first noted. - Continue anticoagulation (3) Lung mass: Recent biopsy on 07/[address] Amaya was non-diagnoistic; however, concern is that it is cancer. Surgical options limited due to location. - Will follow-up with outpatient pulmonary medicine and cardiothoracic surgery (4) Syncope: Four episodes in the last few months. Thought to be due to hypoxemia causing transient loss of consciousness vs. hypotension from his BP meds. - O2 as needed (currently on 6L [place] which is close to his home 5L) - Adjusted (lowered) BP meds to prevent hypotension - Stop tamsulosin on 07/12 - PT/OT (5) Acute urinary retention: Due to BPH. The patient was seen by urology and had a Bauer catheter placed. - Bauer catheter will remain in place at the time of discharge and he will follow-up with urology for outpatient trial of voiding. - Stopping tamsulosin for orthostatic BP changes (6) Atrial fibrillation, new onset: Paroxsymal. Echo showed EF ~50%. - Continue metoprolol for rate control - On anticoagulation for PE and afib (7) COPD (chronic obstructive pulmonary disease): The patient has COPD with chronic respiratory failure on home oxygen. Sees Dr. Sandoval as outpatient. - Pulm consult as above (8) Coronary artery disease: 5v CABG in 1993. Had been tolerating DAPT well. - Hold ASA to start anticoagulation - Continue Plavix, beta-phani, ACEi, statin (9) DVT prophylaxis: On Eliquis for PE Subjective Feels well today. Some shortness of breath, but not above usual. No major complaints. Wants to leave the hospital. Review of Systems Respiratory: + dyspnea; no pain on inspiration, no pain with cough, no sputum production and no wheezing Cardiovascular: + syncope; no chest pain, no chest pain with activity and no palpitations Musculoskeletal: + muscle weakness Neurologic: + generalized weakness, + syncope and + confusion; no unsteadiness, no localized weakness, no abnormal movements and no seizure-like activity Physical Exam Constitutional: WD/WN, vitals as above + thin; no acute distress Eyes: PERRL, conjunctivae normal, anicteric sclerae normal visual avery by confrontation and + anicteric sclerae ENMT: external ear and nose normal, oropharynx normal Neck: trachea midline, no thyromegaly normal visual inspection and trachea midline Respiratory: + abnormal respiratory effort Auscultation: + crackles and + wheezes Cardiovascular: Rate/Rhythm: regular rate; + abnormal rhythm Gastrointestinal (Abdomen): normal bowel sounds, soft, nontender, no hepa tosplenomegaly Inspection/Auscultation: abdomen not distended Percussion/Palpation: abdomen soft; abdomen nontender Musculoskeletal: Head/Neck/Chest: normocephalic and head atraumatic Extremities: + muscle atrophy; no cyanosis Skin: no rashes, warm and dry Neurologic: CN's II-XI intact bilaterally and awake; no focal motor deficits and not confused Speech / Cognition: normal speech Psychiatric: A+Ox3, euthymic affect Results & Data Vital Signs (Past 12 Hours) Vital Signs Temp Pulse Resp BP Pulse Ox 07/12/18 11:54 36.9 C 97 H 18 106/61 87 L 07/12/18 08:01 37.0 C 108 H 26 H 135/82 86 L 07/12/18 03:36 36.8 C 88 22 136/74 95 (1) COPD (chronic obstructive pulmonary disease) COPD type: unspecified COPD Qualified Code(s): J44.9 - Chronic obstructive pulmonary disease, unspecified (2) Coronary artery disease Coronary Disease-Associated Artery/Lesion type: [place] artery [place] vs. transplanted heart: [place] heart Associated angina: without angina Qualified Code(s): I25.10 - Atherosclerotic heart disease of [place] coronary artery without angina pectoris
--- NOTE | 2018-07-12 13:18 | Pulmonary Consultation ---
Date of Consultation July 12, 2018 Assessment & Plan (1) Acute on chronic respiratory failure with hypoxia: acute on chronic hypoxic respiratory failure. multifactorial with his chronic COPD. on review of his CT scans he likely has some pulmonary fibrosis. his PFTs from February had moderate obstruction with a diffusing capacity of 22% which is out of proportion to the obstruction which is likely due to fibrosis as well as pulmonary HTN. He had high RVSP of 40-50 on echo from 05/2018. 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 He also has possible PE on CT scan. I would doubt this should normally contribute much to his hypoxia or shortness of breath however he has minimal reserve and this may have been enough to push him over. He does not appear to have an acute exacerbation of his COPD or fibrosis but as he remains sob can try a short trial of steroids but I am unsure that this will help. Otherwise continue OOB as much as possible. continue budesonide/formetrol, albuterol, ipratropium History of Present Illness Attending Physician: Galindo Posada MD History of Present Illness 78 y/o male with a history of COPD, CAD, a fib, GERD, CKD who presented with worsening shortness of breath. He had improved while in the hospital but now worse again. He has increased dyspnea especially with exertion. the past few days especially according to his . occasional cough. does not feel like his nebulizer helps his symptoms. He recently had a mediastinoscopy for R hilar lesion which was not diagnostic. He was also found to have possible pulmonary embolism in R[place]. He denies fevers or chills. generalized malaise Allergies Allergy/AdvReac Type Severity Reaction Status Date / Time cyclobenzaprine AdvReac Unknown halluninati Verified 07/08/18 10:00 ons oxycodone AdvReac Unknown HALLUCINATI Verified 07/08/18 10:00 ONS Home Medications Home Medications Medication Instructions Recorded Confirmed Type Incruse Ellipta 1 inh INHALATION DAILY 06/05/18 07/08/18 History Symbicort 2 puff INHALATION BID 06/05/18 07/08/18 History albuterol sulfate 2 puff INHALATION Q4 PRN 06/05/18 07/08/18 History aspirin 81 mg PO DAILY 06/05/18 07/08/18 History atorvastatin 80 mg PO DAILY 06/05/18 07/08/18 History citalopram 10 mg PO DAILY 06/05/18 07/08/18 History clopidogrel 75 mg PO DAILY 06/05/18 07/08/18 History finasteride 5 mg PO DAILY 06/05/18 07/08/18 History hydrocodone-acetaminophen [Vicodin] 1 - 2 tab PO Q4 PRN 06/05/18 07/08/18 History lisinopril 20 mg PO DAILY 06/05/18 07/08/18 History methenamine hippurate 1 g PO QPM 06/05/18 07/08/18 History nitroglycerin [Nitrostat] 0.4 mg SUBLINGUAL UD PRN 06/05/18 07/08/18 History omeprazole 20 mg PO DAILY 06/05/18 07/08/18 History oxybutynin chloride [Ditropan XL] 5 mg PO DAILY 06/05/18 07/08/18 History tamsulosin 0.4 mg PO DAILY 06/05/18 07/08/18 History metoprolol succinate 25 mg PO DAILY 06/09/18 07/08/18 History tramadol [Ultram] 50 mg PO QID PRN #18 tab 07/05/18 07/08/18 Rx amlodipine 5 mg PO DAILY 07/08/18 07/08/18 History Patient History Medical History Atrial fibrillation, new onset (Acute) Syncope (Acute) Acute urinary retention (Acute) Hypertension (Chronic) Atrial fibrillation NEWLY DIAGNOSED PER SPOUSE. STATES THAT THEY THINK IT IS RELATED TO THE MASS CAUSING PRESSURE ON HEART BPH (benign prostatic hyperplasia) CAD (coronary artery disease) COPD (chronic obstructive pulmonary disease) Chronic kidney disease STAGE 3, FOLLOWS WITH NEPHRO GERD (gastroesophageal reflux disease) History of DVT (deep vein thrombosis) PER . OCCURED DURING CARDIAC CATH. WAS LOCATED IN FOOT/TOE. Hyperlipidemia Hypertension Lung mass PLANNED FOR BIOPSY WITH DR. SERNA ON 07/05/18. Surgical History Fusion of spine CERVICAL History of cardiac cath ROUTINE DIAGNOSTIC. PT HAS HISTORY OF CABG 5 VESSEL IN 1993. FOLLOWS WITH DR. ISRAEL. History of cataract extraction with lens replacement History of cystoscopy URETHRAL DILATION S/P CABG x 5 1993. [facility] [place] FOLL[place] WITH DR. ISRAEL Family History Other Family history non-contributory Social History Preferred Language: Lithuanian Communication Ability: Impaired Beliefs That Will Affect Care: None marital status: Current Living Situation: Spouse current occupational status: retired Feels Safe at Home: Yes Smoking Status: Former smoker Tobacco Type: cigarettes Cigarettes Per Day: QUIT APPROX 25 YEARS AGO. HX OF 3 PPD X20+ YEARS Second Hand Exposure: No Hx Alcohol Use: Yes Alcohol type: beer Hx Substance Use: No Review of Systems Review of Systems: Constitutional: no fevers no chills no weight loss Eyes: no blurry or double vision EENT: no sore throat, no congestion Respiratory: + cough + shortness of breath Cardiovascular: no chest pain no palpitations GI: no abdominal pain, no nausea, no vomiting, no diarrhea, no constipation Gu: no dysuria, no frequency. straight cath at home MSK: no joint pain, no muscle aches Skin: no rash Neuro: no headache, no dizziness, no focal weakness Endocrine: no heat or cold intolerance heme: no easy bruising, no lymphadenopathy Psych: no depression, no anxiety Physical Exam Physical Exam: Constitutional: Comfortable NAD but dyspnea when talking long sentences HEENT: normocephalic atraumatic. MMM. no cervical lymphadenopathy CV: RRR nl s1,s2 no murmurs rubs or gallops Lungs: slight fine crackles at bases bilaterally. no accessory muscle use Abd: soft nontender nondistended. normal bowel sounds Ext: no edema. no cyanosis, no clubbing Skin: warm dry Neuro: alert and oriented. moving all extremities Psych: anxious Results & Data Vital Signs (Past 12 Hours) Vital Signs Temp Pulse Resp BP Pulse Ox 07/12/18 11:54 36.9 C 97 H 18 106/61 87 L 07/12/18 08:01 37.0 C 108 H 26 H 135/82 86 L 07/12/18 03:36 36.8 C 88 22 136/74 95 Laboratory Results Laboratory Results - last 24 hr 07/12/18 07/12/18 05:39 05:39 WBC 13.42 H RBC 3.42 L Hgb 11.1 L Hct 32.0 L MCV 93.6 MCH 32.5 MCHC 34.7 RDW Std Deviation 47.3 H RDW Coeff of Gilda 13.8 Plt Count 216 MPV 10.8 H Sodium 135 L Potassium 3.9 Chloride 104 Carbon Dioxide 24 Anion Gap 7.0 BUN 30 H Creatinine 1.50 H Est Cr Clr Drug Dosing 37.3 Est GFR ( Amer) 51.0 Est GFR (Non-Af Amer) 44.0 BUN/Creatinine Ratio 20.2 H Glucose 79 Calcium 8.5 Magnesium 1.9 Diagnostic Findings reviewed recent CT scans/PET scan and chest xrays
[2018-07-12] MEDS: ALBUT/IPRATROP 3MG/0.5MG NEB 3 ML VIAL NEB SCH ×2 (14:31→19:20)
--- NOTE | 2018-07-12 16:10 | Progress Note ---
DATE: 07/12/2018 Mr. Hurley was seen today. He remains markedly hypoxic. I am quite certain this patient has a malignancy, but there is really not much for us to do about it. At this point I would simply support him in the hopes that we can get him to an extended care facility. He is not going to do well.
[2018-07-12] MEDS: methylPREDNISolone 40 MG in SYRINGE 0 ML IV SCH (19:53)
[2018-07-12] MEDS: METHENAMINE HIPPURATE 1 GM TAB PO SCH (19:54)
[2018-07-12] MEDS ORDERED: methylPREDNISolone 40 MG in SYRINGE 0 ML IV SCH (21:00)
[2018-07-13] MEDS ORDERED: METOPROLOL TARTRATE 1 MG/ML VIAL IV SCH
[2018-07-13] MEDS ORDERED: METOPROLOL TARTRATE 1 MG/ML VIAL IV PRN (03:49)
[2018-07-13] MEDS: DOXYCYCLINE HYCLATE 100 MG in DEXTROSE 5% 100 ML IV SCH ×2 (05:54→18:34)
[2018-07-13] MEDS: ALBUT/IPRATROP 3MG/0.5MG NEB 3 ML VIAL NEB SCH ×4 (06:50→19:45)
[2018-07-13 07:26] LABS: Hematocrit (blood only) 29.1 % (42-52); Hemoglobin 10.3 g/dL (14.0-18.0); Mean Corpuscular Hgb Conc 35.4 g/dL (32-36); Mean Corpuscular Volume 92.4 fL (80-100); Mean Platelet Volume 10.7 fL (7.4-10.4); Platelet Count 223 K/uL (130-400); RDW Coefficient of Variation 13.9 % (11.5-14.5); RDW Standard Deviation 46.5 fL (36.4-46.3); Red Blood Count 3.15 M/uL (4.7-6.1)
[2018-07-13 07:55] LABS: BUN Creatinine Ratio 20.9 (10-20); Calcium 8.2 mg/dl (8.5-10.1); Creatinine Clr Calc Pharmacy 34.4 ml/min; Est GFR (African American) 46.4; Est GFR (Non-African American) 40.1; Potassium 4.3 mmol/L (3.5-5.1)
[2018-07-13] MEDS: APIXABAN 5 MG TABLET PO SCH ×2 (08:30→20:41)
[2018-07-13] MEDS: FINASTERIDE 5 MG TAB PO SCH (08:30)
[2018-07-13] MEDS: methylPREDNISolone 40 MG in SYRINGE 0 ML IV SCH ×2 (08:30→20:40)
[2018-07-13] MEDS: CITALOPRAM 20 MG TAB PO SCH (08:31)
[2018-07-13] MEDS: METOPROLOL SUCC 25MG EXT REL TAB PO SCH (08:31)
[2018-07-13] MEDS: BUDESONIDE/FORMOTEROL FUMARATE 160/4.5 60 PUFFS/INHALER INH SCH ×2 (08:31→20:40)
[2018-07-13] MEDS: CLOPIDOGREL BISULFATE 75 MG TAB PO SCH (08:31)
[2018-07-13] MEDS: OXYBUTYNIN CHLORIDE XL 5 MG TABCR PO SCH (08:31)
[2018-07-13] MEDS: ATORVASTATIN 40 MG TAB PO SCH (08:31)
[2018-07-13] MEDS: PANTOprazole 40 MG TAB PO SCH (08:31)
[2018-07-13] MEDS: LISINOPRIL 10 MG TAB PO SCH (08:31)
[2018-07-13] MEDS: HYDROCODONE/ACETAMOPHEN 5/325MG TAB PO PRN ×2 (08:37→21:24)
--- NOTE | 2018-07-13 13:40 | Pulmonology Progress Note ---
Date of Service July 13, 2018 Assessment & Plan (1) Acute on chronic respiratory failure with hypoxia: acute on chronic hypoxic respiratory failure. multifactorial with his chronic COPD. on review of his CT scans he likely has some pulmonary fibrosis. his PFTs from February had moderate obstruction with a diffusing capacity of 22% which is out of proportion to the obstruction which is likely due to fibrosis as well as pulmonary HTN. He had high RVSP of 40-50 on echo from 05/2018. He junito elise had WHO class 3 pulmonary HTN. He also has possible PE on CT scan. I would doubt this size should normally contribute much to his hypoxia or shortness of breath however he has minimal reserve and this may have been enough to push him over. He does not appear to have an acute exacerbation of his COPD or fibrosis short trial of steroids but I am unsure that this will help. Otherwise continue OOB as much as possible. 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 CV: RRR nl s1,s2 no murmurs rubs or gallops Lungs: slight fine crackles at bases bilaterally. no accessory muscle use Abd: soft nontender nondistended. normal bowel sounds Ext: no edema. no cyanosis, no clubbing Skin: warm dry Neuro: alert and oriented x3 but seems slightly confused. moving all extremities Results & Data Vital Signs (Past 12 Hours) Vital Signs Temp Pulse Pulse Resp BP Pulse Ox 07/13/18 11:39 36.8 C 97 H 19 109/54 L 8 L 07/13/18 11:00 90 07/13/18 10:57 87 20 96 07/13/18 07:41 36.5 C 89 24 129/93 95 07/13/18 06:51 78 20 92 07/13/18 04:51 98 07/13/18 03:37 36.9 C 77 20 141/77 H 97
--- NOTE | 2018-07-13 13:59 | Hospitalist Progress Note ---
Date of Service July 13, 2018 Assessment & Plan (1) Hypoxia: Likely a combination of obstructive disease (COPD) with fibrosis as well. Pulmonary mass (concern for cancer) and his acute PE are both possibly contributing slightly, though only in so much as it is pushing his already severe disease into a slightly worse state. Discussed with Dr. Herrera and Dr. Amaya who feel a short course of steroids may benefit, but otherwise unlikely to be significant improvements in lung function. Patient has no desire to go elsewhere for further investigation or care. - Continue steroids. (2) Pulmonary emboli: Pulmonary emboli, present on admission. Originally missed on chest CT on 07/08. On re-read by radiology, they were noted. - Started on Eliquis on 07/11 when PEs were first noted. - Continue anticoagulation - No bleeding inpatient (3) Lung mass: Recent biopsy on 07/[address] Amaya was non-diagnostic; however, concern is that it is cancer. Surgical options limited due to location of tumor. - Will follow-up with outpatient thoracic surgery (4) Syncope: Four episodes in the last few months. Thought to be due to hypoxemia causing transient loss of consciousness vs. hypotension from his BP meds. - O2 as needed ([place] 6L [place] home 5L) - Adjusted (lowered) BP meds to prevent hypotension - Stopped tamsulosin on 07/12 - PT/OT (5) Acute urinary retention: Due to BPH. The patient was seen by urology and had a Bauer catheter placed. - Bauer catheter will remain in place at the time of discharge and he will follow-up with urology for outpatient trial of voiding. - Stopped tamsulosin for orthostatic BP changes (6) Atrial fibrillation, new onset: Paroxsymal. Echo showed EF ~50%. - Continue metoprolol for rate control - On anticoagulation for PE and afib (7) COPD (chronic obstructive pulmonary disease): The patient has COPD with chronic respiratory failure on home oxygen. Sees Dr. Sandoval as outpatient. - Pulm consult as above (8) Coronary artery disease: 5v CABG in 1993. Had been tolerating DAPT well. - Hold ASA to start anticoagulation - Continue Plavix, beta-phani, ACEi, statin (9) DVT prophylaxis: On Eliquis for PE Subjective Has no complaints. He just wants to go home. Reports no fevers/chills, chest pain, shortness of breath, abdominal pain, nausea, or vomiting. Review of Systems Respiratory: no pain on inspiration, no pain with cough, no sputum production and no wheezing Cardiovascular: + syncope; no chest pain, no chest pain with activity and no palpitations Musculoskeletal: + muscle weakness Neurologic: + generalized weakness and + syncope; no unsteadiness, no l ocalized weakness, no abnormal movements and no seizure-like activity Physical Exam Constitutional: WD/WN, vitals as above + thin; no acute distress Eyes: PERRL, conjunctivae normal, anicteric sclerae normal visual avery by confrontation and + anicteric sclerae ENMT: external ear and nose normal, oropharynx normal Neck: trachea midline, no thyromegaly normal visual inspection and trachea midline Respiratory: + abnormal respiratory effort Auscultation: + crackles and + wheezes Cardiovascular: Rate/Rhythm: regular rate; + abnormal rhythm Gastrointestinal (Abdomen): normal bowel sounds, soft, nontender, no hepatosplenomegaly Inspection/Auscultation: abdomen not distended Percussion/Palpation: abdomen soft; abdomen nontender Musculoskeletal: Head/Neck/Chest: normocephalic and head atraumatic Extremities: + muscle atrophy; no cyanosis Skin: no rashes, warm and dry Neurologic: CN's II-XI intact bilaterally and awake; no focal motor deficits and not confused Speech / Cognition: normal speech Psychiatric: A+Ox3, euthymic affect Results & Data Vital Signs (Past 12 Hours) Vital Signs Temp Pulse Pulse Resp BP Pulse Ox 07/13/18 11:39 36.8 C 97 H 19 109/54 L 8 L 07/13/18 11:00 90 07/13/18 10:57 87 20 96 07/13/18 07:41 36.5 C 89 24 129/93 95 07/13/18 06:51 78 20 92 07/13/18 04:51 98 07/13/18 03:37 36.9 C 77 20 141/77 H 97 (1) COPD (chronic obstructive pulmonary disease) COPD type: unspecified COPD Qualified Code(s): J44.9 - Chronic obstructive pulmonary disease, unspecified (2) Coronary artery disease Coronary Disease-Associated Artery/Lesion type: [place] artery [place] vs. transplanted heart: [place] heart Associated angina: without angina Qualified Code(s): I25.10 - Atherosclerotic heart disease of [place] coronary artery without angina pectoris
--- NOTE | 2018-07-13 17:15 | Progress Note ---
DATE: 07/13/2018 The patient is seen today. He remains unstable. I discussed this case with Dr. Galindo Posada yesterday. The patient continues to desaturate. 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 I believe all these contribute somewhat. His mediastinoscopy site is healing nicely. Some mild ecchymosis around it, but it is now been 8 days. Continue to follow along, but I have very little to offer this unfortunate man. SUNITA
[2018-07-13] MEDS: METHENAMINE HIPPURATE 1 GM TAB PO SCH (20:41)
[2018-07-14] MEDS: DOXYCYCLINE HYCLATE 100 MG in DEXTROSE 5% 100 ML IV SCH ×2 (06:04→17:47)
[2018-07-14] MEDS: ALBUT/IPRATROP 3MG/0.5MG NEB 3 ML VIAL NEB SCH ×4 (07:09→18:55)
[2018-07-14] MEDS: LISINOPRIL 10 MG TAB PO SCH (08:11)
[2018-07-14] MEDS: APIXABAN 5 MG TABLET PO SCH ×2 (08:11→19:56)
[2018-07-14] MEDS: CITALOPRAM 20 MG TAB PO SCH (08:12)
[2018-07-14] MEDS: CLOPIDOGREL BISULFATE 75 MG TAB PO SCH (08:12)
[2018-07-14] MEDS: FINASTERIDE 5 MG TAB PO SCH (08:12)
[2018-07-14] MEDS: BUDESONIDE/FORMOTEROL FUMARATE 160/4.5 60 PUFFS/INHALER INH SCH ×2 (08:12→19:56)
[2018-07-14] MEDS: ATORVASTATIN 40 MG TAB PO SCH (08:12)
[2018-07-14] MEDS: OXYBUTYNIN CHLORIDE XL 5 MG TABCR PO SCH (08:12)
[2018-07-14] MEDS: PANTOprazole 40 MG TAB PO SCH (08:12)
[2018-07-14] MEDS: METOPROLOL SUCC 25MG EXT REL TAB PO SCH (08:12)
[2018-07-14] MEDS: methylPREDNISolone 40 MG in SYRINGE 0 ML IV SCH ×2 (08:13→19:54)
--- NOTE | 2018-07-14 13:01 | Pulmonology Progress Note ---
Date of Service July 14, 2018 Assessment & Plan (1) Acute on chronic respiratory failure with hypoxia: acute on chronic hypoxic respiratory failure. multifactorial with his chronic COPD. on review of his CT scans he likely has some pulmonary fibrosis. his PFTs from February had moderate obstruction with a diffusing capacity of 22% which is out of proportion to the obstruction which is likely due to fibrosis as well as pulmonary HTN. He had high RVSP of 40-50 on echo from 05/2018. He junito elise had WHO class 3 pulmonary HTN. He also has possible PE on CT scan. I would doubt this size should normally contribute much to his hypoxia or shortness of breath however he has minimal reserve and this may have been enough to push him over. He does not appear to have an acute exacerbation of his COPD or fibrosis short trial of steroids but I am unsure that this will help. Otherwise continue OOB as much as possible. 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 wants to go home Physical Exam Physical Exam: Constitutional: Comfortable NAD HEENT: normocephalic atraumatic. CV: RRR nl s1,s2 no murmurs rubs or gallops Lungs: slight fine crackles at bases bilaterally. no accessory muscle use Abd: soft nontender nondistended. normal bowel sounds Ext: no edema. no cyanosis, no clubbing Skin: warm dry Neuro: alert. moving all extremities Results & Data Vital Signs (Past 12 Hours) Vital Signs Temp Pulse Resp BP Pulse Ox 07/14/18 11:16 99 H 20 90 07/14/18 07:55 36.9 C 97 H 17 159/76 H 88 L 07/14/18 07:13 75 18 91 07/14/18 03:30 36.9 C 90 20 159/90 H 91
[2018-07-14] MEDS: HYDROCODONE/ACETAMOPHEN 5/325MG TAB PO PRN (16:42)
--- NOTE | 2018-07-14 17:01 | Hospitalist Progress Note ---
Date of Service July 14, 2018 Assessment & Plan (1) Hypoxia: Likely a combination of obstructive disease (COPD) with fibrosis as well. Pulmonary mass (concern for cancer) and his acute PE are both possibly contributing slightly, though only in so much as it is pushing his already severe disease into a slightly worse state. Discussed with Dr. Herrera and Dr. Amaya who feel a short course of steroids may benefit, but otherwise unlikely to be significant improvements in lung function. Patient has no desire to go elsewhere for further investigation or care. - Continue steroids (2) Pulmonary emboli: Pulmonary emboli, present on admission. Originally missed on chest CT on 07/08. On re-read by radiology, they were noted. - Started on Eliquis on 07/11 when PEs were first noted. - Continue anticoagulation - No bleeding inpatient (3) Lung mass: Recent biopsy on 07/[address] Amaya was non-diagnostic; however, concern is that it is cancer. Surgical options limited due to location of tumor. - Will follow-up with outpatient thoracic surgery (4) Syncope: Four episodes in the last few months. Thought to be due to hypoxemia causing transient loss of consciousness vs. hypotension from his BP meds. - O2 as needed (currently [place] 6L [place] close [place] home 5L) - Adjusted (lowered) BP meds to prevent hypotension - Stopped tamsulosin on 07/12 - On 07/14, orthostatic still positive, though BP goes from 120/70 -> 100/60 which is an improvement. (5) Acute urinary retention: Due to BPH. The patient was seen by urology and had a Bauer catheter placed. - Bauer catheter will remain in place at the time of discharge and he will follow-up with urology for outpatient trial of voiding. - Stopped tamsulosin for orthostatic BP changes (6) Atrial fibrillation, new onset: Paroxsymal. Echo showed EF ~50%. - Continue metoprolol for rate control - On anticoagulation for PE and afib (7) COPD (chronic obstructive pulmonary disease): The patient has COPD with chronic respiratory failure on home oxygen. Sees Dr. Sandoval as outpatient. - Pulm consult as above (8) Coronary artery disease: 5v CABG in 1993. Had been tolerating DAPT well. - Hold ASA to start anticoagulation - Continue Plavix, beta-phani, ACEi, statin - Lowered lisinorpril to 2.5mg on 07/14 given his continued orthostasis (9) DVT prophylaxis: On Eliquis for PE Subjective Stable breathing. No major complaints. Reports no fevers/chills, chest pain, shortness of breath, abdominal pain, nausea, or vomiting. Review of Systems Review of Systems: All systems reviewed & are unremarkable except as noted in HPI & below Physical Exam Constitutional: WD/WN, vitals as above + thin; no acute distress Eyes: PERRL, conjunctivae normal, anicteric sclerae normal visual avery by confrontation and + anicteric sclerae ENMT: external ear and nose normal, oropharynx normal Neck: trachea midline, no thyromegaly normal visual inspection and trachea midline Respiratory: + abnormal respiratory effort Auscultation: + crackles and + wheezes Cardiovascular: Rate/Rhythm: regular rate; + abnormal rhythm Gastrointestinal (Abdomen): normal bowel sounds, soft, nontender, no hepatosplenomegaly Inspection/Auscultation: abdomen not distended Percussion/Palpation: abdomen soft; abdomen nontender Musculoskeletal: Head/Neck/Chest: normocephalic and head atraumatic Extrem ities: + muscle atrophy; no cyanosis Skin: no rashes, warm and dry Neurologic: CN's II-XI intact bilaterally and awake; no focal motor deficits and not confused Speech / Cognition: normal speech Psychiatric: A+Ox3, euthymic affect Results & Data Vital Signs (Past 12 Hours) Vital Signs Temp Pulse Resp BP Pulse Ox 07/14/18 15:16 87 90 07/14/18 15:02 76 L 07/14/18 15:00 36.8 C 97 H 20 117/65 90 07/14/18 11:16 99 H 20 90 07/14/18 07:55 36.9 C 97 H 17 159/76 H 88 L 07/14/18 07:13 75 18 91 (1) Coronary artery disease Associated angina: without angina Coronary Disease-Associated Artery/Lesion type: [place] artery [place] vs. transplanted heart: [place] heart Qualified Code(s): I25.10 - Atherosclerotic heart disease of [place] coronary artery without angina pectoris (2) COPD (chronic obstructive pulmonary disease) COPD type: unspecified COPD Qualified Code(s): J44.9 - Chronic obstructive pulmonary disease, unspecified
[2018-07-14] MEDS: METHENAMINE HIPPURATE 1 GM TAB PO SCH (19:56)
[2018-07-15] MEDS: DOXYCYCLINE HYCLATE 100 MG in DEXTROSE 5% 100 ML IV SCH (05:40)
[2018-07-15] MEDS: ALBUT/IPRATROP 3MG/0.5MG NEB 3 ML VIAL NEB SCH ×3 (07:11→16:06)
[2018-07-15] MEDS ORDERED: LISINOPRIL 2.5 MG TAB PO SCH (09:00)
[2018-07-15] MEDS ORDERED: ATORVASTATIN 40 MG TAB PO SCH (09:00)
[2018-07-15] MEDS: CLOPIDOGREL BISULFATE 75 MG TAB PO SCH (09:41)
[2018-07-15] MEDS: METOPROLOL SUCC 25MG EXT REL TAB PO SCH (09:41)
[2018-07-15] MEDS: OXYBUTYNIN CHLORIDE XL 5 MG TABCR PO SCH (09:41)
[2018-07-15] MEDS: CITALOPRAM 20 MG TAB PO SCH (09:42)
[2018-07-15] MEDS: PANTOprazole 40 MG TAB PO SCH (09:42)
[2018-07-15] MEDS: methylPREDNISolone 40 MG in SYRINGE 0 ML IV SCH (09:45)
[2018-07-15] MEDS: FINASTERIDE 5 MG TAB PO SCH (09:45)
[2018-07-15] MEDS: BUDESONIDE/FORMOTEROL FUMARATE 160/4.5 60 PUFFS/INHALER INH SCH (09:46)
[2018-07-15] MEDS: APIXABAN 5 MG TABLET PO SCH (09:46)
--- NOTE | 2018-07-15 14:32 | Progress Note ---
DATE: 07/15/2018 Mr. Hurley was seen today. He remains relatively hypoxic on supplemental oxygen. Apparently he is to be discharged to a facility today. Again, as I stated, we have very little to offer Mr. Hurley. He has multiple issues which contribute to his hypoxemia.
--- NOTE | 2018-07-15 16:34 | Discharge Summary ---
Date of Service July 15, 2018 Admission HPI Per Admitting Provider This is a 77 yo M with PMHx of COPD, emphysema,, CAD s/p CABG x 5 in 1993, HTN, HLD, paroxysmal afib, hx of acute on chronic respiratory failure with hypoxia, anemia of chronic disease, BPH with needs for straight cath 1-2x daily at home, GERD, syncope, peripheral neuropathy, who presents with worsening shortness of breath. On 07/05/18 the patient underwent video mediastinoscopy with biopsy of a hypermetabolic left peribronchial mass by Dr. Amaya. 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 The patient notes that since the procedure his breathing has been slightly worse, where he experiences dyspnea on exertion, however does have some BELLA at baseline. He wears O2 6 L continuously at baseline. He tells me he has not gotten up to walk around his home much in the past day as he was instructed to "take it easy". He has a slightly depressed appetite although is drinking fluids. Pt notes he requires at home self catheterizations 1-2x daily at baseline and follows with Dr. Be as an outpt. He denies any abdominal pain, n/v/d/c, dysuria, hematuria or difficulty with self caths. Pt VSS, WBC is 12K. CXR and CT of the chest is reviewed and negative except for bibasilar infiltrates. Principal Diagnosis Hypoxemia from COPD, fibrosis, lung tumor Discharge Exam Constitutional WD/WN, vitals as above + thin; no acute distress Eyes PERRL, conjunctivae normal, anicteric sclerae normal visual avery by confrontation and + anicteric sclerae ENMT external ear and nose normal, oropharynx normal Neck trachea midline, no thyromegaly normal visual inspection and trachea midline Respiratory + abnormal respiratory effort Auscultation: + crackles and + wheezes Cardiovascular Rate/Rhythm: regular rate; + abnormal rhythm Gastrointestinal (Abdomen) normal bowel sounds, soft, nontender, no hepatosplenomegaly Inspection/Auscultation: abdomen not distended Percussion/Palpation: abdomen soft; abdomen nontender Musculoskeletal Head/Neck/Chest: normocephalic and head atraumatic Extremities: + muscle atrophy; no cyanosis Skin no rashes, warm and dry Neurologic CN's II-XI intact bilaterally and awake; no focal motor deficits and not confused Speech / Cognition: normal speech Psychiatric A+Ox3, euthymic affect Discharge Data Allergies Allergy/AdvReac Type Severity Reaction Status Date / Time cyclobenzaprine AdvReac Unknown halluninati Verified 07/08/18 10:00 ons oxycodone AdvReac Unknown HALLUCINATI Verified 07/08/18 10:00 ONS Consultations 07/08/18 12:37 ED Decision to Admit Stat 07/08/18 13:40 Consult Thoracic Surgery Routine 07/08/18 13:41 Consult Case Management - Discharge Planning Routine 07/09/18 11:46 Consult [facility] electrician helper Routine 07/12/18 08:44 Consult Pulmonology Routine Ordered Studies 07/08/18 11:14 CT chest w con Stat Hospital Course (1) Hypoxia: Likely a combination of obstructive disease (COPD) with fibrosis as well. Pulmonary mass (concern for cancer) and his acute PE are both possibly contributing slightly, though only in so much as it is pushing his already severe disease into a slightly worse state. Discussed with Dr. Herrera and Dr. Amaya who feel a short course of steroids may benefit, but otherwise unlikely to be significant improvements in lung function. Patient has no desire to go elsewhere for further investigation or care. - Continued steroids and antibiotics while inpatient. Stopped on discharge. - Will move onto hospice after leaving the [facility] (2) Pulmonary emboli: Pulmonary emboli, present on admission. Originally missed on chest CT on 07/08. On re-read by radiology, they were noted. - Started on Eliquis on 07/11 when PEs were first noted. - No bleeding inpatient (3) Lung mass: Recent biopsy on 07/[address] Amaya was non-diagnostic; however, concern is that it is cancer. Surgical options limited due to location of tumor. - Will follow-up with outpatient thoracic surgery (4) Syncope: Four episodes in the last few months. Thought to be due to hypoxemia causing transient loss of consciousness vs. hypotension from his BP meds. - O2 as needed (currently on 6L [place] which [place] to his home 5L) - Adjusted (lowered) BP meds to prevent hypotension - Stopped tamsulosin on 07/12 - On 07/14, orthostatic still positive, though BP goes from 120/70 -> 100/60 which is an improvement. - On 07/15, his BP was higher, no symptoms, and no syncope. (5) Acute urinary retention: Due to BPH. The patient was seen by urology and had a Bauer catheter placed. - Stopped tamsulosin for orthostatic BP changes - Stopped oxybutynin for bladder retention - Bauer catheter will remain in place at the time of discharge and he will follow-up with urology for outpatient trial of voiding. (6) Atrial fibrillation, new onset: Paroxsymal. Echo showed EF ~50%. - Continue metoprolol for rate control - On anticoagulation for PE and afib (7) COPD (chronic obstructive pulmonary disease): The patient has COPD with chronic respiratory failure on home oxygen. Sees Dr. Sandoval as outpatient. (8) Coronary artery disease: 5v CABG in 1993. Had been tolerating DAPT well. - Held ASA to start anticoagulation - Continued Plavix, beta-phani, ACEi, statin - Lowered lisinorpril to 2.5mg on 07/14 given his continued orthostasis (9) DVT prophylaxis: On Eliquis for PE Total Time Total Time Spent Total Time Spent (In Minutes): 45 Total Time Includes: Examination of the Patient, Discharge Planning and Communication With Other Providers Discharge Plan Discharge Items Patient Disposition: Transfer Inpatient Rehab Fac Reason For Visit: SHORTNESS OF BREATH Discharge Diagnosis: Acute urinary retention, COPD, and lung mass Discharge Goals: Decrease discomfort, Improve function and Increase independence Activity: Resume your previous activity Lifting: Gradually increase as tolerated Non-emergency contact: Primary Care Provider, Retail Sales Clerk and Urologist Call non-emergency contact if: you have any medication questions and you have a fever Follow-up/Referrals: Doron Posada MD [Physician] - Francois Oliva III, MD [Primary Care Provider] - Diet: Heart Healthy Addtl Provider Instructions: Bladder catheter to leg bag. Follow-up with urology for outpatient removal in 1- 2 weeks. We stopped your oxybutynin to prevent urinary retention. However, we also stopped your tamsulosin for low BP and orthostatic hypotension. Due to your PE, we stopped aspirin in place of apixaban. Please continue the Plavix as prior. We lowered the atorvastatin a little to try to prevent any myalgias or muscle issues given your weakness. We also lowered your lisinopril to 10 mg to prevent low blood pressures. Your oxygen levels will likely always be in the 90% range. You need to be careful to move slowly and with assistance to prevent it from dropping low enough to cause you to pass out. Prescriptions: New ipratropium-albuterol 0.5 mg-3 mg(2.5 mg base)/3 mL Solution For Nebulization 3 ml NEB QIDR Qty: 1 RF: 0 Eliquis 5 mg Tablet 5 mg PO BID Qty: 0 RF: 0 Continued citalopram 10 mg tablet 10 mg PO DAILY RF: 0 clopidogrel 75 mg tablet 75 mg PO DAILY RF: 0 finasteride 5 mg Tablet 5 mg PO DAILY RF: 0 methenamine hippurate 1 gram Tablet 1 g PO QPM RF: 0 nitroglycerin [Nitrostat] 0.4 mg Tablet, Sublingual 0.4 mg sublingual UD PRN (Reason: Chest Pain) RF: 0 omeprazole 20 mg Capsule,Delayed Release(Dr/Ec) 20 mg PO DAILY RF: 0 albuterol sulfate 90 mcg/actuation Hfa Aerosol Inhaler 2 puff INHALATION Q4 PRN (Reason: Shortness Of Breath Or Wheezing) RF: 0 hydrocodone-acetaminophen [Vicodin] 5-300 mg Tablet 1 - 2 tab PO Q4 PRN (Reason: Pain) RF: 0 Symbicort 160-4.5 mcg/actuation Hfa Aerosol Inhaler 2 puff INHALATION BID RF: 0 Incruse Ellipta 62.5 mcg/actuation Blister With Device 1 inh INHALATION DAILY RF: 0 tramadol [Ultram] 50 mg tablet 50 mg PO QID PRN (Reason: pain) Qty: 18 RF: 0 metoprolol succinate 25 mg Tablet Extended Release 24 Hr 25 mg PO DAILY RF: 0 amlodipine 5 mg tablet 5 mg PO DAILY RF: 0 Changed atorvastatin 80 mg Tablet 40 mg PO DAILY Qty: 0 RF: 0 lisinopril 20 mg Tablet 10 mg PO DAILY Qty: 0 RF: 0 Discontinued tamsulosin 0.4 mg capsule 0.4 mg PO DAILY RF: 0 aspirin 81 mg Tablet,Delayed Release (Dr/Ec) 81 mg PO DAILY RF: 0 oxybutynin chloride [Ditropan XL] 5 mg Tablet Extended Release 24hr 5 mg PO DAILY RF: 0 Stand-Alone Forms: My [facility]/Other Patient Handouts: Catheter Bag Urinary Empty Clean, Leg Bag Care Dc Discharge Orders: Discharge Order (Routine); Ordered 07/15/18 Ordered By: Galindo Posada Skilled Items Patient informed of condition?: Yes DNR: Yes Discharge Level of Care: Acute rehab Communicable Disease: No Discharge Prognosis: Stable Admission Data Admit Date/Time: 07/10/18 08:17 Attending Provider: Galindo Posada Admit Provider: Miguel Blanc Primary Care Provider: Francois Oliva III Other Providers: Oswald Amaya ; Corrina Bishop Michael J. Service: Telemetry Other Interventions: Discharge Summary Assessment (RN) Last Done: 07/15/18 13:26
[2018-07-18] MEDS ORDERED: APIXABAN 5 MG TABLET PO SCH (21:00)
== END 2018-07-15 16:40 | DRG 180 ==
LOC: ED 09:27 → 2E 09:27 → SUATTDRO 13:40 → 2E 14:52 → SUATTDRO 07-10 08:17